=== PATIENT | female | born 1945 | race Caucasian/White ===

== ENCOUNTER 2017-05-23 09:53 | Emergency (ER) | payer MEDICARE, OTHER ==
[2017-05-23 10:52] LABS: BASOPHILS # (AUTO) 0.1 10^3/uL (0.0-0.1); BASOPHILS % (AUTO) 1.2 %; EOSINOPHILS # (AUTO) 0.3 10^3/uL (0.0-0.7); EOSINOPHILS % (AUTO) 3.6 %; HCT - HEMATOCRIT 39.5 % (37.0-47.0); HGB - HEMOGLOBIN 13.4 g/dL (12.0-16.0); LYMPHOCYTES # (AUTO) 1.4 10^3/uL (1.5-3.5); LYMPHOCYTES % (AUTO) 19.6 %; MEAN CORPUSCULAR HEMOGLOBIN 31.9 pg (27.0-31.0); MEAN CORPUSCULAR HGB CONC 33.8 g/dL (32.0-36.0); MEAN CORPUSCULAR VOLUME 94.3 fL (81.0-99.0); MEAN PLATELET VOLUME 7.6 fL (7.9-10.8); MONOCYTES # (AUTO) 0.8 10^3/uL (0.0-1.0); MONOCYTES % (AUTO) 10.4 %; NEUTROPHILS # (AUTO) 4.8 10^3/uL (1.5-6.6); NEUTROPHILS % (AUTO) 65.2 %; NUCLEATED RED BLOOD CELLS AUTO 0.1 /100WBC; RED BLOOD COUNT 4.19 10^6/uL (4.20-5.40); RED CELL DISTRIBUTION WIDTH 13.1 % (12.0-15.0); UNCORRECTED WHITE BLOOD COUNT 7.3 x10^3/uL; WHITE BLOOD COUNT 7.3 x10^3/uL (4.8-10.8)
[2017-05-23 10:59] LABS: CREATININE 0.9 mg/dL (0.4-1.0); POTASSIUM 4.2 mmol/L (3.5-5.0)
--- NOTE | 2017-05-23 11:19 | CT Preliminary Report ---
Exam: CT Head W/O Impression: 1. Chronic changes, as described, stable when compared previous study 05/31/2015. 2. No acute intracranial pathology is demonstrated. In particular, there is no intracranial hemorrhag e and no evidence of acute, large vessel territory cortical infarction. SITE ID: [id number]
[2017-05-23 11:47] LABS: BILIRUBIN,URINE NEGATIVE (NEGATIVE)
[2017-05-23 11:51] LABS: UA w/ MICROSCOPIC CHARGE YES
[2017-05-23] MEDS ORDERED: TROPICAMIDE 1% OPHTH 15 ML DROPS LEFTEYE ONE (12:07)
[2017-05-23] MEDS ORDERED: PHENYLEPHRINE 2.5% OPHTH 2 ML DROPS LEFTEYE ONE (12:08)
[2017-05-23 12:11] LABS: UR CULTURE IF IND NOT INDICATED; WBC,URINE 0-3 /HPF (0-5)
--- NOTE | 2017-05-23 12:13 | ED Physician Documentation ---
History of Present Illness - Stated complaint Stated Complaint: VISION CHANGING - Chief complaint Chief Complaint: General - History obtained from History obtained from: Patient - History of Present Illness Timing: Prior to arrival - Additonal information Additional information: Is a healthy female with a history of some undiagnosed memory issues and anxiety who presents with a complaint of bright flashes in the left eye onset this morning. This happened while at rest. She does not have any other eye complaints. There is no eye pain or loss of visual acuity in the size she has not had any nausea vomiting she has not had a headache. She has presbyopia otherwise no eye problems. 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 She has no known eye problems other than normal presbyopia with age. There is no headache. There is no temporal complaints of pain. She has no other neurologic symptoms whatsoever. There is no recent or remote trauma. Review of systems: For pertinent positive and negatives in the review of systems please see the history of present illness, otherwise all other systems have been reviewed and are negative. Dragon disclaimer: Parts of this medical record were created using voice recognition technology. Because of the inherent limitations of this system, occasional same sounding word substitutions do occur and persist despite proofreading. Please read the document for context. 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 - Present Medications Home Medications: Ambulatory Orders Medication Instructions Recorded Confirmed Donepezil HCl 10 mg PO DAILY 05/30/16 05/23/17 Levothyroxine [Synthroid] 100 mcg PO QDAC 05/30/16 05/23/17 buPROPion [Wellbutrin Sr] 150 mg PO BID 05/23/17 05/23/17 - Allergies Allergies/Adverse Reactions: Allergies Allergy/AdvReac Type Severity Reaction Status Date / Time No Known Drug Allergies Allergy Verified 05/30/16 20:09 - Social History Does the pt smoke?: No Smoking Status: Never smoker Does the pt drink ETOH?: No Does the pt have substance abuse?: No - Immunizations Immunizations are current?: Yes - POLST Patient has POLST: No PD ED PE NORMAL - Vitals Vital signs reviewed: Yes - General General: Alert and oriented X 3, No acute distress, Well developed/nourished - HEENT HEENT: Atraumatic, PERRL, EOMI, Pharynx benign, Dentition benign - Neck Neck: Supple, no meningeal sign, No bony TTP, No JVD, No bruit - Cardiac Cardiac: RRR, No murmur - Respiratory Respiratory: No respiratory distress, Clear bilaterally - Abdomen Abdomen: Normal bowel sounds, Soft, Non tender, Non distended - Derm Derm: Normal color, Warm and dry - Extremities Extremities: No deformity, No tenderness to palpate - Neuro Neuro: Alert and oriented X 3, 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, No motor deficit, No sensory deficit Results - Vitals Vitals: Vital Signs - 24 hr 05/23/17 05/23/17 09:59 12:59 Temperature 36.8 C Heart Rate 54 L 48 L Respiratory 16 12 Rate Blood Pressure 136/77 H 127/73 O2 Saturation 96 95 Oxygen O2 Source Room air - Labs Labs: Laboratory Tests 05/23/17 05/23/17 05/23/17 10:45 10:45 10:45 WBC 7.3 RBC 4.19 L Hgb 13.4 Hct 39.5 MCV 94.3 MCH 31.9 H MCHC 33.8 RDW 13.1 Plt Count 168 MPV 7.6 L Neut # 4.8 Lymph # 1.4 L [place] # 0.8 Eos # 0.3 Baso # 0.1 Absolute Nucleated RBC 0.01 Nucleated RBCs 0.1 ESR 12 Sodium 138 Potassium 4.2 Chloride 105 Carbon Dioxide 25 Anion Gap 8.0 BUN 10 Creatinine 0.9 Estimated GFR (MDRD) 62 L Glucose 94 Calcium 9.0 Urine Color Urine Clarity Urine pH Ur Specific [place] Urine Protein Urine Glucose (UA) Urine Ketones Urine Occult Blood Urine Nitrite Urine Bilirubin Urine Urobilinogen Ur Leukocyte Esterase Urine RBC Urine WBC Ur Squamous Epith Cells Urine Bacteria Ur Microscopic Review Urine Culture Comments 05/23/17 11:39 WBC RBC Hgb Hct MCV MCH MCHC RDW Plt Count MPV Neut # Lymph # [place] # Eos # Baso # Absolute Nucleated RBC Nucleated RBCs ESR Sodium Potassium Chloride Carbon Dioxide Anion Gap BUN Creatinine Estimated GFR (MDRD) Glucose Calcium Urine Color YELLOW Urine Clarity CLEAR Urine pH 7.0 Ur Specific [place] <=1.005 Urine Protein NEGATIVE Urine Glucose (UA) NEGATIVE Urine Ketones NEGATIVE Urine Occult Blood SMALL H Urine Nitrite NEGATIVE Urine Bilirubin NEGATIVE Urine Urobilinogen 0.2 (NORMAL) Ur Leukocyte Esterase NEGATIVE Urine RBC 0-5 Urine WBC 0-3 Ur Squamous Epith Cells FEW Squamous Urine Bacteria Rare Ur Microscopic Review INDICATED Urine Culture Comments NOT INDICATED PD MEDICAL DECISION MAKING - ED course ED course: Patient is a pleasant woman who comes in with floaters and flashes of light in left eye. The symptoms are temporal. Currently she has normal visual acuity and a normal eye examination. Her left eye was dilated with tropicamide and phenylephrine and was dilated her eye was examined thoroughly. I see no evidence of any obvious large retinal detachment. Retinal vessels are normal. The optic disc is sharp there is no discoloration or bleeding or any obvious abnormality to be. A extraocular workup including blood work and a CT scan were done and are unremarkable. I do think this is primarily an ocular problem and possibly indicative of mild early partial peripheral retinal detachment. I did discuss the physician at [facility] he is going to see her right now in the office and she is already dilated. Disposition: Discharged home immediate follow-up with ophthalmology now Clinical impression: 1. Possible retinal detachment left eye Departure - Departure Disposition: 01 Home, Self Care Clinical Impression: Retinal and vitreous disorder Condition: Good Instructions: Flashes and Floaters Follow-Up: Neville Reyna MD [Provider Admit Priv/Credential] -
[2017-05-23] MEDS ORDERED: TROPICAMIDE 1% OPHTH 2 ML DROPS ONE ×3 (12:17→12:53)
--- NOTE | 2017-05-23 13:21 | CT Report ---
CT HEAD WITHOUT CONTRAST INDICATION: 71-year-old female with visual changes. TECHNIQUE: Sequential 5 mm axial images were obtained through the brain. In accordance with CT protocol optimization, one or more of the following dose reduction techniques w ere utilized for this exam: automated exposure control, adjustment of mA and/or KV based on patient s ize, or use of iterative reconstructive technique. COMPARISON: 05/31/2015. FINDINGS: There is generalized cerebral and cerebellar volume loss with associated, mild ex vacuo ventriculomeg oscar, stable. A mild amount of white matter disease is identified in the supratentorial brain, manifested as ill-de fined areas of low-attenuation in the periventricular and deep white matter bilaterally. A frontopari etal distribution predominates. Attenuation of cortex and white matter is otherwise unremarkable. No intracranial hemorrhage or abnormal extra-axial fluid collection. The skull and skull base are intact. The mastoid air cells and middle ear cavities are clear. The yudelka ged paranasal sinuses appear clear. IMPRESSION: 1. Chronic changes, as described, stable when compared to previous study 05/31/2015. 2. No acute intracranial pathology is demonstrated. In particular, there is no intracranial hemorrhag e and no evidence of acute, large vessel territory cortical infarction. Referring Provider Line: [phone] SITE ID: [id number]
[2017-05-23 14:52] VITALS: BP 141/77
== END 2017-05-23 14:40 | disposition home or self-care (01) ==
LOC: ED 09:53
DX: H43.9 Unspecified disorder of vitreous body (principal); H35.9 Unspecified retinal disorder; E03.9 Hypothyroidism, unspecified; F41.9 Anxiety disorder, unspecified
CPT/HCPCS: 36415; 70450; 80048; 81001; 85025; 85651; 93005; 99283; 99284; A9270; 81003; 87086

== ENCOUNTER 2017-06-27 10:18 | Outpatient (CLI) | payer MEDICARE, OTHER ==
--- NOTE | 2017-06-27 12:55 | XRAY Report ---
THREE-VIEW RIGHT ANKLE: 06/27/2017 CLINICAL INDICATION: Pain. FINDINGS: AP, lateral, oblique views of the right ankle demonstrate no evidence of fracture or dislo cation. No effusion is present. Small plantar calcaneal spur is present. No foreign body is seen i n the soft tissues. IMPRESSION: NO EVIDENCE OF FRACTURE. JOB #: [id number] EXT JOB #:[id number]
== END 2017-06-27 10:19 | disposition home or self-care (01) ==
LOC: DI 10:18
PROVIDERS: ATTEND Nurse Practitioner Family
DX: M25.571 Pain in right ankle and joints of right foot (principal)

== ENCOUNTER 2017-07-12 12:20 | Emergency (ER) | payer MEDICARE, OTHER ==
[2017-07-12 12:29] VITALS: BP 157/71
--- NOTE | 2017-07-12 13:09 | ED Physician Documentation ---
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 HEENT: Tonsil/Adenoidectomy - Present Medications Home Medications: Ambulatory Orders Medication Instructions Recorded Confirmed Donepezil HCl 10 mg PO DAILY 05/30/16 07/12/17 Levothyroxine [Synthroid] 100 mcg PO QDAC 05/30/16 07/12/17 Aspirin [Aspirin EC] 81 mg PO DAILY 07/12/17 07/12/17 diltiaZEM [Cardizem] 30 mg PO DAILY 07/12/17 07/12/17 - Allergies Allergies/Adverse Reactions: Allergies Allergy/AdvReac Type Severity Reaction Status Date / Time No Known Drug Allergies Allergy Verified 05/30/16 20:09 - Social History Does the pt smoke?: No Smoking Status: Never smoker Does the pt drink ETOH?: No Does the pt have substance abuse?: No - Immunizations Immunizations are current?: Yes - POLST Patient has POLST: No Results - Vitals Vitals: Vital Signs - 24 hr 07/12/17 12:26 Temperature 36.5 C Heart Rate 64 Respiratory 18 Rate Blood Pressure 157/71 H O2 Saturation 96 Oxygen O2 Source Room air
--- NOTE | 2017-07-12 13:09 | XRAY Preliminary Report ---
Exam: XR Chest 2 View PA/LAT Impression: No evidence of an infiltrate. Atherosclerosis of the aorta. [facility] SITE ID: [id number]
--- NOTE | 2017-07-12 13:12 | XRAY Report ---
EXAM: CHEST RADIOGRAPHY EXAM DATE: 07/12/2017 12:51 PM. CLINICAL HISTORY: Chest Pain. COMPARISON: None. TECHNIQUE: 2 views. FINDINGS: The heart is not enlarged. There is atherosclerosis of the aorta. There is no focal infiltrate, pleur al effusion or pneumothorax seen. Degenerative changes of the thoracic spine are noted. Impression: No evidence of an infiltrate. Atherosclerosis of the aorta. [facility] Referring Provider Line: [phone] SITE ID: [id number]
--- NOTE | 2017-07-12 13:14 | ED Physician Documentation ---
History of Present Illness - Stated complaint Stated Complaint: R CHEST PX - Chief complaint Chief Complaint: General - Additonal information Additional information: hx from pt 71 female to ER with right breast pain wrapping from lateral to sternal since last night no rash no fever no cough no soa not chest pain per pt - it is breast pain no abd pain hx shingles but this feels worse Review of Systems Constitutional: denies: Fever Cardiac: reports: Other (R breast). 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 HEENT: Tonsil/Adenoidectomy - Present Medications Home Medications: Ambulatory Orders Medication Instructions Recorded Confirmed Donepezil HCl 10 mg PO DAILY 05/30/16 07/12/17 Levothyroxine [Synthroid] 100 mcg PO QDAC 05/30/16 07/12/17 Aspirin [Aspirin EC] 81 mg PO DAILY 07/12/17 07/12/17 Lidocaine Patch 5% [Lidoderm Patch] 1 each TOP DAILY PRN #10 patch 07/12/17 diltiaZEM [Cardizem] 30 mg PO DAILY 07/12/17 07/12/17 - Allergies Allergies/Adverse Reactions: Allergies Allergy/AdvReac Type Severity Reaction Status Date / Time No Known Drug Allergies Allergy Verified 05/30/16 20:09 - Social History Does the pt smoke?: No Smoking Status: Never smoker Does the pt drink ETOH?: No Does the pt have substance abuse?: No - Immunizations Immunizations are current?: Yes - POLST Patient has POLST: No PD ED PE NORMAL - Vitals Vital signs reviewed: Yes - General General: Alert and oriented X 3 - HEENT HEENT: PERRL - Neck Neck: Supple, no meningeal sign - Cardiac Cardiac: RRR - Respiratory Respiratory: No respiratory distress, Clear bilaterally - Abdomen Abdomen: Soft, Non tender - Derm Derm: Normal color, No rash - Neuro Neuro: Alert and oriented X 3 - Psych Psych: Normal mood - Free text exam Free text exam: R breast TTP lateral but no spcefic mass erythema or wramth, no nipple dc, no sig axillary adenopathy Results - Vitals Vitals: Vital Signs - 24 hr 07/12/17 12:26 Temperature 36.5 C Heart Rate 64 Respiratory 18 Rate Blood Pressure 157/71 H O2 Saturation 96 Oxygen O2 Source Room air - EKG (time done) 1252 Rate: Rate (enter#) (51) Rhythm: NSR [place]: Normal Intervals: Normal [place] Ischemia: T wave inversion (inferior, flat laterally) - Rads (name of study) CXR Radiology: See rad report (no infiltrate) breast Radiology: See rad report (normal) Departure - Departure Disposition: 01 Home, Self Care Clinical Impression: Breast pain in female Condition: Good Follow-Up: Lala Rosas PA [Primary Care Provider] - (to get your blood pressure rechecked - it was high today ) Prescriptions: Lidocaine Patch 5% [Lidoderm Patch] 1 each TOP DAILY PRN #10 patch PRN Reason: Pain Comments: The xray of your chest did not show a lung problem and the ultrasound of your breast did not show a mass or abscess It is very possible that this pain is due to shingles and that over the next few days you notice a rash on your right side - if that happens please see your PMD or come to the ER to get a prescription for shingles viral medication Also please return if you are worse or develop new symptoms In the meantime I recommend tylenol and /or lidocaine patches for the pain
[2017-07-12] MEDS ORDERED: ACETAMINOPHEN 325 MG TABLET PO STA (13:33)
[2017-07-12] MEDS ORDERED: ACETAMINOPHEN 325 MG TABLET PO ONE (14:30)
--- NOTE | 2017-07-12 16:34 | Ultrasound Report ---
RIGHT BREAST ULTRASOUND: 07/12/2017 CLINICAL INDICATION: Pain 9 o'clock region. TECHNIQUE: Real-time scanning was performed with medical center representative static images obtained. FINDINGS: Ultrasound of the outer right breast was performed. Unremarkable parenchymal lobules are seen. No discrete solid or cystic mass is identified. No sonogra phically suspicious findings are seen. IMPRESSION: NEGATIVE EXAMINATION. RECOMMENDATION: CONTINUED CLINICAL MANAGEMENT OF BREAST PAIN. BIRADS CATEGORY 1-NEGATIVE. JOB #: [id number] EXT JOB #:[id number]
== END 2017-07-12 14:48 | disposition home or self-care (01) ==
LOC: ED 12:20
DX: N64.4 Mastodynia (principal); R94.31 Abnormal electrocardiogram [ECG] [EKG]; E03.9 Hypothyroidism, unspecified; R03.0 Elevated blood-pressure reading, without diagnosis of hypertension
CPT/HCPCS: 71020; 76642; 93005; 99283; 99284; A9270

== ENCOUNTER 2017-09-14 20:31 | Emergency (ER) | payer MEDICARE, OTHER ==
[2017-09-14] MEDS ORDERED: diphenhydrAMINE 25 MG CAPSULE PO STA (20:44)
--- NOTE | 2017-09-14 20:47 | ED Physician Documentation ---
PD HPI SKIN - Stated complaint Stated Complaint: RASH ON BODY/ALLERGIC REACTION - Chief complaint Chief Complaint: Wound - History obtained from History obtained from: Patient, Family - History of Present Illness Timing - onset: Other (71-year-old woman whose been having a lot of trouble with TIAs of blood clots lately. She has had a lot of nausea and saw today started on Zofran. About 45 minutes after the second dose developed a rash which is already almost gone. There is no associated shortness of breath or throat swelling.) Review of Systems Constitutional: denies: Fever, Chills Cardiac: denies: Chest pain / pressure, Palpitations Respiratory: denies: Dyspnea, Cough GI: denies: Abdominal Pain PD PAST MEDICAL HISTORY - Past Medical History Past Medical History: Yes Neuro: TIA, Other Endocrine/Autoimmune: HyPOthyroidism Psych: Anxiety Other Past Medical History: Hx of memory loss. 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 HEENT: Tonsil/Adenoidectomy - Present Medications Home Medications: Ambulatory Orders Medication Instructions Recorded Confirmed Levothyroxine [Synthroid] 100 mcg PO QDAC 05/30/16 07/12/17 Promethazine [Phenergan] 12.5 mg PO Q6H PRN #20 tablet 09/14/17 - Allergies Allergies/Adverse Reactions: Allergies Allergy/AdvReac Type Severity Reaction Status Date / Time No Known Drug Allergies Allergy Verified 09/14/17 20:39 - Social History Does the pt smoke?: No Smoking Status: Never smoker Does the pt drink ETOH?: No Does the pt have substance abuse?: No - Immunizations Immunizations are current?: Yes - POLST Patient has POLST: No PD ED PE NORMAL - Vitals Vital signs reviewed: Yes - General General: No acute distress, Well developed/nourished, Other (Mild memory difficulties, cooperative) - HEENT HEENT: PERRL, EOMI, Pharynx benign (Status post remote tonsillectomy) - Neck Neck: Supple, no meningeal sign, No bony TTP - Cardiac Cardiac: RRR, No murmur - Respiratory Respiratory: No respiratory distress, Clear bilaterally - Derm Derm: Other (A couple of hives on the trunk, none on the face or abdomen. This is much better already per the .) Results - Vitals Vitals: Vital Signs - 24 hr 09/14/17 20:35 Temperature 36.6 C Heart Rate 62 Respiratory 16 Rate Blood Pressure 137/68 H O2 Saturation 96 Oxygen O2 Source Room air PD MEDICAL DECISION MAKING - ED course ED course: 71-year-old woman with hives that are resolving status post Zofran. No evidence of anaphylaxis. was a little worried about giving her Benadryl given her memory difficulties suicidal on a half a dose and low-dose Phenergan for her recurrent nausea since she will not be able to take the Zofran anymore. Departure - Departure Disposition: 01 Home, Self Care Clinical Impression: Nausea Medication reaction Qualifiers: Encounter type: initial encounter Qualified Code(s): T88.7XXA - Unspecified adverse effect of drug or medicament, initial encounter Condition: Good Record reviewed to determine appropriate education?: Yes Instructions: ED Drug React Allergic Prescriptions: Promethazine [Phenergan] 12.5 mg PO Q6H PRN #20 tablet PRN Reason: Nausea / Vomiting Comments: Call your doctor to arrange a follow-up appointment, make the next available appointment. In the interim, return anytime if worse or if new symptoms develop. Your blood pressure was elevated today on check into the emergency department. This does not mean that you have hypertension, it is a common phenomenon to come to the emergency department and have elevated blood pressure. I recommend that you see your primary care physician within the week to have it rechecked when you are feeling better.
[2017-09-14] MEDS ORDERED: diphenhydrAMINE ELIXIR 25 MG/10 ML UDC PO STA (20:59)
[2017-09-14] MEDS ORDERED: diphenhydrAMINE ELIXIR 25 MG/10 ML UDC PO ONE (21:01)
[2017-09-14 21:07] VITALS: BP 134/78
== END 2017-09-14 21:04 | disposition home or self-care (01) ==
LOC: ED 20:31
DX: L50.9 Urticaria, unspecified (principal); T45.0X5A Adverse effect of antiallergic and antiemetic drugs, initial encounter; R11.0 Nausea; R03.0 Elevated blood-pressure reading, without diagnosis of hypertension; Z86.73 Personal history of transient ischemic attack (TIA), and cerebral infarction without residual deficits; E03.9 Hypothyroidism, unspecified
CPT/HCPCS: 99283; A9270

== ENCOUNTER 2017-10-08 11:27 | Outpatient (CLI) | payer MEDICARE, OTHER | END 2017-10-08 11:28 | disposition home or self-care (01) | LOC: LAB.F 11:27 | PROVIDERS: ATTEND Family Medicine | DX: I82.403 Acute embolism and thrombosis of unspecified deep veins of lower extremity, bilateral (principal) | CPT/HCPCS: 85610 ==

== ENCOUNTER 2017-10-15 13:08 | Outpatient (CLI) | payer MEDICARE, OTHER | END 2017-10-15 13:09 | disposition home or self-care (01) | LOC: LAB.F 13:08 | PROVIDERS: ATTEND Family Medicine | DX: I82.403 Acute embolism and thrombosis of unspecified deep veins of lower extremity, bilateral (principal) | CPT/HCPCS: 85610 ==

== ENCOUNTER 2017-10-22 14:46 | Outpatient (CLI) | payer MEDICARE, OTHER | END 2017-10-22 14:47 | disposition home or self-care (01) | LOC: LAB.F 14:46 | PROVIDERS: ATTEND Family Medicine | DX: I82.403 Acute embolism and thrombosis of unspecified deep veins of lower extremity, bilateral (principal) | CPT/HCPCS: 85610 ==

== ENCOUNTER 2017-11-11 11:14 | Emergency (ER) | payer MEDICARE, OTHER ==
[2017-11-11] MEDS ORDERED: ALBUTEROL NEB 2.5 MG/3 ML INH STA (13:05)
--- NOTE | 2017-11-11 13:08 | ED Physician Documentation ---
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 She has had a cough for about 10 days that has been worse for about 5 days, nonproductive and not associated with shortness of breath or fevers. 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 denies: Fever, Chills Nose: denies: Rhinorrhea / runny nose, Congestion Cardiac: denies: Chest pain / pressure, Palpitations Respiratory: reports: Cough. 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 HEENT: Tonsil/Adenoidectomy - Present Medications Home Medications: Ambulatory Orders Medication Instructions Recorded Confirmed Levothyroxine [Synthroid] 100 mcg PO QDAC 05/30/16 11/11/17 Metoprolol Succinate 50 mg PO DAILY 09/14/17 11/11/17 Albuterol 2 puffs INH Q4H 11/06/17 11/11/17 Benzonatate [Tessalon Perle] 2 mg PO Q4H 11/06/17 11/11/17 Cyanocobalamin (Vitamin B-12) 1 cap PO DAILY 11/06/17 11/11/17 [Vitamin B-12] Enoxaparin [Lovenox] 80 mg INJ BID 11/06/17 11/11/17 Furosemide [Lasix] 1 tab PO DAILY 11/06/17 11/11/17 Multivitamin [Multivitamins] 1 cap PO DAILY 11/06/17 11/11/17 Spironolactone 1 tab PO DAILY 11/06/17 11/11/17 traZODone [Desyrel] 1 tab PO DAILY 11/06/17 11/11/17 Dexamethasone 8 mg PO DAILYWM #24 tablet 11/07/17 11/11/17 Metoclopramide HCl [Metoclopramide 10 mg PO Q6H PRN #30 tab.rapdis 11/07/17 HCl Odt] ALPRAZolam [Alprazolam] 0.5 mg PO DAILY 11/11/17 11/11/17 Albuterol Sulfate [Proventil Hfa 1 - 2 puffs IH Q4H PRN #1 11/11/17 Inhaler] hfa.aer.ad Azithromycin [Zithromax] 250 mg PO DAILY #4 tablet 11/11/17 - Allergies Allergies/Adverse Reactions: Allergies Allergy/AdvReac Type Severity Reaction Status Date / Time ondansetron Allergy Unknown Verified 11/11/17 11:21 [From Zofran (as hydrochloride)] rivaroxaban [From Xarelto] Allergy Unknown Verified 11/11/17 11:21 - Social History Does the pt smoke?: No Smoking Status: Never smoker Does the pt drink ETOH?: No Does the pt have substance abuse?: No - Immunizations Immunizations are current?: Yes - POLST Patient has POLST: No PD ED PE NORMAL - Vitals Vital signs reviewed: Yes - General General: Alert and oriented X 3, No acute distress - HEENT HEENT: PERRL, EOMI - Cardiac Cardiac: RRR, No murmur - Respiratory Respiratory: No respiratory distress, Other (mild exp wheezes, non focal, non labored) - Abdomen Abdomen: Non tender - Extremities Extremities: Other (mild pitting pedal edema, symmetric) - Neuro Neuro: Alert and oriented X 3, Normal speech Results - Vitals Vitals: Vital Signs - 24 hr 11/11/17 11/11/17 11:16 12:49 Temperature 36.7 C Heart Rate 70 73 Respiratory 16 21 Rate Blood Pressure 130/62 125/58 L O2 Saturation 94 96 Oxygen O2 Source Room air - Labs Labs: Laboratory Tests 11/11/17 11/11/17 13:15 13:15 WBC 7.9 RBC 3.55 L Hgb 10.1 L Hct 29.1 L MCV 82.1 MCH 28.4 MCHC 34.6 RDW 15.6 H Plt Count 348 MPV 7.4 L Neut # 7.5 H Lymph # 0.1 L [place] # 0.1 Eos # 0.1 Baso # 0.0 Absolute Nucleated RBC 0.00 Nucleated RBC % 0.1 Sodium 129 L Potassium 3.8 Chloride 94 L Carbon Dioxide 27 Anion Gap 8.0 BUN 21 H Creatinine 0.8 Estimated GFR (MDRD) 71 L Glucose 109 H Calcium 8.1 L Total Bilirubin 0.8 AST 28 ALT 14 Alkaline Phosphatase 39 L Total Protein 6.2 L Albumin 2.9 L Globulin 3.3 Albumin/Globulin Ratio 0.9 L Lipase 37 - Rads (name of study) 2v chest Radiology: EMP read contemporaneously (tiny R basilar infiltrate) PD MEDICAL DECISION MAKING - ED course ED course: 71-year-old woman on chemotherapy presents with cough and is found to have a right basilar pneumonia however she looks well and her vital signs are unremarkable with reassuring labs and I think she can be safely discharged. She was administered Zithromax here and felt better after breathing treatment. The patient and family were counseled as to the diagnosis and need for follow- up. I counseled the patient with regard to signs and symptoms that would necessitate an urgent reevaluation in the emergency department. They understand they are welcome to return at any time if worse or if not improving as expected. This document was made in part using voice recognition software. While efforts are made to proofread this documents, sound alike and grammatical errors may occur. Departure - Departure Disposition: 01 Home, Self Care Clinical Impression: Pneumonia Qualifiers: Pneumonia type: due to unspecified organism Laterality: right Lung location: lower lobe of lung Qualified Code(s): J18.1 - Lobar pneumonia, unspecified organism Condition: Good Record reviewed to determine appropriate education?: Yes Instructions: Pneumonia Dc Prescriptions: Albuterol Sulfate [Proventil Hfa Inhaler] 1 - 2 puffs IH Q4H PRN #1 hfa.aer.ad PRN Reason: Cough Azithromycin [Zithromax] 250 mg PO DAILY #4 tablet Comments: Call your doctor to arrange a follow-up appointment, make the next available appointment. In the interim, return anytime if worse or if new symptoms develop.
[2017-11-11 13:21] LABS: BASOPHILS % (AUTO) 0.4 %; EOSINOPHILS # (AUTO) 0.1 10^3/uL (0.0-0.7); EOSINOPHILS % (AUTO) 0.8 %; HGB - HEMOGLOBIN 10.1 g/dL (12.0-16.0); LYMPHOCYTES # (AUTO) 0.1 10^3/uL (1.5-3.5); LYMPHOCYTES % (AUTO) 1.6 %; MEAN CORPUSCULAR HEMOGLOBIN 28.4 pg (27.0-31.0); MEAN CORPUSCULAR HGB CONC 34.6 g/dL (32.0-36.0); MEAN CORPUSCULAR VOLUME 82.1 fL (81.0-99.0); MEAN PLATELET VOLUME 7.4 fL (7.9-10.8); MONOCYTES # (AUTO) 0.1 10^3/uL (0.0-1.0); MONOCYTES % (AUTO) 1.7 %; NEUTROPHILS # (AUTO) 7.5 10^3/uL (1.5-6.6); NEUTROPHILS % (AUTO) 95.5 %; PLT - PLATELET COUNT 348 10^3/uL (130-450); RED BLOOD COUNT 3.55 10^6/uL (4.20-5.40); RED CELL DISTRIBUTION WIDTH 15.6 % (12.0-15.0); WHITE BLOOD COUNT 7.9 x10^3/uL (4.8-10.8)
[2017-11-11 13:35] LABS: ALBUMIN 2.9 g/dL (3.2-5.5); ALBUMIN/GLOBULIN RATIO 0.9 (1.0-2.2); BILIRUBIN,TOTAL 0.8 mg/dL (0.2-1.0); CALCIUM 8.1 mg/dL (8.5-10.3); CREATININE 0.8 mg/dL (0.4-1.0); TOTAL PROTEIN 6.2 g/dL (6.7-8.2)
--- NOTE | 2017-11-11 13:49 | XRAY Preliminary Report ---
Exam: XR CHEST 2 VIEW X-RAY IMPRESSION: Tiny right basilar infiltrate and effusion. [facility] SITE ID: [id number]
--- NOTE | 2017-11-11 14:00 | XRAY Report ---
EXAM: CHEST RADIOGRAPHY EXAM DATE: 11/11/2017 01:33 PM. CLINICAL HISTORY: Patient is currently undergoing chemotherapy. Wheezing and cough for 11 days. COMPARISON: 07/12/2017. TECHNIQUE: 2 views. FINDINGS: Lungs/Pleura: New tiny right pleural effusion. New subsegmental faint interstitial infiltrates right middle lobe. Left lung is clear. Normal lung volumes. No pneumothorax. Mediastinum: Heart and mediastinal contours are unremarkable. Other: None. IMPRESSION: Tiny right basilar infiltrate and effusion. [facility] Referring Provider Line: [phone] SITE ID: [id number]
[2017-11-11] MEDS ORDERED: AZITHROMYCIN 250 MG TABLET PO STA (14:13)
[2017-11-11 14:50] VITALS: BP 119/61
== END 2017-11-11 14:55 | disposition home or self-care (01) ==
LOC: ED 11:14
DX: J18.9 Pneumonia, unspecified organism (principal); E03.9 Hypothyroidism, unspecified; Z85.89 Personal history of malignant neoplasm of other organs and systems; Z79.899 Other long term (current) drug therapy
CPT/HCPCS: 36415; 71046; 80053; 83690; 85025; 94640; 94664; 99283; 99284; A9270; J7613

== ENCOUNTER 2017-11-13 08:00 | Outpatient (CLI) | payer MEDICARE, OTHER ==
[2017-11-13 12:13] LABS: BILIRUBIN,URINE NEGATIVE (NEGATIVE); GLUCOSE, URINE (UA) NEGATIVE (NEGATIVE); KETONES,URINE (UA) NEGATIVE (NEGATIVE); LEUKOCYTE ESTERASE, URINE NEGATIVE (NEGATIVE); NITRITE,URINE NEGATIVE (NEGATIVE); OCCULT BLOOD,URINE NEGATIVE (NEGATIVE); PROTEIN,URINE NEGATIVE (NEGATIVE); UROBILINOGEN,URINE 0.2 (NORMAL) E.U./dL (NORMAL)
[2017-11-13 12:15] LABS: CLARITY,URINE CLEAR (CLEAR)
== END 2017-11-13 08:01 | disposition home or self-care (01) ==
LOC: LAB.R 08:00
PROVIDERS: ATTEND Physician Assistant
DX: N39.0 Urinary tract infection, site not specified (principal)
CPT/HCPCS: 81001; 81003; 87086

== ENCOUNTER 2017-11-29 14:57 | Outpatient (CLI) | payer MEDICARE, OTHER ==
--- NOTE | 2017-11-29 18:38 | Ultrasound Preliminary Report ---
Exam: US DUPLEX EXT VEINS BILATERAL IMPRESSION: No evidence for deep vein thrombosis. [facility] SITE ID: [id number]
--- NOTE | 2017-11-29 18:38 | Ultrasound Report ---
EXAM: BILATERAL UPPER EXTREMITY VENOUS ULTRASOUND EXAM DATE: 11/29/2017 05:18 PM. CLINICAL HISTORY: Bilateral upper extremity venous Doppler for port placement. History of multiple DV Ts. COMPARISON: None. TECHNIQUE: Real-time sonographic vascular imaging was performed by the millinery worker through the upper extremities utilizing both color-flow and Doppler spectral analysis. Multiple registration representative static i mages were saved for review. FINDINGS: Right: Internal Jugular Vein (IJV): Normal. Subclavian Vein (SCV): Normal. Axillary Vein: Normal. Cephalic Vein (superficial vein): Normal. Basilic Vein (superficial vein): Normal. Brachial Vein: Normal. Left: Internal Jugular Vein (IJV): Normal. Subclavian Vein (SCV): Normal. Axillary Vein: Normal. Cephalic Vein (superficial vein): Normal. Basilic Vein (superficial vein): Normal. Brachial Vein: Normal. Other: None. IMPRESSION: No evidence for deep vein thrombosis. [facility] Referring Provider Line: [phone] SITE ID: [id number]
== END 2017-11-29 14:58 | disposition home or self-care (01) ==
LOC: DI 14:57
PROVIDERS: ATTEND Surgery
DX: I82.90 Acute embolism and thrombosis of unspecified vein (principal)
CPT/HCPCS: 93970

== ENCOUNTER 2017-12-02 08:51 | Day surgery (SDC) | payer MEDICARE, OTHER ==
[2017-12-02] MEDS ORDERED: LACTATED RINGERS 1,000 ML IV ONE (09:05)
[2017-12-02] MEDS ORDERED: ceFAZolin 2 GM/50 ML 2 GM/50 ML BAG IV ONE (09:10)
[2017-12-02] MEDS ORDERED: SCOPOLAMINE PATCH TOP ONE (09:23)
[2017-12-02] MEDS ORDERED: BUPIVACAINE 0.25% PF 30 ML VIAL SUBQ ONE ×2 (10:27)
[2017-12-02] MEDS ORDERED: LIDOCAINE MPF 1%-EPI 1:200000 30 ML VIAL SUBQ ONE ×2 (10:28)
[2017-12-02] MEDS ORDERED: fentaNYL 100 MCG/2 ML VIAL IVP ONE (10:30)
[2017-12-02] MEDS ORDERED: PROPOFOL 200 MG/20 ML VIAL IVP ONE (10:30)
--- NOTE | 2017-12-02 11:25 | OPERATIVE REPORT ---
Operative Report - General Procedure Date: 12/02/17 Planned Procedure: port a cath Pre-Op Diagnosis: metastatic cancer Procedure Performed: left internal jugular accessed port placement Post Op Diagnosis: same - Procedure Note Primary Surgeon: tiburcio Anesthesia Technique: MAC - Other Other Information/Narrative: After obtaining informed consent with the patient she was brought into the operating room and positioned on the operating table in the supine position with her arms tucked and a shoulder roll placed taking noted pressure points. She was administered sedation and perioperative antibiotics. She was prepped and draped in the usual sterile fashion and a timeout was taken according to protocol. Bony landmarks were identified including the sternal notch and the angle of the clavicle. The patient was positioned in Trendelenburg position and the finder needle was inserted below the clavicle attempting to access the subclavian vein on the left. I was unable to do so after multiple passes of the needle. I then turned my attention to the patient's left internal jugular. Under ultrasound guidance the left internal jugular vein was accessed without difficulty. The guidewire was inserted and under fluoroscopy the guidewire was noted to be descending down towards the diaphragm and crossing the midline. A 2 cm incision was then created on the patient's left chest wall to create the Port-A-Cath pocket. Subcutaneous tissue was divided with electrocautery and a pocket created. Additional lidocaine was inserted at the proposed tunneling site. The tunneling device was then utilized to tunnel the catheter from the pocket to the needle insertion site after extending that incision with an 11 blade. Of note the catheter was flushed with heparinized saline. The dilator and peel-away sheath were then inserted over the guidewire and a Seldinger fashion and under direct fluoroscopy this was inserted. The sheath was noted to be advancing easily along the guidewire. The guidewire and dilating catheter were removed and the port catheter was inserted through the peel-away sheath. The peel-away sheath was then removed. Fluoroscopy again was performed and the tip of the catheter was noted to be flipped up towards the patient's right subclavian. The catheter was then pulled back until it was lying at the left subclavian innominate junction. Due to the fact that the catheter had already been tunneled I was unable to advance the catheter further at this time. The catheter was then cut to the appropriate length and connected to the port. The port was accessed with a Curtis needle and good blood flow was observed along with easy infiltration of heparinized saline. The port was then tacked to the anterior chest wall with 2 individual 2-0 Prolene sutures. The subcutaneous tissue was closed with 2-0 Vicryl and the skin incisions were closed with 4-0 Monocryl. Dermabond was applied. The port was again accessed through the skin with a Curtis needle and demonstrated good blood flow with good flow of heparinized saline. The patient was subsequently taken to the recovery room in stable condition and a chest x-ray ordered. Estimated blood loss 5 cc Complications: none
--- NOTE | 2017-12-02 11:59 | XRAY Report ---
FRONTAL CHEST: 12/02/2017 CLINICAL INDICATION: Line placement. FINDINGS: Frontal view of the chest demonstrates a left jugular port terminating in the region of the confluence between the left internal jugular vein and subclavian vein. The cardiac silhouette is not enlarged. The lungs are clear. No effusion or pneumothorax is seen. IMPRESSION: LEFT JUGULAR PORT TERMINATING IN THE REGION OF THE CONFLUENCE OF THE LEFT INTERNAL JUGULAR VEIN AND SUBCLAVIAN VEIN. TD: 12/02/2017 11:58
[2017-12-02 12:16] VITALS: BP 116/69
--- NOTE | 2017-12-02 13:03 | XRAY Report ---
INTRAOPERATIVE IMAGING OF PORT PLACEMENT: 12/02/2017 CLINICAL INDICATION: Port placement. FINDINGS: Thirty-five seconds of fluoroscopy time was provided to Dr. Burks. Two spot images were obtained, demonstrating a left jugular catheter terminating at the level of the confluence of the left jugular vein and left subclavian vein. IMPRESSION: INTRAOPERATIVE IMAGING OF PORT PLACEMENT. TD: 12/02/2017 13:01
== END 2017-12-02 08:52 | disposition home or self-care (01) ==
LOC: SDS 08:51
PROVIDERS: ATTEND Surgery
PROC: 05HN33Z Insertion of Infusion Device into Left Internal Jugular Vein, Percutaneous Approach (ICD-10-PCS; 2017-12-02)
PROC: 0JH60WZ Insertion of Totally Implantable Vascular Access Device into Chest Subcutaneous Tissue and Fascia, Open Approach (ICD-10-PCS; principal; 2017-12-02 10:15)
DX: C79.9 Secondary malignant neoplasm of unspecified site (principal); Z86.718 Personal history of other venous thrombosis and embolism; Z79.02 Long term (current) use of antithrombotics/antiplatelets; J45.909 Unspecified asthma, uncomplicated; Z86.73 Personal history of transient ischemic attack (TIA), and cerebral infarction without residual deficits
CPT/HCPCS: 36561; C1769; C1788; J0690; J3490; J7120; 71045

== ENCOUNTER 2017-12-05 12:43 | Outpatient (CLI) | payer MEDICARE, OTHER ==
--- NOTE | 2017-12-05 15:56 | CONSULTATION NOTE ---
Palliative Care Consultation - Referral Referring Provider: Dr Edwards Time of Visit: 12/05/2017. 12:45 - 14:00 Referral setting: [facility] Referral Reason: stomach cramps - Information Sources Records reviewed: Previous records reviewed History/Review of Systems obtained from: Patient, Family, Nursing Exam limitations: No limitations - History of Present Illness Brief History of Present Illness: Thank you, Dr. Edwards, for asking the palliative care consult service to be involved in the care of your patient. I am asked to provide support regarding symptom management and goals of care. This is a bruna 71-year-old female with endometrial cancer with metastases to the peritoneum, with elevated CA-125. 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 She is being treated with palliative systemic chemotherapy -- carboplatin and Taxol -- and the day I saw her was day 8 of cycle 2, which began on November 27. She has severe neutropenia, with ANC below 500; she will start on Neulasta after day 8. She also has iron deficiency anemia and is being started on iron dextran with the chemotherapy. She had a cough which improved after a Z-Sterling for possible pneumonia, plus albuterol inhaler and Tessalon Perles for symptom control. Her ascites and lower extremity edema is being managed with Spironolactone 25 mg daily, Lasix was discontinued due to low BP. She is currently on Lovenox 60 mg twice daily. It was while she was hospitalized in October for the DVT that the cancer was diagnosed. Ascites and lower extremity edema was resolved with Lasix 40mg and spironolactone 25mg, but Lasix was subsequently discontinued due to low BP. The patient had a port placed this week, which has not healed enough to be used today for the chemotherapy infusion. Today's visit took place at the [facility] with both the patient and her present. He is extremely supportive and attentive to her needs. She does suffer from fatigue and in particular recalls 3 weeks ago being extremely fatigued after 2 infusions. Her reports she is stronger in the mornings and fades as the afternoon progresses. She usually wants to go to bed about 4pm and sleeps until 11am. She wakes throughout the night with coughing or needing to use the toilet, but doesn't recall these waking episodes. Patient gets help from her for ADLs, particularly showering. She is too weak to walk and uses the wheelchair, and requires assistance with transfers. She does report feeling better after chemotherapy treatments. She reports no nausea or vomiting but does have abdominal cramping, bloating and gas which occurs a few days prior to the chemo treatment. She has been using Tums, with mild relief. She denies nausea and vomiting, although sometimes it does occur prior to a new chemo session. She does have mouth sores, but denies other pain. She has no appetite, nothing tastes good, and she reports early satiety. Medical/Surgical History - Past Medical History Cardiovascular: reports: Hypertension, Deep vein thrombosis (bilateral popliteal DVT October 2017), Valve disorder (aortic valve vegetation), Other Respiratory: reports: None Neuro: reports: Alzhiemer's (late onset), CVA (cardioembolic CVA, October 2017, while on Coumadin) Endocrine/Autoimmune: reports: HyPOthyroidism GI: reports: None SUPERVISOR METAL HANGING: reports: Other (endometrial cancer, metastasized to peritoneum) : reports: None HEENT: reports: None Psych: reports: Depression, Anxiety Musculoskeletal: reports: None, Other (October 2017 had a positive GIOVANNY, so has follow up with rheumatology) Derm: reports: None MRSA Hx?: No - Past Surgical History /SUPERVISOR METAL HANGING: reports: Oophrectomy HEENT: reports: Tonsil/Adenoidectomy - Substance History Dependence: Experiences withdrawal or developed tolerances: NONE (Never smoker. No alcohol.) Social History - Living Situation Living arrangement: At home Living Situation: With spouse/s.o. (5 adult children: 3 in the [facility] area, one in [place], [place], and one in [place]. They have a good social network of friends who are cooking meals for them and helping out. They have lived on [facility] more than 30 years. They have been 52 years. They are closely involved with [employer].) Family History - Family History Family History: Mother: (father aged 92, of old age.), Alzheimer's Disease (mother dies age 70, with Alzheimer's), Father: , Sister: Alive and Well, Brother: Alive and Well Medications/Allergies - Medications Home Medications: Ambulatory Orders Medication Instructions Recorded Confirmed Levothyroxine [Synthroid] 100 mcg PO QDAC 05/30/16 12/05/17 Cyanocobalamin (Vitamin B-12) 1 cap PO DAILY 11/06/17 12/05/17 [Vitamin B-12] Enoxaparin [Lovenox] 80 mg INJ BID 11/06/17 12/05/17 Multivitamin [Multivitamins] 1 cap PO DAILY 11/06/17 12/05/17 Spironolactone 1 tab PO DAILY 11/06/17 12/05/17 Dexamethasone 8 mg PO DAILYWM #24 tablet 11/07/17 12/05/17 Metoclopramide HCl [Metoclopramide 10 mg PO Q6H PRN #30 tab.rapdis 11/07/17 HCl Odt] Albuterol Sulfate [Proventil Hfa 1 - 2 puffs IH Q4H PRN #1 11/11/17 12/05/17 Inhaler] hfa.aer.ad Benzonatate [Tessalon Perle] 1 - 2 cap PO Q4H PRN #60 capsule 12/05/17 12/05/17 traZODone [Desyrel] 1 tab PO DAILY PRN #30 tablet 12/05/17 12/05/17 - Allergies Allergies/Adverse Reactions: Allergies Allergy/AdvReac Type Severity Reaction Status Date / Time ondansetron Allergy Unknown Verified 11/29/17 15:13 [From Zofran (as hydrochloride)] rivaroxaban [From Xarelto] Allergy Unknown Verified 11/29/17 15:13 Review of Systems - Constitutional Constitutional: reports: Fatigue, Weakness, Poor appetite, Weight loss (Weight loss of 49 lbs since May 2017. 20 lb loss occurred in October 2017, related to Current weight is 159 lbs, weighed 12/04/17 on patient's home scale.) - Ears, Nose & Throat Ears, Nose & Throat: reports: Hearing loss, Mouth lesions - Cardiovascular Cardiovascular: reports: Decr. exercise tolerance. denies: Chest pain, Edema - Respiratory Respiratory: reports: Cough (improved after the antibiotic, but coughing started up again in the day or so) - Gastrointestinal Gastrointestinal: reports: Abdominal pain (cramping a few days prior to chemo treatments; pain improves after treatment), Bloating, Poor appetite, Early satiety. denies: Nausea, Vomiting - Genitourinary Genitourinary: denies: Dysuria, Frequency, Incontinence - Musculoskeletal Musculoskeletal: reports: Muscle weakness (in lower extremities), Assistive devices (wheelchair for ambulation), Transfer issues (requires assistance), Other (denies pain) - Integumentary Integumentary: reports: Hair changes (hair loss). denies: Pruritis - Neurological Neurological: reports: General weakness, Memory problems. denies: Headache, Dizziness - Psychiatric Psychiatric: denies: Behavior disturbances - Endocrine Endocrine: reports: Hypothyroidism - Hematologic/Lymphatic Hematologic/Lymphatic: reports: Blood clots Physical Exam - Vital Signs Temperature: 97.9 F Pulse Rate: 82 O2 Saturation: 95 Blood Pressure: 140/82 (this is elevated from her baseline) - Physical Exam General Appearance: positive: No acute distress, Alert, Other (seen during her chemotherapy. She became more drowsy as the session progressed.) Eyes Bilateral: positive: No lid inflammation, Conjunctivae nml, No scleral icterus ENT: positive: No signs of dehydration, Oral lesions (secondary to chemotherapy drugs) Neck: positive: No JVD, Trachea midline Cardiovascular: positive: Regular rate & rhythm, No murmur, No gallop Respiratory: positive: Chest non-tender, No respiratory distress, Breath sounds nml Skin: positive: No symptoms Extremities: positive: Nml appearance, No pedal edema Neurologic/Psychiatric: positive: Oriented x3, Mood/affect nml Palliative Care - POLST Patient has POLST: Yes Pain: No pain Tiredness/Fatigue: Severe (7-10) (She has more strength in the mornings. Her stamina wains in the afernoon.) Drowsiness/Sedation: Moderate (4-6) Nausea: None Anorexia: Severe (7-10) Sleep: Sleeps well (Wakes up in the night with coughing, etc, but doesn't recall ) Constipation: No Performance Status: Patient gets help from her for ADLs, particularly showering. No pain, but fatigue. Lower extremities weak, uses a wheelchair, requires help with transfers. Fatigued, wants to go to bed around 4pm, sleeps until 11am. Minimal nausea prior to the next infusion session, with bloating, cramping and gas. Symptoms relieved after chemo sessions. Palliative Performance Scale: 50% - Palliative Care Discussion: Previously she had led a very active life, enjoying hiking, bicycling and a supportive social network centered around [facility], which is "a big deal for us." They aren't currently attending services since they are avoiding crowds due to the patient's increased risk of sandra infections. They have 5 adult children, including two adopted from [place]. 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 They have been 52 years, and have lived on [facility] for over 30 years. Since her diagnosis, their friends have rallied around them, bringing meals and offering help and support. The patient and her have a warm and affectionate relationship, and she has a delightful, dry sense of humor. They enjoy laughing together. The showed me photos of them cycling together last summer, so this sudden change and decline in her health and vitality has been a shocking change from the life they have known, and it has been difficult and stressful adjustment for them both. He is extremely supportive and attentive to her needs and to how she is feeling or reacting. The patient appears calm and peaceful, and drifts off during the visit because it is in the afternoon and that is when her energy declines. She has short term memory issues, and so isn't necessarily a reliable historian. She has no complaints of pain apart from stomach aching and cramping in the days leading up a chemo therapy. After the therapy sessions she feels good. Her 's big concern at this point is getting enough calories in her. He estimates she is eating about 1,000 calories daily. We discussed ideas and approaches to increasing her intake and enhancing the flavor and attractiveness of the food. Tips were smaller, more frequent meals and high calorie snacks; adding ice cream, whip cream, to Ensure, and also using powdered milk to soups, shakes, etc to increase calories and protein intake. I provided education and encouragement for both patient and spouse. We also discussed symptom control of mouth sores, and I reminded them to use the resource booklet for guidance. She does have a POLST at home, but they don't recall what they filled out. The will try to bring it to the follow up visit. The is at risk for care consultant burnout, but was reticent about this subject in front of his . This should be further explored at future visits or over the phone. Impression and Recommendations - Palliative Care Impression: This is a bruna 71-year-old female with endometrial cancer with metastases to the peritoneum, She is in cycle 2 of chemotherapy twith carboplatin and Taxol, is being started on Neulasta for her neutropenia. Symptoms currently are mainly fatigue, anorexia, mouth sores, and stomach cramping prior to chemotherapy. Her is highly supportive and attentive, and risks care consultant burnout. Palliative care will continue to monitor and provide support for symptom management and goals of care. Recommendations/Counseling Done: Alzheimer's dementia: Mild, at baseline. is very attentive and supportive. They have a strong social support network of friends and members of their buddhist who are rallying around them. Offer VISION SPECIALIST support and hammer smith support as indicated. Endometrial cancer, mets to peritoneum: On cycle 2 of carboplatin and Taxol. Neulasta started for neutropenia. Iron deficiency anemia: Iron dextran started with the chemotherapy. Lower extremity edema and ascites: Improved. Continue spironolactone 25mg Cough: Improved, after completing Z-Sterling. notes that it may be returning. Continue albuterol and Tessalon perles for symptom relief. Nausea/vomiting: Patient denies. Use metoclopramide as needed. Recommended Gas-X/simethicone for cramping, bloating symptoms that appear a few days prior to the next chemosessions. Consider Prilosec if symptoms are unrelieved. h/o DVT: Continue Lovenox 60mg BID. inquired about small bleeding and fibrotic masses around the injection sites on the abdomen; provided reassurance and education. Poor appetite: Encourage smaller, more frequent meals, add powdered milk to soups, milk, energy shakes, continue with Ensure, experiment with spices and flavorings. Consider mirtazapine. Start simethicone for stomach cramps. Mouth sores: 1 tspn baking soda and saline solution (1 tspn salt in 8 oz water ) every 3-4 hours to promote healing. Avoid acidic foods. Advanced care planning: states a POLST has been signed, he will bring it for next visit. Symptom burden is fairly low, 's main concern is patient getting enough calories. at risk for care consultant burnout. Monitor , offer support, follow up at next visit. Follow up visit at [facility] on 12/12 at 13:00 Time Spent: 75 minutes were spent with more than 50% of the time spent on counseling, education, and coordination of care.
== END 2017-12-05 12:44 | disposition home or self-care (01) ==
LOC: PC 12:43
PROVIDERS: ATTEND Nurse Practitioner
DX: Z51.5 Encounter for palliative care (principal); G30.1 Alzheimer's disease with late onset; F02.80 Dementia in other diseases classified elsewhere, unspecified severity, without behavioral disturbance, psychotic disturbance, mood disturbance, and anxiety; C54.1 Malignant neoplasm of endometrium; C78.6 Secondary malignant neoplasm of retroperitoneum and peritoneum; D50.9 Iron deficiency anemia, unspecified; R60.0 Localized edema; R05 Cough; I82.409 Acute embolism and thrombosis of unspecified deep veins of unspecified lower extremity; R63.0 Anorexia; K13.70 Unspecified lesions of oral mucosa; R53.83 Other fatigue; M62.81 Muscle weakness (generalized); Z79.899 Other long term (current) drug therapy; Z95.828 Presence of other vascular implants and grafts
CPT/HCPCS: 99205

== ENCOUNTER 2017-12-14 13:09 | Inpatient (IN) | payer MEDICARE, OTHER ==
[2017-12-14] MEDS ORDERED: SODIUM CHLORIDE 0.9% 1,000 ML IV ONE ×3 (13:27→14:20)
--- NOTE | 2017-12-14 14:05 | XRAY Report ---
EXAM: CHEST RADIOGRAPHY EXAM DATE: 12/14/2017 01:43 PM. CLINICAL HISTORY: Fever, cough. COMPARISON: 11/11/2017. TECHNIQUE: 2 views. FINDINGS: Lungs/Pleura: No focal opacities evident. No pleural effusion. No pneumothorax. Normal volumes. Mediastinum: Heart and mediastinal contours are unremarkable. Other: Interval placement of left-sided Port-A-Cath catheter. IMPRESSION: No acute change from 11/11/2017. [facility] Referring Provider Line: [phone] SITE ID: [id number]
[2017-12-14 14:06] LABS: BASOPHILS % (AUTO) 0.3 %; HGB - HEMOGLOBIN 9.7 g/dL (12.0-16.0); MEAN CORPUSCULAR HEMOGLOBIN 29.1 pg (27.0-31.0); MEAN CORPUSCULAR HGB CONC 33.1 g/dL (32.0-36.0); MEAN CORPUSCULAR VOLUME 87.9 fL (81.0-99.0); MEAN PLATELET VOLUME 6.8 fL (7.9-10.8); MONOCYTES % (AUTO) 7.1 %; NEUTROPHILS % (AUTO) 90.6 %; PLT - PLATELET COUNT 219 10^3/uL (130-450); RED BLOOD COUNT 3.33 10^6/uL (4.20-5.40); RED CELL DISTRIBUTION WIDTH 23.1 % (12.0-15.0); WHITE BLOOD COUNT 18.8 x10^3/uL (4.8-10.8)
[2017-12-14 14:08] LABS: ABNORMAL LYMPHS % (MANUAL) 0 %
[2017-12-14 14:17] LABS: ALBUMIN 3.5 g/dL (3.2-5.5); ALBUMIN/GLOBULIN RATIO 1.2 (1.0-2.2); BILIRUBIN,TOTAL 0.7 mg/dL (0.2-1.0); CALCIUM 8.9 mg/dL (8.5-10.3); CREATININE 0.7 mg/dL (0.4-1.0); TOTAL PROTEIN 6.5 g/dL (6.7-8.2)
[2017-12-14 14:24] LABS: BAND NEUTROPHILS % (MANUAL) 20 %; LYMPHOCYTES # (MANUAL) 0.4 10^3/uL (1.5-3.5); LYMPHOCYTES % (MANUAL) 2 %; METAMYELOCYTES % (MANUAL) 3 %; MONOCYTES # (MANUAL) 2.3 10^3/uL (0.0-1.0); MYELOCYTES % (MANUAL) 1 %; NEUTROPHILS # (MANUAL) 15.2 10^3/uL (1.5-6.6); NEUTROPHILS % (MANUAL) 61 %
[2017-12-14 14:25] LABS: OTHER CELLS % (MANUAL) 1 %
[2017-12-14 14:27] LABS: DIFFERENTIAL COMMENT MANUAL DIFFERENTIAL; PLATELET ESTIMATE, MANUAL NORMAL (130-450,000) (NORMAL); PLATELET MORPHOLOGY NORMAL APPEARANCE (NORMAL)
--- NOTE | 2017-12-14 14:59 | ED Physician Documentation ---
History of Present Illness - Stated complaint Stated Complaint: WEAKNESS/TEMP SPIKE - Chief complaint Chief Complaint: General - History obtained from History obtained from: Patient, Family - History of Present Illness Timing: How many weeks ago (2) Pain level max: 4 Pain level now: 3 Improved by: rest Worsened by: movement, walking - Additonal information Additional information: Patient is a 72 year old female with metastatic endometrial cancer. Has had a dry cough for several weeks. She is undergoing chemotherapy currently. Was neutropenic a few weeks ago, received neulasta on 12/05. States feeling increasingly weak. Fever 101 at home today. She is currently on lovenox for DVTs. Has had crampy abdominal pain and weakness for a few weeks. Review of Systems Ten Systems: 10 systems reviewed and negative Constitutional: reports: Fever (101 at home today.) Ears: denies: Ear pain Nose: denies: Rhinorrhea / runny nose, Congestion Throat: denies: Sore throat Cardiac: denies: Chest pain / pressure GI: denies: Abdominal Pain, Nausea, Vomiting, Diarrhea Skin: denies: Rash Musculoskeletal: denies: Neck pain, Back pain Neurologic: reports: Generalized weakness, Confused (alzheimers). 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: Oophrectomy HEENT: Tonsil/Adenoidectomy - Present Medications Home Medications: Ambulatory Orders Medication Instructions Recorded Confirmed Levothyroxine [Synthroid] 100 mcg PO QDAC 05/30/16 12/05/17 Cyanocobalamin (Vitamin B-12) 1 cap PO DAILY 11/06/17 12/05/17 [Vitamin B-12] Enoxaparin [Lovenox] 80 mg INJ BID 11/06/17 12/05/17 Multivitamin [Multivitamins] 1 cap PO DAILY 11/06/17 12/05/17 Spironolactone 1 tab PO DAILY 11/06/17 12/05/17 Dexamethasone 8 mg PO DAILYWM #24 tablet 11/07/17 12/05/17 Metoclopramide HCl [Metoclopramide 10 mg PO Q6H PRN #30 tab.rapdis 11/07/17 HCl Odt] Albuterol Sulfate [Proventil Hfa 1 - 2 puffs IH Q4H PRN #1 11/11/17 12/05/17 Inhaler] hfa.[email or web address] Benzonatate [Tessalon Perle] 1 - 2 cap PO Q4H PRN #60 capsule 12/05/17 12/05/17 traZODone [Desyrel] 1 tab PO DAILY PRN #30 tablet 12/05/17 12/05/17 - Allergies Allergies/Adverse Reactions: Allergies Allergy/AdvReac Type Severity Reaction Status Date / Time ondansetron Allergy Unknown Verified 11/29/17 15:13 [From Zofran (as hydrochloride)] rivaroxaban [From Xarelto] Allergy Unknown Verified 11/29/17 15:13 - Social History Does the pt smoke?: No Smoking Status: Never smoker Does the pt drink ETOH?: No Does the pt have substance abuse?: No - Immunizations Immunizations are current?: Yes - POLST Patient has POLST: No PD ED PE NORMAL - Vitals Vital signs reviewed: Yes - General General: Alert and oriented X 3 (poor short term memory), No acute distress - HEENT HEENT: PERRL, Ears normal, Other (dry lips and tongue) - Neck Neck: Supple, no meningeal sign - Cardiac Cardiac: Strong equal pulses, Other (tachycardic) - Respiratory Respiratory: No respiratory distress, Clear bilaterally - Abdomen Abdomen: Soft, Non tender, Non distended - Back Back: No spinal TTP - Derm Derm: Warm and dry, No rash - Extremities Extremities: Other (L sided chest port - ecchymosis and tenderness present ) - Neuro Neuro: Alert and oriented X 3 - Psych Psych: Normal affect Results - Vitals Vitals: Vital Signs - 24 hr 12/14/17 12/14/17 12/14/17 13:15 15:30 15:33 Temperature 37.5 C Heart Rate 108 H 89 Respiratory 16 16 Rate Blood Pressure 123/73 125/66 O2 Saturation 99 98 12/14/17 16:52 Temperature Heart Rate 67 Respiratory 16 Rate Blood Pressure 109/78 O2 Saturation 99 Oxygen O2 Source Room air - Labs Labs: Laboratory Tests 12/14/17 12/14/17 12/14/17 13:58 13:58 13:58 WBC 18.8 H RBC 3.33 L Hgb 9.7 L Hct 29.2 L MCV 87.9 MCH 29.1 MCHC 33.1 RDW 23.1 H Plt Count 219 MPV 6.8 L Neut # Not Reportable Lymph # Not Reportable Jack # Not Reportable Eos # Not Reportable Baso # Not Reportable Absolute Nucleated RBC Not Reportable Total Counted 100 Band Neuts % (Manual) 20 H Abnorm Lymph % (Manual) 0 Metamyelocytes % 3 H Myelocytes % 1 H Other Cells % 1 Nucleated RBC % Not Reportable Neutrophils # (Manual) 15.2 H Lymphocytes # (Manual) 0.4 L Monocytes # (Manual) 2.3 H Eosinophils # (Manual) 0.0 Basophils # (Manual) 0.0 Differential Comment MANUAL DIFFERENTIAL Platelet Estimate NORMAL (130-450,000) Platelet Morphology NORMAL APPEARANCE RBC Morph Micro Appear 1+ OVALOCYTES Sodium 125 L Potassium 4.7 Chloride 89 L Carbon Dioxide 22 Anion Gap 14.0 H BUN 14 Creatinine 0.7 Estimated GFR (MDRD) 82 L Glucose 105 H Lactic Acid 1.2 Calcium 8.9 Total Bilirubin 0.7 AST 24 ALT 17 Alkaline Phosphatase 68 Total Protein 6.5 L Albumin 3.5 Globulin 3.0 Albumin/Globulin Ratio 1.2 Lipase 25 Urine Color Urine Clarity Urine pH Ur Specific [place] Urine Protein Urine Glucose (UA) Urine Ketones Urine Occult Blood Urine Nitrite Urine Bilirubin Urine Urobilinogen Ur Leukocyte Esterase Ur Microscopic Review Urine Culture Comments Influenza A (Rapid) Influenza B (Rapid) Influenza Types A,B Ag 12/14/17 12/14/17 14:39 16:20 WBC RBC Hgb Hct MCV MCH MCHC RDW Plt Count MPV Neut # Lymph # Jack # Eos # Baso # Absolute Nucleated RBC Total Counted Band Neuts % (Manual) Abnorm Lymph % (Manual) Metamyelocytes % Myelocytes % Other Cells % Nucleated RBC % Neutrophils # (Manual) Lymphocytes # (Manual) Monocytes # (Manual) Eosinophils # (Manual) Basophils # (Manual) Differential Comment Platelet Estimate Platelet Morphology RBC Morph Micro Appear Sodium Potassium Chloride Carbon Dioxide Anion Gap BUN Creatinine Estimated GFR (MDRD) Glucose Lactic Acid Calcium Total Bilirubin AST ALT Alkaline Phosphatase Total Protein Albumin Globulin Albumin/Globulin Ratio Lipase Urine Color LIGHT YELLOW Urine Clarity CLEAR Urine pH 7.0 Ur Specific [place] 1.010 Urine Protein NEGATIVE Urine Glucose (UA) NEGATIVE Urine Ketones NEGATIVE Urine Occult Blood NEGATIVE Urine Nitrite NEGATIVE Urine Bilirubin NEGATIVE Urine Urobilinogen 0.2 (NORMAL) Ur Leukocyte Esterase NEGATIVE Ur Microscopic Review NOT INDICATED Urine Culture Comments NOT INDICATED Influenza A (Rapid) Negative Influenza B (Rapid) Negative Influenza Types A,B Ag - - Rads (name of study) cxr Radiology: Prelim report reviewed, EMP read contemporaneously, See rad report ( no acute disease) PD MEDICAL DECISION MAKING - ED course Complexity details: reviewed old records, reviewed results, re-evaluated patient , considered differential, d/w patient, d/w family, d/w sales development consultant (1720 - Dr. Arredondo oncology and recommends observation in the hospital overnight, IVF and ensure blood cultures do not turn positive. Recommends hold abx at this time. ) ED course: 20ga IV placed in L AC under ultrasound guidance. Flushes easily, good blood return. Patient is a 72-year-old female with a history of endometrial cancer, metastatic. She is currently undergoing chemotherapy and has a new port in her left upper chest. Blood cultures were drawn from the port as well as peripheral. Does have an elevated white blood cell count, but recently received Neupogen as well. Lactate is normal. She feels better after IV fluids though still feels weak. Discussed the case with oncology who recommends observation in the hospital overnight, continued IV hydration and reassess in the morning. If her vitals continue to be stable, she remains afebrile and blood cultures are negative can follow-up as an outpatient. He recommends holding antibiotics at this time. Discussed the case with the hospitalist, Dr. Arthur who accepts. This document was made in part using voice recognition software. While efforts are made to proofread this document, sound alike and grammatical errors may occur. Departure - Departure Disposition: ED Place in Observation Clinical Impression: Dehydration, Patient on antineoplastic chemotherapy regimen Fever Qualifiers: Fever type: unspecified Qualified Code(s): R50.9 - Fever, unspecified Leukocytosis Qualifiers: Leukocytosis type: unspecified Qualified Code(s): D72.829 - Elevated white blood cell count, unspecified Condition: Stable
[2017-12-14 16:30] LABS: BILIRUBIN,URINE NEGATIVE (NEGATIVE); CLARITY,URINE CLEAR (CLEAR); GLUCOSE, URINE (UA) NEGATIVE (NEGATIVE); KETONES,URINE (UA) NEGATIVE (NEGATIVE); LEUKOCYTE ESTERASE, URINE NEGATIVE (NEGATIVE); NITRITE,URINE NEGATIVE (NEGATIVE); OCCULT BLOOD,URINE NEGATIVE (NEGATIVE); PROTEIN,URINE NEGATIVE (NEGATIVE); UROBILINOGEN,URINE 0.2 (NORMAL) E.U./dL (NORMAL)
[2017-12-14] MEDS ORDERED: TEMAZEPAM 15 MG CAPSULE PO PRN (20:04)
[2017-12-14] MEDS ORDERED: HYDROmorphone 1 MG/ML SYRINGE IVP PRN (20:04)
[2017-12-14] MEDS ORDERED: PROCHLORPERAZINE 10 MG/2 ML VIAL IVP PRN (20:04)
[2017-12-14] MEDS ORDERED: SODIUM CHLORIDE FLUSH 0.9% 10 ML SYRINGE IVP PRN (20:04)
[2017-12-14] MEDS ORDERED: METOCLOPRAMIDE 10 MG TABLET PO PRN (20:20)
--- NOTE | 2017-12-14 20:25 | HISTORY & PHYSICAL EXAMINATION ---
Chief Complaint - Chief Complaint Chief Complaint: Fever and chills History of Present Illness - Admitted From Admitted From:: Home - History Obtained From Records Reviewed: yes History obtained from: Patient and Family - History of Present Illness HPI Comment/Other: Mrs. Natasha Hernandez is a very pleasant 72-year-old female who unfortunately has a recent past medical history which includes stage IV cancer of the pelvis, unknown etiology. She has been receiving chemotherapy. Today when she woke up her temperature was 99. Her temperature normalized, but an hour or 2 later it was up to 100; it subsequently normalized again and then came back at 101. At this point the patient was directed to the [facility] emergency department where she was she was seen by the emergency room physician who also called her oncologist. At this time the oncologist has requested that we bring the patient into observation as there is no clinic open tomorrow because it is Saturday and they would like us to monitor the patient's temperature and white blood cell count. At this time the patient does have an elevated white blood cell count but she is also taking Neulasta because of a history of chemotherapy associated leukopenia. The patient states fever has been controlled and she has not had any spikes for over 2 hours. 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 - Substance History Use: Uses substance without health or social issues: NONE Abuse: Recurrent use of substance despite neg consequences: NONE Dependence: Experiences withdrawal or developed tolerances: NONE - POLST Patient has POLST: No POLST Status: Full Code Meds/Allgy - Home Medications Home Medications: Ambulatory Orders Medication Instructions Recorded Confirmed Levothyroxine [Synthroid] 100 mcg PO QDAC 05/30/16 12/05/17 Cyanocobalamin (Vitamin B-12) 1 cap PO DAILY 11/06/17 12/05/17 [Vitamin B-12] Enoxaparin [Lovenox] 80 mg INJ BID 11/06/17 12/05/17 Multivitamin [Multivitamins] 1 cap PO DAILY 11/06/17 12/05/17 Spironolactone 1 tab PO DAILY 11/06/17 12/05/17 Dexamethasone 8 mg PO DAILYWM #24 tablet 11/07/17 12/05/17 Metoclopramide HCl [Metoclopramide 10 mg PO Q6H PRN #30 tab.rapdis 11/07/17 HCl Odt] Albuterol Sulfate [Proventil Hfa 1 - 2 puffs IH Q4H PRN #1 11/11/17 12/05/17 Inhaler] hfa.aer.ad Benzonatate [Tessalon Perle] 1 - 2 cap PO Q4H PRN #60 capsule 12/05/17 12/05/17 traZODone [Desyrel] 1 tab PO DAILY PRN #30 tablet 12/05/17 12/05/17 - Allergies Allergies/Adverse Reactions: Allergies Allergy/AdvReac Type Severity Reaction Status Date / Time ondansetron Allergy Unknown Verified 11/29/17 15:13 [From Zofran (as hydrochloride)] rivaroxaban [From Xarelto] Allergy Unknown Verified 11/29/17 15:13 Review of Systems - Constitutional Constitutional: reports: Fever, Chills, Weakness. denies: Fatigue, Malaise, Night sweats - Eyes Eyes: denies: Pain, Irritation, Blurred vision, Dipolpia - Ears, Nose & Throat Ears, Nose & Throat: denies: Ear pain, Hearing loss, Tinnitus, Vertigo, Nasal discharge, Nosebleeds - Cardiovascular Cariovascular: denies: Irregular heart rate, Palpitations, Chest pain, Edema - Respiratory Respiratory: denies: Cough, Sputum production, Wheezing, Hemoptysis, Orthopnea - Gastrointestinal Gastrointestinal: denies: Abdominal pain, Abdominal distention, Constipation, Diarrhea, Change in bowel habits, Rectal bleeding - Genitourinary Genitourinary: denies: Dysuria, Frequency, Urgency, Hematuria - Musculoskeletal Musculoskeletal: denies: Muscle pain, Back pain, Muscle aches, Stiffness - Integumentary Integumentary: denies: Rash, Pruritis - Neurological Neurological: denies: General weakness, Focal weakness, Headache, Dizziness - Psychiatric Psychiatric: denies: Depression, Anxiety, Suicidal - Endocrine Endocrine: denies: Polyuria, Polydypsia, Polyphagia - Hematologic/Lymphatic Hematologic/Lymphatic: denies: Anemia, Bruising, Lymphadenopathy - All Other Systems All Other Systems: reports: Reviewed and negative Exam - Vital Signs Reviewed Vital Signs: Yes Vital Signs: Vital Signs x48h Temp Pulse Resp BP Pulse Ox 12/14/17 19:03 37.2 C 83 16 117/66 97 12/14/17 16:52 67 16 109/78 99 12/14/17 15:33 125/66 12/14/17 15:30 89 16 98 12/14/17 13:15 37.5 C 108 H 16 123/73 99 - Physical Exam General Appearance: positive: No acute distress, Alert Eyes Bilateral: positive: Normal inspection, PERRL, EOMI, No lid inflammation, Conjunctivae nml, No scleral icterus ENT: positive: ENT inspection nml, Pharynx nml, No signs of dehydration Neck: positive: Nml inspection, Thyroid nml, No JVD, Trachea midline. negative : Thyromegaly Respiratory: positive: Chest non-tender, No respiratory distress, Breath sounds nml. negative: Wheezes, Rales, Rhonchi Cardiovascular: positive: Regular rate & rhythm, No murmur, No gallop Peripheral Pulses: positive: 1+ Abdomen: positive: Non-tender, No organomegaly, Nml bowel sounds, No distention. negative: Guarding, Rebound Back: positive: Nml inspection. negative: CVA tenderness (R), CVA tenderness (L ) Skin: positive: Color nml, No rash, Warm, Dry. negative: Cyanosis Extremities: positive: Non-tender, Full ROM, Nml appearance, No pedal edema Neurologic/Psychiatric: positive: Oriented x3, CN's nml (2-12), Motor nml, Sensation nml, Mood/affect nml Conclusion/Plan - Problem List (1) Patient on antineoplastic chemotherapy regimen Conclusion/Plan: The patient spiked a fever twice earlier today. We will monitor her in the observation unit and watch for signs of fevers or any other signs of infection. If she remains stable overnight we will discharge her tomorrow. (2) Leukocytosis Conclusion/Plan: The patient has been given Neupogen following her latest bout of chemotherapy. This is likely the reason why her white blood cell count is high.We will continue to monitor. Qualifiers: Leukocytosis type: unspecified Qualified Code(s): D72.829 - Elevated white blood cell count, unspecified (3) History of DVT in adulthood Conclusion/Plan: We will continue the patient on her enoxaparin. - Lab Results Lab results reviewed: Yes Fish Bones: 12/14/17 13:58 12/14/17 13:58 - Diagnostic Imaging Results Diagnostic Imaging Results: positive: Final report reviewed Diagnostic Imaging Results Comments: EXAM: CHEST RADIOGRAPHY EXAM DATE: 12/14/2017 01:43 PM. CLINICAL HISTORY: Fever, cough. COMPARISON: 11/11/2017. TECHNIQUE: 2 views. FINDINGS: Lungs/Pleura: No focal opacities evident. No pleural effusion. No pneumothorax. Normal volumes. Mediastinum: Heart and mediastinal contours are unremarkable. Other: Interval placement of left-sided Port-A-Cath catheter. IMPRESSION: No acute change from 11/11/2017. Core Measures - Anticipated LOS I expect patient to be DC'd or transferred within 96 hours.: Yes - DVT/VTE - Prophylaxis VTE/DVT Device ordered at admit?: No VTE/DVT Prophylaxis med ordered at admit?: Yes
[2017-12-14] MEDS: ALBUTEROL NEB 2.5 MG/3 ML INH SCH ×2 (21:00→21:45)
[2017-12-14] MEDS: ENOXAPARIN 80 MG/0.8 ML SYRINGE SUBQ SCH (21:58)
[2017-12-14] MEDS: SODIUM CHLORIDE 1 GM TABLET PO SCH (22:55)
[2017-12-14] MEDS: traZODone 50 MG TABLET PO PRN (23:55)
[2017-12-14] MEDS: BENZONATATE 100 MG CAPSULE PO PRN (23:56)
[2017-12-15] MEDS: ALBUTEROL NEB 2.5 MG/3 ML INH SCH ×4 (01:00→19:00)
[2017-12-15] MEDS: SODIUM CHLORIDE FLUSH 0.9% 10 ML SYRINGE IVP SCH ×4 (04:15→23:39)
[2017-12-15] MEDS: SODIUM CHLORIDE 1 GM TABLET PO SCH (06:11)
[2017-12-15] MEDS: LEVOTHYROXINE 100 MCG TABLET PO SCH (06:11)
[2017-12-15 07:44] LABS: CALCIUM 8.6 mg/dL (8.5-10.3); CREATININE 0.7 mg/dL (0.4-1.0)
[2017-12-15 07:48] LABS: BASOPHILS % (AUTO) 0.1 %; HGB - HEMOGLOBIN 8.6 g/dL (12.0-16.0); LYMPHOCYTES % (AUTO) 6.9 %; MEAN CORPUSCULAR HEMOGLOBIN 29.7 pg (27.0-31.0); MEAN CORPUSCULAR HGB CONC 33.6 g/dL (32.0-36.0); MEAN CORPUSCULAR VOLUME 88.6 fL (81.0-99.0); MEAN PLATELET VOLUME 7.2 fL (7.9-10.8); MONOCYTES % (AUTO) 7.5 %; NEUTROPHILS % (AUTO) 85.5 %; PLT - PLATELET COUNT 176 10^3/uL (130-450); RED CELL DISTRIBUTION WIDTH 24.6 % (12.0-15.0); WHITE BLOOD COUNT 12.2 x10^3/uL (4.8-10.8)
[2017-12-15] MEDS ORDERED: DEXAMETHASONE 4 MG TABLET PO SCH (08:00)
[2017-12-15 08:06] LABS: ABNORMAL LYMPHS % (MANUAL) 0 %
[2017-12-15 08:27] LABS: BAND NEUTROPHILS % (MANUAL) 15 %; LYMPHOCYTES # (MANUAL) 0.2 10^3/uL (1.5-3.5); LYMPHOCYTES % (MANUAL) 2 %; METAMYELOCYTES % (MANUAL) 1 %; MONOCYTES # (MANUAL) 0.6 10^3/uL (0.0-1.0); MYELOCYTES % (MANUAL) 2 %; NEUTROPHILS % (MANUAL) 75 %
[2017-12-15 08:28] LABS: DIFFERENTIAL COMMENT MANUAL DIFFERENTIAL; PLATELET ESTIMATE, MANUAL NORMAL (130-450,000) (NORMAL); PLATELET MORPHOLOGY NORMAL APPEARANCE (NORMAL)
[2017-12-15] MEDS: DEXAMETHASONE 4 MG TABLET PO SCH (08:38)
[2017-12-15] MEDS: ENOXAPARIN 80 MG/0.8 ML SYRINGE SUBQ SCH ×2 (08:38→20:12)
[2017-12-15] MEDS: POLYETHYLENE GLYCOL 3350 17 GM PACKET PO SCH (08:38)
[2017-12-15] MEDS: CYANOCOBALAMIN 500 MCG TABLET PO SCH (08:38)
--- NOTE | 2017-12-15 09:33 | PROVIDER PROGRESS NOTE ---
Subjective - Prog Note Date Prog Note Date: 12/15/17 Prog Note Time: 09:00 - Subjective Pt reports feeling: Improved Subjective: Patient resting in bed with her "my brain" at bedside. She reports feeling better, no fever/chills. She has significant increase in weakness yesterday, havignt o hold her up. She has more energy this AM and walked to bathroom with SBA. She reports no Current Medications - Current Medications Current Medications: Active Medications Albuterol () 2.5 mg INH RTQ6H [facility] Last Admin: 12/15/17 01:00 Dose: Not Given Benzonatate (Tessalon) 1 - 2 mg PO Q4H PRN PRN Reason: Cough Last Admin: 12/14/17 23:56 Dose: 200 mg Cyanocobalamin (Vitamin B-12) 1,000 mcg PO DAILY [facility] Last Admin: 12/15/17 08:38 Dose: 1,000 mcg Dexamethasone (Decadron) 4 mg PO DAILYWM [facility] Last Admin: 12/15/17 08:38 Dose: Not Given Enoxaparin Sodium (Lovenox) 80 mg SUBQ BID [facility] Last Admin: 12/15/17 08:38 Dose: 80 mg Hydromorphone HCl (Dilaudid Inj Syringe) 0.5 mg IVP Q2H PRN PRN Reason: Pain 8 to 10 Levothyroxine Sodium (Synthroid) 100 mcg PO QDAC [facility] Last Admin: 12/15/17 06:11 Dose: 100 mcg Metoclopramide HCl (Reglan) 10 mg PO Q6H PRN PRN Reason: Nausea / Vomiting Polyethylene Glycol (Miralax) 17 gm PO DAILY [facility] Last Admin: 12/15/17 08:38 Dose: Not Given Prochlorperazine Edisylate (Compazine Inj) 10 mg IVP Q6HR PRN PRN Reason: Nausea / Vomiting Sodium Chloride (Normal Saline Flush 0.9%) 10 ml IVP PRN PRN PRN Reason: NEEDED PER PROVIDER ORDERS Sodium Chloride (Normal Saline Flush 0.9%) 10 ml IVP 0100,0900,1700 [facility] Last Admin: 12/15/17 08:38 Dose: 10 ml Sodium Chloride (Salt Tab) 1 gm PO TID [facility] Last Admin: 12/15/17 06:11 Dose: 1 gm Spironolactone (Aldactone) 25 mg PO 1700 [facility] Temazepam (Restoril) 15 mg PO QPM PRN PRN Reason: Insomnia Trazodone HCl (Desyrel) 50 mg PO DAILY PRN PRN Reason: Insomnia Last Admin: 12/14/17 23:55 Dose: 50 mg HOME MEDS: Levothyroxine [Synthroid] 100 mcg PO QDAC 05/30/16 Cyanocobalamin (Vitamin B-12) [Vitamin B-12] 1,000 mcg PO DAILY 11/06/17 Enoxaparin [Lovenox] 80 mg SUBQ Q12H 11/06/17 Spironolactone 25 mg PO DAILY 11/06/17 Benzonatate 200 mg PO QPM 12/15/17 Dexamethasone 4 mg PO ONCE 12/15/17 Guaifenesin [Mucinex] 600 mg PO DAILY 12/15/17 LORazepam [Lorazepam] 0.5 mg PO ONCE 12/15/17 Metoclopramide [Reglan] 10 mg PO ONCE 12/15/17 Multivitamin [Theragran] 1 tab PO QPM 12/15/17 predniSONE [Prednisone] 10 mg PO 1000 12/15/17 traZODone [Desyrel] 50 mg PO QPM 12/15/17 traZODone [Desyrel] 50 mg PO QPM 12/15/17 Objective - Vital Signs/Intake & Output Reviewed Vital Signs: Yes Vital Signs: Vital Signs x48h Temp Pulse Resp BP Pulse Ox 12/15/17 08:39 36.6 C 12/15/17 06:07 36.6 C 85 18 113/64 100 Intake & Output: Intake & Output 12/12/17 12/13/17 12/14/17 12/15/17 23:59 23:59 23:59 23:59 Intake Total 1460 Balance 1460 - Objective General Appearance: positive: No acute distress, Alert Eyes Bilateral: positive: Normal inspection ENT: positive: ENT inspection nml, No signs of dehydration Neck: positive: No JVD Respiratory: positive: Chest non-tender, No respiratory distress, Rales (Left base) Cardiovascular: positive: Regular rate & rhythm Peripheral Pulses: 2+ Radial (R), 2+ Radial (L) Abdomen: positive: Non-tender, Nml bowel sounds, No distention Back: positive: Nml inspection Skin: positive: Color nml, Warm, Dry, Laceration (cm) (healing LACW incision from PAC placement, mild bruising), Other (Alopecia). negative: Skin rash Neurologic/Psychiatric: positive: Oriented x3 (poor short term memory), Motor nml, Sensation nml, Mood/affect nml. negative: Weakness - Lab Results Fish Bones: 12/15/17 07:17 12/15/17 07:17 Other Labs: Lab Results x24hrs 12/15/17 12/15/17 Range/Units 07:17 07:17 WBC 12.2 H (4.8-10.8) x10^3/uL RBC 2.90 L (4.20-5.40) 10^6/uL Hgb 8.6 L (12.0-16.0) g/dL Hct 25.7 L (37.0-47.0) % MCV 88.6 (81.0-99.0) fL MCH 29.7 (27.0-31.0) pg MCHC 33.6 (32.0-36.0) g/dL RDW 24.6 H (12.0-15.0) % Plt Count 176 (130-450) 10^3/uL MPV 7.2 L (7.9-10.8) fL Neut # Not Reportable Lymph # Not Reportable [place] # Not Reportable Eos # Not Reportable Baso # Not Reportable Absolute Nucleated RBC Not Reportable Total Counted 100 Band Neuts % (Manual) 15 H (0 - 10) % Abnorm Lymph % (Manual) 0 % Metamyelocytes % 1 H ( - 0) % Myelocytes % 2 H ( - 0) % Nucleated RBC % Not Reportable Neutrophils # (Manual) 11.0 H (1.5-6.6) 10^3/uL Lymphocytes # (Manual) 0.2 L (1.5-3.5) 10^3/uL Monocytes # (Manual) 0.6 (0.0-1.0) 10^3/uL Eosinophils # (Manual) 0.0 (0-0.7) 10^3/uL Basophils # (Manual) 0.0 (0-0.1) 10^3/uL Differential Comment MANUAL DIFFERENTIAL Manual Slide Review Indicated WBC Morphology 1+ TOXIC GRANULATION (NORMAL) Platelet Estimate NORMAL (130-450,000) (NORMAL) Platelet Morphology NORMAL APPEARANCE (NORMAL) RBC Morph Micro Appear DIMORPHIC RBCS (NORMAL) Sodium 131 L (135-145) mmol/L Potassium 3.8 (3.5-5.0) mmol/L Chloride 98 L (101-111) mmol/L Carbon Dioxide 23 (21-32) mmol/L Anion Gap 10.0 (6-13) BUN 12 (6-20) mg/dL Creatinine 0.7 (0.4-1.0) mg/dL Estimated GFR (MDRD) 82 L (>89) Glucose 90 (70-100) mg/dL Calcium 8.6 (8.5-10.3) mg/dL Assessment/Plan - Problem List (1) Fever Impression: Presented from home with temp 101, resolved with tylenol. Associated with increased weakness. Pulm/GI/skin exam unremarkable for source. Recently neutropenic due to chemo but given FSGS and now WBC 18k on admission, 12k after IVF bolus (no antibx). Has remained afebrile. -Would be prudent to ensure BC w/o growth prior to discharge -No antibiotics given no longer immunosupressed -Tylenol prn fever Qualifiers: Fever type: unspecified Qualified Code(s): R50.9 - Fever, unspecified (2) Leukocytosis Impression: As noted above. WBC 12 now, no source. ?up from [facility] on 12/05 or reactive to infection? -Trend Qualifiers: Leukocytosis type: unspecified Qualified Code(s): D72.829 - Elevated white blood cell count, unspecified (3) Hyponatremia Impression: Na 125 on admission, baseline near 130 but has been low before with chemo. Suspect hypovolemicc in nature, reports decreased PO intake yesterday. Given 2+L IVF in ER and now 131. No neurological symptoms. 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 Follow[address] by Dr Tan. -Follow-up in [facility] clinic (5) Hypothyroidism Impression: Chronic, stable. -Continue synthroid DC PLAN: DVT prophylaxis: lovenox Discharge home tomorrow with no needs if BC negative.
[2017-12-15] MEDS ORDERED: SPIRONOLACTONE 25 MG TABLET PO SCH (17:00)
[2017-12-15] MEDS ORDERED: A & D OINTMENT 5 GM PACKET TOP PRN (19:08)
[2017-12-15] MEDS ORDERED: FLUCONAZOLE 100 MG TABLET PO SCH (20:00)
[2017-12-15] MEDS: BENZONATATE 100 MG CAPSULE PO PRN ×2 (20:16→23:38)
[2017-12-15] MEDS: traZODone 50 MG TABLET PO PRN (20:18)
[2017-12-16] MEDS: ALBUTEROL NEB 2.5 MG/3 ML INH SCH (01:00)
[2017-12-16] MEDS: LEVOTHYROXINE 100 MCG TABLET PO SCH (07:08)
[2017-12-16] MEDS: POLYETHYLENE GLYCOL 3350 17 GM PACKET PO SCH (07:51)
[2017-12-16] MEDS: DEXAMETHASONE 4 MG TABLET PO SCH (07:51)
[2017-12-16 07:52] LABS: BASOPHILS % (AUTO) 0.3 %; EOSINOPHILS % (AUTO) 0.1 %; HGB - HEMOGLOBIN 10.1 g/dL (12.0-16.0); LYMPHOCYTES # (AUTO) 0.7 10^3/uL (1.5-3.5); LYMPHOCYTES % (AUTO) 6.6 %; MEAN CORPUSCULAR HEMOGLOBIN 30.1 pg (27.0-31.0); MEAN CORPUSCULAR HGB CONC 34.2 g/dL (32.0-36.0); MEAN CORPUSCULAR VOLUME 88.1 fL (81.0-99.0); MEAN PLATELET VOLUME 6.8 fL (7.9-10.8); MONOCYTES # (AUTO) 0.8 10^3/uL (0.0-1.0); PLT - PLATELET COUNT 175 10^3/uL (130-450); RED BLOOD COUNT 3.35 10^6/uL (4.20-5.40); RED CELL DISTRIBUTION WIDTH 24.6 % (12.0-15.0); WHITE BLOOD COUNT 10.6 x10^3/uL (4.8-10.8)
[2017-12-16 07:54] LABS: BUN - BLOOD UREA NITROGEN 11 mg/dL (6-20); CALCIUM 8.7 mg/dL (8.5-10.3); CARBON DIOXIDE - CO2 25 mmol/L (21-32); CHLORIDE 95 mmol/L (101-111); CREATININE 0.6 mg/dL (0.4-1.0); GFR - MDRD 98 (>89); GLUCOSE 83 mg/dL (70-100); SODIUM 130 mmol/L (135-145)
[2017-12-16 07:56] VITALS: BP 108/72
[2017-12-16 07:57] LABS: ABNORMAL LYMPHS % (MANUAL) 0 %
[2017-12-16 08:14] LABS: BAND NEUTROPHILS % (MANUAL) 9 %; LYMPHOCYTES # (MANUAL) 0.6 10^3/uL (1.5-3.5); LYMPHOCYTES % (MANUAL) 6 %; METAMYELOCYTES % (MANUAL) 3 %; MONOCYTES # (MANUAL) 0.8 10^3/uL (0.0-1.0); NEUTROPHILS # (MANUAL) 8.8 10^3/uL (1.5-6.6); NEUTROPHILS % (MANUAL) 74 %
[2017-12-16 08:17] LABS: PLATELET ESTIMATE, MANUAL NORMAL (130-450,000) (NORMAL); PLATELET MORPHOLOGY NORMAL APPEARANCE (NORMAL)
[2017-12-16] MEDS: SODIUM CHLORIDE FLUSH 0.9% 10 ML SYRINGE IVP SCH (09:17)
[2017-12-16] MEDS: ENOXAPARIN 80 MG/0.8 ML SYRINGE SUBQ SCH (09:17)
[2017-12-16] MEDS: CYANOCOBALAMIN 500 MCG TABLET PO SCH (09:18)
--- NOTE | 2017-12-16 11:30 | Discharge Plan ---
Discharge Plan Disposition: 01 Home, Self Care Condition: Stable Diet: Regular Activity Restrictions: Activity as Tolerated Assistance Devices: Walker Additional Instructions or Follow Up instructions: You were admitted to the hospital due to fever and elevated WBC count, concern for infection. Blood cultures are negative and no focal infection was identified. This may have been side effect of neulasta. Continue to monitor your input, you were also dehydrated. STOP your spironolactone, I beleive it is makiing you dehydrated. Notify your doctor if you develop swelling in the legs or abdomen or become short of breath If possible weigh yourself daily Follow-up with oncology as planned Follow-up with PCP as needed No Smoking: If you smoke, Please STOP! Call for help. Follow-up with: Lala Rosas PA [Primary Care Provider] - 1 Week
--- NOTE | 2017-12-16 11:31 | DISCHARGE SUMMARY ---
Discharge Summary Admit Date: 12/14/17 Discharge Date: 12/16/17 Discharging Provider: Nataly ROSALES Primary Care Provider: Lala Rosas Code Status: Attempt Resuscitation Condition at Discharge: Stable Discharge Disposition: 01 Home, Self Care - DIAGNOSES Admission Diagnoses: 1. SIRS without acute infection 2. Fever 3. Leukocytosis 4. Hyponatremia due to dehydration 5. 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 SIRS without acute infection - resolved 2. Fever - resolved 3. Leukocytosis - resolved 4. Hyponatremia due to dehydration - improved 5. Anemia - improved 6. 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 Na 125 due to dehydration, poor po intake + use of spironolactone. - HOSPITAL COURSE Hospital Course: 1. SIRS without acute infection, no focal infection identified and blood cultures negative at day 2. Suspect this was due to neulasta. Now feeling better. 2. Fever, no fevers since admission. 3. Leukocytosis, 18k on admisison, now 10. 4. Hyponatremia due to dehydration. Na 125, on admission, given 2+L NS and Na 131, IVF stopped, and spironolactone held, Na 130 on discharge. Continue to hold spironolactone. Encourgae PO intake. Check daily weight. Next lab on Saturday. 5. C SOFTWARE ENGINEER cancer. Stable, on chemo. Follow-up saturday in [facility] [place] with oncology as planned. - ALLERGIES Allergies/Adverse Reactions: Allergies Allergy/AdvReac Type Severity Reaction Status Date / Time ondansetron Allergy Unknown Verified 11/29/17 15:13 [From Zofran (as hydrochloride)] rivaroxaban [From Xarelto] Allergy Unknown Verified 11/29/17 15:13 - MEDICATIONS Home Medications: Ambulatory Orders Medication Instructions Recorded Confirmed Levothyroxine [Synthroid] 100 mcg PO QDAC 05/30/16 12/15/17 Cyanocobalamin (Vitamin B-12) 1,000 mcg PO DAILY 11/06/17 12/15/17 [Vitamin B-12] Enoxaparin [Lovenox] 80 mg SUBQ Q12H 11/06/17 12/15/17 Benzonatate 200 mg PO QPM 12/15/17 12/15/17 Dexamethasone 4 mg PO ONCE 12/15/17 12/15/17 Guaifenesin [Mucinex] 600 mg PO DAILY 12/15/17 12/15/17 LORazepam [Lorazepam] 0.5 mg PO ONCE 12/15/17 12/15/17 Metoclopramide [Reglan] 10 mg PO ONCE 12/15/17 12/15/17 Multivitamin [Theragran] 1 tab PO QPM 12/15/17 12/15/17 predniSONE [Prednisone] 10 mg PO 1000 12/15/17 12/15/17 traZODone [Desyrel] 50 mg PO QPM 12/15/17 12/15/17 traZODone [Desyrel] 50 mg PO QPM 12/15/17 12/15/17 - PHYSICAL EXAM AT DISCHARGE General Appearance: positive: No acute distress, Alert Eyes Bilateral: positive: Normal inspection ENT: positive: No signs of dehydration Neck: positive: No JVD Respiratory: positive: Chest non-tender, No respiratory distress, Breath sounds nml Cardiovascular: positive: Regular rate & rhythm Peripheral Pulses: positive: 2+ Abdomen: positive: Non-tender, Nml bowel sounds, No distention Skin: positive: Color nml, Warm, Dry Extremities: positive: Non-tender, Full ROM, Nml appearance Neurologic/Psychiatric: positive: Oriented x3, Motor nml, Sensation nml, Mood/ affect nml - LABS Result Diagrams: 12/16/17 07:34 12/16/17 07:34 - FOLLOW UP Follow Up: Oncology on Saturday PCP in 5-10d - TIME SPENT Time Spent in Discharge (Minutes): 30
== END 2017-12-16 14:28 | disposition home or self-care (01) | DRG 872 ==
LOC: ED 13:09 → OBS 20:04 → OBSVTOIN 12-15 11:25 → MS2 12-15 14:02
PROVIDERS: ADMIT Hospitalist; ATTEND Nurse Practitioner Acute Care
DX: R65.10 Systemic inflammatory response syndrome (SIRS) of non-infectious origin without acute organ dysfunction (principal); C79.82 Secondary malignant neoplasm of genital organs; E87.1 Hypo-osmolality and hyponatremia; E86.0 Dehydration; R50.9 Fever, unspecified; D64.9 Anemia, unspecified; D72.829 Elevated white blood cell count, unspecified; T45.8X5A Adverse effect of other primarily systemic and hematological agents, initial encounter; C80.1 Malignant (primary) neoplasm, unspecified; E03.9 Hypothyroidism, unspecified; F32.9 Major depressive disorder, single episode, unspecified; F41.9 Anxiety disorder, unspecified; Z90.722 Acquired absence of ovaries, bilateral; Z79.51 Long term (current) use of inhaled steroids; Z79.52 Long term (current) use of systemic steroids; Z79.899 Other long term (current) drug therapy
CPT/HCPCS: 36415; 71046; 80048; 80053; 81001; 81003; 83605; 83690; 85025; 87040; 87086; 87275; 87276; 94640; 94664; 96361; 96372; 99284; 99285

== ENCOUNTER 2017-12-18 12:05 | Outpatient (CLI) | payer MEDICARE, OTHER ==
--- NOTE | 2017-12-18 20:10 | CONSULTATION NOTE ---
Palliative Care Follow Up - Referral Referring Provider: Jocelyne Edwards MD Time of Visit: 12/18/2017. 12:05 - 12:50 Referral setting: [facility] [place] Referral Reason: Poor appetite - Information Sources Records reviewed: Previous records reviewed History/Review of Systems obtained from: Patient, Family, Nursing Exam limitations: No limitations - History of Present Illness Update Brief HPI Update: This is a bruna 71-year-old female with endometrial cancer with metastases to the peritoneum. She is being treated with palliative systemic chemotherapy, carboplatin and Taxol, and cycle 3 is scheduled to start tomorrow. This weekend she went to the ED with a fever of 101 and was admitted to the hospital for SIRS without acute infection, fever, leukocytosis (WBC elevated at 18.8 -- suspect this was due to Neulasta for chemotherpay-associated leukopenia) , hyponatremia, and anemia. When she was DC'd home on 12/16/17 her WBC was 10.6. Today's visit is at the [facility] where the patient is scheduled for a blood draw and a follow up visit with Dr Edwards. Her port, which was placed about two weeks ago, is still swollen and discolored with induration. so the [facility] will run some labs and her surgeon will come by later to assess it. The patient reports being extremely fatigued after being discharged from hospital two days ago. Yesterday her reports She slept until 3pm yesterday, and then went to bed again at 6pm. He, too, is exhausted, staying with her at the hospital, where they didn't get much sleep because the room was very noisy. Everything noise from the nurse's station and the hallway was extremely audible in their room. Back at home, he was sleeping on the floor in their bedroom so he could remain with her, but not disturb her on the bed. The patients admits to feeling some anxiety and concern about having had to go to the hospital and the unknown problem with her port. We agreed we need to wait to see what the lab work shows and what the surgeon and oncologist will say. 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 She has lost one lb since the 12/05/17 visit and continues to have poor appetite. Her is diligent about trying to increase her caloric intake. The goal is 2000/day, but he is trying to just get it to 1500, instead of 1000 as it has been. She has no complaints of pain. Their daughter, Camille, called palliative care after her mother had been hospitalized, wanting information and to help support her dad, whom she thinks does not ask for help. She is listed on the consent for information form, so I will follow up with her after our visits. She may attend future visits if schedule permits. Social History - Living Situation Living arrangement: At home Living Situation: With spouse/s.o. Support System: Lives at home with her . Of their 5 adult children, 2 live on the [place]. They have a strong social network of friends who are supporting them and helping out. They are closely involved with [facility] and have lived on [facility] more than 30 years, and have been 52 years. Medications/Allergies - Medications Home Medications: Ambulatory Orders Medication Instructions Recorded Confirmed Levothyroxine [Synthroid] 100 mcg PO QDAC 05/30/16 12/18/17 Cyanocobalamin (Vitamin B-12) 1,000 mcg PO DAILY 11/06/17 12/18/17 [Vitamin B-12] Enoxaparin [Lovenox] 80 mg SUBQ Q12H 11/06/17 12/18/17 Benzonatate 200 mg PO QPM 12/15/17 12/18/17 Dexamethasone 8 mg PO ONCE PRN 12/15/17 12/18/17 Guaifenesin [Mucinex] 600 mg PO DAILY 12/15/17 12/18/17 LORazepam [Lorazepam] 0.5 mg PO Q6H PRN 12/15/17 12/18/17 Metoclopramide [Reglan] 10 mg PO ONCE 12/15/17 12/18/17 Multivitamin [Theragran] 1 tab PO QPM 12/15/17 12/18/17 predniSONE [Prednisone] 10 mg PO 1000 12/15/17 12/18/17 traZODone [Desyrel] 50 mg PO QPM 12/15/17 12/18/17 Albuterol 1 - 2 puffs INH PRN PRN 12/18/17 12/18/17 - Allergies Allergies/Adverse Reactions: Allergies Allergy/AdvReac Type Severity Reaction Status Date / Time ondansetron Allergy Unknown Verified 11/29/17 15:13 [From Zofran (as hydrochloride)] rivaroxaban [From Xarelto] Allergy Unknown Verified 11/29/17 15:13 Review of Systems - Constitutional Constitutional: reports: Fatigue, Weakness, Poor appetite, Weight loss (158 lbs 12/18/17. 159 lbs 12/04/17. She lost 20 lbs in October 2017. She lost 49 lbs between May 2017 and 12/04/17.) - Ears, Nose & Throat Ears, Nose & Throat: reports: Hearing loss, Mouth lesions - Cardiovascular Cardiovascular: reports: Decr. exercise tolerance. denies: Chest pain - Respiratory Respiratory: reports: Cough - Gastrointestinal Gastrointestinal: reports: Abdominal pain, Bloating, Poor appetite, Early satiety. denies: Nausea, Vomiting - Genitourinary Genitourinary: denies: Dysuria, Frequency, Incontinence - Integumentary Integumentary: reports: Other (tenderness on superior aspect of port on L chest wall) - Neurological Neurological: reports: General weakness, Memory problems. denies: Headache - Psychiatric Psychiatric: denies: Behavior disturbances - Endocrine Endocrine: reports: Hypothyroidism - Hematologic/Lymphatic Hematologic/Lymphatic: reports: Anemia, Bruising, Blood clots (h/o bilateral DVT ) Physical Exam - Vital Signs Temperature: 98.4 F Pulse Rate: 110 O2 Saturation: 97 Blood Pressure: 114/74 - Physical Exam General Appearance: positive: No acute distress Eyes Bilateral: positive: EOMI, No lid inflammation, Conjunctivae nml, No scleral icterus ENT: positive: No signs of dehydration Cardiovascular: positive: Tachycardia Respiratory: positive: Chest non-tender, No respiratory distress, Rales (mild crackles LLL) Skin: positive: Other (discoloration, swelling, induration around port on L chest; tender on superior aspect) Extremities: positive: Nml appearance, No pedal edema Neurologic/Psychiatric: positive: Oriented x3, Mood/affect nml Palliative Care - POLST Patient has POLST: Yes Pain: Location (stomach cramps; tenderness above port location (L chest)) Tiredness/Fatigue: Severe (7-10) Drowsiness/Sedation: Mild (1-3) Nausea: None Anxiety: Mild (1-3) Dyspnea: None Anorexia: Moderate (4-6) Sleep: Sleeps well Constipation: No - Palliative Care Discussion: The patient admitted to some anxiety about the unknowns about her current status after her hospital stay and the issue with her port. She says she is not scared of and knows she will go to God. Her bam is very important to her and sustains her, just as it has since she was 9 years old. She thinks she understands what the doctor has told her but did not express what that was. Her says he has a POLST at home, he did not bring it in today. We will follow up at the next visit, which we have not scheduled. They will talk to the oncologist and surgeon first. Impression and Recommendations - Palliative Care Impression: This is a bruna 71-year-old female with endometrial cancer metastasized to the peritoneum. She was hospitalized this weekend after the fever spike and with leukocytosis, which was resolved by discharge. She is scheduled to start cycle 3 of chemotherapy tomorrow, but first will have a consultation with her surgeon regarding an unresolved issue with the port, and she will also consult with the oncologist today. She continues to have stomach pain, poor appetite, and gradual weight loss. Spouse is at risk of palliative care coordinator burnout. Palliative care will continue supportive role and will monitor for symptom management and advanced care planning. Recommendations/Counseling Done: Alzheimer's dementia: Mild, at baseline. is supportive and they have a good social network, but he is at risk of burnout. Endometrial cancer, mets to peritoneum: Cycle 3 due to start tomorrow. Consultation with oncologist today. Consultation with surgeon today regarding swelling and induration of site of port. Leukocytosis: Acute elevation at 18.8 in hospital this weekend. Reduced to 10.6 at time of discharge two days ago. Iron deficiency anemia: Iron dextran given with chemotherapy. Lower extremity edema: Resolved. Spironolactone DC'd in hospital. Cough: Continue Mucinex every morning and evening. Abdominal pain, cramping: Recommended OTC Gas-X/simethicone, spouse will purchase it. Poor appetite: Start mirtazapine 7.5mg at bedtime. Advanced care planning: No POLST on record. Ask spouse to bring it to next meeting, or fill a new one out. Consultation with oncology and surgeon later on today, follow up. Daughter Camille would like to be kept in the loop; she is included on the consent form. Next meeting: Set it up after patient consults with oncology and surgeon later today. Lab results are pending. Time Spent: 45 minutes were spent with more than 50% of the time spent on counseling, education, and coordination of care.
== END 2017-12-18 12:06 | disposition home or self-care (01) ==
LOC: PC 12:05
PROVIDERS: ATTEND Nurse Practitioner
DX: Z51.5 Encounter for palliative care (principal); G30.9 Alzheimer's disease, unspecified; F02.80 Dementia in other diseases classified elsewhere, unspecified severity, without behavioral disturbance, psychotic disturbance, mood disturbance, and anxiety; C54.1 Malignant neoplasm of endometrium; C78.6 Secondary malignant neoplasm of retroperitoneum and peritoneum; D50.9 Iron deficiency anemia, unspecified; R63.0 Anorexia; R05 Cough; Z79.899 Other long term (current) drug therapy; Z95.828 Presence of other vascular implants and grafts; Z86.718 Personal history of other venous thrombosis and embolism; Z79.01 Long term (current) use of anticoagulants
CPT/HCPCS: 99215

== ENCOUNTER 2018-01-05 00:50 | Outpatient (CLI) | payer MEDICARE, OTHER | END 2018-01-05 00:51 | disposition critical access hospital (66) | LOC: EMS 00:50 | PROVIDERS: ATTEND Surgery | DX: R55 Syncope and collapse (principal); R53.1 Weakness; R11.2 Nausea with vomiting, unspecified; R19.7 Diarrhea, unspecified | CPT/HCPCS: A0425; A0427 ==

== ENCOUNTER 2018-01-05 01:18 | Emergency (ER) | payer MEDICARE, OTHER ==
[2018-01-05 02:27] LABS: BASOPHILS % (AUTO) 0.7 %; HGB - HEMOGLOBIN 8.6 g/dL (12.0-16.0); LYMPHOCYTES % (AUTO) 4.9 %; MEAN CORPUSCULAR HEMOGLOBIN 31.1 pg (27.0-31.0); MEAN CORPUSCULAR VOLUME 91.4 fL (81.0-99.0); MEAN PLATELET VOLUME 6.7 fL (7.9-10.8); MONOCYTES % (AUTO) 9.3 %; NEUTROPHILS % (AUTO) 85.1 %; PLT - PLATELET COUNT 181 10^3/uL (130-450); RED BLOOD COUNT 2.76 10^6/uL (4.20-5.40); RED CELL DISTRIBUTION WIDTH 27.6 % (12.0-15.0); WHITE BLOOD COUNT 12.8 x10^3/uL (4.8-10.8)
[2018-01-05 02:30] LABS: ALBUMIN 2.9 g/dL (3.2-5.5); BILIRUBIN,TOTAL 0.7 mg/dL (0.2-1.0); CALCIUM 8.1 mg/dL (8.5-10.3); CREATININE 0.6 mg/dL (0.4-1.0); TOTAL PROTEIN 5.9 g/dL (6.7-8.2)
[2018-01-05 02:33] LABS: ABNORMAL LYMPHS % (MANUAL) 0 %
[2018-01-05 02:50] LABS: BAND NEUTROPHILS % (MANUAL) 8 %; LYMPHOCYTES # (MANUAL) 0.5 10^3/uL (1.5-3.5); LYMPHOCYTES % (MANUAL) 3 %; MONOCYTES # (MANUAL) 0.8 10^3/uL (0.0-1.0); NEUTROPHILS # (MANUAL) 11.5 10^3/uL (1.5-6.6); NEUTROPHILS % (MANUAL) 82 %
[2018-01-05 02:51] LABS: PLATELET ESTIMATE, MANUAL NORMAL (130-450,000) (NORMAL); PLATELET MORPHOLOGY NORMAL APPEARANCE (NORMAL)
[2018-01-05 02:52] LABS: DIFFERENTIAL COMMENT MANUAL DIFFERENTIAL
[2018-01-05] MEDS ORDERED: SODIUM CHLORIDE 0.9% 1,000 ML IV STA (03:10)
[2018-01-05 05:16] VITALS: BP 109/68
[2018-01-05 06:01] LABS: BILIRUBIN,URINE NEGATIVE (NEGATIVE); GLUCOSE, URINE (UA) NEGATIVE (NEGATIVE); KETONES,URINE (UA) NEGATIVE (NEGATIVE); LEUKOCYTE ESTERASE, URINE NEGATIVE (NEGATIVE); NITRITE,URINE NEGATIVE (NEGATIVE); OCCULT BLOOD,URINE TRACE-LYSE (NEGATIVE); PROTEIN,URINE NEGATIVE (NEGATIVE); UROBILINOGEN,URINE 0.2 (NORMAL) E.U./dL (NORMAL)
[2018-01-05 06:07] LABS: CLARITY,URINE CLEAR (CLEAR)
--- NOTE | 2018-01-06 01:02 | ED Physician Documentation ---
PD HPI SYNCOPE - Stated complaint Stated Complaint: SYNCOPE, ON CHEMO - Chief complaint Chief Complaint: Neuro - History obtained from History obtained from: Patient - History of Present Illness Witnessed: Witnessed Timing - onset: How many minutes ago (approximately 30-40 minutes C++ PROFESSOR) Duration: Minutes Associated symptoms: Incontinant of stool Injury occurred: No: Fell Pain level max: 0 Pain level now: 0 - Additional information Additional information: patient got out of bed to use bathroom. then awoke because he heard patient "rustling" (per ) in bathroom, checked on her and found her seated on the toilet, "barely conscious" (he elaborates that she indicated she was aware of his presence but that she had difficulty keeping her eyes open and was not conversant), generalized weakness. He sensed she was too weak to remain seated on the toilet and thus helped her to the ground, at which time she had large diarrheal stool. She subsequently returned to baseline LOC and strength and arrives to ED asymptomatic. Review of Systems Constitutional: reports: Sweats (was diaphoretic during syncopal event). denies : Fever, Chills Cardiac: reports: Reviewed and negative Respiratory: reports: Reviewed and negative GI: reports: Diarrhea. denies: Abdominal Pain, Nausea, Vomiting : denies: Dysuria, Frequency Musculoskeletal: denies: Neck pain, Back pain Neurologic: reports: Generalized weakness (resolved), Near syncope, Altered mental status. denies: Focal weakness, Numbness, Headache, Head injury PD PAST MEDICAL HISTORY - Past Medical History Past Medical History: Yes Cardiovascular: Other Respiratory: None Neuro: Other Endocrine/Autoimmune: HyPOthyroidism GI: None : None HEENT: None Psych: Depression, Anxiety Musculoskeletal: None Derm: None Other Past Medical History: cancer - Past Surgical History Past Surgical History: Yes /RN SANE: Oophrectomy HEENT: Tonsil/Adenoidectomy - Present Medications Home Medications: Ambulatory Orders Medication Instructions Recorded Confirmed Levothyroxine [Synthroid] 100 mcg PO QDAC 05/30/16 12/18/17 Cyanocobalamin (Vitamin B-12) 1,000 mcg PO DAILY 11/06/17 12/18/17 [Vitamin B-12] Enoxaparin [Lovenox] 80 mg SUBQ Q12H 11/06/17 12/18/17 Dexamethasone 4 mg PO ONCE PRN 12/15/17 12/18/17 LORazepam [Lorazepam] 0.5 mg PO Q6H PRN 12/15/17 12/18/17 Metoclopramide [Reglan] 10 mg PO ONCE 12/15/17 12/18/17 Multivitamin [Theragran] 1 tab PO QPM 12/15/17 12/18/17 predniSONE [Prednisone] 5 mg PO 1000 12/15/17 12/18/17 traZODone [Desyrel] 50 mg PO QPM 12/15/17 12/18/17 Albuterol 1 - 2 puffs INH PRN PRN 12/18/17 12/18/17 Metoprolol Tartrate 25 mg PO BID 12/19/17 12/19/17 Mirtazapine 7.5 mg PO DAILY PM 12/24/17 12/24/17 Simethicone [Gas Relief] 80 mg PO PRN PRN 12/24/17 12/24/17 - Allergies Allergies/Adverse Reactions: Allergies Allergy/AdvReac Type Severity Reaction Status Date / Time ondansetron Allergy Unknown Verified 01/05/18 01:29 [From Zofran (as hydrochloride)] rivaroxaban [From Xarelto] Allergy Unknown Verified 01/05/18 01:29 - Social History Does the pt smoke?: No Smoking Status: Never smoker Does the pt drink ETOH?: No Does the pt have substance abuse?: No - Immunizations Immunizations are current?: Yes - POLST Patient has POLST: No POLST Status: Full Code PD ED PE NORMAL - Vitals Vital signs reviewed: Yes - General General: Alert and oriented X 3, No acute distress, Well developed/nourished - HEENT HEENT: PERRL, EOMI, Moist mucous membranes - Cardiac Cardiac: RRR, No murmur - Respiratory Respiratory: No respiratory distress, Clear bilaterally - Abdomen Abdomen: Soft, Non tender - Back Back: No CVA TTP - Derm Derm: Normal color, Warm and dry - Extremities Extremities: No edema - Neuro Neuro: Alert and oriented X 3 Eye Opening: Spontaneous Motor: Obeys Commands Verbal: Oriented GCS Score: 15 Results - Vitals Vitals: Oxygen O2 Source Room air - EKG (time done) No standard instances Rate: Rate (enter#) (93) Arrey: LAD Intervals: Normal HI QRS: Normal Ischemia: Normal ST segments, Q waves (V1, V2) - Labs Labs: Laboratory Tests 01/05/18 01/05/18 01/05/18 02:13 02:13 02:13 WBC 12.8 H RBC 2.76 L Hgb 8.6 L Hct 25.2 L MCV 91.4 MCH 31.1 H MCHC 34.0 RDW 27.6 H Plt Count 181 MPV 6.7 L Neut # Not Reportable Lymph # Not Reportable [place] # Not Reportable Eos # Not Reportable Baso # Not Reportable Absolute Nucleated RBC Not Reportable Total Counted 100 Band Neuts % (Manual) 8 Reactive Lymphs % (Man) 1 Abnorm Lymph % (Manual) 0 Nucleated RBC % Not Reportable Neutrophils # (Manual) 11.5 H Lymphocytes # (Manual) 0.5 L Monocytes # (Manual) 0.8 Eosinophils # (Manual) 0.0 Basophils # (Manual) 0.0 Differential Comment MANUAL DIFFERENTIAL Platelet Estimate NORMAL (130-450,000) Platelet Morphology NORMAL APPEARANCE RBC Morph Micro Appear 1+ ACANTHOCYTES Sodium 128 L Potassium 3.7 Chloride 96 L Carbon Dioxide 23 Anion Gap 9.0 BUN 13 Creatinine 0.6 Estimated GFR (MDRD) 98 Glucose 121 H Calcium 8.1 L Total Bilirubin 0.7 AST 20 ALT 15 Alkaline Phosphatase 71 Troponin I < 0.04 Total Protein 5.9 L Albumin 2.9 L Globulin 3.0 Albumin/Globulin Ratio 1.0 Lipase 17 L Urine Color Urine Clarity Urine pH Ur Specific [place] Urine Protein Urine Glucose (UA) Urine Ketones Urine Occult Blood Urine Nitrite Urine Bilirubin Urine Urobilinogen Ur Leukocyte Esterase Ur Microscopic Review Urine Culture Comments 01/05/18 05:26 WBC RBC Hgb Hct MCV MCH MCHC RDW Plt Count MPV Neut # Lymph # [place] # Eos # Baso # Absolute Nucleated RBC Total Counted Band Neuts % (Manual) Reactive Lymphs % (Man) Abnorm Lymph % (Manual) Nucleated RBC % Neutrophils # (Manual) Lymphocytes # (Manual) Monocytes # (Manual) Eosinophils # (Manual) Basophils # (Manual) Differential Comment Platelet Estimate Platelet Morphology RBC Morph Micro Appear Sodium Potassium Chloride Carbon Dioxide Anion Gap BUN Creatinine Estimated GFR (MDRD) Glucose Calcium Total Bilirubin AST ALT Alkaline Phosphatase Troponin I Total Protein Albumin Globulin Albumin/Globulin Ratio Lipase Urine Color YELLOW Urine Clarity CLEAR Urine pH 6.0 Ur Specific [place] 1.010 Urine Protein NEGATIVE Urine Glucose (UA) NEGATIVE Urine Ketones NEGATIVE Urine Occult Blood TRACE-LYSE Urine Nitrite NEGATIVE Urine Bilirubin NEGATIVE Urine Urobilinogen 0.2 (NORMAL) Ur Leukocyte Esterase NEGATIVE Ur Microscopic Review NOT INDICATED Urine Culture Comments NOT INDICATED PD MEDICAL DECISION MAKING - ED course Complexity details: reviewed old records, reviewed results, re-evaluated patient , considered differential, d/w patient, d/w family ED course: Patient remained asymptomatic during ED stay. She had a seven-beat run of nonsustained ventricular tachycardia but was asleep during this, immediately woken by RN, easily awoken to voice and she reports she did not appreciate any symptoms. She has mild leukocytosis today, comparable to previous results. She is anemic with same hemoglobin as earlier this month while she was inpatient ( and I note the hemoglobin significantly improved by the next day without any specific intervention such as transfusion). Hyponatremic today but not low enough to explain symptoms. Patient and her were comfortable with discharge home. Departure - Departure Disposition: 01 Home, Self Care Clinical Impression: Syncope Qualifiers: Syncope type: unspecified Qualified Code(s): R55 - Syncope and collapse Condition: Good Instructions: ED Fainting Unkn Cause Discharge Date/Time: 01/05/18 06:14
== END 2018-01-05 06:14 | disposition home or self-care (01) ==
LOC: EDUNIT# → ED 01:18
DX: R55 Syncope and collapse (principal); I47.2 Ventricular tachycardia; D72.829 Elevated white blood cell count, unspecified; R94.31 Abnormal electrocardiogram [ECG] [EKG]; D64.9 Anemia, unspecified; E03.9 Hypothyroidism, unspecified; E87.1 Hypo-osmolality and hyponatremia; C80.1 Malignant (primary) neoplasm, unspecified; Z92.21 Personal history of antineoplastic chemotherapy
CPT/HCPCS: 36415; 80053; 81001; 81003; 83690; 84484; 85025; 87086; 93005; 96360; 99284

== ENCOUNTER 2018-01-07 12:23 | Emergency (ER) | payer MEDICARE, OTHER ==
--- NOTE | 2018-01-07 13:45 | XRAY Preliminary Report ---
Exam: XR CHEST 2 VIEW X-RAY IMPRESSION: 1. Portacatheter tip in left innominate vein anteriorly, unchanged. The CT shows the catheter tip is approximately 12 mm from the superior vena cava. 2. The lungs are clear. [facility] SITE ID: [id number]
--- NOTE | 2018-01-07 13:46 | XRAY Report ---
EXAM: CHEST RADIOGRAPHY EXAM DATE: 01/07/2018 01:28 PM. CLINICAL HISTORY: Chemo fever. COMPARISON: 12/14/2017. TECHNIQUE: 2 views. FINDINGS: Lungs/Pleura: No focal opacities evident. No pleural effusion. No pneumothorax. Normal volumes. Mediastinum: There is a left-sided Port-A-Cath with tip projecting anterior to the aortic arch in the anterior mediastinum, unchanged since previous exam. The heart size is normal. There is moderate aor tic arch atherosclerotic calcification Other: None. IMPRESSION: 1. Portacatheter tip in left innominate vein anteriorly, unchanged. The CT shows the catheter tip is approximately 12 mm from the superior vena cava. 2. The lungs are clear. [facility] Referring Provider Line: [phone] SITE ID: [id number]
[2018-01-07 14:24] LABS: BASOPHILS # (AUTO) 0.1 10^3/uL (0.0-0.1); HGB - HEMOGLOBIN 8.2 g/dL (12.0-16.0); LYMPHOCYTES # (AUTO) 0.8 10^3/uL (1.5-3.5); LYMPHOCYTES % (AUTO) 7.1 %; MEAN CORPUSCULAR HEMOGLOBIN 30.7 pg (27.0-31.0); MEAN CORPUSCULAR HGB CONC 33.1 g/dL (32.0-36.0); MEAN CORPUSCULAR VOLUME 92.7 fL (81.0-99.0); MEAN PLATELET VOLUME 6.7 fL (7.9-10.8); MONOCYTES # (AUTO) 0.7 10^3/uL (0.0-1.0); MONOCYTES % (AUTO) 6.3 %; NEUTROPHILS # (AUTO) 9.6 10^3/uL (1.5-6.6); NEUTROPHILS % (AUTO) 85.6 %; PLT - PLATELET COUNT 134 10^3/uL (130-450); RED BLOOD COUNT 2.67 10^6/uL (4.20-5.40); RED CELL DISTRIBUTION WIDTH 27.1 % (12.0-15.0); WHITE BLOOD COUNT 11.2 x10^3/uL (4.8-10.8)
[2018-01-07 14:33] LABS: BILIRUBIN,TOTAL 0.7 mg/dL (0.2-1.0); CREATININE 0.7 mg/dL (0.4-1.0); TOTAL PROTEIN 5.9 g/dL (6.7-8.2)
[2018-01-07] MEDS ORDERED: LIDOCAINE 1% 2 ML VIAL ONE (14:34)
[2018-01-07 14:38] LABS: RBC MORPHOLOGY (MULTIPLE) 3+ ANISOCYTOSIS (NORMAL)
[2018-01-07 15:23] LABS: BILIRUBIN,URINE NEGATIVE (NEGATIVE); GLUCOSE, URINE (UA) NEGATIVE (NEGATIVE); KETONES,URINE (UA) NEGATIVE (NEGATIVE); LEUKOCYTE ESTERASE, URINE NEGATIVE (NEGATIVE); NITRITE,URINE NEGATIVE (NEGATIVE); OCCULT BLOOD,URINE TRACE-LYSE (NEGATIVE); PH,URINE 6.5 PH (5.0-7.5); PROTEIN,URINE NEGATIVE (NEGATIVE); UROBILINOGEN,URINE 0.2 (NORMAL) E.U./dL (NORMAL)
[2018-01-07 15:24] LABS: CLARITY,URINE CLEAR (CLEAR)
--- NOTE | 2018-01-07 15:42 | ED Physician Documentation ---
History of Present Illness - Stated complaint Stated Complaint: FEVER - Chief complaint Chief Complaint: Fever - Additonal information Additional information: hx from pt 72 feamle metastatic endometrial cancer to ER for fever has had off and on fever for a few weeks now went to 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 was unable to draw off it also recently started mirtazapine Review of Systems Constitutional: reports: Fever, Fatigue Cardiac: denies: Chest pain / pressure Respiratory: denies: Dyspnea, Cough GI: reports: Abdominal Pain. 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 HEENT: Tonsil/Adenoidectomy - Present Medications Home Medications: Ambulatory Orders Medication Instructions Recorded Confirmed Levothyroxine [Synthroid] 100 mcg PO QDAC 05/30/16 12/18/17 Cyanocobalamin (Vitamin B-12) 1,000 mcg PO DAILY 11/06/17 12/18/17 [Vitamin B-12] Enoxaparin [Lovenox] 80 mg SUBQ Q12H 11/06/17 12/18/17 Dexamethasone 4 mg PO ONCE PRN 12/15/17 12/18/17 LORazepam [Lorazepam] 0.5 mg PO Q6H PRN 12/15/17 12/18/17 Metoclopramide [Reglan] 10 mg PO ONCE 12/15/17 12/18/17 Multivitamin [Theragran] 1 tab PO QPM 12/15/17 12/18/17 predniSONE [Prednisone] 5 mg PO 1000 12/15/17 12/18/17 traZODone [Desyrel] 50 mg PO QPM 12/15/17 12/18/17 Albuterol 1 - 2 puffs INH PRN PRN 12/18/17 12/18/17 Metoprolol Tartrate 25 mg PO BID 12/19/17 12/19/17 Mirtazapine 7.5 mg PO DAILY PM 12/24/17 12/24/17 Simethicone [Gas Relief] 80 mg PO PRN PRN 12/24/17 12/24/17 - Allergies Allergies/Adverse Reactions: Allergies Allergy/AdvReac Type Severity Reaction Status Date / Time ondansetron Allergy Unknown Verified 01/05/18 01:29 [From Zofran (as hydrochloride)] rivaroxaban [From Xarelto] Allergy Unknown Verified 01/05/18 01:29 - Social History Does the pt smoke?: No Smoking Status: Never smoker Does the pt drink ETOH?: No Does the pt have substance abuse?: No - Immunizations Immunizations are current?: Yes - POLST Patient has POLST: No POLST Status: Full Code PD ED PE NORMAL - Vitals Vital signs reviewed: Yes ( temp 38) - General General: Alert and oriented X 3 - Neck Neck: Supple, no meningeal sign - Cardiac Cardiac: RRR - Respiratory Respiratory: No respiratory distress, Other (port appears well healed and s erythema or swelling) - Abdomen Abdomen: Soft, Other (minimal TTP) - Derm Derm: Normal color - Extremities Extremities: No edema - Neuro Neuro: Alert and oriented X 3 Results - Vitals Vitals: Vital Signs - 24 hr 01/07/18 01/07/18 01/07/18 12:38 15:17 15:28 Temperature 38 C H 37.5 C Heart Rate 86 83 Respiratory 18 12 Rate Blood Pressure 98/58 L 122/60 O2 Saturation 99 98 Oxygen O2 Source Room air - Labs Labs: Laboratory Tests 01/07/18 01/07/18 01/07/18 14:00 14:13 14:13 WBC 11.2 H RBC 2.67 L Hgb 8.2 L Hct 24.8 L MCV 92.7 MCH 30.7 MCHC 33.1 RDW 27.1 H Plt Count 134 MPV 6.7 L Neut # 9.6 H Lymph # 0.8 L Stark # 0.7 Eos # 0.0 Baso # 0.1 Absolute Nucleated RBC 0.00 Nucleated RBC % 0.0 Manual Slide Review Indicated RBC Morph Micro Appear 3+ ANISOCYTOSIS Sodium 126 L Potassium 3.8 Chloride 92 L Carbon Dioxide 24 Anion Gap 10.0 BUN 10 Creatinine 0.7 Estimated GFR (MDRD) 82 L Glucose 85 Lactic Acid Calcium 8.0 L Total Bilirubin 0.7 AST 19 ALT 14 Alkaline Phosphatase 63 Total Protein 5.9 L Albumin 3.0 L Globulin 2.9 Albumin/Globulin Ratio 1.0 Lipase 20 L Urine Color Urine Clarity Urine pH Ur Specific [place] Urine Protein Urine Glucose (UA) Urine Ketones Urine Occult Blood Urine Nitrite Urine Bilirubin Urine Urobilinogen Ur Leukocyte Esterase Ur Microscopic Review Urine Culture Comments Influenza A (Rapid) Negative Influenza B (Rapid) Negative Influenza Types A,B Ag - 01/07/18 01/07/18 14:13 15:18 WBC RBC Hgb Hct MCV MCH MCHC RDW Plt Count MPV Neut # Lymph # Stark # Eos # Baso # Absolute Nucleated RBC Nucleated RBC % Manual Slide Review RBC Morph Micro Appear Sodium Potassium Chloride Carbon Dioxide Anion Gap BUN Creatinine Estimated GFR (MDRD) Glucose Lactic Acid 1.6 Calcium Total Bilirubin AST ALT Alkaline Phosphatase Total Protein Albumin Globulin Albumin/Globulin Ratio Lipase Urine Color YELLOW Urine Clarity CLEAR Urine pH 6.5 Ur Specific [place] <=1.005 Urine Protein NEGATIVE Urine Glucose (UA) NEGATIVE Urine Ketones NEGATIVE Urine Occult Blood TRACE-LYSE Urine Nitrite NEGATIVE Urine Bilirubin NEGATIVE Urine Urobilinogen 0.2 (NORMAL) Ur Leukocyte Esterase NEGATIVE Ur Microscopic Review NOT INDICATED Urine Culture Comments NOT INDICATED Influenza A (Rapid) Influenza B (Rapid) Influenza Types A,B Ag - Rads (name of study) CXR Radiology: See rad report (port, clear lungs) PD MEDICAL DECISION MAKING - ED course ED course: CT A/P from today not available yet pt not neutropenic, neg lactate, neg CXR, neg UA temp down BP up s intervention blood cx periph and from new port pending anemia not new though slightly worse low Na noted - gave 1 L NS will d/w onc MAC but feel pt can probably dc pending cx results and fup MAC for CT results d/w oncology manager inventory control who agrees with plan Departure - Departure Disposition: 01 Home, Self Care Clinical Impression: Fever Qualifiers: Fever type: unspecified Qualified Code(s): R50.9 - Fever, unspecified Instructions: ED Fever Unconf Cause Follow-Up: Lala Rosas PA [Primary Care Provider] - Jocelyne Edwards MD [Provider Admit Priv/Credential] - Comments: No cause was found for your continued fevers Your white blood cell count is not too low, the xray did not show pneumonia, the urine test was clean. Otherwise your blood work showed anemia and low sodium both of which are not new Blood and urine cultures are running and the ER staff will call you if they are positive May take tylenol as needed I spoke to the oncologist manager inventory control and she agrees with this plan and they will see you in the [facility] as scheduled
[2018-01-07] MEDS ORDERED: SODIUM CHLORIDE 0.9% 1,000 ML IV ONE (15:44)
[2018-01-07 17:15] VITALS: BP 127/82
== END 2018-01-07 17:42 | disposition home or self-care (01) ==
LOC: ED 12:23
DX: R50.9 Fever, unspecified (principal); D63.0 Anemia in neoplastic disease; C79.82 Secondary malignant neoplasm of genital organs; E03.9 Hypothyroidism, unspecified
CPT/HCPCS: 36415; 71046; 80053; 81001; 81003; 83605; 83690; 85025; 87040; 87086; 87275; 87276; 96361; 96374; 99283

== ENCOUNTER 2018-01-09 16:14 | Outpatient (CLI) | payer MEDICARE, OTHER ==
--- NOTE | 2018-01-09 17:53 | Ultrasound Preliminary Report ---
Exam: US DUPLEX EXT VEINS LEFT IMPRESSION: No evidence for deep venous thrombosis. RADIA The call report notification system was initiated by Dr. Kiara Coleman at 17:20 hrs on 01/09/18. The above findings were discussed with Dr Jerry Dr by Dr. Kiara Coleman at 17:52 hrs on 01/09/18 . SITE ID: [id number]
--- NOTE | 2018-01-09 18:19 | Ultrasound Report ---
EXAM: LEFT LOWER EXTREMITY VENOUS ULTRASOUND EXAM DATE: 01/09/2018 04:59 PM. CLINICAL HISTORY: Pain left lower calf. COMPARISON: None. TECHNIQUE: Real-time sonographic vascular imaging was performed by the loading dock hand through the lower extremity utilizing both color-flow and Doppler spectral analysis. Multiple account services representative static yudelka ges were saved for review. FINDINGS: Common Femoral Vein (CFV): Normal. CFV-GSV Junction: Normal. Profunda Femoral Vein (PFV): Normal. Femoral Vein (FV) Prox: Normal. Femoral Vein (FV) Mid: Normal. Femoral Vein (FV) Dist: Normal. Popliteal Vein: Normal. Posterior Tibial Veins: Normal. Peroneal Veins: Normal. Contralateral Side CFV: Normal. Other: None. IMPRESSION: No evidence for deep venous thrombosis. RADIA The call report notification system was initiated by Dr. Kiara Coleman at 17:20 hrs on 01/09/18. The above findings were discussed with Dr Edwards by Dr. Kiara Coleman at 17:52 hrs on 01/09/18. Referring Provider Line: [phone] SITE ID: [id number]
== END 2018-01-09 16:15 | disposition home or self-care (01) ==
LOC: DI 16:14
PROVIDERS: ATTEND Nurse Practitioner Adult Health
DX: M79.662 Pain in left lower leg (principal); R22.42 Localized swelling, mass and lump, left lower limb

== ENCOUNTER 2018-01-15 09:25 | Outpatient (CLI) | payer MEDICARE, OTHER ==
--- NOTE | 2018-01-15 11:16 | CONSULTATION NOTE ---
Palliative Care Follow Up - Referral Referring Provider: Dr Neville Chacon Time of Visit: 01/15/17. 9:25 - 10:10 Referral setting: [facility] Referral Reason: Endometrial cancer - Information Sources Records reviewed: Previous records reviewed History/Review of Systems obtained from: Patient, Family Exam limitations: Clinical condition (Short term memory deficits) - History of Present Illness Update Brief HPI Update: This is a bruna 72-year-old female with endometrial cancer with metastases to the peritoneum. She is being treated with palliative systemic chemotherapy, carboplatin and Taxol. - Patient went to ED several times in December: 01/07 for fever of unknown cause, for syncopal event of unknown cause, 12/14 for fever/SIRS of unknown cause and hyponatremia. - Patient is receiving [facility] Nursing and OT. - Patient's fatigue is increasing. - Mornings are her best time, after 12:000 she goes downhill. - New development of past few days: Patient has tried unsuccessfully to nap in the afternoons. She reports she's never been able to nap. - Spoke about viewing energy as a savings account. Budget and spend it carefully on priorities. - Increasing cognitive deficit and short-term memory deficits. Most of information is supplied by the spouse, with the patient remarking, "Did I?" "I do?" "I don't remember that." - Spouse is starting the process of utilizing their LTC insurance policy to hire care giving help in the home. Up to this point they haven't been interested in having a stranger in their home. Now the patient is agreeable to it. - They have had GASATERIA ATTENDANT input and GASATERIA ATTENDANT will follow up in a few weeks. - HH RN comes on Fridays, these are days patient feels good. Spouse wants to switch the RN to Tuesdays.....patients worst days since that's when she could use the support. - Good days are , Sat and usually Saturdays. - and Sat are the worst days, at least until she gets out to [facility] for the blood draw. Then she feels better, likely helped by all the distraction. - Usually the patient isn't nauseous from chemo, but Saturday she was. The three "nausea drugs," as her spouse calls them, worked well: lorazepam, metoclopromide, and dexamethasone. - Her fluid intake has improved, goal is 72 oz daily, he reports that she often is able to reach that goal. - She has been to ED/hospital twice for fever of unknown origin. - Patient was using mirtazapine successfully for appetite stimulant. Spouse noted that fever can be a side effect; he stopped administering it about 5 days ago, and she hasn't had a fever since. - Patient is no longer taking mirtazapine. It also seemed to cause her to scratch at herself, though it's normally used to alleviate itching. - Appetite is poor, but she eats anyway and is maintaining her weight, even gaining weight. Today it is 166.32 lbs. - Sleeping is an issue; she goes to bed and is restless until 2am, then sleeps more soundly. Suggested trying relaxing music or buying a white noise machine. - Some constipation. Currently using Senna every other night. - The cough is resolved. - Currently tapering off prednisone; taper will be complete next week. Social History - Living Situation Living arrangement: At home Living Situation: With spouse/s.o. Support System: Lives at home with her period of the 5 adult children, 2 live on the [place]. They have a strong social network of friends were supporting them and helping out. They are closely involved with [facility] and have lived on [facility] for more than 30 years, and have been 52 years. Medications/Allergies - Medications Home Medications: Ambulatory Orders Medication Instructions Recorded Confirmed Levothyroxine [Synthroid] 100 mcg PO QDAC 05/30/16 01/15/18 Cyanocobalamin (Vitamin B-12) 1,000 mcg PO DAILY 11/06/17 01/15/18 [Vitamin B-12] Enoxaparin [Lovenox] 80 mg SUBQ Q12H 11/06/17 01/15/18 Dexamethasone 4 mg PO ONCE PRN 12/15/17 01/15/18 LORazepam [Lorazepam] 0.5 mg PO Q6H PRN 12/15/17 01/15/18 Metoclopramide [Reglan] 10 mg PO ONCE 12/15/17 01/15/18 Multivitamin [Theragran] 1 tab PO QPM 12/15/17 01/15/18 traZODone [Desyrel] 50 mg PO QPM 12/15/17 01/15/18 Albuterol 1 - 2 puffs INH PRN PRN 12/18/17 01/15/18 Metoprolol Tartrate 25 mg PO BID 12/19/17 01/15/18 Simethicone [Gas Relief] 80 mg PO PRN PRN 12/24/17 01/15/18 - Allergies Allergies/Adverse Reactions: Allergies Allergy/AdvReac Type Severity Reaction Status Date / Time ondansetron Allergy Unknown Verified 01/05/18 01:29 [From Zofran (as hydrochloride)] rivaroxaban [From Xarelto] Allergy Unknown Verified 01/05/18 01:29 Review of Systems - Constitutional Constitutional: reports: Fatigue, Weakness, Poor appetite, Weight gain (166.32 lbs 01/15/18. 158 lbs 12/18/17. 159 lbs 12/04/17. She lost 20 lbs in October 2017 and 49 lbs between May 2017 and Nov 2017.) - Ears, Nose & Throat Ears, Nose & Throat: reports: Hearing loss, Mouth lesions ( is concerned about future mouth sores and asked for remedies), Other - Cardiovascular Cardiovascular: reports: Decr. exercise tolerance. denies: Chest pain - Respiratory Respiratory: reports: SOB with exertion. denies: Cough, SOB at rest - Gastrointestinal Gastrointestinal: reports: Constipation, Nausea (a few days ago, first time), Poor appetite, Other (flatulence; said she has had it her whole life) - Genitourinary Genitourinary: denies: Dysuria - Musculoskeletal Musculoskeletal: reports: Other (denies pain) - Integumentary Integumentary: reports: Pruritis - Neurological Neurological: reports: General weakness, Memory problems - Psychiatric Psychiatric: reports: Anxiety. denies: Behavior disturbances - Endocrine Endocrine: reports: Hypothyroidism - Hematologic/Lymphatic Hematologic/Lymphatic: reports: Anemia, Blood clots (h/o bilateral DVT) Physical Exam - Vital Signs Temperature: 97.2 F Pulse Rate: 78 O2 Saturation: 95 (room air) Blood Pressure: 120/70 - Physical Exam General Appearance: positive: No acute distress, Alert Eyes Bilateral: positive: EOMI, No lid inflammation, Conjunctivae nml, No scleral icterus ENT: positive: No signs of dehydration, Other (small white spot, unidentifiable , back R side of soft palate) Neck: positive: No JVD, Trachea midline Cardiovascular: positive: Regular rate & rhythm, No murmur, No gallop Respiratory: positive: Chest non-tender, No respiratory distress Skin: positive: No symptoms, Pruritis Extremities: positive: Nml appearance, No pedal edema Neurologic/Psychiatric: positive: Mood/affect nml, Disoriented to time Palliative Care - POLST Patient has POLST: Yes Pain: No pain Tiredness/Fatigue: Severe (7-10) Drowsiness/Sedation: None Nausea: Moderate (4-6) (On Saturday, relieved by trio of meds (lorzepam, metoclopromide, dexamethasone) - Palliative Care Discussion: - She does feel some discouragement with her condition, and 3 trips to the ED in the month of December. - But overall, she ffeels life is pretty good. They go on drives, they go to grandson's track meets (though she remains in the car because of fatigue, while her spouse watches their grandson race). - The spouse is just starting the process of utilizing his long-term care policy to get care giving help. Up to this point they have been reluctant to bring other people into their home. Their children convinced them. - She hasn't had nausea until recently, but the medications resolved it. - She feels best on () and Fridays, and normally Saturdays. - They met this week with GASATERIA ATTENDANT from Home Health, and when the GASATERIA ATTENDANT and the patient were along together, the patient said she understood her disease is terminal and she is going to . She stated to the GASATERIA ATTENDANT that she was not afraid of dying because she has a strong bam and knows where she is going. Spouse admitted to GASATERIA ATTENDANT sorrow at thought of losing his . - The couple are very close and supportive of each other. - Spouse is very attentive and detail oriented. The patient is restless in bed until about 2am, trazodone doesn't seem to help. They are going to try relaxing music, and also getting a white noise machine. - Patient has intermittent constipation, is currently using Senna every other evening, will increase it to every evening. - Patient doesn't currently have mouth sores, but has had them in the past. She does have one small white spot on the soft palate. Will monitor. I shared home remedies for mouth sores, and also the Magic Mouthwash. Did not write a script but spouse will call if she gets mouth sores again. - She has decided to write her thoughts out in personal letters to each of her 5 children. She and her like the idea of her doing this project in the mornings, when her energy is at its highest, perhaps one letter per morning, perhaps an ongoing diary. She seems pleased at the prospect of doing this, as well as having some trepidation about actually being able to. I asked the spouse if he would consider writing himself. The patient liked that, stating that he is a much better automobile service writer than she is. - Spouse says there is a POLST at home. We need a copy of it for our records. Impression and Recommendations - Palliative Care Impression: This is a bruna 72-year-old female with endometrial cancer metastasized to the peritoneum. She had a hospitalization several ED trips during the course of December for fevers, leukocytosis, and syncopal episodes. She continues on palliative chemotherapy, the main symptom is constant fatigue. We discussed ways to manage the fatigue. The family is about to engage caregivers to ease the burden of spouse's care-giving responsibilities, he has been sole caregiver up to this point. Palliative care will continue supportive role, monitoring for symptom management and advanced care planning. Recommendations/Counseling Done: Constipation: Increased Senna from every other evening to every evening. Itching: Resolved with DC of mirtazapine. So far no reoccurence of fever either. Insomnia, problems falling asleep: Trazodone doesn't seem to help much. Try non -pharm methods first: music, and white noise machine. Practice sleep hygiene. Fatigue: Practice pacing and prioritizing activities, and do most important things (eg, letters to children) early in day, when patient's energy is at its highest. Mouth sores: Has history of them, but none currently. Educated spouse on rinsing mouth with homemade remedies: baking soda in warm water, or weak saline solution. Will also write script for Miracle Mouthwash if indicated. Cough: Resolved Pain: Denied Anorexia: No improvement, however, she eats well, even if unenthusiastic. She has actually gained weight, today is 166.32 lbs. Advanced care planning: Spouse reports they have POLST at home, he does not recall what was signed. Follow up at next visit. Agreed I will call week of 01/26 to set up our next appointment in the [facility] for that Sat or . Time Spent: 45 minutes were spent with more than 50% of the time spent on counseling, education, and coordination of care.
== END 2018-01-15 09:26 | disposition home or self-care (01) ==
LOC: PC 09:25
PROVIDERS: ATTEND Nurse Practitioner
DX: Z51.5 Encounter for palliative care (principal); K59.00 Constipation, unspecified; G47.00 Insomnia, unspecified; R53.83 Other fatigue; R63.0 Anorexia; C54.1 Malignant neoplasm of endometrium; C78.6 Secondary malignant neoplasm of retroperitoneum and peritoneum; Z79.899 Other long term (current) drug therapy
CPT/HCPCS: 99215

== ENCOUNTER 2018-02-03 12:18 | Inpatient (IN) | payer MEDICARE, OTHER ==
[2018-02-03] MEDS ORDERED: SODIUM CHLORIDE 0.9% 1,000 ML IV ONE (13:35)
[2018-02-03] MEDS ORDERED: PROMETHAZINE INJ 6.25 MG in SODIUM CHLORIDE 0.9% 50 ML IV STA (13:35)
--- NOTE | 2018-02-03 13:37 | ED Physician Documentation ---
History of Present Illness - Stated complaint Stated Complaint: WEAKNESS - Chief complaint Chief Complaint: General - History obtained from History obtained from: Patient - History of Present Illness Timing: Other (72-year-old woman who presents with her for weakness over the last few days. She has endometrial cancer undergoing chemotherapy, last infusion was about 10 days ago. She has persistent nausea since then which is atypical. 2 nights ago she went to the bathroom and patient could not get back up and laid on the floor all night. Actually she was not quite on the floor she ended up on an air mattress. There was no injury. She denies any urinary complaints, shortness of breath, dark or tarry stool or changes in her bowel movements. There are no fevers.) Review of Systems Ten Systems: 10 systems reviewed and negative Constitutional: reports: Fatigue. denies: Fever, Chills Cardiac: denies: Chest pain / pressure, Palpitations GI: reports: Nausea. 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 HEENT: Tonsil/Adenoidectomy - Present Medications Home Medications: Ambulatory Orders Medication Instructions Recorded Confirmed Levothyroxine [Synthroid] 100 mcg PO QDAC 05/30/16 02/03/18 Cyanocobalamin (Vitamin B-12) 1,000 mcg PO DAILY 11/06/17 01/29/18 [Vitamin B-12] Enoxaparin [Lovenox] 80 mg SUBQ Q12H 11/06/17 02/03/18 Dexamethasone 8 mg PO DAILY 12/15/17 02/03/18 LORazepam [Lorazepam] 0.5 - 1 mg PO Q6H PRN 12/15/17 02/03/18 Metoclopramide [Reglan] 10 mg PO Q6H PRN 12/15/17 02/03/18 Multivitamin [Theragran] 1 tab PO QPM 12/15/17 01/29/18 traZODone [Desyrel] 50 mg PO QPM 12/15/17 02/03/18 Albuterol 1 - 2 puffs INH Q4H PRN 12/18/17 02/03/18 Metoprolol Tartrate 25 mg PO BID 12/19/17 02/03/18 Simethicone [Gas Relief] 80 mg PO PRN PRN 12/24/17 01/29/18 Mirtazapine [Mirtazapine] 7.5 mg PO QPM 02/03/18 02/03/18 Spironolactone [Spironolactone] 25 mg PO DAILY 02/03/18 02/03/18 oxyCODONE [Roxicodone] 5 mg PO Q4H PRN 02/03/18 02/03/18 - Allergies Allergies/Adverse Reactions: Allergies Allergy/AdvReac Type Severity Reaction Status Date / Time ondansetron Allergy Unknown Verified 02/03/18 12:27 [From Zofran (as hydrochloride)] rivaroxaban [From Xarelto] Allergy Unknown Verified 02/03/18 12:27 - Social History Does the pt smoke?: No Smoking Status: Never smoker Does the pt drink ETOH?: No Does the pt have substance abuse?: No - Family History Family history: reports: Non contributory - Immunizations Immunizations are current?: Yes - POLST Patient has POLST: Yes POLST Status: Full Code PD ED PE NORMAL - Vitals Vital signs reviewed: Yes - General General: Alert and oriented X 3, No acute distress - HEENT HEENT: PERRL, EOMI - Neck Neck: Supple, no meningeal sign, No bony TTP - Cardiac Cardiac: RRR, No murmur - Respiratory Respiratory: No respiratory distress, Clear bilaterally - Abdomen Abdomen: Normal bowel sounds, Soft, Non tender - Rectal Rectal: Other (Brown faintly guiaiac positive) - Back Back: No CVA TTP, No spinal TTP - Derm Derm: Normal color, Warm and dry - Extremities Extremities: No edema, No calf tenderness / cord - Neuro Neuro: Alert and oriented X 3 Eye Opening: Spontaneous Motor: Obeys Commands Verbal: Oriented GCS Score: 15 - Psych Psych: Normal mood, Normal affect Results - Vitals Vitals: Vital Signs - 24 hr 02/03/18 02/03/18 02/03/18 12:23 13:59 15:46 Temperature 36.8 C Heart Rate 91 87 88 Respiratory 16 16 14 Rate Blood Pressure 116/66 111/76 119/66 O2 Saturation 96 95 97 Oxygen O2 Source Room air - EKG (time done) 1355 Rate: Rate (enter#) (85) Rhythm: NSR [place]: Normal Intervals: Normal [place] Ischemia: Other (abnormal R wave progression, LVH, flat t waves jarret inferior) Compare to prior EKG: Unchanged from prior EKG - Labs Labs: Laboratory Tests 02/03/18 02/03/18 02/03/18 14:31 14:31 14:31 WBC 11.4 H RBC 2.68 L Hgb 8.5 L Hct 25.0 L MCV 93.1 MCH 31.5 H MCHC 33.8 RDW 22.4 H Plt Count 212 MPV 6.6 L Neut # 9.2 H Lymph # 0.8 L Story # 1.5 H Eos # 0.0 Baso # 0.0 Absolute Nucleated RBC 0.00 Band Neuts % (Manual) Not Reportable Abnorm Lymph % (Manual) Not Reportable Nucleated RBC % 0.0 Neutrophils # (Manual) Not Reportable Lymphocytes # (Manual) Not Reportable Monocytes # (Manual) Not Reportable Eosinophils # (Manual) Not Reportable Basophils # (Manual) Not Reportable Differential Comment MANUAL=AUTO DIFF WBC Morphology 2+ TOXIC GRANULATION RBC Morph Micro Appear 2+ ANISOCYTOSIS Sodium 125 L Potassium 3.9 Chloride 90 L Carbon Dioxide 27 Anion Gap 8.0 BUN 16 Creatinine 1.0 Estimated GFR (MDRD) 54 L Glucose 101 H Calcium 8.4 L Total Bilirubin 0.4 AST 18 ALT 11 Alkaline Phosphatase 63 Total Creatine Kinase 18 L Troponin I < 0.04 Total Protein 6.3 L Albumin 2.8 L Globulin 3.5 Albumin/Globulin Ratio 0.8 L Lipase 22 Urine Color Urine Clarity Urine pH Ur Specific [place] Urine Protein Urine Glucose (UA) Urine Ketones Urine Occult Blood Urine Nitrite Urine Bilirubin Urine Urobilinogen Ur Leukocyte Esterase Urine RBC Urine WBC Ur Squamous Epith Cells Urine Bacteria Ur Microscopic Review Urine Culture Comments 02/03/18 15:30 WBC RBC Hgb Hct MCV MCH MCHC RDW Plt Count MPV Neut # Lymph # Story # Eos # Baso # Absolute Nucleated RBC Band Neuts % (Manual) Abnorm Lymph % (Manual) Nucleated RBC % Neutrophils # (Manual) Lymphocytes # (Manual) Monocytes # (Manual) Eosinophils # (Manual) Basophils # (Manual) Differential Comment WBC Morphology RBC Morph Micro Appear Sodium Potassium Chloride Carbon Dioxide Anion Gap BUN Creatinine Estimated GFR (MDRD) Glucose Calcium Total Bilirubin AST ALT Alkaline Phosphatase Total Creatine Kinase Troponin I Total Protein Albumin Globulin Albumin/Globulin Ratio Lipase Urine Color YELLOW Urine Clarity CLEAR Urine pH 5.5 Ur Specific [place] 1.010 Urine Protein TRACE Urine Glucose (UA) NEGATIVE Urine Ketones NEGATIVE Urine Occult Blood LARGE H Urine Nitrite NEGATIVE Urine Bilirubin NEGATIVE Urine Urobilinogen 0.2 (NORMAL) Ur Leukocyte Esterase NEGATIVE Urine RBC 6-10 H Urine WBC 0-3 Ur Squamous Epith Cells MANY Squamous H Urine Bacteria None Seen Ur Microscopic Review INDICATED Urine Culture Comments NOT INDICATED PD MEDICAL DECISION MAKING - ED course ED course: 72-year-old woman 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 Objective findings include mild guaiac positivity, mildly lower H&H, down about a unit from last week. Also low- sodium but she has had lower. She probably needs at least tonight in the hospital to trend her H&H, blood was readied but I do not think she needs a transfusion at this juncture. Spoke with Dr. Barnett for observation at 4:06 PM. Departure - Departure Disposition: ED Place in Observation Clinical Impression: Patient on antineoplastic chemotherapy regimen, Lower gastrointestinal bleed, Chemotherapy-induced nausea Condition: Stable Discharge Date/Time: 02/03/18 16:43
[2018-02-03 14:43] LABS: BASOPHILS % (AUTO) 0.3 %; EOSINOPHILS % (AUTO) 0.1 %; HGB - HEMOGLOBIN 8.5 g/dL (12.0-16.0); LYMPHOCYTES # (AUTO) 0.8 10^3/uL (1.5-3.5); LYMPHOCYTES % (AUTO) 6.6 %; MEAN CORPUSCULAR HEMOGLOBIN 31.5 pg (27.0-31.0); MEAN CORPUSCULAR HGB CONC 33.8 g/dL (32.0-36.0); MEAN CORPUSCULAR VOLUME 93.1 fL (81.0-99.0); MEAN PLATELET VOLUME 6.6 fL (7.9-10.8); MONOCYTES # (AUTO) 1.5 10^3/uL (0.0-1.0); MONOCYTES % (AUTO) 12.7 %; NEUTROPHILS # (AUTO) 9.2 10^3/uL (1.5-6.6); NEUTROPHILS % (AUTO) 80.3 %; PLT - PLATELET COUNT 212 10^3/uL (130-450); RED BLOOD COUNT 2.68 10^6/uL (4.20-5.40); RED CELL DISTRIBUTION WIDTH 22.4 % (12.0-15.0); WHITE BLOOD COUNT 11.4 x10^3/uL (4.8-10.8)
[2018-02-03 14:56] LABS: ALBUMIN 2.8 g/dL (3.2-5.5); ALBUMIN/GLOBULIN RATIO 0.8 (1.0-2.2); BILIRUBIN,TOTAL 0.4 mg/dL (0.2-1.0); CALCIUM 8.4 mg/dL (8.5-10.3); TOTAL PROTEIN 6.3 g/dL (6.7-8.2)
[2018-02-03 15:02] LABS: DIFFERENTIAL COMMENT MANUAL=AUTO DIFF
[2018-02-03 15:39] LABS: BILIRUBIN,URINE NEGATIVE (NEGATIVE); CLARITY,URINE CLEAR (CLEAR); GLUCOSE, URINE (UA) NEGATIVE (NEGATIVE); KETONES,URINE (UA) NEGATIVE (NEGATIVE); LEUKOCYTE ESTERASE, URINE NEGATIVE (NEGATIVE); NITRITE,URINE NEGATIVE (NEGATIVE); OCCULT BLOOD,URINE LARGE (NEGATIVE); PH,URINE 5.5 PH (5.0-7.5); PROTEIN,URINE TRACE mg/dL (NEGATIVE); UROBILINOGEN,URINE 0.2 (NORMAL) E.U./dL (NORMAL)
[2018-02-03 15:51] LABS: BACTERIA,URINE None Seen /HPF (None Seen); SQUAMOUS EPITHELIAL CELL,UR MANY Squamous (<= Few)
[2018-02-03] MEDS ORDERED: SIMETHICONE CHEW 80 MG TABLET PO PRN (16:13)
[2018-02-03] MEDS ORDERED: LORazepam 0.5 MG TABLET PO PRN ×2 (16:13→17:05)
[2018-02-03] MEDS ORDERED: SODIUM CHLORIDE FLUSH 0.9% 10 ML SYRINGE IVP PRN (16:14)
[2018-02-03] MEDS ORDERED: SODIUM CHLORIDE 0.9% 500 ML IV ONE ×2 (16:14→16:42)
[2018-02-03] MEDS ORDERED: ACETAMINOPHEN 325 MG TABLET PO PRN ×2 (16:14→17:05)
[2018-02-03] MEDS ORDERED: PROMETHAZINE 25 MG/1 ML VIAL IM PRN ×2 (16:14→17:05)
[2018-02-03] MEDS ORDERED: HYDROcod/ACETAM 5/325 MG TABLET PO PRN (16:14)
[2018-02-03] MEDS ORDERED: PROCHLORPERAZINE 10 MG/2 ML VIAL IVP PRN (16:14)
[2018-02-03] MEDS ORDERED: ZOLPIDEM 5 MG TABLET PO PRN ×2 (16:14→17:05)
[2018-02-03] MEDS ORDERED: HYDROcod/ACETAM 10 MG/325 MG TABLET PO PRN ×2 (16:14→17:05)
[2018-02-03 16:40] LABS: BASOPHILS % (AUTO) 0.4 %; EOSINOPHILS % (AUTO) 0.1 %; HGB - HEMOGLOBIN 7.9 g/dL (12.0-16.0); LYMPHOCYTES % (AUTO) 7.7 %; MEAN CORPUSCULAR HEMOGLOBIN 31.1 pg (27.0-31.0); MEAN CORPUSCULAR HGB CONC 33.4 g/dL (32.0-36.0); MEAN CORPUSCULAR VOLUME 93.2 fL (81.0-99.0); MEAN PLATELET VOLUME 6.3 fL (7.9-10.8); MONOCYTES % (AUTO) 13.4 %; NEUTROPHILS % (AUTO) 78.4 %; PLT - PLATELET COUNT 200 10^3/uL (130-450); RED BLOOD COUNT 2.53 10^6/uL (4.20-5.40); RED CELL DISTRIBUTION WIDTH 22.4 % (12.0-15.0); WHITE BLOOD COUNT 10.4 x10^3/uL (4.8-10.8)
[2018-02-03 16:47] LABS: ABNORMAL LYMPHS % (MANUAL) 0 %
[2018-02-03] MEDS ORDERED: ENOXAPARIN 80 MG/0.8 ML SYRINGE SUBQ SCH (17:00)
[2018-02-03] MEDS ORDERED: SODIUM CHLORIDE 0.9% 1,000 ML IV SCH (17:00)
[2018-02-03] MEDS ORDERED: SODIUM CHLORIDE FLUSH 0.9% 10 ML SYRINGE IVP SCH (17:00)
[2018-02-03 17:01] LABS: BAND NEUTROPHILS % (MANUAL) 8 %; BASOPHILS # (MANUAL) 0.1 10^3/uL (0-0.1); BASOPHILS % (MANUAL) 1 %; LYMPHOCYTES # (MANUAL) 0.6 10^3/uL (1.5-3.5); LYMPHOCYTES % (MANUAL) 6 %; METAMYELOCYTES % (MANUAL) 2 %; MONOCYTES # (MANUAL) 1.2 10^3/uL (0.0-1.0); NEUTROPHILS # (MANUAL) 8.2 10^3/uL (1.5-6.6); NEUTROPHILS % (MANUAL) 71 %
[2018-02-03 17:05] LABS: DIFFERENTIAL COMMENT MANUAL DIFFERENTIAL; PLATELET ESTIMATE, MANUAL NORMAL (130-450,000) (NORMAL); PLATELET MORPHOLOGY NORMAL APPEARANCE (NORMAL)
[2018-02-03] MEDS ORDERED: METOCLOPRAMIDE 10 MG TABLET PO PRN (17:21)
--- NOTE | 2018-02-03 18:32 | HISTORY & PHYSICAL EXAMINATION ---
Chief Complaint - Chief Complaint Chief Complaint: Generalized weakness History of Present Illness - Admitted From Admitted From:: Emergency department - History Obtained From Records Reviewed: Yes History obtained from: Patient and patient's Exam Limitations: None - History of Present Illness HPI Comment/Other: Patient is a very unfortunate 72-year-old female with a past medical history significant for metastatic endometrial cancer currently on carboplatin and Taxol status post [address] after 3 cycles showed improvement in her tumor burden in her abdomen with decreased ascites and she recently seek a consult from the [facility] for possible debulking surgery. 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 The patient last received chemotherapy about 10 days ago. She states that she was doing okay right after the chemotherapy but over the last 3 days has developed generalized weakness. She collapsed to the floor 2 days ago at her home and then could not get up. The patient's could not lift her up because he states she was weight. He put her in a sleeping bag and let her sleep through the night. He states that she continued to have weakness yesterday and then again today where she was barely able to stand. She has been nauseated for the last 3 or 4 days and has been trying to eat but for the last day has eaten very very little. The patient otherwise denies any shortness of air. She denies any black or bloody stools. She denies any headaches or focal neurologic changes. She denies any fevers or chills. She denies any cough, chest pain, orthopnea, PND, increased lower extremity swelling. She also denies any urinary urgency, frequency or dysuria. She denies any abdominal pain or diarrhea. She denies any neck stiffness or focal neurologic deficits. On presentation to the emergency department today the patient was afebrile she had heart rate in the 90s but otherwise was normotensive and was not in any respiratory distress. The patient's lab work revealed a sodium of 125 with a chloride of 90 consistent with some hypovolemia. The patient had a CBC drawn which showed a mild leukocytosis of 11.4 with a hemoglobin of 8.5 which was slightly decreased from her baseline. The patient also underwent a urine analysis which was negative for a UTI. The patient had a EKG which showed a normal sinus rhythm without any ST elevations or ischemic changes. The ER physician did a stool guaiac which he found to be weakly positive therefore the patient was placed in observation for possible GI bleed. 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 Social History Notes: The patient and her have lived in [facility] for the last 34 years. Originally from [place] and have been for 52 years. They have 5 children together. The patient was riding her bike 40 miles a day this time last year but has had an unfortunate decline in her health starting in August 2017. The patient has never been a smoker, she does not drink alcohol and she denies any illicit drug use. - Substance History Use: Uses substance without health or social issues: NONE - POLST Patient has POLST: Yes POLST Status: Full Code Meds/Allgy - Home Medications Home Medications: Ambulatory Orders Medication Instructions Recorded Confirmed Levothyroxine [Synthroid] 100 mcg PO QDAC 05/30/16 02/03/18 Cyanocobalamin (Vitamin B-12) 1,000 mcg PO DAILY 11/06/17 02/03/18 [Vitamin B-12] Enoxaparin [Lovenox] 80 mg SUBQ Q12H 11/06/17 02/03/18 LORazepam [Lorazepam] 0.5 - 1 mg PO Q6H PRN 12/15/17 02/03/18 Multivitamin [Theragran] 1 tab PO DAILY 12/15/17 02/03/18 traZODone [Desyrel] 50 mg PO QPM 12/15/17 02/03/18 Metoprolol Tartrate 25 mg PO BID 12/19/17 02/03/18 Simethicone [Gas Relief] 80 mg PO PRN PRN 12/24/17 02/03/18 Albuterol Sulfate [Proair Hfa 1 - 2 puffs PO Q4H PRN 02/03/18 02/03/18 Inhaler] Sodium Chloride [Salt Tab] 1 gm PO Q48H 02/03/18 02/03/18 oxyCODONE [Roxicodone] 5 mg PO Q4H PRN 02/03/18 02/03/18 - Allergies Allergies/Adverse Reactions: Allergies Allergy/AdvReac Type Severity Reaction Status Date / Time ondansetron Allergy Unknown Verified 02/03/18 12:27 [From Zofran (as hydrochloride)] rivaroxaban [From Xarelto] Allergy Unknown Verified 02/03/18 12:27 Review of Systems - Other Findings Other Findings: A comprehensive review of systems was performed the pertinent positives and negatives are stated above in the HPI and the remainder of the review of systems is negative. Exam - Vital Signs Reviewed Vital Signs: Yes Vital Signs: Vital Signs x48h Temp Pulse Pulse Resp BP BP Pulse Ox 02/03/18 16:50 37.0 C 94 18 135/57 H 96 02/03/18 16:32 37.2 C 90 16 132/67 H 98 - Physical Exam General Appearance: positive: Moderate distress (The patient appears unwell, she is very fatigued and very weak she barely opens her eyes to speak with me and just wants to be left alone.) Eyes Bilateral: positive: Normal inspection, PERRL, EOMI, No lid inflammation, Conjunctivae nml, No scleral icterus ENT: positive: ENT inspection nml, Pharynx nml, Dry mucous membranes. negative : Purulent nasal drainage, Pharyngeal erythema, Oral lesions Neck: positive: Nml inspection, Thyroid nml, No JVD, Trachea midline. negative : Thyromegaly, Lymphadenopathy (R), Lymphadenopathy (L), Stiff neck, Carotid bruit, Tracheal deviation Respiratory: positive: Chest non-tender, No respiratory distress, Breath sounds nml. negative: Wheezes, Rales, Rhonchi Cardiovascular: positive: Regular rate & rhythm, No murmur, No gallop Peripheral Pulses: positive: 2+ Abdomen: positive: Non-tender, No organomegaly, Nml bowel sounds, No distention. negative: Guarding, Rebound, Hepatomegaly Back: positive: Nml inspection. negative: CVA tenderness (R), CVA tenderness (L ) Skin: positive: Color nml, No rash, Dry. negative: Cyanosis, Diaphoresis, Pallor Extremities: positive: Non-tender, Full ROM, Nml appearance, No pedal edema Neurologic/Psychiatric: positive: Oriented x3, CN's nml (2-12), Motor nml, Sensation nml Conclusion/Plan - Problem List (1) GI bleed Conclusion/Plan: Patient presented with generalized weakness and was found to be anemic with a hemoglobin of 8.5 which was down from her baseline of 9.4. Recheck of the hemoglobin showed that it was 7.9. The emergency room physician did a stool guaiac which he stated was weakly positive. Although likely the patient has anemia from chemotherapy this is concerning for possible GI bleed given the patient is on Lovenox for DVTs. Plan: Patient will be placed in observation and we will do serial H&H every 6 hours IV Protonix twice daily IV fluids Hold Lovenox Given the patient's advanced cancer she does not want to be overly aggressive with doing EGD or colonoscopy but will consider it depending on the extent of bleeding. If there is significant bleeding we will consider a surgical consult Transfuse if hemoglobin less than 7 Qualifiers: GI bleed type/associated pathology: unspecified gastrointestinal hemorrhage type Qualified Code(s): K92.2 - Gastrointestinal hemorrhage, unspecified (2) Generalized weakness Conclusion/Plan: Generalized weakness is likely secondary to receiving chemotherapy 10 days ago however if patient is having a GI bleed this could also be a contributing factor. The patient also appears to be quite dehydrated as she does have hyponatremia with sodium of 125 and appears hypovolemic. Plan: Patient will be given IV fluids We will transfuse patient if hemoglobin falls below 7 We will consider PT consult if patient is not improving. (3) Hyponatremia Conclusion/Plan: The patient presents with hyponatremia. The patient's sodium is 125 on presentation. The patient appears quite dry and hypovolemic. Patient will be given IV fluids Patient will be given salt tablets and will continue to monitor the patient's sodium (4) History of DVT (deep vein thrombosis) Conclusion/Plan: Patient is on Lovenox twice daily for history of DVTs. We will hold the patient's Lovenox for now given the possible GI bleed and worsening hemoglobin (5) Hypertension Conclusion/Plan: Patient has history of hypertension and takes metoprolol currently the patient' s blood pressure is well controlled. We will continue her home dose of metoprolol but we will consider holding if blood pressure begins to drop and GI bleed becomes worse Qualifiers: Hypertension type: essential hypertension Qualified Code(s): I10 - Essential (primary) hypertension (6) Chemotherapy-induced nausea Conclusion/Plan: The patient has been dealing with nausea over the last 3 or 4 days. This is nausea secondary to her chemotherapy. The patient will be placed on lorazepam and Phenergan for nausea. We will continue to monitor symptoms and encourage her to eat. The patient appears quite dehydrated secondary to the nausea at home. (7) Endometrial cancer Conclusion/Plan: The patient has metastatic endometrial cancer and is undergoing chemotherapy. She appears to have some response to chemotherapy according to her oncologist note although the patient is in very rough condition on presentation here to our hospital this may just be some effects of the chemotherapy and with getting hydration and possible transfusion the patient could improve and be ready for another chemotherapy session. The patient is also considering debulking surgery in the future. In patient's current condition it would not be advisable for her to do chemotherapy or debulking surgery however the hope is that she will improve and be strong enough to continue with treatment. The patient still wants to be a full code but will need to consider palliative options in the future if the cancer progresses or if she continues to have severe symptoms from the chemotherapy. After hospitalization patient will follow up with her oncologist. (8) Hypothyroidism Conclusion/Plan: Patient has history of hypothyroidism. The patient will be continued on her Synthroid Stable Qualifiers: Hypothyroidism type: unspecified Qualified Code(s): E03.9 - Hypothyroidism , unspecified - Lab Results Lab results reviewed: Yes Troy Bones: 02/03/18 16:31 02/03/18 14:31 - EKG Results EKG Interpreted Independently: Yes Core Measures - Anticipated LOS I expect patient to be DC'd or transferred within 96 hours.: Yes - DVT/VTE - Prophylaxis VTE/DVT Device ordered at admit?: Yes
[2018-02-03] MEDS: SODIUM CHLORIDE FLUSH 0.9% 10 ML SYRINGE IVP SCH (18:47)
[2018-02-03] MEDS: SIMETHICONE CHEW 80 MG TABLET PO PRN (18:47)
[2018-02-03] MEDS: SODIUM CHLORIDE 1 GM TABLET PO SCH (18:48)
--- NOTE | 2018-02-03 19:18 | XRAY Preliminary Report ---
Exam: XR CHEST 1 VIEW X-RAY IMPRESSION: Normal single view chest. [facility] SITE ID: [id number]
--- NOTE | 2018-02-03 19:26 | XRAY Report ---
EXAM: CHEST RADIOGRAPHY EXAM DATE: 02/03/2018 07:08 PM. CLINICAL HISTORY: Generalized weakness and immunocompromise. Cough. COMPARISON: 01/07/2018. TECHNIQUE: 1 view. FINDINGS: Lungs/Pleura: No focal opacities evident. No pleural effusion. No pneumothorax. Mediastinum: Within exam limitations, the cardiomediastinal contour is normal. Other: Left jugular Port-A-Cath tip remains mid-third SVC. IMPRESSION: Normal single view chest. [facility] Referring Provider Line: [phone] SITE ID: [id number]
[2018-02-03] MEDS: SODIUM CHLORIDE 0.9% 1,000 ML IV SCH (19:27)
[2018-02-03] MEDS ORDERED: PANTOPRAZOLE 40 MG VIAL IVP SCH (21:00)
[2018-02-03] MEDS ORDERED: METOPROLOL TARTRATE 25 MG TABLET PO SCH (21:00)
[2018-02-03] MEDS ORDERED: traZODone 50 MG TABLET PO SCH (21:00)
[2018-02-03] MEDS ORDERED: MIRTAZAPINE 15 MG TABLET PO SCH (21:00)
[2018-02-03] MEDS ORDERED: MULTIVITAMIN TABLET PO SCH (21:00)
[2018-02-03] MEDS: traZODone 50 MG TABLET PO SCH (21:12)
[2018-02-03] MEDS: METOPROLOL TARTRATE 25 MG TABLET PO SCH (21:14)
[2018-02-03] MEDS: PANTOPRAZOLE 40 MG VIAL IVP SCH (21:16)
[2018-02-03 22:14] LABS: BASOPHILS % (AUTO) 0.4 %; EOSINOPHILS % (AUTO) 0.1 %; LYMPHOCYTES % (AUTO) 6.8 %; MEAN CORPUSCULAR HEMOGLOBIN 32.2 pg (27.0-31.0); MEAN CORPUSCULAR HGB CONC 34.2 g/dL (32.0-36.0); MEAN CORPUSCULAR VOLUME 94.1 fL (81.0-99.0); MEAN PLATELET VOLUME 6.5 fL (7.9-10.8); MONOCYTES % (AUTO) 12.8 %; NEUTROPHILS % (AUTO) 79.9 %; PLT - PLATELET COUNT 197 10^3/uL (130-450); RED BLOOD COUNT 2.49 10^6/uL (4.20-5.40); RED CELL DISTRIBUTION WIDTH 22.7 % (12.0-15.0); WHITE BLOOD COUNT 10.4 x10^3/uL (4.8-10.8)
[2018-02-03 22:19] LABS: ABNORMAL LYMPHS % (MANUAL) 0 %
[2018-02-03 22:41] LABS: BAND NEUTROPHILS % (MANUAL) 11 %; EOSINOPHILS # (MANUAL) 0.1 10^3/uL (0-0.7); LYMPHOCYTES # (MANUAL) 0.8 10^3/uL (1.5-3.5); LYMPHOCYTES % (MANUAL) 6 %; METAMYELOCYTES % (MANUAL) 2 %; MONOCYTES # (MANUAL) 1.2 10^3/uL (0.0-1.0); NEUTROPHILS % (MANUAL) 66 %
[2018-02-03 22:44] LABS: DIFFERENTIAL COMMENT MANUAL DIFFERENTIAL; PLATELET ESTIMATE, MANUAL NORMAL (130-450,000) (NORMAL); PLATELET MORPHOLOGY NORMAL APPEARANCE (NORMAL)
[2018-02-04] MEDS: SODIUM CHLORIDE FLUSH 0.9% 10 ML SYRINGE IVP SCH ×3 (02:05→16:21)
[2018-02-04] MEDS: SODIUM CHLORIDE 0.9% 1,000 ML IV SCH (04:57)
[2018-02-04 05:08] LABS: BASOPHILS % (AUTO) 0.2 %; EOSINOPHILS % (AUTO) 0.2 %; HGB - HEMOGLOBIN 7.9 g/dL (12.0-16.0); LYMPHOCYTES # (AUTO) 0.6 10^3/uL (1.5-3.5); LYMPHOCYTES % (AUTO) 7.2 %; MEAN CORPUSCULAR HEMOGLOBIN 31.2 pg (27.0-31.0); MEAN CORPUSCULAR HGB CONC 33.1 g/dL (32.0-36.0); MEAN CORPUSCULAR VOLUME 94.3 fL (81.0-99.0); MEAN PLATELET VOLUME 6.7 fL (7.9-10.8); MONOCYTES # (AUTO) 1.3 10^3/uL (0.0-1.0); MONOCYTES % (AUTO) 14.3 %; NEUTROPHILS # (AUTO) 6.8 10^3/uL (1.5-6.6); NEUTROPHILS % (AUTO) 78.1 %; PLT - PLATELET COUNT 193 10^3/uL (130-450); RED BLOOD COUNT 2.55 10^6/uL (4.20-5.40); WHITE BLOOD COUNT 8.8 x10^3/uL (4.8-10.8)
[2018-02-04 05:17] LABS: ALBUMIN 2.7 g/dL (3.2-5.5); ALBUMIN/GLOBULIN RATIO 0.9 (1.0-2.2); ALKALINE PHOSPHATASE 57 IU/L (42-121); ALT ALANINE AMINOTRANSFERASE 11 IU/L (10-60); AST ASPARTATE AMINOTRANSFERASE 17 IU/L (10-42); BILIRUBIN,TOTAL 0.6 mg/dL (0.2-1.0); BUN - BLOOD UREA NITROGEN 14 mg/dL (6-20); CARBON DIOXIDE - CO2 24 mmol/L (21-32); CHLORIDE 98 mmol/L (101-111); CREATININE 0.9 mg/dL (0.4-1.0); GFR - MDRD 61 (>89); GLUCOSE 90 mg/dL (70-100); SODIUM 130 mmol/L (135-145); TOTAL PROTEIN 5.7 g/dL (6.7-8.2)
[2018-02-04 05:22] LABS: VBG PH 7.431 (7.31-7.41)
[2018-02-04 05:38] LABS: PLATELET ESTIMATE, MANUAL NORMAL (130-450,000) (NORMAL); PLATELET MORPHOLOGY NORMAL APPEARANCE (NORMAL)
[2018-02-04] MEDS: SIMETHICONE CHEW 80 MG TABLET PO PRN (06:23)
[2018-02-04] MEDS: LEVOTHYROXINE 100 MCG TABLET PO SCH (06:24)
[2018-02-04] MEDS ORDERED: LEVOTHYROXINE 100 MCG TABLET PO SCH (07:00)
[2018-02-04] MEDS ORDERED: POLYETHYLENE GLYCOL 3350 17 GM PACKET PO SCH (09:00)
[2018-02-04] MEDS ORDERED: SPIRONOLACTONE 25 MG TABLET PO SCH (09:00)
[2018-02-04] MEDS ORDERED: CYANOCOBALAMIN 1000 MCG PO SCH (09:00)
[2018-02-04] MEDS ORDERED: DEXAMETHASONE 4 MG TABLET PO SCH (09:00)
[2018-02-04] MEDS: PROCHLORPERAZINE 10 MG/2 ML VIAL IVP PRN (09:16)
[2018-02-04] MEDS: SODIUM CHLORIDE FLUSH 0.9% 10 ML SYRINGE IVP PRN ×2 (09:17→11:15)
[2018-02-04 10:13] LABS: BASOPHILS % (AUTO) 0.2 %; EOSINOPHILS % (AUTO) 0.2 %; HGB - HEMOGLOBIN 8.8 g/dL (12.0-16.0); LYMPHOCYTES # (AUTO) 0.5 10^3/uL (1.5-3.5); LYMPHOCYTES % (AUTO) 5.4 %; MEAN CORPUSCULAR HEMOGLOBIN 32.1 pg (27.0-31.0); MEAN CORPUSCULAR HGB CONC 34.2 g/dL (32.0-36.0); MEAN PLATELET VOLUME 6.3 fL (7.9-10.8); MONOCYTES # (AUTO) 1.4 10^3/uL (0.0-1.0); MONOCYTES % (AUTO) 14.6 %; NEUTROPHILS # (AUTO) 7.7 10^3/uL (1.5-6.6); NEUTROPHILS % (AUTO) 79.6 %; PLT - PLATELET COUNT 191 10^3/uL (130-450); RED BLOOD COUNT 2.73 10^6/uL (4.20-5.40); RED CELL DISTRIBUTION WIDTH 21.5 % (12.0-15.0); WHITE BLOOD COUNT 9.6 x10^3/uL (4.8-10.8)
[2018-02-04 10:41] LABS: RBC MORPHOLOGY (MULTIPLE) 2+ ANISOCYTOSIS (NORMAL)
--- NOTE | 2018-02-04 11:03 | PROVIDER PROGRESS NOTE ---
Assessment/Plan - Problem List (1) Chemotherapy-induced nausea Assessment/Plan: Will adjust anti-emetic to the one that doesn't cause restless legs. Also, she loves hamburgers. Will allow to bring her a favorite food. Continue peripheral iv with some calories, will change to D5NS. (2) Generalized weakness Assessment/Plan: Patient has several reasons to be feeling weak: anemia, antti-emetic use, poor nutrition. Continue supportive care. (3) Hyponatremia Assessment/Plan: IV saline plus salt tablets daily to continue. Follow labs. (4) Dehydration Assessment/Plan: Continue peripheral iv during poor po intake due to nausea and vomiting Follow BMP (5) Anemia Assessment/Plan: Possible etiologies are a GI blood loss or chemotheraoy or chronic disease cause. Continue q6h CBC check and will likely need a transfusion, since she is symptomatic with her weakness. Will also check B12, Folate and Iron studies and replace if needed. (6) Heme positive stool Assessment/Plan: According to yesterday's discussions with admitting MD, no aggressive GI blood loss source planned. (7) History of DVT (deep vein thrombosis) Assessment/Plan: Will continue Lovenox management. (8) Endometrial cancer Assessment/Plan: Pt followed at [facility] [place] [facility] and had recent chemo. - Current Meds Current Meds: Current Medications Generic Name Dose Route Start Last Admin Trade Name Freq PRN Reason Stop Dose Admin Sodium Chloride 1,000 mls @ 100 mls/hr 02/03/18 17:00 02/04/18 04:57 Normal Saline 0.9% IV 100 mls/hr .Q10H NYLA Administration Levothyroxine Sodium 100 mcg 02/04/18 07:00 02/04/18 06:24 Synthroid PO 100 mcg QDAC NYLA Administration Metoprolol Tartrate 25 mg 02/03/18 21:00 02/03/18 21:14 Lopressor PO 25 mg BID NYLA Administration Pantoprazole Sodium 40 mg 02/03/18 21:00 02/03/18 21:16 Protonix IVP 40 mg BID NYLA Administration Prochlorperazine Edisylate 10 mg 02/03/18 17:05 02/04/18 09:16 Compazine Inj IVP 10 mg Q6HR PRN Administration Nausea / Vomiting Simethicone 80 mg 02/03/18 17:05 02/04/18 06:23 Mylicon PO 80 mg PRN PRN Administration Gas Sodium Chloride 10 ml 02/03/18 17:05 02/04/18 09:17 Normal Saline Flush 0.9% IVP 10 ml PRN PRN Administration NEEDED PER PROVIDER ORDERS Sodium Chloride 10 ml 02/03/18 17:00 02/04/18 09:57 Normal Saline Flush 0.9% IVP Not Given 0100,0900,1700 NYLA Sodium Chloride 1 gm 02/03/18 19:00 02/03/18 18:48 Salt Tab PO 1 gm DAILY NYLA Administration Trazodone HCl 50 mg 02/03/18 21:00 02/03/18 21:12 Desyrel PO 50 mg QPM NYAL Administration - Lab Result Fish Bone Diagrams: 02/04/18 10:02 02/04/18 04:42 - Additional Planning My Orders: My Active Orders 02/04/18 10:56 Admit \ Transfer \ Status [RC] .ONCE Subjective - Subjective Patient Reports: Fatigue, Nausea, Other (Restlessness from nausea meds, all except Lorazepam. Also, Mirtazipine causes a fever, per 's report to me.) Nursing Reports: Other (No appetite) Objective Vital Signs: Vital Signs - 24 hr 02/03/18 02/03/18 02/03/18 16:32 16:50 20:43 Temperature 37.2 C 37.0 C 37.6 C H Heart Rate 90 Heart Rate [ 94 99 Brachial] Respiratory 16 18 18 Rate Blood Pressure 132/67 H Blood Pressure 135/57 H 139/75 H [Right Brachial artery] O2 Saturation 98 96 96 02/03/18 02/04/18 02/04/18 21:14 00:43 04:45 Temperature 36.6 C 36.6 C Heart Rate Heart Rate [ 82 86 Brachial] Respiratory 18 18 Rate Blood Pressure 136/73 H Blood Pressure 136/67 H 140/66 H [Right Brachial artery] O2 Saturation 95 95 02/04/18 08:00 Temperature 36.6 C Heart Rate Heart Rate [ 92 Brachial] Respiratory 18 Rate Blood Pressure Blood Pressure 134/65 H [Right Brachial artery] O2 Saturation 97 Oxygen O2 Source Room air I&O (Last 24 Hrs): Intake and Output Totals x24h 02/02/18 02/03/18 02/04/18 23:59 23:59 23:59 Intake Total 1750.25 1450 Balance 1750.25 1450 General: Other (Somnolent, arouses and then legs are restless.) HEENT: Mucous membr. moist/pink, Other (Pale) Neck: Supple Neuro: Non Focal Cardiovascular: Regular rate Respiratory: No respiratory distress Abdomen: Soft Extremities: No edema - Results Results: Laboratory Results WBC 9.6 x10^3/uL (4.8-10.8) 02/04/18 10:02 RBC 2.73 10^6/uL (4.20-5.40) L 02/04/18 10:02 Hgb 8.8 g/dL (12.0-16.0) L 02/04/18 10:02 Hct 25.6 % (37.0-47.0) L 02/04/18 10:02 MCV 94.0 fL (81.0-99.0) 02/04/18 10:02 MCH 32.1 pg (27.0-31.0) H 02/04/18 10:02 MCHC 34.2 g/dL (32.0-36.0) 02/04/18 10:02 RDW 21.5 % (12.0-15.0) H 02/04/18 10:02 Plt Count 191 10^3/uL (130-450) 02/04/18 10:02 MPV 6.3 fL (7.9-10.8) L 02/04/18 10:02 Neut # 7.7 10^3/uL (1.5-6.6) H 02/04/18 10:02 Lymph # 0.5 10^3/uL (1.5-3.5) L 02/04/18 10:02 [place] # 1.4 10^3/uL (0.0-1.0) H 02/04/18 10:02 Eos # 0.0 10^3/uL (0.0-0.7) 02/04/18 10:02 Baso # 0.0 10^3/uL (0.0-0.1) 02/04/18 10:02 Absolute Nucleated RBC 0.00 x10^3/uL 02/04/18 10:02 Total Counted 100 02/03/18 22:05 Band Neuts % (Manual) 11 % (0-10) H 02/03/18 22:05 Reactive Lymphs % (Man) 2 % 02/03/18 22:05 Abnorm Lymph % (Manual) 0 % 02/03/18 22:05 Metamyelocytes % 2 % (-0) H 02/03/18 22:05 Nucleated RBC % 0.0 /100WBC 02/04/18 10:02 Neutrophils # (Manual) 8.0 10^3/uL (1.5-6.6) H 02/03/18 22:05 Lymphocytes # (Manual) 0.8 10^3/uL (1.5-3.5) L 02/03/18 22:05 Monocytes # (Manual) 1.2 10^3/uL (0.0-1.0) H 02/03/18 22:05 Eosinophils # (Manual) 0.1 10^3/uL (0-0.7) 02/03/18 22:05 Basophils # (Manual) 0.0 10^3/uL (0-0.1) 02/03/18 22:05 Differential Comment MANUAL DIFFERENTIAL 02/03/18 22:05 Manual Slide Review Indicated 02/04/18 10:02 WBC Morphology 2+ TOXIC GRANULATION (NORMAL) 02/03/18 14:31 Platelet Estimate NORMAL (130-450,000) (NORMAL) 02/04/18 04:42 Platelet Morphology NORMAL APPEARANCE (NORMAL) 02/04/18 04:42 RBC Morph Micro Appear 2+ ANISOCYTOSIS (NORMAL) 1+ OVALOCYTES (NORMAL) 1+ TEARDROP CELLS (NORMAL) 02/03/18 16:31 RBC Morph Micro Appear 2+ ANISOCYTOSIS (NORMAL) 1+ OVALOCYTES (NORMAL) 1+ TEARDROP CELLS (NORMAL) 02/03/18 16:31 RBC Morph Micro Appear 2+ ANISOCYTOSIS (NORMAL) 1+ POLYCHROMASIA (NORMAL) 1 + HYPOCHROMASIA (NORMAL) 1+ OVALOCYTES (NORMAL) 02/03/18 22:05 RBC Morph Micro Appear 2+ ANISOCYTOSIS (NORMAL) 1+ POLYCHROMASIA (NORMAL) 1 + HYPOCHROMASIA (NORMAL) 1+ OVALOCYTES (NORMAL) 02/03/18 22:05 RBC Morph Micro Appear 2+ ANISOCYTOSIS (NORMAL) 1+ POLYCHROMASIA (NORMAL) 1 + HYPOCHROMASIA (NORMAL) 1+ OVALOCYTES (NORMAL) 02/03/18 22:05 RBC Morph Micro Appear 2+ ANISOCYTOSIS (NORMAL) 1+ POLYCHROMASIA (NORMAL) 1 + HYPOCHROMASIA (NORMAL) 1+ OVALOCYTES (NORMAL) 02/03/18 22:05 RBC Morph Micro Appear 2+ ANISOCYTOSIS (NORMAL) 2+ POLYCHROMASIA (NORMAL) 1 + HYPOCHROMASIA (NORMAL) 1+ OVALOCYTES (NORMAL) 02/04/18 04:42 RBC Morph Micro Appear 2+ ANISOCYTOSIS (NORMAL) 2+ POLYCHROMASIA (NORMAL) 1 + HYPOCHROMASIA (NORMAL) 1+ OVALOCYTES (NORMAL) 02/04/18 04:42 RBC Morph Micro Appear 2+ ANISOCYTOSIS (NORMAL) 2+ POLYCHROMASIA (NORMAL) 1 + HYPOCHROMASIA (NORMAL) 1+ OVALOCYTES (NORMAL) 02/04/18 04:42 RBC Morph Micro Appear 2+ ANISOCYTOSIS (NORMAL) 2+ POLYCHROMASIA (NORMAL) 1 + HYPOCHROMASIA (NORMAL) 1+ OVALOCYTES (NORMAL) 02/04/18 04:42 RBC Morph Micro Appear 2+ ANISOCYTOSIS (NORMAL) 02/04/18 10:02 VBG pH 7.431 (7.31-7.41) H 02/04/18 04:42 Ionized Calcium 1.07 mmol/L (1.15-1.33) L 02/04/18 04:42 Sodium 130 mmol/L (135-145) L 02/04/18 04:42 Potassium 3.7 mmol/L (3.5-5.0) 02/04/18 04:42 Chloride 98 mmol/L (101-111) L 02/04/18 04:42 Carbon Dioxide 24 mmol/L (21-32) 02/04/18 04:42 Anion Gap 8.0 (6-13) 02/04/18 04:42 BUN 14 mg/dL (6-20) 02/04/18 04:42 Creatinine 0.9 mg/dL (0.4-1.0) 02/04/18 04:42 Estimated GFR (MDRD) 61 (>89) L 02/04/18 04:42 Glucose 90 mg/dL (70-100) 02/04/18 04:42 Calcium 8.0 mg/dL (8.5-10.3) L 02/04/18 04:42 Ionized Calcium YES 02/04/18 04:42 Total Bilirubin 0.6 mg/dL (0.2-1.0) 02/04/18 04:42 AST 17 IU/L (10-42) 02/04/18 04:42 ALT 11 IU/L (10-60) 02/04/18 04:42 Alkaline Phosphatase 57 IU/L (42-121) 02/04/18 04:42 Total Creatine Kinase 18 IU/L (22-269) L 02/03/18 14:31 Troponin I < 0.04 ng/mL (<0.49) 02/03/18 14:31 Total Protein 5.7 g/dL (6.7-8.2) L 02/04/18 04:42 Albumin 2.7 g/dL (3.2-5.5) L 02/04/18 04:42 Globulin 3.0 g/dL (2.1-4.2) 02/04/18 04:42 Albumin/Globulin Ratio 0.9 (1.0-2.2) L 02/04/18 04:42 Lipase 22 U/L (22-51) 02/03/18 14:31 Urine Color YELLOW 02/03/18 15:30 Urine Clarity CLEAR (CLEAR) 02/03/18 15:30 Urine pH 5.5 PH (5.0-7.5) 02/03/18 15:30 Ur Specific [place] 1.010 (1.002-1.030) 02/03/18 15:30 Urine Protein TRACE mg/dL (NEGATIVE) 02/03/18 15:30 Urine Glucose (UA) NEGATIVE mg/dL (NEGATIVE) 02/03/18 15:30 Urine Ketones NEGATIVE mg/dL (NEGATIVE) 02/03/18 15:30 Urine Occult Blood LARGE (NEGATIVE) H 02/03/18 15:30 Urine Nitrite NEGATIVE (NEGATIVE) 02/03/18 15:30 Urine Bilirubin NEGATIVE (NEGATIVE) 02/03/18 15:30 Urine Urobilinogen 0.2 (NORMAL) E.U./dL (NORMAL) 02/03/18 15:30 Ur Leukocyte Esterase NEGATIVE (NEGATIVE) 02/03/18 15:30 Urine RBC 6-10 /HPF (0-5) H 02/03/18 15:30 Urine WBC 0-3 /HPF (0-5) 02/03/18 15:30 Ur Squamous Epith Cells MANY Squamous (<= Few) H 02/03/18 15:30 Urine Bacteria None Seen /HPF (None Seen) 02/03/18 15:30 Ur Microscopic Review INDICATED 02/03/18 15:30 Urine Culture Comments NOT INDICATED 02/03/18 15:30 Blood Type A POSITIVE 02/03/18 16:31 Antibody Screen NEGATIVE 02/03/18 16:31 - Procedures Procedures: Procedures INSERT INFUSION DEV IN L INT JUGULAR VEIN, PERC (12/02/17) INSERT VAD RESERVOIR IN CHEST SUBCU/FASCIA, OPEN (12/02/17)
[2018-02-04] MEDS: SODIUM CHLORIDE 1 GM TABLET PO SCH (11:13)
[2018-02-04] MEDS: POLYETHYLENE GLYCOL 3350 17 GM PACKET PO SCH (11:13)
[2018-02-04] MEDS: MULTIVITAMIN TABLET PO SCH (11:14)
[2018-02-04] MEDS: LORazepam 0.5 MG TABLET PO PRN ×2 (11:15→19:53)
[2018-02-04] MEDS: CYANOCOBALAMIN 500 MCG TABLET PO SCH (11:15)
[2018-02-04] MEDS: PANTOPRAZOLE 40 MG VIAL IVP SCH ×2 (11:15→21:10)
[2018-02-04] MEDS: METOPROLOL TARTRATE 25 MG TABLET PO SCH ×2 (11:16→21:10)
[2018-02-04] MEDS: DEXTROSE 5%-0.9% NACL 1,000 ML IV SCH ×2 (11:24→21:34)
--- NOTE | 2018-02-04 14:40 | Discharge Plan ---
Discharge Plan Disposition: 01 Home, Self Care Condition: Stable No Smoking: If you smoke, Please STOP! Call for help. Follow-up with: Lala Rosas PA [Primary Care Provider] -
[2018-02-04] MEDS: ENOXAPARIN 80 MG/0.8 ML SYRINGE SUBQ SCH (16:20)
[2018-02-04 16:29] LABS: BASOPHILS % (AUTO) 0.4 %; EOSINOPHILS % (AUTO) 0.2 %; HGB - HEMOGLOBIN 8.3 g/dL (12.0-16.0); LYMPHOCYTES % (AUTO) 4.4 %; MEAN CORPUSCULAR HGB CONC 32.8 g/dL (32.0-36.0); MEAN CORPUSCULAR VOLUME 94.5 fL (81.0-99.0); MEAN PLATELET VOLUME 6.7 fL (7.9-10.8); MONOCYTES % (AUTO) 11.8 %; NEUTROPHILS % (AUTO) 83.2 %; PLT - PLATELET COUNT 211 10^3/uL (130-450); RED BLOOD COUNT 2.68 10^6/uL (4.20-5.40); RED CELL DISTRIBUTION WIDTH 21.9 % (12.0-15.0); WHITE BLOOD COUNT 10.2 x10^3/uL (4.8-10.8)
[2018-02-04 16:31] LABS: ABNORMAL LYMPHS % (MANUAL) 0 %
[2018-02-04 16:53] LABS: BAND NEUTROPHILS % (MANUAL) 1 %; DIFFERENTIAL COMMENT MANUAL DIFFERENTIAL; LYMPHOCYTES # (MANUAL) 0.7 10^3/uL (1.5-3.5); LYMPHOCYTES % (MANUAL) 7 %; MONOCYTES # (MANUAL) 0.5 10^3/uL (0.0-1.0); NEUTROPHILS % (MANUAL) 87 %
[2018-02-04 17:10] LABS: FOLATE 20.59 ng/mL (5.90 - >24.8)
[2018-02-04 17:20] LABS: % IRON SATURATION 9 % (20-50); IRON 16 ug/dL (28-170); TOTAL IRON BINDING CAPACITY 179 ug/dL (250-450); TRANSFERRIN 128 mg/dL (192-382)
[2018-02-04] MEDS: HYDROcod/ACETAM 5/325 MG TABLET PO PRN (17:24)
[2018-02-04] MEDS: traZODone 50 MG TABLET PO SCH (21:10)
[2018-02-05] MEDS: SODIUM CHLORIDE FLUSH 0.9% 10 ML SYRINGE IVP SCH ×4 (01:08→22:34)
[2018-02-05 06:17] LABS: ALBUMIN 2.6 g/dL (3.2-5.5); ALBUMIN/GLOBULIN RATIO 0.9 (1.0-2.2); ALKALINE PHOSPHATASE 52 IU/L (42-121); ALT ALANINE AMINOTRANSFERASE 11 IU/L (10-60); AST ASPARTATE AMINOTRANSFERASE 19 IU/L (10-42); BILIRUBIN,TOTAL 0.5 mg/dL (0.2-1.0); BUN - BLOOD UREA NITROGEN 10 mg/dL (6-20); CALCIUM 7.9 mg/dL (8.5-10.3); CARBON DIOXIDE - CO2 25 mmol/L (21-32); CHLORIDE 97 mmol/L (101-111); CREATININE 0.8 mg/dL (0.4-1.0); GFR - MDRD 70 (>89); GLUCOSE 103 mg/dL (70-100); SODIUM 130 mmol/L (135-145); TOTAL PROTEIN 5.6 g/dL (6.7-8.2)
[2018-02-05 06:18] LABS: BASOPHILS % (AUTO) 0.4 %; EOSINOPHILS % (AUTO) 0.4 %; HGB - HEMOGLOBIN 7.7 g/dL (12.0-16.0); LYMPHOCYTES # (AUTO) 0.6 10^3/uL (1.5-3.5); LYMPHOCYTES % (AUTO) 6.8 %; MEAN CORPUSCULAR HEMOGLOBIN 31.2 pg (27.0-31.0); MEAN CORPUSCULAR HGB CONC 33.3 g/dL (32.0-36.0); MEAN CORPUSCULAR VOLUME 93.5 fL (81.0-99.0); MEAN PLATELET VOLUME 6.7 fL (7.9-10.8); MONOCYTES # (AUTO) 1.3 10^3/uL (0.0-1.0); MONOCYTES % (AUTO) 14.5 %; NEUTROPHILS # (AUTO) 6.8 10^3/uL (1.5-6.6); NEUTROPHILS % (AUTO) 77.9 %; PLT - PLATELET COUNT 198 10^3/uL (130-450); RED BLOOD COUNT 2.48 10^6/uL (4.20-5.40); RED CELL DISTRIBUTION WIDTH 21.5 % (12.0-15.0); WHITE BLOOD COUNT 8.7 x10^3/uL (4.8-10.8)
[2018-02-05 06:41] LABS: VBG PH 7.425 (7.31-7.41)
[2018-02-05] MEDS: LEVOTHYROXINE 100 MCG TABLET PO SCH (06:50)
[2018-02-05 07:04] LABS: DIFFERENTIAL COMMENT MANUAL=AUTO DIFF; PLATELET ESTIMATE, MANUAL NORMAL (130-450,000) (NORMAL); PLATELET MORPHOLOGY NORMAL APPEARANCE (NORMAL)
[2018-02-05] MEDS: DEXTROSE 5%-0.9% NACL 1,000 ML IV SCH (07:34)
[2018-02-05] MEDS: CYANOCOBALAMIN 500 MCG TABLET PO SCH (07:59)
[2018-02-05] MEDS: MULTIVITAMIN TABLET PO SCH (08:08)
[2018-02-05] MEDS: METOPROLOL TARTRATE 25 MG TABLET PO SCH ×2 (08:10→21:34)
[2018-02-05] MEDS: PANTOPRAZOLE 40 MG VIAL IVP SCH ×2 (08:12→22:34)
[2018-02-05] MEDS: SODIUM CHLORIDE FLUSH 0.9% 10 ML SYRINGE IVP PRN (08:12)
[2018-02-05] MEDS: ENOXAPARIN 80 MG/0.8 ML SYRINGE SUBQ SCH ×2 (08:16→21:33)
[2018-02-05] MEDS: POLYETHYLENE GLYCOL 3350 17 GM PACKET PO SCH (09:09)
[2018-02-05] MEDS: SENNA 8.6 MG TABLET PO SCH (10:50)
[2018-02-05] MEDS: SODIUM CHLORIDE 1 GM TABLET PO SCH (10:50)
[2018-02-05] MEDS: HYDROcod/ACETAM 5/325 MG TABLET PO PRN ×2 (11:04→19:24)
[2018-02-05] MEDS ORDERED: ACETAMINOPHEN 325 MG TABLET PO SCH (13:29)
[2018-02-05] MEDS ORDERED: diphenhydrAMINE 25 MG CAPSULE PO SCH (14:00)
--- NOTE | 2018-02-05 17:30 | PROVIDER PROGRESS NOTE ---
Assessment/Plan - Problem List (1) Chemotherapy-induced nausea Assessment/Plan: Resolved with time and with anti-emetics. (2) Generalized weakness Assessment/Plan: Pt's weakness better after hydrated, nausea resolved and starting to get blood transfusions. Ordered to get 2 U PRBCs. (3) Hyponatremia Assessment/Plan: Na low but stable at 130. Pt has no dietary restrictions and is on a salt tablet daily now (was qod prior to admission). (4) Dehydration Assessment/Plan: Resolved. (5) Anemia Assessment/Plan: Pt's H/H dropped even further. I spoke to Marcelina Escobar, On[facility], who agreed that PRBC transfusion should be done. Will order 2 U PRBCs. (6) Heme positive stool Assessment/Plan: No gross melena seen. Pt and have indicated that no colonoscopy desired. (7) History of DVT (deep vein thrombosis) Assessment/Plan: Pt on her therapeutic Lovenox dose bid. (8) Endometrial cancer Assessment/Plan: Stable. - Current Meds Current Meds: Current Medications Generic Name Dose Route Start Last Admin Trade Name Freq PRN Reason Stop Dose Admin Acetaminophen/Hydrocodone [place] 1 tab 02/03/18 17:05 02/05/18 11:04 [place] 5/325 PO 1 tab Q4HR PRN Administration Pain 5 to 7 Cyanocobalamin 1,000 mcg 02/04/18 09:00 02/05/18 07:59 Vitamin B-12 PO 1,000 mcg DAILY NYLA Administration Enoxaparin Sodium 80 mg 02/04/18 16:00 02/05/18 08:16 Lovenox SUBQ 80 mg BID NYLA Administration Dextrose/Sodium Chloride 1,000 mls @ 100 mls/hr 02/04/18 12:00 02/05/18 15:30 D5ns IV 0 mls/hr .Q10H NYLA Infusion Levothyroxine Sodium 100 mcg 02/04/18 07:00 02/05/18 06:50 Synthroid PO 100 mcg QDAC NYLA Administration Lorazepam 0.5 mg 02/04/18 11:07 02/04/18 19:53 Ativan PO 0.5 mg Q6H PRN Administration Nausea / Vomiting Metoprolol Tartrate 25 mg 02/03/18 21:00 02/05/18 08:10 Lopressor PO 25 mg BID NYLA Administration Multivitamins 1 tab 02/04/18 08:00 02/05/18 08:08 Theragran PO 1 tab DAILYWM NYLA Administration Pantoprazole Sodium 40 mg 02/03/18 21:00 02/05/18 08:12 Protonix IVP 40 mg BID NYLA Administration Polyethylene Glycol 17 gm 02/04/18 09:00 02/05/18 09:09 Miralax PO Not Given DAILY NYLA Prochlorperazine Edisylate 10 mg 02/03/18 17:05 02/04/18 09:16 Compazine Inj IVP 10 mg Q6HR PRN Administration Nausea / Vomiting Senna 8.6 - 17.2 mg 02/05/18 09:00 02/05/18 10:50 Senokot PO 8.6 mg DAILY NYLA Administration Simethicone 80 mg 02/03/18 17:05 02/04/18 06:23 Mylicon PO 80 mg PRN PRN Administration Gas Sodium Chloride 10 ml 02/03/18 17:05 02/05/18 08:12 Normal Saline Flush 0.9% IVP 10 ml PRN PRN Administration NEEDED PER PROVIDER ORDERS Sodium Chloride 10 ml 02/03/18 17:00 02/05/18 15:55 Normal Saline Flush 0.9% IVP 10 ml 0100,0900,1700 NYLA Administration Sodium Chloride 1 gm 02/03/18 19:00 02/05/18 10:50 Salt Tab PO 1 gm DAILY NYLA Administration Trazodone HCl 50 mg 02/03/18 21:00 02/04/18 21:10 Desyrel PO 50 mg QPM NYLA Administration - Lab Result Fish Bone Diagrams: 02/05/18 05:50 02/05/18 05:50 - Additional Planning My Orders: My Active Orders 02/05/18 RBC, LEUKOREDUCED Routine 02/05/18 09:00 Senna [Senokot] 8.6 - 17.2 mg PO DAILY 02/05/18 13:29 Transfuse RBCs Leukoreduced [RC] .ONCE Subjective - Subjective Patient Reports: Feeling Better Nursing Reports: Other (Nausea resolved.) Objective Vital Signs: Vital Signs - 24 hr 02/04/18 02/04/18 02/05/18 21:10 23:40 08:10 Temperature 36.5 C Heart Rate Heart Rate [ 87 Brachial] Respiratory 16 Rate Blood Pressure 139/68 H 134/65 H Blood Pressure 137/67 H [Right Brachial artery] O2 Saturation 96 02/05/18 02/05/18 02/05/18 08:11 15:17 15:40 Temperature 36.8 C 36.9 C 36.4 C L Heart Rate 79 Heart Rate [ 94 88 Brachial] Respiratory 18 16 16 Rate Blood Pressure 125/64 Blood Pressure 134/65 H 118/62 [Right Brachial artery] O2 Saturation 98 98 02/05/18 16:00 Temperature 36.1 C L Heart Rate 80 Heart Rate [ Brachial] Respiratory 16 Rate Blood Pressure 115/59 L Blood Pressure [Right Brachial artery] O2 Saturation Oxygen O2 Source Room air I&O (Last 24 Hrs): Intake and Output Totals x24h 02/03/18 02/04/18 02/05/18 23:59 23:59 23:59 Intake Total 2540 2153.333 Output Total 1000 800 Balance 1540 1353.333 General: Alert, No acute distress HEENT: Mucous membr. moist/pink Neck: Supple, No JVD Neuro: Non Focal Cardiovascular: Regular rate, No murmurs Respiratory: No respiratory distress Abdomen: Soft Extremities: No edema - Results Results: Laboratory Results WBC 8.7 x10^3/uL (4.8-10.8) 02/05/18 05:50 RBC 2.48 10^6/uL (4.20-5.40) L 02/05/18 05:50 Hgb 7.7 g/dL (12.0-16.0) L 02/05/18 05:50 Hct 23.2 % (37.0-47.0) L 02/05/18 05:50 MCV 93.5 fL (81.0-99.0) 02/05/18 05:50 MCH 31.2 pg (27.0-31.0) H 02/05/18 05:50 MCHC 33.3 g/dL (32.0-36.0) 02/05/18 05:50 RDW 21.5 % (12.0-15.0) H 02/05/18 05:50 Plt Count 198 10^3/uL (130-450) 02/05/18 05:50 MPV 6.7 fL (7.9-10.8) L 02/05/18 05:50 Neut # 6.8 10^3/uL (1.5-6.6) H 02/05/18 05:50 Lymph # 0.6 10^3/uL (1.5-3.5) L 02/05/18 05:50 [place] # 1.3 10^3/uL (0.0-1.0) H 02/05/18 05:50 Eos # 0.0 10^3/uL (0.0-0.7) 02/05/18 05:50 Baso # 0.0 10^3/uL (0.0-0.1) 02/05/18 05:50 Absolute Nucleated RBC 0.00 x10^3/uL 02/05/18 05:50 Total Counted 100 02/04/18 16:17 Band Neuts % (Manual) Not Reportable 02/05/18 05:50 Reactive Lymphs % (Man) 2 % 02/03/18 22:05 Abnorm Lymph % (Manual) Not Reportable 02/05/18 05:50 Metamyelocytes % 2 % (-0) H 02/03/18 22:05 Nucleated RBC % 0.0 /100WBC 02/05/18 05:50 Neutrophils # (Manual) Not Reportable 02/05/18 05:50 Lymphocytes # (Manual) Not Reportable 02/05/18 05:50 Monocytes # (Manual) Not Reportable 02/05/18 05:50 Eosinophils # (Manual) Not Reportable 02/05/18 05:50 Basophils # (Manual) Not Reportable 02/05/18 05:50 Differential Comment MANUAL=AUTO DIFF 02/05/18 05:50 Manual Slide Review Indicated 02/04/18 10:02 WBC Morphology 2+ TOXIC GRANULATION (NORMAL) 02/03/18 14:31 Platelet Estimate NORMAL (130-450,000) (NORMAL) 02/05/18 05:50 Platelet Morphology NORMAL APPEARANCE (NORMAL) 02/05/18 05:50 RBC Morph Micro Appear 2+ ANISOCYTOSIS (NORMAL) 1+ POLYCHROMASIA (NORMAL) 1 + HYPOCHROMASIA (NORMAL) 1+ OVALOCYTES (NORMAL) 02/03/18 22:05 RBC Morph Micro Appear 2+ ANISOCYTOSIS (NORMAL) 1+ POLYCHROMASIA (NORMAL) 1 + HYPOCHROMASIA (NORMAL) 1+ OVALOCYTES (NORMAL) 02/03/18 22:05 RBC Morph Micro Appear 2+ ANISOCYTOSIS (NORMAL) 1+ POLYCHROMASIA (NORMAL) 1 + HYPOCHROMASIA (NORMAL) 1+ OVALOCYTES (NORMAL) 02/03/18 22:05 RBC Morph Micro Appear 2+ ANISOCYTOSIS (NORMAL) 1+ POLYCHROMASIA (NORMAL) 1 + HYPOCHROMASIA (NORMAL) 1+ OVALOCYTES (NORMAL) 02/03/18 22:05 RBC Morph Micro Appear 2+ ANISOCYTOSIS (NORMAL) 2+ POLYCHROMASIA (NORMAL) 1 + HYPOCHROMASIA (NORMAL) 1+ OVALOCYTES (NORMAL) 02/04/18 04:42 RBC Morph Micro Appear 2+ ANISOCYTOSIS (NORMAL) 2+ POLYCHROMASIA (NORMAL) 1 + HYPOCHROMASIA (NORMAL) 1+ OVALOCYTES (NORMAL) 02/04/18 04:42 RBC Morph Micro Appear 2+ ANISOCYTOSIS (NORMAL) 2+ POLYCHROMASIA (NORMAL) 1 + HYPOCHROMASIA (NORMAL) 1+ OVALOCYTES (NORMAL) 02/04/18 04:42 RBC Morph Micro Appear 2+ ANISOCYTOSIS (NORMAL) 2+ POLYCHROMASIA (NORMAL) 1 + HYPOCHROMASIA (NORMAL) 1+ OVALOCYTES (NORMAL) 02/04/18 04:42 RBC Morph Micro Appear 2+ ANISOCYTOSIS (NORMAL) 02/04/18 10:02 RBC Morph Micro Appear 2+ ANISOCYTOSIS (NORMAL) 1+ OVALOCYTES (NORMAL) 1+ TEARDROP CELLS (NORMAL) 1+ HYPOCHROMASIA (NORMAL) 02/04/18 16:17 RBC Morph Micro Appear 2+ ANISOCYTOSIS (NORMAL) 1+ OVALOCYTES (NORMAL) 1+ TEARDROP CELLS (NORMAL) 1+ HYPOCHROMASIA (NORMAL) 02/04/18 16:17 RBC Morph Micro Appear 2+ ANISOCYTOSIS (NORMAL) 1+ OVALOCYTES (NORMAL) 1+ TEARDROP CELLS (NORMAL) 1+ HYPOCHROMASIA (NORMAL) 02/04/18 16:17 RBC Morph Micro Appear 2+ ANISOCYTOSIS (NORMAL) 1+ OVALOCYTES (NORMAL) 1+ TEARDROP CELLS (NORMAL) 1+ HYPOCHROMASIA (NORMAL) 02/04/18 16:17 RBC Morph Micro Appear 2+ ANISOCYTOSIS (NORMAL) 1+ POLYCHROMASIA (NORMAL) 1 + MICROCYTOSIS (NORMAL) 1+ TEARDROP CELLS (NORMAL) 02/05/18 05:50 RBC Morph Micro Appear 2+ ANISOCYTOSIS (NORMAL) 1+ POLYCHROMASIA (NORMAL) 1 + MICROCYTOSIS (NORMAL) 1+ TEARDROP CELLS (NORMAL) 02/05/18 05:50 RBC Morph Micro Appear 2+ ANISOCYTOSIS (NORMAL) 1+ POLYCHROMASIA (NORMAL) 1 + MICROCYTOSIS (NORMAL) 1+ TEARDROP CELLS (NORMAL) 02/05/18 05:50 RBC Morph Micro Appear 2+ ANISOCYTOSIS (NORMAL) 1+ POLYCHROMASIA (NORMAL) 1 + MICROCYTOSIS (NORMAL) 1+ TEARDROP CELLS (NORMAL) 02/05/18 05:50 VBG pH 7.425 (7.31-7.41) H 02/05/18 05:50 Ionized Calcium 1.08 mmol/L (1.15-1.33) L 02/05/18 05:50 Sodium 130 mmol/L (135-145) L 02/05/18 05:50 Potassium 3.5 mmol/L (3.5-5.0) 02/05/18 05:50 Chloride 97 mmol/L (101-111) L 02/05/18 05:50 Carbon Dioxide 25 mmol/L (21-32) 02/05/18 05:50 Anion Gap 8.0 (6-13) 02/05/18 05:50 BUN 10 mg/dL (6-20) 02/05/18 05:50 Creatinine 0.8 mg/dL (0.4-1.0) 02/05/18 05:50 Estimated GFR (MDRD) 70 (>89) L 02/05/18 05:50 Glucose 103 mg/dL (70-100) H 02/05/18 05:50 Calcium 7.9 mg/dL (8.5-10.3) L 02/05/18 05:50 Ionized Calcium YES 02/05/18 05:50 Iron 16 ug/dL (28-170) L 02/04/18 16:17 TIBC 179 ug/dL (250-450) L 02/04/18 16:17 % Saturation 9 % (20-50) L 02/04/18 16:17 Transferrin 128 mg/dL (192-382) L 02/04/18 16:17 Total Bilirubin 0.5 mg/dL (0.2-1.0) 02/05/18 05:50 AST 19 IU/L (10-42) 02/05/18 05:50 ALT 11 IU/L (10-60) 02/05/18 05:50 Alkaline Phosphatase 52 IU/L (42-121) 02/05/18 05:50 Total Creatine Kinase 18 IU/L (22-269) L 02/03/18 14:31 Troponin I < 0.04 ng/mL (<0.49) 02/03/18 14:31 Total Protein 5.6 g/dL (6.7-8.2) L 02/05/18 05:50 Albumin 2.6 g/dL (3.2-5.5) L 02/05/18 05:50 Globulin 3.0 g/dL (2.1-4.2) 02/05/18 05:50 Albumin/Globulin Ratio 0.9 (1.0-2.2) L 02/05/18 05:50 Lipase 22 U/L (22-51) 02/03/18 14:31 Vitamin B12 2401 pg/mL (180-914) H 02/04/18 16:17 Folate 20.59 ng/mL (5.90 - >24.8) 02/04/18 16:17 Urine Color YELLOW 02/03/18 15:30 Urine Clarity CLEAR (CLEAR) 02/03/18 15:30 Urine pH 5.5 PH (5.0-7.5) 02/03/18 15:30 Ur Specific [place] 1.010 (1.002-1.030) 02/03/18 15:30 Urine Protein TRACE mg/dL (NEGATIVE) 02/03/18 15:30 Urine Glucose (UA) NEGATIVE mg/dL (NEGATIVE) 02/03/18 15:30 Urine Ketones NEGATIVE mg/dL (NEGATIVE) 02/03/18 15:30 Urine Occult Blood LARGE (NEGATIVE) H 02/03/18 15:30 Urine Nitrite NEGATIVE (NEGATIVE) 02/03/18 15:30 Urine Bilirubin NEGATIVE (NEGATIVE) 02/03/18 15:30 Urine Urobilinogen 0.2 (NORMAL) E.U./dL (NORMAL) 02/03/18 15:30 Ur Leukocyte Esterase NEGATIVE (NEGATIVE) 02/03/18 15:30 Urine RBC 6-10 /HPF (0-5) H 04/23/18 15:30 Urine WBC 0-3 /HPF (0-5) 02/03/18 15:30 Ur Squamous Epith Cells MANY Squamous (<= Few) H 02/03/18 15:30 Urine Bacteria None Seen /HPF (None Seen) 02/03/18 15:30 Ur Microscopic Review INDICATED 02/03/18 15:30 Urine Culture Comments NOT INDICATED 02/03/18 15:30 Blood Type A POSITIVE 02/03/18 16:31 Antibody Screen NEGATIVE 02/03/18 16:31 Crossmatch IS Only See Detail 02/03/18 16:31 - Procedures Procedures: Procedures INSERT INFUSION DEV IN L INT JUGULAR VEIN, PERC (12/02/17) INSERT VAD RESERVOIR IN CHEST SUBCU/FASCIA, OPEN (12/02/17)
[2018-02-05] MEDS: traZODone 50 MG TABLET PO SCH (21:33)
[2018-02-06] MEDS: DEXTROSE 5%-0.9% NACL 1,000 ML IV SCH ×2 (01:47→10:26)
[2018-02-06 06:14] LABS: ALBUMIN 2.7 g/dL (3.2-5.5); ALBUMIN/GLOBULIN RATIO 0.8 (1.0-2.2); ALKALINE PHOSPHATASE 61 IU/L (42-121); ALT ALANINE AMINOTRANSFERASE 13 IU/L (10-60); AST ASPARTATE AMINOTRANSFERASE 21 IU/L (10-42); BILIRUBIN,TOTAL 0.6 mg/dL (0.2-1.0); BUN - BLOOD UREA NITROGEN 8 mg/dL (6-20); CALCIUM 8.1 mg/dL (8.5-10.3); CARBON DIOXIDE - CO2 26 mmol/L (21-32); CHLORIDE 97 mmol/L (101-111); CREATININE 0.9 mg/dL (0.4-1.0); GFR - MDRD 61 (>89); GLUCOSE 104 mg/dL (70-100); SODIUM 131 mmol/L (135-145); TOTAL PROTEIN 6.1 g/dL (6.7-8.2)
[2018-02-06 06:16] LABS: BASOPHILS % (AUTO) 0.4 %; EOSINOPHILS % (AUTO) 0.4 %; HGB - HEMOGLOBIN 10.4 g/dL (12.0-16.0); LYMPHOCYTES # (AUTO) 0.6 10^3/uL (1.5-3.5); LYMPHOCYTES % (AUTO) 5.5 %; MEAN CORPUSCULAR HEMOGLOBIN 30.8 pg (27.0-31.0); MEAN CORPUSCULAR HGB CONC 33.6 g/dL (32.0-36.0); MEAN CORPUSCULAR VOLUME 91.8 fL (81.0-99.0); MEAN PLATELET VOLUME 6.7 fL (7.9-10.8); MONOCYTES # (AUTO) 1.7 10^3/uL (0.0-1.0); MONOCYTES % (AUTO) 15.7 %; NEUTROPHILS # (AUTO) 8.3 10^3/uL (1.5-6.6); PLT - PLATELET COUNT 214 10^3/uL (130-450); RED BLOOD COUNT 3.37 10^6/uL (4.20-5.40); RED CELL DISTRIBUTION WIDTH 19.7 % (12.0-15.0); WHITE BLOOD COUNT 10.6 x10^3/uL (4.8-10.8)
[2018-02-06 06:19] LABS: VBG PH 7.447 (7.31-7.41)
[2018-02-06] MEDS: LEVOTHYROXINE 100 MCG TABLET PO SCH (06:26)
[2018-02-06 06:46] LABS: DIFFERENTIAL COMMENT MANUAL=AUTO DIFF; PLATELET ESTIMATE, MANUAL NORMAL (130-450,000) (NORMAL); PLATELET MORPHOLOGY NORMAL APPEARANCE (NORMAL); RBC MORPHOLOGY (MULTIPLE) 1+ ANISOCYTOSIS (NORMAL)
[2018-02-06] MEDS: SODIUM CHLORIDE FLUSH 0.9% 10 ML SYRINGE IVP SCH ×3 (07:30→12:31)
[2018-02-06 08:09] VITALS: BP 151/72
[2018-02-06] MEDS: ENOXAPARIN 80 MG/0.8 ML SYRINGE SUBQ SCH (08:11)
[2018-02-06] MEDS: PANTOPRAZOLE 40 MG VIAL IVP SCH (08:11)
[2018-02-06] MEDS: POLYETHYLENE GLYCOL 3350 17 GM PACKET PO SCH (08:11)
[2018-02-06] MEDS: SODIUM CHLORIDE 1 GM TABLET PO SCH (08:12)
[2018-02-06] MEDS: METOPROLOL TARTRATE 25 MG TABLET PO SCH (08:12)
[2018-02-06] MEDS: MULTIVITAMIN TABLET PO SCH (08:12)
[2018-02-06] MEDS: CYANOCOBALAMIN 500 MCG TABLET PO SCH (08:13)
[2018-02-06] MEDS: SENNA 8.6 MG TABLET PO SCH (08:13)
[2018-02-06] MEDS: HYDROcod/ACETAM 5/325 MG TABLET PO PRN (08:19)
--- NOTE | 2018-02-06 11:51 | Discharge Plan ---
Discharge Plan Disposition: 01 Home, Self Care Condition: Stable Prescriptions: Dronabinol [Marinol] 5 mg PO DAILY #30 capsule Diet: Regular Activity Restrictions: Activity as Tolerated Shower Restrictions: No Additional Instructions or Follow Up instructions: Resume all your pre-hospitalization medications except take the salt tablet EVERY day. A new appetite stimulant medication has been ordered for you. See your Primary doctor and/or [facility] in 1-2 weeks in follow-up. No Smoking: If you smoke, Please STOP! Call for help. Follow-up with: Lala Rosas PA [Primary Care Provider] -
[2018-02-06] MEDS: PROCHLORPERAZINE 10 MG/2 ML VIAL IVP PRN (12:29)
--- NOTE | 2018-02-10 00:38 | DISCHARGE SUMMARY ---
Physician: Shawanda Soto MD DATE OF ADMISSION: 02/04/2018 DATE OF DISCHARGE: 02/06/2018 HISTORY OF PRESENT ILLNESS: This is a 72-year-old white female with a history of endometrial cancer with metastasis, for which she is undergoing a second round of chemotherapy which was just done 1-2 days previously. With chemo, she had previous nausea and developed nausea again, presented to the emergency room and was admitted for management of unrelenting nausea, as well as dehydration. HOSPITAL COURSE AND DISCHARGE DIAGNOSES 1. Chemotherapy induced nausea. The patient required antiemetics and after 48 hours was able to consume liquids and then soft and regular diet. She was discharged to continue prn antiemetics. 2. Generalized weakness. The patient had somnolence and overall weakness, which the described has been her baseline ever since the chemotherapy had started. The patient was able to ambulate in her room and discharged home under the care of her . 3. Hyponatremia. The patient has a history of this and was already on salt tablets 3 times a week; however, here she required salt tablets daily, as well as saline peripheral IV replacement and was discharged with a new order for daily salt tablets. Her admission sodium was 125, at discharge sodium was 131. 4. Dehydration. The patient was clinically dehydrated, requiring saline for volume replacement. Her estimated GFR was 54 at the time of admission, which improved to 61 at the time of discharge. The was well aware of the need for keeping up with oral hydration, as he has a certain target volume that he administers to her daily and will resume this. 5. Hypertension. The patient has a history of hypertension, her blood pressure medications were resumed when vital signs did increase to as high as 160/70. 6. Anemia. This was felt to be from chemotherapy and the admission hemoglobin of 8.5, dropped to 7.9 with hydration, then 7.7, at which point she was ordered to get 2 units packed red blood cell transfusion without Lasix, because of her dehydration. This was approved by Marcelina Escobar NP her oncologist provider in the [facility] clinic here. 7. Heme positive stool. This was found in the emergency room at the time of presentation and she was advised to undergo colonoscopy; however, both she and her stated that no invasive testing like a colonoscopy would be done given her advanced stage of her cancer with metastasis. There were no gross melanotic stools while here. 8. History of deep venous thrombosis. Because the hemoglobin drop was not rapid and because of no overt melena, it was felt that continued Lovenox treatment at therapeutic doses, for a prior DVT outweighed the risks of causing bleeding and therefore her Lovenox was continued throughout this hospital stay. 9. Endometrial cancer. This is managed at the [facility] clinic here and she will return there for followup. LABORATORY AND IMAGING: Reviewed and summarized above. ALLERGIES 1. MIRTAZAPINE, WHICH CAUSED FEVER. 2. ONDANSETRON, UNKNOWN REACTION. 3. XARELTO, UNKNOWN REACTION. MEDICATIONS AT TIME OF DISCHARGE 1. Albuterol inhaler p.r.n. 2. Vitamin B12 1000 mcg daily. 3. A new prescription for Marinol 5 mg p.o. daily to improve her appetite. 4. Lovenox 80 mg subcutaneous b.i.d. 5. Synthroid 100 mcg p.o. daily. 6. Lorazepam 0.5 mg every 6 hours p.r.n. anxiety. 7. Metoprolol tartrate 25 mg b.i.d. 8. Multivitamin daily. 9. Oxycodone 5 mg every 4 hours p.r.n. pain. 10. Simethicone gas relief p.r.n. 11. Salt tablets 1 gram p.o. daily, increased from Saturday, Saturday, Saturday. 12. Desyrel 50 mg p.o. q.p.m. PHYSICAL EXAMINATION AT DISCHARGE VITAL SIGNS: Blood pressure 150/70, pulse of 90 in sinus rhythm, afebrile. HEENT: Unremarkable with moist oral mucosa. NECK: No JVD or carotid bruits. CHEST: Clear. HEART: Sounds normal. No murmur. ABDOMEN: Soft, decreased bowel sounds, nontender. EXTREMITIES: No edema. NEUROLOGIC: Grossly intact. FOLLOWUP: With her PCP as previously scheduled and to [facility] within 1 week. CODE STATUS: FULL CODE. TIME REQUIRED TO COMPLETE THIS ENTIRE DISCHARGE INCLUDING REVIEW OF CHART, PRESCRIPTIONS, DICTATION: 45 minutes. TD: 02/10/2018 00:37 [email or web address]
== END 2018-02-06 13:05 | disposition home or self-care (01) | DRG 812 ==
LOC: ED 12:18 → OBS 16:14 → ED 16:43 → OBSVTOIN 02-04 10:56 → MS2 02-04 14:25
PROVIDERS: ADMIT Internal Medicine; ATTEND Internal Medicine
PROC: 30233N1 Transfusion of Nonautologous Red Blood Cells into Peripheral Vein, Percutaneous Approach (ICD-10-PCS; principal; 2018-02-05)
DX: D64.81 Anemia due to antineoplastic chemotherapy (principal); E87.1 Hypo-osmolality and hyponatremia; D64.9 Anemia, unspecified; C79.9 Secondary malignant neoplasm of unspecified site; K92.1 Melena; R11.0 Nausea; R19.5 Other fecal abnormalities; E86.0 Dehydration; I10 Essential (primary) hypertension; R53.1 Weakness; T45.1X5A Adverse effect of antineoplastic and immunosuppressive drugs, initial encounter; C54.1 Malignant neoplasm of endometrium; E03.9 Hypothyroidism, unspecified; I69.911 Memory deficit following unspecified cerebrovascular disease; Z79.01 Long term (current) use of anticoagulants; Z79.51 Long term (current) use of inhaled steroids; Z79.891 Long term (current) use of opiate analgesic; Z79.899 Other long term (current) drug therapy; Z86.718 Personal history of other venous thrombosis and embolism; Z87.01 Personal history of pneumonia (recurrent)
CPT/HCPCS: 36415; 71045; 80053; 81001; 81003; 82330; 82550; 82607; 82746; 83540; 83690; 84466; 84484; 85025; 86850; 86900; 86901; 86920; 87086; 93005; 96361; 96365; 96366; 96375; 99283; 99285

== ENCOUNTER 2018-02-12 12:26 | Outpatient (CLI) | payer MEDICARE, OTHER ==
--- NOTE | 2018-02-12 14:41 | XRAY Report ---
BILATERAL HIPS AND PELVIS: 02/12/2018 CLINICAL INDICATION: Pain, history of metastatic cancer. FINDINGS: Frontal view of the hips and pelvis and bilateral frogleg lateral views of the hips demonstrate no evidence of fracture or dislocation. Mild bilateral hip osteoarthritis is noted. No radiopaque foreign body is seen in the soft tissues. IMPRESSION: MILD OSTEOARTHRITIS. NO EVIDENCE OF ACUTE FRACTURE. NO OSTEOLYTIC OR OSTEOBLASTIC LESION IS IDENTIFIED. TD: 02/12/2018 14:40
--- NOTE | 2018-02-12 14:42 | XRAY Report ---
TWO VIEW RIGHT FEMUR: 02/12/2018 CLINICAL INDICATION: Pain, history of metastatic cancer. FINDINGS: Frontal and lateral views of the right femur demonstrate no evidence of fracture. No osteolytic or osteoblastic lesion is seen. No foreign body is seen in the soft tissues. IMPRESSION: NORMAL RIGHT FEMUR. TD: 02/12/2018 14:41
== END 2018-02-12 12:27 | disposition home or self-care (01) ==
LOC: DI 12:26
PROVIDERS: ATTEND Physician Assistant
DX: C79.9 Secondary malignant neoplasm of unspecified site (principal); M16.0 Bilateral primary osteoarthritis of hip
CPT/HCPCS: 73521

== ENCOUNTER 2018-02-13 14:30 | Outpatient (CLI) | payer MEDICARE, OTHER ==
--- NOTE | 2018-02-13 19:48 | CONSULTATION NOTE ---
Palliative Care Follow Up - Referral Referring Provider: Dr. Jocelyne Edwards Time of Visit: [id number] Referral setting: Home (Is a taxing considerable effort for the patient to leave the home, she has increased right hip pain, decreased functional status, home visit made to facilitate medication management and family conferencing) Referral Reason: metastatic Endometrial Cancer/Right hip/leg pain - Information Sources Records reviewed: RN notes reviewed, Previous records reviewed History/Review of Systems obtained from: Patient, Family ( Magdy) Exam limitations: Clinical condition (Patient with short-term memory deficits, unable to recall symptoms or history of events; very observant and provided ROS) - History of Present Illness Update Brief HPI Update: This is a 72-year-old woman with metastatic endometrial cancer, recently hospitalized 02/04-02/06. This is as a result of her chemotherapy, she has been receiving carboplatinum and Taxol and has tolerated quite poorly. She has had frequent hospitalizations, high symptom burden, and continues to struggle with hyponatremia and decreasing functional as well as cognitive status. She did recently have a restaging CT, which had showed some improvement of Her tumor burden in her abdomen, as well as decrease of ascites, but now has developed multiple nodules, suspected of metastatic disease. His are located in her lower back, she is a fairly large one on her left upper arm back area of about 2 x 3 cm, and one in her left clavicular area as well as numerous other ones that seem to be popping up. She is not currently receiving chemo this week, is awaiting scheduling of a PET scan, but now has presented with acute unrelenting right hip and leg pain. Patient has struggled with poor tolerance of multiple medications tried for her symptom management. Is her perceptions of her , as patient is unable to recall. Did on discharge received Marinol 5 mg, She did not tolerate, this as he understands was prescribed for appetite, He felt she had excessive sleepiness with this. She did see her primary care provider on Saturday secondary to escalating pain, was prescribed gabapentin 300 mg, reports she had excessive sedation with this as well, had decreased to 100 mg, they had a poor night last night though it is unclear what this is attributed to. She received a prescription for OxyContin 15 mg, which they started last night at 1800, reports she had slurring of speech and severe sedation with this as well so he discontinued it. Patient has had intermittent nausea, reviewed medications has used, perception again as they have had intolerable side effects, this includes dexamethasone 4 mg with jitteriness and shakiness, metoclopramide 10 mg with the same, he does report he tried the separately with similar effects, reports she has not had anything other than some Lorazepam for nausea, and this does cause sedation as well but feels like she tolerates this better.Given patient's level of consciousness, and fluctuating status, it has been difficult to meet her nutritional and fluid needs. He has been pushing as best he can up to 72 ounces. Patient also has some perineoplastic syndrome, continues to struggle with hyponatremia, her last sodium was 129, but of concern was her potassium is at 3.0 reports she has had high potassium in the past, has been avoiding potassium-containing foods. Patient does appear fatigued and weak, she is unable to tolerate sitting in chair for long period of time, assisted back to bed. He does have increased pain with weightbearing on the right hip and leg area, this radiates either from her back or to her back, unable to tell does appear spasm-like in her movements. His perception is that acetaminophen provides the most relief, she has not currently on chemotherapy, so discussed adding that to the repertoire. He does feel the oxycodone 5 mg tabs to assist with pain management in the context of all the different things they have tried. They have just now also received cannabis oil, he is feeling overwhelmed how to combine the current medications. Social History - Living Situation Living arrangement: At home Living Situation: With spouse/s.o. Support System: Has extensive family support, [place] well as her brother Jong who is actively involved in her care. Medications/Allergies - Medications Home Medications: Ambulatory Orders Medication Instructions Recorded Confirmed Levothyroxine [Synthroid] 100 mcg PO QDAC 05/30/16 02/13/18 Cyanocobalamin (Vitamin B-12) 1,000 mcg PO DAILY 11/06/17 02/13/18 [Vitamin B-12] Enoxaparin [Lovenox] 80 mg SUBQ Q12H 11/06/17 02/13/18 LORazepam [Lorazepam] 0.5 - 1 mg PO Q6H PRN 12/15/17 02/13/18 Multivitamin [Theragran] 1 tab PO DAILY 12/15/17 02/13/18 traZODone [Desyrel] 50 mg PO QPM 12/15/17 02/13/18 Metoprolol Tartrate 25 mg PO BID 12/19/17 02/13/18 Simethicone [Gas Relief] 80 mg PO PRN PRN 12/24/17 02/13/18 Albuterol Sulfate [Proair Hfa 1 - 2 puffs PO Q4H PRN 02/03/18 02/13/18 Inhaler] oxyCODONE [Roxicodone] 5 mg PO Q4H PRN 02/03/18 02/13/18 Sodium Chloride [Salt Tab] 1 gm PO DAILY #30 02/06/18 02/13/18 Gabapentin 100 cap PO ACHS 02/12/18 02/13/18 Metoclopramide [Reglan] 5 - 10 mg PO Q6HR PRN 02/13/18 02/13/18 Pantoprazole [Protonix] 40 mg PO DAILY 02/13/18 02/13/18 - Allergies Allergies/Adverse Reactions: Allergies Allergy/AdvReac Type Severity Reaction Status Date / Time mirtazapine Allergy Unknown Fever Verified 02/04/18 11:05 ondansetron Allergy Restlessnes Verified 02/04/18 11:06 [From Zofran (as s hydrochloride)] rivaroxaban [From Xarelto] Allergy Unknown Verified 02/03/18 12:27 Review of Systems - Constitutional Constitutional: reports: Fatigue, Chills (feels cold most of the time), Weakness , Poor appetite, Weight gain. denies: Fever - Eyes Eyes: reports: Vision loss - Ears, Nose & Throat Ears, Nose & Throat: reports: Dry mouth - Cardiovascular Cardiovascular: reports: Decr. exercise tolerance - Respiratory Respiratory: reports: SOB at rest, SOB with exertion - Gastrointestinal Gastrointestinal: reports: Abdominal distention, Constipation (no bowel movement since hospitalization 02/06), Nausea, Poor appetite, Early satiety - Genitourinary Genitourinary: reports: Incontinence - Musculoskeletal Musculoskeletal: reports: Back pain, Stiffness, Limited range of motion (right hip), Muscle weakness, Transfer issues - Integumentary Integumentary: reports: Dryness - Neurological Neurological: reports: General weakness, Memory problems, Pre-existing deficit, Abnormal gait - Psychiatric Psychiatric: reports: Anxiety - Endocrine Endocrine: reports: Intolerance to cold - Hematologic/Lymphatic Hematologic/Lymphatic: reports: Anemia - All Other Systems All Other Systems: reports: Reviewed and negative Physical Exam - Vital Signs Temperature: 98.6 C Pulse Rate: 90 Respiratory Rate: 20 O2 Saturation: 90 (ra @ rest) Blood Pressure: 132/82 - Physical Exam General Appearance: positive: Mild distress, Anxious Eyes Bilateral: positive: Normal inspection ENT: positive: Dry mucous membranes Neck: positive: Trachea midline Cardiovascular: positive: Regular rate & rhythm Respiratory: positive: Diminished in bases, Rales (fine crackles left lower lobe ) Abdomen: positive: Abnml bowel sounds (bowel hyperactive tones), Guarding, Distended Skin: positive: Pallor, Dryness Extremities: positive: No pedal edema. negative: Non-tender, Full ROM Neurologic/Psychiatric: positive: Mood/affect nml, Disoriented to time, Weakness Palliative Care Pain: Pain worsening, Location (right hip/leg and back) Tiredness/Fatigue: Severe (7-10) Drowsiness/Sedation: Severe (7-10) Nausea: Moderate (4-6) Depression: Mild (1-3) Anxiety: Mild (1-3) (patient with anxiety last night; recently moved downstairs related to unable to navigate stairs secondary to pain; wanted to sleep with her; he is exhausted) Dyspnea: Mild (1-3) Anorexia: Moderate (4-6) Sleep: Sleeps poorly Constipation: Yes, Opoid induced, Unmanaged Performance Status: Patient's functional status significantly impacted by her right hip pain, does have poor activity tolerance, is needing assist with bathing, they use a wheelchair for long distances. Does need encouragement and cueing for eating, is totally dependent on for all ADLs.I would put her at a PPS of 40% today - Palliative Care Discussion: It is unclear patient's understanding and insight to the seriousness of her illness, she did not recall the conversation or the plan regarding her oncology visit on Saturday. She does express feelings of fatigue, and feeling overwhelmed with all the multiple appointments and hospitalizations, but though she is unable to recall the precipitating factors or many details regarding this. does report her cognitive status is diminished over the last several weeks to months from her baseline which was limited because of history of strokes. Did speak with , he does recognize she is quite frail and fragile, initiated discussion regarding weighing benefits and burdens of treatment given her ongoing functional decline and multiple complications. Given the uncertainty the nature of her disease, has been difficult to chart a course, does understand the seriousness of her illness, is hoping for the best but is recognizing her decline. Is hoping PET scan will assist with clarifying goals of care, his understanding is that it most likely is the nodules are progressive disease, but Dr. Edwards say not always, which is why he is waiting for the pending upcoming exam to see if another "formula", though concerned about her overall decline. Impression and Recommendations - Palliative Care Impression: This is a 72-year-old woman with metastatic endometrial cancer, now with concern for new nodules. Her chemotherapy is currently on hold, though she continues to be quite symptomatic with high symptom burden of fatigue, nausea, anorexia, and now presenting with new right hip pain. Palliative care to assist with pain and symptom management and psychosocial support. Recommendations/Counseling Done: 1. Constipation. Opioid induced. Patient only just increased senna 2 twice daily, added 1 dose of MiraLAX a day. Patient's abdomen is soft has hyperactive bowel tones, non-tender to palpation. Counseling and instruction given her opioid load, need to increase baseline bowel program to senna 2 tabs twice daily, and daily MiraLAX half to 1 capful. Currently needs to move bowels , instructed to give to senna now, and repeat to senna again this evening. If no BM in the morning depending on scheduling of hydration, to start to senna every 4 hours until bowels have moved. Written instructions provided. 2. Pain of neoplastic origin. Right hip pain, plain films ruled out any fracture or lesions. Patient does have neuropathic component was sharp shooting , as well as spasms. does not want to initiate OxyContin 15 mg twice daily secondary to side effects last night, instructed to hold for now. Given patient's perceived response to Tylenol, will schedule acetaminophen 1000 mg 3 times daily, continue with oxycodone 5 mg every 4 hours, and continue with the gabapentin 100 mg at bedtime. He would like to try the cannabis oil, given patient's sensitivities, recommended start with half of therapeutic dosing which is 3 droppers full, they do have a.m. and p.m. formulations, dosing recommended 1 and half dropperfuls a.m. and 1400, and p.m. dosing. Recommended to try test dose right now, to see patient's response, as do not want to have this adverse reaction right at bedtime. Would recommend in the future initiating another trial of twice daily OxyContin 15 mg when this is somewhat settled out. Will await and see if cannabis oil adds to her pain control. Would also titrate up gabapentin on Saturday. Again this was written out for her , he is quite overwhelmed and tired. 3. Nausea. I suspect this is somewhat increased with her constipation, reviewed available tools given her multiple reactions to medications. Reviewed Lorazepam would be adding to her drowsiness and sedation, suggested retry metoclopramide at a 5 mg dose, hopefully the cannabis oil will impact her feelings of nausea as well. 4. Anorexia. Patient does appear again to have decreased appetite and intake, has not been as successful getting her fluids and today, concern for another ED visit and would like to avoid, this is stressful both on has been impatient. Conversation with Dr. Edwards given patient's low potassium at 3.0, will arrange for fluids tomorrow 1 L with 20 mEq of potassium, if patient continued to feel poorly may add second liter. Follow-up conversation with [facility] nurse for arrangements and concerns for possible second liter needed. Wanting to minimize patient's time up and out of home, as she does fatigue quite easily. She did not receive chemotherapy this week but remains quite fragile. 5. Advanced care planning. Concern for progressive disease, scheduled for PET scan in the future, 's perception is this will assist with future planning and goals of care. Initiate conversation regarding patient's ongoing decline, weighing benefits and burdens in the context of goals of care, acknowledged patient unable to participate in decision-making, and the stress that this can provide. He does feel his children are of help and support in this process, continue to offer support the palliative care given patient's ongoing high symptom burden, and progressive decline Time Spent: 75 minutes with greater than 50% of this done in counseling the complexity of her symptom management and care, family conferencing, and anticipatory guidance
== END 2018-02-13 14:31 | disposition home or self-care (01) ==
LOC: PC 14:30
PROVIDERS: ATTEND Nurse Practitioner Adult Health
DX: Z51.5 Encounter for palliative care (principal); G89.3 Neoplasm related pain (acute) (chronic); K59.03 Drug induced constipation; R47.81 Slurred speech; T40.2X5A Adverse effect of other opioids, initial encounter; M25.551 Pain in right hip; M79.604 Pain in right leg; R11.0 Nausea; R63.0 Anorexia; R53.83 Other fatigue; E87.6 Hypokalemia; E87.1 Hypo-osmolality and hyponatremia; T45.1X5A Adverse effect of antineoplastic and immunosuppressive drugs, initial encounter; C54.1 Malignant neoplasm of endometrium; C79.9 Secondary malignant neoplasm of unspecified site; R18.0 Malignant ascites; R22.2 Localized swelling, mass and lump, trunk; F41.9 Anxiety disorder, unspecified; I69.311 Memory deficit following cerebral infarction; Z79.1 Long term (current) use of non-steroidal anti-inflammatories (NSAID); Z79.891 Long term (current) use of opiate analgesic; Z79.899 Other long term (current) drug therapy
CPT/HCPCS: 99350

== ENCOUNTER 2018-02-24 10:15 | Emergency (ER) | payer MEDICARE, OTHER ==
--- NOTE | 2018-02-24 12:51 | Ultrasound Report ---
RIGHT LEG VENOUS DUPLEX: 02/24/2018 CLINICAL INDICATION: Swelling. TECHNIQUE: Real-time sonographic vascular imaging was performed by the upper stitcher through the right leg utilizing both color-flow and Doppler spectral analysis. Multiple hotel services sales representative static images were saved for review. FINDINGS: There is normal compression and flow in the right common femoral, profunda femoris, and superficial femoral veins. There is nonocclusive thrombus seen in the right popliteal vein. The visualized calf veins appear unremarkable. IMPRESSION: NONOCCLUSIVE RIGHT POPLITEAL THROMBUS. CRITICAL RESULT: Results called to Dr. Meyers in the Emergency Department on 02/24/2018 at 12 noon. TD: 02/24/2018 12:49
[2018-02-24] MEDS ORDERED: KETOROLAC 60 MG/2 ML VIAL IM STA (13:05)
--- NOTE | 2018-02-24 13:05 | ED Physician Documentation ---
History of Present Illness - Stated complaint Stated Complaint: R THIGH SWOLLEN-PX - Chief complaint Chief Complaint: Trauma Ext - History obtained from History obtained from: Patient, Family - History of Present Illness Timing: How many weeks ago (2) - Additonal information Additional information: 72 year old female with a history of MRI CT TECH cancer who is actively undergoing treatment with known metastases to the lymph nodes has developed increased swelling in the right lower extremity and pain in the right thigh. She has been evaluated previously with x-ray of the hip and femur about 10 days ago and today her has noted the increased swelling and they are here for evaluation of DVT. She does have known DVT bilaterally and she is on Lovenox. She does not know of a specific injury to the area she is giving her Lovenox injections into the abdomen abdomen. She has pain enough that is difficult to refer stent to her for her to stand or walk. She is taking some oxycodone with some relief and she is taking some Tylenol that seems to be helping more. She did not feel that the OxyContin helped at all. She has had some dexamethasone previously but it makes her very anxious and nervous. Review of Systems Constitutional: denies: Fever Respiratory: denies: Cough GI: denies: Vomiting Musculoskeletal: reports: Extremity pain, Extremity swelling, Pain with weight bearing Neurologic: reports: Generalized weakness. denies: Focal weakness, Numbness PD PAST MEDICAL HISTORY - Past Medical History Cardiovascular: Hypertension, Deep vein thrombosis, Other Respiratory: Pneumonia Endocrine/Autoimmune: HyPOthyroidism GI: None MRI CT TECH: Other : None HEENT: None Psych: Depression, Anxiety Musculoskeletal: None Derm: None - Past Surgical History Past Surgical History: Yes /MRI CT TECH: Oophrectomy HEENT: Tonsil/Adenoidectomy - Present Medications Home Medications: Ambulatory Orders Medication Instructions Recorded Confirmed Levothyroxine [Synthroid] 100 mcg PO QDAC 05/30/16 02/13/18 Cyanocobalamin (Vitamin B-12) 1,000 mcg PO DAILY 11/06/17 02/13/18 [Vitamin B-12] Enoxaparin [Lovenox] 80 mg SUBQ Q12H 11/06/17 02/13/18 LORazepam [Lorazepam] 0.5 - 1 mg PO Q6H PRN 12/15/17 02/13/18 Multivitamin [Theragran] 1 tab PO DAILY 12/15/17 02/13/18 traZODone [Desyrel] 50 mg PO QPM 12/15/17 02/13/18 Metoprolol Tartrate 25 mg PO BID 12/19/17 02/13/18 Simethicone [Gas Relief] 80 mg PO PRN PRN 12/24/17 02/13/18 Albuterol Sulfate [Proair Hfa 1 - 2 puffs PO Q4H PRN 02/03/18 02/13/18 Inhaler] oxyCODONE [Roxicodone] 5 mg PO Q4H PRN 02/03/18 02/13/18 Sodium Chloride [Salt Tab] 1 gm PO DAILY #30 02/06/18 02/13/18 Gabapentin 100 cap PO ACHS 02/12/18 02/13/18 Metoclopramide [Reglan] 5 - 10 mg PO Q6HR PRN 02/13/18 02/13/18 Pantoprazole [Protonix] 40 mg PO DAILY 02/13/18 02/13/18 Acetaminophen [Tylenol Extra 2 tab PO TID 02/14/18 02/14/18 Strength] - Allergies Allergies/Adverse Reactions: Allergies Allergy/AdvReac Type Severity Reaction Status Date / Time mirtazapine Allergy Unknown Fever Verified 02/24/18 10:45 ondansetron Allergy Restlessnes Verified 02/24/18 10:45 [From Zofran (as s hydrochloride)] rivaroxaban [From Xarelto] Allergy Unknown Verified 02/24/18 10:45 - Social History Does the pt smoke?: No Smoking Status: Never smoker Does the pt drink ETOH?: No Does the pt have substance abuse?: No - Immunizations Immunizations are current?: Yes - POLST Patient has POLST: Yes POLST Status: Full Code PD ED PE NORMAL - Vitals Vital signs reviewed: Yes - General General: Well developed/nourished, Other (72 y/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 ) - HEENT HEENT: Atraumatic, PERRL - Respiratory Respiratory: No respiratory distress - Derm Derm: Normal color, Warm and dry, No rash - Extremities Extremities: Other (There is swelling to the right leg in general. There is tenderness to the right anterolateral thigh approximately the 10 14/3. I am not able to appreciate a mass or ecchymosis. The distal n/v is intact. There is pain to weight bearing ) - Neuro Neuro: No motor deficit, No sensory deficit, Normal speech Eye Opening: Spontaneous Motor: Obeys Commands Verbal: Oriented GCS Score: 15 - Psych Psych: Other (mood is withdrawn and the affect is flat initiallly and improves with treatment. ) Results - Vitals Vitals: Vital Signs - 24 hr 02/24/18 02/24/18 10:38 14:25 Temperature 37.6 C H 37.2 C Heart Rate 92 83 Respiratory 14 17 Rate Blood Pressure 107/59 L 97/57 L O2 Saturation 96 96 Oxygen O2 Source Room air PD MEDICAL DECISION MAKING - ED course Complexity details: reviewed old records, reviewed results, re-evaluated patient , considered differential, d/w patient, d/w family ED course: 72-year-old female with metastatic MRI CT TECH cancer has developed increased pain in the right thigh with some swelling. The swelling is general on the leg and the consideration for deep vein thrombosis was initial and this was reviewed with the use of duplex ultrasound. There is evidence of clot only in the popliteal. The patient is on Lovenox. Examination of the thigh revealed an area of tenderness to the anterior lateral upper thigh. There is no bruising to the area noted noted and no mass palpable. There is tender and she has difficulty with bearing weight. She has had x-ray examination done 12 days ago and she has had a PET scan done 4 days ago. She will get results of the PET scan in 2 days. Here in the emergency department we are aiming for pain control for this unfortunate lady. She has been taking oxycodone and Tylenol she is not getting relief with OxyContin and she is unable to take anti-inflammatory secondary to the Lovenox. Here in the emergency department she is administered Toradol IM and she has some improvement in pain. I have encouraged the patient and her to keep on top of the pain and medicate early. She has follow up with Dr. Edwards in 2 days. Departure - Departure Disposition: 01 Home, Self Care Clinical Impression: Right thigh pain Condition: Stable Instructions: ED Strain Muscle Ext Follow-Up: Lala Rosas PA [Primary Care Provider] - Discharge Date/Time: 02/24/18 14:29
[2018-02-24 14:26] VITALS: BP 97/57
== END 2018-02-24 14:29 | disposition home or self-care (01) ==
LOC: ED 10:15
DX: M79.89 Other specified soft tissue disorders (principal); M79.651 Pain in right thigh; I82.431 Acute embolism and thrombosis of right popliteal vein; I10 Essential (primary) hypertension; Z86.718 Personal history of other venous thrombosis and embolism; Z79.01 Long term (current) use of anticoagulants; E03.9 Hypothyroidism, unspecified; C55 Malignant neoplasm of uterus, part unspecified; C77.9 Secondary and unspecified malignant neoplasm of lymph node, unspecified
CPT/HCPCS: 96372; 99283

== ENCOUNTER 2018-02-26 15:29 | Outpatient (CLI) | payer MEDICARE, OTHER ==
--- NOTE | 2018-02-26 17:15 | CONSULTATION NOTE ---
Palliative Care Follow Up - Referral Referring Provider: Dr Neville Chacon Time of Visit: 02/26/2018. 14:15 - 15:00 [place] [facility] [place] Reason: Chronic nausea / R leg pain - Information Sources Records reviewed: Previous records reviewed History/Review of Systems obtained from: Patient, Family (spouse, Magdy) Exam limitations: Clinical condition (short term memory deficits) - History of Present Illness Update Brief HPI Update: This is a 72-year-old woman with metastatic endometrial cancer hospitalized as a result of her chemotherapy. She had been receiving carboplatinum and Taxol, tolerated both quite poorly, and so she has not received any chemo for about 3 weeks now. She has a high symptom burden, today's main complaints are nausea which has not been controlled by medications. She also complains of pain in R leg. She reports no other pain; the back pain seems to have resolved. Patient's provides most of the ROS, patient is unable to recall and becomes confused. They have been using gabapentin at night, and the patient thinks it helps her pain, helps her sleep better. They had been using 200mg, last night he tried 300mg which makes her sedated, but does help the pain. He still thinks the oxycontin isn't controlling the pain well; Tylenol works better. They're currently using 1,000mg TID. He tried using only the oxycontin this morning, and she is complaining of leg pain. 02/24/18 venous duplex shows non-occlusive R popliteal thrombus. She has episodic waves of nausea, without much relief from any medications previously tried. He continues to use lorazepam at night and metoclopramide during the day. He has stopped using decadron because the patient becomes extremely "fidgety" and hyperactive. She also gets restless with ondansetron. Cannabinoids worked initially, for 3-4 days, but she seemed to quickly develop tolerance. The restaging PET scan indicated spread into the shoulder, as reported by the spouse. The patient will see the oncologist later today. Social History - Living Situation Living arrangement: At home Living Situation: With spouse/s.o. Support System: Extensive [place] support[place] brother, Jong , who is actively involved in her care. They have caregiver help 7 days a week, which has been a significant improvement for the spouse. Medications/Allergies - Medications Home Medications: Ambulatory Orders Medication Instructions Recorded Confirmed Levothyroxine [Synthroid] 100 mcg PO QDAC 05/30/16 02/26/18 Cyanocobalamin (Vitamin B-12) 1,000 mcg PO DAILY 11/06/17 02/26/18 [Vitamin B-12] Enoxaparin [Lovenox] 80 mg SUBQ Q12H 11/06/17 02/26/18 LORazepam [Lorazepam] 0.5 - 1 mg PO Q6H PRN 12/15/17 02/26/18 Multivitamin [Theragran] 1 tab PO DAILY 12/15/17 02/26/18 traZODone [Desyrel] 50 mg PO QPM 12/15/17 02/26/18 Metoprolol Tartrate 25 mg PO BID 12/19/17 02/26/18 Simethicone [Gas Relief] 80 mg PO PRN PRN 12/24/17 02/26/18 Albuterol Sulfate [Proair Hfa 1 - 2 puffs PO Q4H PRN 02/03/18 02/26/18 Inhaler] oxyCODONE [Roxicodone] 5 mg PO Q4H PRN 02/03/18 02/26/18 Sodium Chloride [Salt Tab] 1 gm PO DAILY #30 02/06/18 02/26/18 Gabapentin 100 cap PO ACHS 02/12/18 02/26/18 Metoclopramide [Reglan] 5 - 10 mg PO Q6HR PRN 02/13/18 02/26/18 Pantoprazole [Protonix] 40 mg PO DAILY 02/13/18 02/26/18 Acetaminophen [Tylenol Extra 2 tab PO TID 02/14/18 02/26/18 Strength] Lidocaine Patch 4% 1 ea TD PRN PRN 02/26/18 Prochlorperazine Maleate 5 - 10 mg PO .Q6-8H PRN MDD 40 mg 02/26/18 02/26/18 - Allergies Allergies/Adverse Reactions: Allergies Allergy/AdvReac Type Severity Reaction Status Date / Time mirtazapine Allergy Unknown Fever Verified 02/24/18 10:45 ondansetron Allergy Restlessnes Verified 02/24/18 10:45 [From Zofran (as s hydrochloride)] rivaroxaban [From Xarelto] Allergy Unknown Verified 02/24/18 10:45 Review of Systems - Constitutional Constitutional: reports: Fatigue, Weakness, Poor appetite - Eyes Eyes: reports: Vision loss - Cardiovascular Cardiovascular: reports: Decr. exercise tolerance - Respiratory Respiratory: reports: SOB at rest, SOB with exertion - Gastrointestinal Gastrointestinal: reports: Constipation, Nausea, Poor appetite, Early satiety - Genitourinary Genitourinary: reports: Incontinence - Musculoskeletal Musculoskeletal: reports: Stiffness, Limited range of motion, Muscle weakness, Other (R hip pain) - Integumentary Integumentary: reports: Dryness - Neurological Neurological: reports: General weakness, Memory problems, Pre-existing deficit, Abnormal gait - Psychiatric Psychiatric: reports: Anxiety - Endocrine Endocrine: reports: Intolerance to cold - Hematologic/Lymphatic Hematologic/Lymphatic: reports: Anemia - All Other Systems All Other Systems: reports: Reviewed and negative Physical Exam - Vital Signs Temperature: 96.8 F Pulse Rate: 71 O2 Saturation: 95 (room air) Blood Pressure: 95/58 - Physical Exam General Appearance: positive: Mild distress Eyes Bilateral: positive: EOMI, No lid inflammation. negative: Conjunctivae nml , No scleral icterus ENT: positive: Dry mucous membranes Neck: positive: Trachea midline Cardiovascular: positive: Regular rate & rhythm, No murmur, No gallop Respiratory: positive: Diminished in bases, Rales (mild crackles) Skin: positive: Pallor, Dryness Extremities: positive: No pedal edema. negative: Non-tender (pain in R thigh), Full ROM Neurologic/Psychiatric: positive: Disoriented to time, Weakness, Flat affect Palliative Care Pain: Pain worsening, Location (R thigh), Severity (3, then up to 8) Tiredness/Fatigue: Severe (7-10) Drowsiness/Sedation: Mild (1-3) Nausea: Moderate (4-6) Anorexia: Moderate (4-6) Sleep: Sleeps poorly, Other (problems falling asleep) Constipation: Yes, Unmanaged (started senna Q4hrs today) - Palliative Care Discussion: is extremely consciousness and attentive, carefully categorizing the combinations and dosages he has tried for her leg pain and ongoing nausea. At one point he became tearful and then inquired, "How am I doing?" I offered validation and encouragement. I asked Natasha what was concerning her and what was most on her mind. She attempted to consider, appeared overwhelmed, bowed her head and was unable to respond for whatever reason. I did ask if anyone had spoken to them about hospice previously, the said no. He then began to speak about their caregiving support at home and the difference it had made for them. They're understanding of the results of the restaging PET is that it had spread to her shoulders and today they will be discussing with Dr Edwards chemo and other treatment to improve symptoms. Impression and Recommendations - Palliative Care Impression: A 72-year-old woman with metastatic endometrial cancer, recent restaging PET scan confirms spread of cancer. Chemotherapy continues to be on hold. Patient continues to have a high symptom burden with fatigue, ongoing nausea unrelieved by medication, anorexia, and pain of right thigh. Palliative care to assist with pain and symptom management and psychosocial support. Recommendations/Counseling Done: Pain of neoplastic origin: R thigh pain ongoing. Spouse notes oxycontin not helping much, thinks oxycodone is a little better. Tylenol seems to work best, now at 1,000mg TID. Gabapentin also seems to help. He was giving 200mg at night , last night gave 300mg for increased pain, and it was sedating. We agreed to add 200mg in the morning, and continue the 200-300mg at night. He agreed to try lidocaine 4% patches, available OTC. He will continue Tylenol 1000mg TID. Cannabinoid oil helped at first, then she developed tolerance. He hasn't used it in about a week. I suggested he try it again, but use it only 1-2x/week. Nausea: Ongoing, medications are not giving mush relief. He's currently giving her lorazepam at night, and has stopped the decadron because she becomes overactive and "fidgety." He has been using metoclopramide during the day. I started prochlorperazine (not to be used in conjunction with meteclopramide) 5- 10 mg every 4-6 hours. Start at 5mg. Max 10mg dose, max 40mg per day. Constipation: Improvement, then worsened in last few days. Spouse is giving Senna 8.6 Q4hrs until bowels move. Continue Miralax. Advanced care planning: Patient has not yet restarted chemo, they will know more after their consultation with oncologist. Their hope is chemo or other treatment to relieve symptoms. Today they are not prepared to talk about Hospice. Palliative care will continue to support with symptom burden and goals of care. Time Spent: 45 minutes were spent with more than 50% of the time spent on counseling, education, and coordination of care.
== END 2018-02-26 15:30 | disposition home or self-care (01) ==
LOC: PC 15:29
PROVIDERS: ATTEND Nurse Practitioner
DX: Z51.5 Encounter for palliative care (principal); G89.3 Neoplasm related pain (acute) (chronic); R11.0 Nausea; K59.00 Constipation, unspecified; C54.1 Malignant neoplasm of endometrium; C79.89 Secondary malignant neoplasm of other specified sites; I82.431 Acute embolism and thrombosis of right popliteal vein; Z79.899 Other long term (current) drug therapy; Z79.891 Long term (current) use of opiate analgesic
CPT/HCPCS: 99215

== ENCOUNTER 2018-02-28 15:30 | Outpatient (CLI) | payer MEDICARE, OTHER ==
--- NOTE | 2018-02-28 20:13 | CONSULTATION NOTE ---
Palliative Care Follow Up - Referral Referring Provider: Dr Neville Chacon Time of Visit: 02/28/2018. 15:30 - 16:30 [place] [facility] [place] Reason: Neoplastic pain - Information Sources Records reviewed: Previous records reviewed History/Review of Systems obtained from: Patient, Family, Nursing Exam limitations: Clinical condition (short term memory deficits) - History of Present Illness Update Brief HPI Update: -This is a 72-year-old woman with metastatic endometrial cancer hospitalized -02/06 as a result of her chemotherapy. She previously received carboplatin and Taxol, tolerated both quite poorly, so stopped chemo for about 3 weeks. -Today she is restarting chemotherapy with the intent of pain and symptom management. She will be starting radiation soon too. -She continues to have high symptom burden with right leg pain and ongoing, daily nausea that comes in waves. - reports gabapentin helps her at night to sleep, but the 100 mg dose in the mornings has increased her agitation. He will stop that. -OxyContin 15mg BID also increases agitation, without much pain relief. He has given her that only about 2 times. -The most successful combination is Tylenol and oxycodone 5-10 mg every 4 hours. He has given her the oxycodone for about two weeks -Lorazepam is the most helpful for her nausea and for restlessness. -I reminded him to give her either prochlorperazine or metoclopramide, but not both. He hasn't started the prochlorperazine yet. -Appetite continues to be poor. She weighed 168 lbs approximately 3 weeks ago. -Her sleep has significantly improved, although it remains difficult to fall asleep. -He continues to follow palliative care [employer]PECT[employer]'s instructions on hydration with 32 ounces of plain water, and a total of 48-72 ounces of fluids daily. -Patient is ambulatory only by wheelchair because of pain in lower extremity. Social History - Living Situation Living arrangement: At home Living Situation: With spouse/s.o., With caregiver(s) Support System: Extensive family support, two children live on [facility] as does brother, Jong, who is actively involved in her care. They have caregiver help 6 days a week, 9-7pm. Today their daughter Camilel is with them in the [facility] [place]. Home Health RN comes every Maren, and bathing aid comes twice weekly Medications/Allergies - Medications Home Medications: Ambulatory Orders Medication Instructions Recorded Confirmed Levothyroxine [Synthroid] 100 mcg PO QDAC 05/30/16 02/26/18 Cyanocobalamin (Vitamin B-12) 1,000 mcg PO DAILY 11/06/17 02/26/18 [Vitamin B-12] Enoxaparin [Lovenox] 80 mg SUBQ Q12H 11/06/17 02/26/18 LORazepam [Lorazepam] 0.5 - 1 mg PO Q6H PRN 12/15/17 02/26/18 Multivitamin [Theragran] 1 tab PO DAILY 12/15/17 02/26/18 traZODone [Desyrel] 50 mg PO QPM 12/15/17 02/26/18 Metoprolol Tartrate 25 mg PO BID 12/19/17 02/26/18 Simethicone [Gas Relief] 80 mg PO PRN PRN 12/24/17 02/26/18 Albuterol Sulfate [Proair Hfa 1 - 2 puffs PO Q4H PRN 02/03/18 02/26/18 Inhaler] oxyCODONE [Roxicodone] 5 mg PO Q4H PRN 02/03/18 02/26/18 Sodium Chloride [Salt Tab] 1 gm PO DAILY #30 02/06/18 02/26/18 Gabapentin 100 cap PO ACHS 02/12/18 02/26/18 Pantoprazole [Protonix] 40 mg PO DAILY 02/13/18 02/26/18 Acetaminophen [Tylenol Extra 2 tab PO TID 02/14/18 02/26/18 Strength] Lidocaine Patch 4% 1 ea TD PRN PRN 02/26/18 Prochlorperazine Maleate 5 - 10 mg PO .Q6-8H PRN MDD 40 mg 02/26/18 02/26/18 fentaNYL [Fentanyl 12mcg patch] 12.5 mcg TD .Q72HR 02/28/18 02/28/18 - Allergies Allergies/Adverse Reactions: Allergies Allergy/AdvReac Type Severity Reaction Status Date / Time prochlorperazine Allergy Mild restlessnes Verified 02/28/18 17:22 [From Compazine] s mirtazapine Allergy Unknown Fever Verified 02/24/18 10:45 ondansetron Allergy Restlessnes Verified 02/24/18 10:45 [From Zofran (as s hydrochloride)] rivaroxaban [From Xarelto] Allergy Unknown Verified 02/24/18 10:45 Review of Systems - Constitutional Constitutional: reports: Fatigue, Chills, Weakness, Poor appetite, Weight stable (at new lower baseline. 168 lbs approximately 3 weeks ago) - Eyes Eyes: reports: Vision loss - Cardiovascular Cardiovascular: reports: Decr. exercise tolerance - Gastrointestinal Gastrointestinal: reports: Bloating, Poor appetite, Early satiety - Musculoskeletal Musculoskeletal: reports: Assistive devices (wheelchair), Transfer issues (due to leg pain), Other (LLE pain) - Integumentary Integumentary: reports: Dryness - Neurological Neurological: reports: General weakness, Memory problems, Pre-existing deficit, Abnormal gait - Psychiatric Psychiatric: reports: Anxiety - Endocrine Endocrine: reports: Intolerance to cold - Hematologic/Lymphatic Hematologic/Lymphatic: reports: Anemia - All Other Systems All Other Systems: reports: Reviewed and negative Physical Exam - Vital Signs Temperature: 96.4 F Pulse Rate: 86 O2 Saturation: 95 (room air) Blood Pressure: 125/69 - Physical Exam General Appearance: positive: No acute distress, Lethargic Eyes Bilateral: positive: EOMI, Conjunctivae nml. negative: No scleral icterus ENT: positive: No signs of dehydration Neck: positive: Trachea midline Abdomen: positive: Non-tender, Soft, Distended. negative: Nml bowel sounds ( hypoactive), Mass Skin: positive: Pallor, Dryness Extremities: positive: Pedal edema (1+) Neurologic/Psychiatric: positive: Disoriented to time, Weakness, Flat affect Palliative Care - POLST Patient has POLST: Yes POLST Status: DNR, Selective Treatment Pain: Pain unchanged, Location (R thigh), Pattern Tiredness/Fatigue: Severe (7-10) Drowsiness/Sedation: Moderate (4-6) Nausea: Moderate (4-6) Anorexia: Moderate (4-6) Sleep: Sleep improved, Variable sleep pattern Constipation: Managed - Palliative Care Discussion: Today their daughter, Camille, is present at the visit in the [facility] [place]. It is evident they are a warm, close-knit family. Today is the first day of the new chemotherapy cycle, the goal is to ameliorate the RLE pain. The patient and her spouse have decided to transition to hospice if the chemo and radiation are not effective at ameliorating pain. Today we completed a new POLST, from CPR to DNR with selective treatment. Impression and Recommendations - Palliative Care Impression: 72-year-old woman with metastatic endometrial cancer that is spreading. She has on-going high symptom burden and started a new round of chemotherapy today with the goal of symptom amelioration. If this and the radiation are not effective, the family will be ready to transition her to Hospice. Recommendations/Counseling Done: Pain of neoplastic origin: R thigh pain unrelieved with addition of gabapentin in the morning. Oxycontin 15mg bid does not control pain and causes her to become agitated. The most effective combination has been oxycodone 5mg Q4hr ( sometimes he uses 10mg) and Tylenol every 6 hours. We agreed to stop the oxycontin and start fentanyl 12.5mcg Q72 hr. Nursing in the MAC will provide written and oral instructions. He has yet to purchase the lidocaine 4% patches. Nausea: No improvement in the daily nausea that comes in waves. Lorazepam has been the most effective at symptom control. He has not tried prochlorperazine yet. Diagnovus shows a mild allergy, but we will try it again. Radiation has not yet started. Anxiety: Lorazepam 0.5mg-1mg seems to work the best. Constipation: Senna 8.6mg Q4hr as needed. Bloating: Simethicone as needed. Advanced planning: New POLST: DNR and selective interventions. Chemotherapy started for symptom amelioration; initiation of radiation treatment is pending. Family says they are open to transitioning her to Hospice if chemo/radiation is ineffective. Time Spent: 60 minutes were spent with more than 50% of the time spent on counseling, education, coordination of care, anticipatory guidance, weighing benefits and burdens of interventions.
== END 2018-02-28 15:31 | disposition home or self-care (01) ==
LOC: PC 15:30
PROVIDERS: ATTEND Nurse Practitioner
DX: Z51.5 Encounter for palliative care (principal); G89.3 Neoplasm related pain (acute) (chronic); R45.1 Restlessness and agitation; T42.6X5A Adverse effect of other antiepileptic and sedative-hypnotic drugs, initial encounter; T40.2X5A Adverse effect of other opioids, initial encounter; R11.0 Nausea; F41.9 Anxiety disorder, unspecified; K59.00 Constipation, unspecified; R14.0 Abdominal distension (gaseous); C54.1 Malignant neoplasm of endometrium; C79.9 Secondary malignant neoplasm of unspecified site; R63.0 Anorexia; Z79.899 Other long term (current) drug therapy; Z99.3 Dependence on wheelchair; Z66 Do not resuscitate
CPT/HCPCS: 99215

== ENCOUNTER 2018-03-20 21:19 | Outpatient (CLI) | payer MEDICARE, OTHER ==
--- NOTE | 2018-03-20 21:57 | CONSULTATION NOTE ---
Palliative Care Follow Up - Referral Referring Provider: Dr Chacon / Dr Edwards Time of Visit: 03/20/2018. 12:20 - 12:55 Referral setting: Home (Seen in home setting due to taxing and considerable effort required to leave the home due to debility and symptom burden secondary to stage IV endometrial cancer.) Referral Reason: Cancer related pain, nausea - Information Sources Records reviewed: RN notes reviewed, Previous records reviewed History/Review of Systems obtained from: Patient, Family, Caregiver, Nursing Exam limitations: Clinical condition (short term memory deficits) - History of Present Illness Update Brief HPI Update: -72-year-old woman with metastatic endometrial cancer recently restarted on Doxil chemotherapy for pain and symptom management. Next chemo treatment, Doxil cycle #2, scheduled for 03/27. -She continues to have a high symptom burden: pain, nausea, sleep problems -Right leg pain had improved after previous cycle 03/12/18, but this week the pain started increasing, and her spouse has started the fentanyl patch on 03/19 and she was walking with less pain today. -He also gives her Tylenol 500mg and [place] 5/325, newly initiated by PCP. I'm advising him to keep the Tylenol dosing to 3000mg max per 24 hours. -Agitation has been an ongoing problem, and he has stopped oxycodone because it increases her agitation. He thinks [place] works better in this regard. -She was having problems with sleep earlier in the week, he can increase the Trazodone dosing to 100mg, currently at 50mg. He tried it and she slept better the past 2 nights. -Nausea has been a problem. Neither metoclopramide or prochlorperazine helped, they increased her agitation. Lorazepam gives some relief, but they found PeptoBismol to work well. This was suggested by Josefina, the caregiver. -Appetite continues to be a challenge, and calorie intake is about 1000/day. Josefina helps out here by serving what the patient likes and encouraging the patient with smoothies, Ensure, scrambled eggs, anything she will eat. They plan to go out for hamburgers after my visit. The patient loves car drives. -Patient is at her baseline confusion and mental fog, often turning to Magdy with the expectation he can provide the answer to a question directed at her. Cognitively she is declining. -Discussed possibly bringing in our aircrewman, talked about memory books and other things that the aircrewman can provide. Magdy was enthused, the patient needs to think about it. Social History - Living Situation Living arrangement: At home Living Situation: With spouse/s.o., With caregiver(s) Support System: Spouse is attentive and conscientious. [place]. In addition to Home Health nursing support, they have caregiver support: Josefina comes M,W,Th from 06-20 and Sat -. Zoe comes T,F. No caregivers on Saturday, by choice. Medications/Allergies - Medications Home Medications: Ambulatory Orders Medication Instructions Recorded Confirmed Levothyroxine [Synthroid] 100 mcg PO QDAC 05/30/16 02/26/18 Cyanocobalamin (Vitamin B-12) 1,000 mcg PO DAILY 11/06/17 02/26/18 [Vitamin B-12] Enoxaparin [Lovenox] 80 mg SUBQ Q12H 11/06/17 02/26/18 LORazepam [Lorazepam] 0.5 - 1 mg PO Q6H PRN 12/15/17 02/26/18 Multivitamin [Theragran] 1 tab PO DAILY 12/15/17 02/26/18 traZODone [Desyrel] 50 - 100 mg PO QPM 12/15/17 02/26/18 Metoprolol Tartrate 25 mg PO BID 12/19/17 02/26/18 Simethicone [Gas Relief] 80 mg PO PRN PRN 12/24/17 02/26/18 Albuterol Sulfate [Proair Hfa 1 - 2 puffs PO Q4H PRN 02/03/18 02/26/18 Inhaler] Sodium Chloride [Salt Tab] 1 gm PO DAILY #30 02/06/18 02/26/18 Gabapentin 100 cap PO ACHS 02/12/18 02/26/18 Pantoprazole [Protonix] 40 mg PO DAILY 02/13/18 02/26/18 Acetaminophen [Tylenol Extra 2 tab PO TID 02/14/18 02/26/18 Strength] Lidocaine Patch 4% 1 ea TD PRN PRN 02/26/18 Prochlorperazine Maleate 5 - 10 mg PO .Q6-8H PRN MDD 40 mg 02/26/18 02/26/18 fentaNYL [Fentanyl 12mcg patch] 12.5 mcg TD .Q72HR 02/28/18 02/28/18 HYDROcod/ACETAM 5/325 [[place] 5/325] 1 tab PO .UNKNOWN PRN 03/21/18 03/21/18 - Allergies Allergies/Adverse Reactions: Allergies Allergy/AdvReac Type Severity Reaction Status Date / Time prochlorperazine Allergy Mild restlessnes Verified 02/28/18 17:22 [From Compazine] s mirtazapine Allergy Unknown Fever Verified 02/24/18 10:45 ondansetron Allergy Restlessnes Verified 02/24/18 10:45 [From Zofran (as s hydrochloride)] rivaroxaban [From Xarelto] Allergy Unknown Verified 02/24/18 10:45 Review of Systems - Constitutional Constitutional: reports: Fatigue, Weakness, Poor appetite, Weight loss - Cardiovascular Cardiovascular: reports: Decr. exercise tolerance - Gastrointestinal Gastrointestinal: reports: Nausea, Poor appetite, Early satiety - Musculoskeletal Musculoskeletal: reports: Other - Neurological Neurological: reports: General weakness, Memory problems (worsening cognition and memory loss) - Psychiatric Psychiatric: reports: Aggitation (secondary to medications (oxycodone)) - Hematologic/Lymphatic Hematologic/Lymphatic: reports: Anemia Physical Exam - Vital Signs Temperature: 96.5 F Pulse Rate: 71 O2 Saturation: 95 Blood Pressure: 106/62 - Physical Exam General Appearance: positive: Lethargic Eyes Bilateral: positive: No lid inflammation, Conjunctivae nml, No scleral icterus ENT: positive: No signs of dehydration Neck: positive: Trachea midline, Other (large nodules Left lateral neck/chest) Cardiovascular: positive: Regular rate & rhythm, No murmur, No gallop Respiratory: positive: Diminished throughout Skin: positive: Other (Nodules on trunk and extremities, which reduce in size after chemo treatment. They are especially large on L side of neck/chest.) Extremities: positive: No pedal edema Neurologic/Psychiatric: positive: Disoriented to time, Weakness, Flat affect Palliative Care - POLST Patient has POLST: Yes POLST Status: DNR, Selective Treatment Pain: Pain worsening (R leg) Tiredness/Fatigue: Severe (7-10) Nausea: Moderate (4-6) Anxiety: Moderate (4-6) (episodic agitation, related to medications) Dyspnea: None Anorexia: Severe (7-10), Weight loss Constipation: Opoid induced - Palliative Care Discussion: I asked her how she's doing and how she is doing with "all this". She looks confused and has difficulty responding. She is challenged in answering all questions, her cognition is progressively declining. They have discussed the chemotherapy treatments and they agreed to continue them because they give her pain relief. They only wish the pain relief endured until the next cycle. They will continue chemo as long as it keeps helping her symptoms and will stop when it no longer does. I talked to them about the aircrewman and they might request a visit. Magdy seemed more enthusiastic, the patient seemed confused. They are closely involved with their own religion. Impression and Recommendations - Palliative Care Impression: 72-year-old woman with metastatic endometrial cancer that is spreading. She restarted chemo 2 weeks ago, Doxil, and next cycle is 03/27. Pain relief is at maximum just after the chemotherapy but wears off prior to the next cycle. The PCP just started [place] for pain relief; he's not using oxycodone becasuse it makes her agitated. Nausea continues to be a problem, but they found Pepto- Bismol seems to help, and they continue to use lorazepam for nausea, as well as for anxiety. He started using the fentanyl patch two days ago, which has helped the R leg pain so that she can walk. They are committed to going forward with chemotherapy for as long as it continues to provide symptom relief , and once it does not they will accept hospice. Recommendations/Counseling Done: Nausea secondary to mets endometrial cancer: Metoclopramide and prochlorperazine don't work. Lorazepam offers relief, as does pepto bismol. Neoplastic pain: Improved with starting fentanyl patch 12mcg. Stopped oxycodone due to increased agitation, PCP started [place] 5/325, timing unknown. It's helping her pain, and doesn't agitate her, so he's giving it along with one Tylenol 500mg. I advised him to keep Tylenol at 3000mg or less per day. She also continues taking gabapentin. Constipation: Advised him to restart Miralax 17g, educated him about adjusting dosage as needed. Insomnia: OK to increase trazodone to 100mg at bedtime, as needed. Lorazepam is also useful. Advanced care planning: POLST DNR, selective. Will continue chemotherapy as long as it helps her pain symptoms. They will move to Hospice when it no longer does. Follow up with them again about palliative care News Videographer. Memory books, or some other project might work for her. Next visit scheduled 03/27 at [facility] [place] during chemo treatment. Time Spent: 35 minutes were spent with more than 50% of the time spent on counseling, education, and coordination of care.
== END 2018-03-20 21:20 | disposition home or self-care (01) ==
LOC: PC 21:19
PROVIDERS: ATTEND Nurse Practitioner
DX: Z51.5 Encounter for palliative care (principal); G89.3 Neoplasm related pain (acute) (chronic); C54.1 Malignant neoplasm of endometrium; C79.9 Secondary malignant neoplasm of unspecified site; R11.2 Nausea with vomiting, unspecified; G31.84 Mild cognitive impairment of uncertain or unknown etiology; Z79.899 Other long term (current) drug therapy; F41.9 Anxiety disorder, unspecified; Z66 Do not resuscitate
CPT/HCPCS: 99348

== ENCOUNTER 2018-03-27 14:09 | Outpatient (CLI) | payer MEDICARE, OTHER ==
--- NOTE | 2018-03-27 16:21 | CONSULTATION NOTE ---
Palliative Care Follow Up - Referral Referring Provider: Dr Neville Chacon Time of Visit: 03/27/2018. 14:05 - 14:35 Referral setting: [facility] [place] Referral Reason: Agitation, pain - Information Sources Records reviewed: RN notes reviewed, Previous records reviewed History/Review of Systems obtained from: Patient, Family Exam limitations: Clinical condition (short-term memory deficits; confusion) - History of Present Illness Update Brief HPI Update: -72-year-old woman with metastatic endometrial/ovarian cancer, recently restarted on chemotherapy (switched to Doxil) for pain and symptom management. Today she is at the [facility] [place] for her chemotherapy infusion -Her previous chemo treatment had been dose-dense carboplatin and Taxol s/p five cycles. She was switched to Doxil in February because of new lesions in neck and thigh consistent with metastatic disease to the skin and subcutaneous tissue. -She has complained of R hip pain, and xrays did not show fractures or lytic lesions. -PET scan did not show any areas of the bone concerning for metastatic disease, but there is uptake in the subcutaneous tissue of R thigh. Dr Edwards was going to discuss with Radiation Oncology if that would be a target for palliative radiation. -She is also going to check for MSI status on pathology. If she has MSI high, she might be a candidate for immunotherapy treatment such as pembrolizumab. -Patient was dehydrated at yesterday's blood draw, with low BP and increased pulse, and was given NS. -Today she is sound asleep during the chemo infusion. Her spouse says sleeping in the daytime is unusual for her, she has never been a iker. -Her pain has always improved with chemo therapy, and the spouse is hopeful this will be true for this cycle too. The pain relief lasts a few weeks, but two weeks into the cycle, pain and other issues start. -He found that the fentanyl 12mcg patch relieved pain, along with the [place] given with one Tylenol. He give this to her 2-3 times daily. -Her nausea is improved with PeptoBismol; it's related to digestion. -Her agitation is increasing, what the describes as "sundowning," but it occurred last night around 9:30 pm. We discussed various alternative approaches such as podcasts for insomnia ("Sleep with Me" and ASMR, "gentle whispering"). and lorazepam. -He thinks she's now getting over 1000 calories per day. He gives her "spiked" shakes/Ensure: with powdered milk, instant breakfast, whipped cream, ice cream, etc. Also Josefina their cargiver is a very good cook; however, often the patient just isn't interested. -Spouse notes that patient usually has issues about two weeks following chemo. I spoke with [facility] after the visit and agreed to assess patient at her home in two weeks, and refer her to [facility] as needed. Social History - Living Situation Living arrangement: At home Living Situation: With spouse/s.o. Support System: Spouse is main caregiver, but has the support of Home Health Nursing and Bath [employer], as well as very good caregiver support. Josefina comes M,W,Th from 06-20 and Sat 06-17. Zoe comes T,F. They have no caregivers on Saturdays. Medications/Allergies - Medications Home Medications: Ambulatory Orders Medication Instructions Recorded Confirmed Levothyroxine [Synthroid] 100 mcg PO QDAC 05/30/16 03/26/18 Cyanocobalamin (Vitamin B-12) 1,000 mcg PO DAILY 11/06/17 03/26/18 [Vitamin B-12] Enoxaparin [Lovenox] 80 mg SUBQ Q12H 11/06/17 03/26/18 LORazepam [Lorazepam] 0.5 - 1 mg PO Q6H PRN 12/15/17 03/26/18 Multivitamin [Theragran] 1 tab PO DAILY 12/15/17 03/26/18 traZODone [Desyrel] 50 - 100 mg PO QPM 12/15/17 03/26/18 Metoprolol Tartrate 25 mg PO BID 12/19/17 03/26/18 Simethicone [Gas Relief] 80 mg PO PRN PRN 12/24/17 03/26/18 Albuterol Sulfate [Proair Hfa 1 - 2 puffs PO Q4H PRN 02/03/18 03/26/18 Inhaler] Sodium Chloride [Salt Tab] 1 gm PO DAILY #30 02/06/18 03/26/18 Gabapentin 100 cap PO ACHS 02/12/18 03/26/18 Pantoprazole [Protonix] 40 mg PO DAILY 02/13/18 03/26/18 Acetaminophen [Tylenol Extra 2 tab PO TID 02/14/18 03/26/18 Strength] Lidocaine Patch 4% 1 ea TD PRN PRN 02/26/18 03/26/18 Prochlorperazine Maleate 5 - 10 mg PO .Q6-8H PRN MDD 40 mg 02/26/18 03/26/18 fentaNYL [Fentanyl 12mcg patch] 12.5 mcg TD .Q72HR 02/28/18 03/26/18 HYDROcod/ACETAM 5/325 [[place] 5/325] 1 tab PO .UNKNOWN PRN 03/21/18 03/26/18 - Allergies Allergies/Adverse Reactions: Allergies Allergy/AdvReac Type Severity Reaction Status Date / Time prochlorperazine Allergy Mild restlessnes Verified 02/28/18 17:22 [From Compazine] s mirtazapine Allergy Unknown Fever Verified 02/24/18 10:45 ondansetron Allergy Restlessnes Verified 02/24/18 10:45 [From Zofran (as s hydrochloride)] rivaroxaban [From Xarelto] Allergy Unknown Verified 02/24/18 10:45 Review of Systems - Constitutional Constitutional: reports: Fatigue, Weakness, Poor appetite, Weight loss - Ears, Nose & Throat Ears, Nose & Throat: reports: Hearing loss - Cardiovascular Cardiovascular: reports: Decr. exercise tolerance - Gastrointestinal Gastrointestinal: reports: Nausea (Pepto Bismol gives relief), Poor appetite, Early satiety - Neurological Neurological: reports: General weakness, Memory problems (worsening cognition, confusion, and short term memory) - Psychiatric Psychiatric: reports: Aggitation (getting worse at night) - Hematologic/Lymphatic Hematologic/Lymphatic: reports: Anemia Physical Exam - Vital Signs Temperature: 96.4 F Pulse Rate: 111 O2 Saturation: 96 (room air) Blood Pressure: 123/77 - Physical Exam General Appearance: positive: No acute distress, Lethargic, Other (Sleeping during most of the visit, while undergoing chemotherapy) Eyes Bilateral: positive: No lid inflammation, Conjunctivae nml Neck: positive: Trachea midline Cardiovascular: positive: Regular rate & rhythm, No murmur, No gallop Respiratory: positive: Diminished throughout Skin: positive: Other (Nodules/tumors on L neck and chest, reduced in size with chemo) Extremities: positive: No pedal edema Neurologic/Psychiatric: positive: Disoriented to place, Disoriented to time, Weakness, Flat affect Palliative Care - POLST Patient has POLST: Yes POLST Status: DNR, Selective Treatment Pain: No pain Tiredness/Fatigue: Moderate (4-6) Nausea: Moderate (4-6) (relieved with Pepto Bismol) Anxiety: Moderate (4-6) (Worse in evening) Anorexia: Severe (7-10) - Palliative Care Discussion: Checked with spouse again about having clam bed laborer visit the patient, possibly for legacy projects. He thinks it could be a good idea and will speak to her about it. Also spoke to him about two ideas for calming her down at bedtime; her nighttime agitation has increased in the past few nights. "Sleep with Me" a podcast to put people to sleep, and also ASMR "whisper" relaxation, also on podcasts. Spouse is familiar with podcasts and will try these. Impression and Recommendations - Palliative Care Impression: 72-year-old woman with metastatic endometrial/ovarian cancer that is spreading. Today she is in the [facility] for chemotherapy (Doxil). Chemotherapy has always helped her pain management, and expects her pain burden will be significantly improved over at least the next week or two. Our plan is for palliative care follow-up visit in 2 weeks to monitor and send he to the [facility] if needed. Recommendations/Counseling Done: Pain of neoplastic origin, particularly R hip: Always improves with chemo treatment, then by 2-3 weeks the pain returns. Continue 12mcg Fentanyl patch, [place] as needed, and Tylenol as needed. Next chemo treatment is 4 weeks out. He continues with gabapentin. Schedule next palliative care visit in two weeks for assessment and referral to [facility] as needed. Nausea: Controlled. Pepto Bismol has been working the best. Lorazepam also helps. Agitation: Lorazepam as needed, trazodone 100mg as needed. Recommended alternative approaches: podcasts "Sleep With Me" and ASMR for insomnia and agitation at bedtime. Constipation: Continue Miralax 17 g Advanced care planning: Continue palliative chemo; Dr Edwards planned to follow up with Radiation Oncology if palliative radiation is appropriate for the R thigh area, and also to check MSI on pathology, which, if high, could mean she is a candidate for immunotherapy treatment such as pembrolizumab. Next visit: 04/09 9:00 - 9:30 Time Spent: 30 minutes were spent with more than 50% of the time spent on counseling, education, and coordination of care.
== END 2018-03-27 14:10 | disposition home or self-care (01) ==
LOC: PC 14:09
PROVIDERS: ATTEND Nurse Practitioner
DX: Z51.5 Encounter for palliative care (principal); G89.3 Neoplasm related pain (acute) (chronic); C54.1 Malignant neoplasm of endometrium; C79.9 Secondary malignant neoplasm of unspecified site; M25.551 Pain in right hip; R11.0 Nausea; R45.1 Restlessness and agitation; G47.00 Insomnia, unspecified; K59.00 Constipation, unspecified; Z79.899 Other long term (current) drug therapy; Z79.891 Long term (current) use of opiate analgesic; Z66 Do not resuscitate
CPT/HCPCS: 99214

== ENCOUNTER 2018-03-31 12:02 | Inpatient (IN) | payer MEDICARE, OTHER ==
--- NOTE | 2018-03-31 12:46 | ED Physician Documentation ---
History of Present Illness - Stated complaint Stated Complaint: FEVER/LEFT HIP PX - Chief complaint Chief Complaint: General - Additonal information Additional information: hx from 72 female known uterine cancer with mets being txed with chemo last [place] [facility] [place] today with low grade fever, diffuse weakness and AMS X several days talking with and reviewing EMR is sounds like she has had progressive memory issues and confusion for years but he states it is much worse now also she may have fallen over the weekend and her L hip hurts denies GUZMÁN and neck pain denies CP and AP no NVD cough has visible tumors that are enlarging - neck and back - per onc note confirmed by PET scan also hx DVTs on lovenox Review of Systems Constitutional: reports: Fever, Fatigue Cardiac: denies: Chest pain / pressure Respiratory: denies: Dyspnea, Cough GI: denies: Abdominal Pain, Nausea, Vomiting : denies: Dysuria Skin: reports: Lesions (tumors) Musculoskeletal: reports: Joint pain. denies: Neck pain, Back pain Neurologic: reports: Generalized weakness, Altered mental status. 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 mets. 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: Oophrectomy HEENT: Tonsil/Adenoidectomy - Present Medications Home Medications: Ambulatory Orders Medication Instructions Recorded Confirmed Levothyroxine [Synthroid] 100 mcg PO QDAC 05/30/16 03/31/18 Cyanocobalamin (Vitamin B-12) 1,000 mcg PO DAILY 11/06/17 03/31/18 [Vitamin B-12] Enoxaparin [Lovenox] 80 mg SUBQ Q12H 11/06/17 03/31/18 LORazepam [Lorazepam] 0.5 - 1 mg PO Q6H PRN 12/15/17 03/31/18 traZODone [Desyrel] 50 mg PO QPM PRN 12/15/17 03/31/18 Metoprolol Tartrate 25 mg PO BID 12/19/17 03/31/18 Simethicone [Gas Relief] 120 mg PO BID 12/24/17 03/31/18 Albuterol Sulfate [Proair Hfa 2 puffs PO Q4H PRN 02/03/18 03/31/18 Inhaler] Sodium Chloride [Salt Tab] 1 gm PO DAILY #30 02/06/18 03/31/18 Gabapentin 200 mg PO QPM 02/12/18 03/31/18 Pantoprazole [Protonix] 40 mg PO QDAC 02/13/18 03/31/18 Acetaminophen [Tylenol Extra 500 mg PO Q6H 02/14/18 03/31/18 Strength] fentaNYL [Fentanyl 12mcg patch] 12.5 mcg TD Q72H 02/28/18 03/31/18 HYDROcod/ACETAM 5/325 [[place] 5/325] 1 tab PO Q6H PRN 03/21/18 03/31/18 Furosemide [Furosemide] 20 mg PO DAILY PRN 03/31/18 03/31/18 Gabapentin 100 mg PO DAILY 03/31/18 03/31/18 Sennosides [Senna] 17.2 mg PO BID 03/31/18 03/31/18 - Allergies Allergies/Adverse Reactions: Allergies Allergy/AdvReac Type Severity Reaction Status Date / Time prochlorperazine Allergy Mild restlessnes Verified 03/31/18 12:13 [From Compazine] s mirtazapine Allergy Unknown Fever Verified 03/31/18 12:13 ondansetron Allergy Restlessnes Verified 03/31/18 12:13 [From Zofran (as s hydrochloride)] rivaroxaban [From Xarelto] Allergy Unknown Verified 03/31/18 12:13 - Social History Does the pt smoke?: No Smoking Status: Never smoker Does the pt drink ETOH?: No Does the pt have substance abuse?: No - Immunizations Immunizations are current?: Yes - POLST Patient has POLST: Yes POLST Status: Full Code PD ED PE NORMAL - Vitals Vital signs reviewed: Yes - General General: No: Alert and oriented X 3 (alert looks at me responds but confused) - HEENT HEENT: Atraumatic - Neck Neck: Supple, no meningeal sign - Cardiac Cardiac: RRR - Respiratory Respiratory: No respiratory distress, Clear bilaterally - Abdomen Abdomen: Soft, Non tender - Derm Derm: Other (numerous sub cut ST noduels to left neck and back which are reportedly tumors) - Extremities Extremities: No deformity, Other (severe TTP L hip mild erytehma able to range without sig pain, MSV intact, maddy LE edema) - Neuro Neuro: Other (awake, looks at me, answers some questions, moves all ext, diffusely weak and took a three person assist) Results - Vitals Vitals: Vital Signs - 24 hr 03/31/18 03/31/18 12:05 15:46 Temperature 36.4 C L Heart Rate 100 101 H Respiratory 20 16 Rate Blood Pressure 120/69 147/85 H O2 Saturation 99 97 Oxygen O2 Source Room air - Labs Labs: Laboratory Tests 03/31/18 03/31/18 03/31/18 12:56 12:56 14:19 WBC 14.1 H RBC 2.89 L Hgb 8.8 L Hct 26.5 L MCV 92.0 MCH 30.5 MCHC 33.2 RDW 19.8 H Plt Count 287 MPV 7.2 L Neut # (Auto) Not Reportable Lymph # (Auto) Not Reportable [place] # (Auto) Not Reportable Eos # (Auto) Not Reportable Baso # (Auto) Not Reportable Absolute Nucleated RBC Not Reportable Total Counted 100 Band Neuts % (Manual) 2 Reactive Lymphs % (Man) 1 Abnorm Lymph % (Manual) 0 Myelocytes % 1 H Nucleated RBC % Not Reportable Neutrophils # (Manual) 11.1 H Lymphocytes # (Manual) 0.6 L Monocytes # (Manual) 2.1 H Eosinophils # (Manual) 0.0 Basophils # (Manual) 0.1 Differential Comment MANUAL DIFFERENTIAL Manual Slide Review Indicated RBC Morph Micro Appear 2+ ANISOCYTOSIS Sodium 124 L Potassium 4.0 Chloride 88 L Carbon Dioxide 26 Anion Gap 10.0 BUN 14 Creatinine 0.6 Estimated GFR (MDRD) 98 Glucose 110 H Lactic Acid Calcium 8.4 L Total Bilirubin 0.7 AST 40 ALT 25 Alkaline Phosphatase 116 Total Protein 6.7 Albumin 2.2 L Globulin 4.5 H Albumin/Globulin Ratio 0.5 L Lipase 27 Urine Color YELLOW Urine Clarity HAZY Urine pH 6.5 Ur Specific [place] 1.010 Urine Protein TRACE Urine Glucose (UA) NEGATIVE Urine Ketones NEGATIVE Urine Occult Blood TRACE-INTA Urine Nitrite NEGATIVE Urine Bilirubin NEGATIVE Urine Urobilinogen 0.2 (NORMAL) Ur Leukocyte Esterase SMALL H Urine RBC 0-5 Urine WBC 4-5 Ur Epithelial Cells FEW Transitional Ur Squamous Epith Cells MANY Squamous H Urine Bacteria Moderate H Ur Microscopic Review INDICATED Urine Culture Comments NOT INDICATED 03/31/18 14:21 WBC RBC Hgb Hct MCV MCH MCHC RDW Plt Count MPV Neut # (Auto) Lymph # (Auto) [place] # (Auto) Eos # (Auto) Baso # (Auto) Absolute Nucleated RBC Total Counted Band Neuts % (Manual) Reactive Lymphs % (Man) Abnorm Lymph % (Manual) Myelocytes % Nucleated RBC % Neutrophils # (Manual) Lymphocytes # (Manual) Monocytes # (Manual) Eosinophils # (Manual) Basophils # (Manual) Differential Comment Manual Slide Review RBC Morph Micro Appear Sodium Potassium Chloride Carbon Dioxide Anion Gap BUN Creatinine Estimated GFR (MDRD) Glucose Lactic Acid 1.4 Calcium Total Bilirubin AST ALT Alkaline Phosphatase Total Protein Albumin Globulin Albumin/Globulin Ratio Lipase Urine Color Urine Clarity Urine pH Ur Specific [place] Urine Protein Urine Glucose (UA) Urine Ketones Urine Occult Blood Urine Nitrite Urine Bilirubin Urine Urobilinogen Ur Leukocyte Esterase Urine RBC Urine WBC Ur Epithelial Cells Ur Squamous Epith Cells Urine Bacteria Ur Microscopic Review Urine Culture Comments - Rads (name of study) CTH Radiology: See rad report (no acute) CXR Radiology: See rad report (NACPD - unchanged from prior) hip Radiology: See rad report (no widened jt space, no fx, no bony mets) PD MEDICAL DECISION MAKING - ED course ED course: fever and AMS denies GUZMÁN and no neck stiffness doubt meningitis no evidence of port infection on exam no pna probable UTI - pt prepped and had a 4 person assist to commode to get the sample - but still not a perfect clean catch = but + leuk est and bacteria but also has L hip pain and some redness and warmth - concern for a septic hip - xray neg for bony met etc - ortho consulted and agrees would be prudent to tap - spoke to Dr Bartlett radiology and she tap under fluoro guidance - this was done and joint was dry - no fluid or pus started antibiotics after arthrocentesis gave rocephin in ED and IVF anemia not new hyponatremia also not new so unlikely to be cause of AMS she is too weak and confused for family to safely care for - needed 3-4 person assist to move off stretcher in rads and to get up to commode for a sample ortho rec pt get CT or MRI of her hip if tap neg for infection, also given worsening mental status with known metastatic cancer feel MRI of brain might be useful, defer to inpt team at this point will need admission, if not improving with IVF and antibiotics may need to consider multimedia programmer in home care or SNF for safety confirmed with pt is DNR limited, he brought her POLST and copies were made, verified ab are OK to use in this situation spoke to hospitalist at 1845 - rec inpt and 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 spoke to Dr De La Garza at 1915 - Sepsis Event Vital Signs: Vital Signs - 24 hr 03/31/18 03/31/18 12:05 15:46 Temperature 36.4 C L Heart Rate 100 101 H Respiratory 20 16 Rate Blood Pressure 120/69 147/85 H O2 Saturation 99 97 Oxygen O2 Source Room air Departure - Departure Disposition: 66 [facility] DC/Xfer Clinical Impression: Weakness, Hyponatremia Fever Qualifiers: Fever type: unspecified Qualified Code(s): R50.9 - Fever, unspecified UTI (urinary tract infection) Qualifiers: Urinary tract infection type: site unspecified Hematuria presence: without hematuria Qualified Code(s): N39.0 - Urinary tract infection, site not specified Hip pain Qualifiers: Laterality: left Qualified Code(s): M25.552 - Pain in left hip Anemia Qualifiers: Anemia type: unspecified type Qualified Code(s): D64.9 - Anemia, unspecified Condition: Poor Comments: The confusion may be due to infection. The CT scan did not show any bleeding or strokes or tumor. But if the confusion persists despite being treated with antibiotics, i suggest you speak to your oncologist about getting a MRI of the brain to see if the cancer has spread there
[2018-03-31 13:02] LABS: BASOPHILS % (AUTO) 0.3 %; EOSINOPHILS % (AUTO) 0.2 %; HGB - HEMOGLOBIN 8.8 g/dL (12.0-16.0); LYMPHOCYTES % (AUTO) 4.7 %; MEAN CORPUSCULAR HEMOGLOBIN 30.5 pg (27.0-31.0); MEAN CORPUSCULAR HGB CONC 33.2 g/dL (32.0-36.0); MEAN PLATELET VOLUME 7.2 fL (7.9-10.8); MONOCYTES % (AUTO) 13.4 %; NEUTROPHILS % (AUTO) 81.4 %; PLT - PLATELET COUNT 287 10^3/uL (130-450); RED BLOOD COUNT 2.89 10^6/uL (4.20-5.40); RED CELL DISTRIBUTION WIDTH 19.8 % (12.0-15.0); WHITE BLOOD COUNT 14.1 x10^3/uL (4.8-10.8)
[2018-03-31 13:14] LABS: ALBUMIN 2.2 g/dL (3.2-5.5); ALBUMIN/GLOBULIN RATIO 0.5 (1.0-2.2); BILIRUBIN,TOTAL 0.7 mg/dL (0.2-1.0); CALCIUM 8.4 mg/dL (8.5-10.3); CREATININE 0.6 mg/dL (0.4-1.0); TOTAL PROTEIN 6.7 g/dL (6.7-8.2)
[2018-03-31 13:24] LABS: ABNORMAL LYMPHS % (MANUAL) 0 %
[2018-03-31 13:26] LABS: BAND NEUTROPHILS % (MANUAL) 2 %; BASOPHILS # (MANUAL) 0.1 10^3/uL (0-0.1); BASOPHILS % (MANUAL) 1 %; LYMPHOCYTES # (MANUAL) 0.6 10^3/uL (1.5-3.5); LYMPHOCYTES % (MANUAL) 3 %; MONOCYTES # (MANUAL) 2.1 10^3/uL (0.0-1.0); MYELOCYTES % (MANUAL) 1 %; NEUTROPHILS # (MANUAL) 11.1 10^3/uL (1.5-6.6); NEUTROPHILS % (MANUAL) 77 %
[2018-03-31 13:27] LABS: DIFFERENTIAL COMMENT MANUAL DIFFERENTIAL; RBC MORPHOLOGY (MULTIPLE) 2+ ANISOCYTOSIS (NORMAL)
[2018-03-31 14:37] LABS: BILIRUBIN,URINE NEGATIVE (NEGATIVE); GLUCOSE, URINE (UA) NEGATIVE (NEGATIVE); KETONES,URINE (UA) NEGATIVE (NEGATIVE); LEUKOCYTE ESTERASE, URINE SMALL (NEGATIVE); NITRITE,URINE NEGATIVE (NEGATIVE); OCCULT BLOOD,URINE TRACE-INTA (NEGATIVE); PH,URINE 6.5 PH (5.0-7.5); PROTEIN,URINE TRACE mg/dL (NEGATIVE); UROBILINOGEN,URINE 0.2 (NORMAL) E.U./dL (NORMAL)
[2018-03-31 14:39] LABS: CLARITY,URINE HAZY (CLEAR)
[2018-03-31 14:55] LABS: BACTERIA,URINE Moderate /HPF (None Seen); EPITHELIAL CELLS,UR FEW Transitional /HPF (<= Few); RBC,URINE 0-5 /HPF (0-5); SQUAMOUS EPITHELIAL CELL,UR MANY Squamous (<= Few)
--- NOTE | 2018-03-31 15:08 | CT Report ---
Procedure Date: 03/31/2018 Accession Number: [id number] / [id number] Procedure: CT - Head W/O CPT Code: FULL RESULT: EXAM: CT HEAD EXAM DATE: 03/31/2018 02:40 PM. CLINICAL HISTORY: AMS metastatic cancer. COMPARISON: 05/23/2017. TECHNIQUE: Multiaxial CT images were obtained from the foramen magnum to the vertex. Reformats: Coronal. IV contrast: None. In accordance with CT protocol optimization, one or more of the following dose reduction techniques were utilized for this exam: automated exposure control, adjustment of mA and/or KV based on patient size, or use of iterative reconstructive technique. FINDINGS: Parenchyma: No intraparenchymal hemorrhage. No evidence of mass, midline shift, or CT findings of infarction. Grimm-white differentiation is distinct. Mild periventricular and subinsular white matter hypoattenuation has increased. Extraaxial Spaces: Mild volume loss, new/increased from 2017. No subdural or epidural collections identified. Ventricles: Mildly enlarged, increased from 2017 Sinuses and Orbits: Imaged paranasal sinuses, orbits, and mastoids show no significant abnormality. Bones: No evidence of fracture or calvarial defect. Other: None. IMPRESSION: 1. No acute intracranial abnormality. 2. Increased volume loss and mild white matter disease since 2017. RADIA
--- NOTE | 2018-03-31 15:14 | XRAY Report ---
Procedure Date: 03/31/2018 Accession Number: [id number] / [id number] Procedure: XR - Chest 2 View X-Ray CPT Code: 10190 FULL RESULT: EXAM: CHEST RADIOGRAPHY EXAM DATE: 03/31/2018 02:32 PM. CLINICAL HISTORY: Chemo fever. COMPARISON: Chest 02/03/2018. TECHNIQUE: 2 views. FINDINGS: Lungs/Pleura: No focal opacities evident. No pleural effusion. No pneumothorax. Normal volumes. Mediastinum: Heart and mediastinal contours are unremarkable. Other: Posterior lower chest not included on the lateral view. Left Port-A-Cath central line with the tip in the left brachiocephalic vein, unchanged. IMPRESSION: No acute cardiopulmonary disease seen. See above. RADIA
--- NOTE | 2018-03-31 15:17 | XRAY Report ---
Procedure Date: 03/31/2018 Accession Number: [id number] / [id number] Procedure: XR - Hip w/Pelvis 2-3V LT CPT Code: FULL RESULT: EXAM: LEFT HIP AND PELVIS RADIOGRAPHY EXAM DATE: 03/31/2018 02:32 PM. HISTORY: Left hip pain after fall 3 days ago. On chemotherapy. COMPARISONS: None. TECHNIQUE: 1 view of the pelvis and 1 view of the hip. FINDINGS: Bones: Demineralized bones. No fracture or bone lesion. Joints: The bilateral hip, pubis symphysis, and sacroiliac joints are preserved. [id number] pubic symphysis sclerosis, can be seen with osteitis pubis. Soft Tissues: Normal. No soft tissue swelling. IMPRESSION: No acute fracture or dislocation seen. See above. RADIA
--- NOTE | 2018-03-31 16:09 | PROVIDER PROGRESS NOTE ---
Subjective - Prog Note Date Prog Note Date: 03/31/18 Prog Note Time: 16:07 - Subjective Pt reports feeling: Worse (Patient with metastatic ?uterine Ca on chemotherapy presents now with a fever and 2 day hx of progressively painful left hip. Has limited gait due to pain. Had a unwitnessed fall at home sat AM and was found on the floor by her . No distal weakness/numbness. Difficult historian , most hx provided by her ) Objective - Vital Signs/Intake & Output Vital Signs: Vital Signs x48h Temp Pulse Resp BP Pulse Ox 03/31/18 15:46 101 H 16 147/85 H 97 03/31/18 12:05 36.4 C L 100 20 120/69 99 - Lab Results Fish Bones: 03/31/18 12:56 03/31/18 12:56 Other Labs: Lab Results x24hrs 03/31/18 03/31/18 03/31/18 Range/Units 14:21 14:19 12:56 WBC (4.8-10.8) x10^3/uL RBC (4.20-5.40) 10^6/uL Hgb (12.0-16.0) g/dL Hct (37.0-47.0) % MCV (81.0-99.0) fL MCH (27.0-31.0) pg MCHC (32.0-36.0) g/dL RDW (12.0-15.0) % Plt Count (130-450) 10^3/uL MPV (7.9-10.8) fL Neut # (Auto) Lymph # (Auto) [place] # (Auto) Eos # (Auto) Baso # (Auto) Absolute Nucleated RBC Total Counted Band Neuts % (Manual) (0 - 10) % Reactive Lymphs % (Man) % Abnorm Lymph % (Manual) % Myelocytes % ( - 0) % Nucleated RBC % Neutrophils # (Manual) (1.5-6.6) 10^3/uL Lymphocytes # (Manual) (1.5-3.5) 10^3/uL Monocytes # (Manual) (0.0-1.0) 10^3/uL Eosinophils # (Manual) (0-0.7) 10^3/uL Basophils # (Manual) (0-0.1) 10^3/uL Differential Comment Manual Slide Review RBC Morph Micro Appear (NORMAL) Sodium 124 L (135-145) mmol/L Potassium 4.0 (3.5-5.0) mmol/L Chloride 88 L (101-111) mmol/L Carbon Dioxide 26 (21-32) mmol/L Anion Gap 10.0 (6-13) BUN 14 (6-20) mg/dL Creatinine 0.6 (0.4-1.0) mg/dL Estimated GFR (MDRD) 98 (>89) Glucose 110 H (70-100) mg/dL Lactic Acid 1.4 (0.5-2.2) mmol/L Calcium 8.4 L (8.5-10.3) mg/dL Total Bilirubin 0.7 (0.2-1.0) mg/dL AST 40 (10-42) IU/L ALT 25 (10-60) IU/L Alkaline Phosphatase 116 (42-121) IU/L Total Protein 6.7 (6.7-8.2) g/dL Albumin 2.2 L (3.2-5.5) g/dL Globulin 4.5 H (2.1-4.2) g/dL Albumin/Globulin Ratio 0.5 L (1.0-2.2) Lipase 27 (22-51) U/L Urine Color YELLOW Urine Clarity HAZY (CLEAR) Urine pH 6.5 (5.0-7.5) PH Ur Specific [place] 1.010 (1.002-1.030) Urine Protein TRACE (NEGATIVE) mg/dL Urine Glucose (UA) NEGATIVE (NEGATIVE) mg/dL Urine Ketones NEGATIVE (NEGATIVE) mg/dL Urine Occult Blood TRACE-INTA (NEGATIVE) Urine Nitrite NEGATIVE (NEGATIVE) Urine Bilirubin NEGATIVE (NEGATIVE) Urine Urobilinogen 0.2 (NORMAL) (NORMAL) E.U./dL Ur Leukocyte Esterase SMALL H (NEGATIVE) Urine RBC 0-5 (0-5) /HPF Urine WBC 4-5 (0-5) /HPF Ur Epithelial Cells FEW Transitional (<= Few) /HPF Ur Squamous Epith Cells MANY Squamous H (<= Few) Urine Bacteria Moderate H (None Seen) /HPF Ur Microscopic Review INDICATED Urine Culture Comments NOT INDICATED 03/31/18 Range/Units 12:56 WBC 14.1 H (4.8-10.8) x10^3/uL RBC 2.89 L (4.20-5.40) 10^6/uL Hgb 8.8 L (12.0-16.0) g/dL Hct 26.5 L (37.0-47.0) % MCV 92.0 (81.0-99.0) fL MCH 30.5 (27.0-31.0) pg MCHC 33.2 (32.0-36.0) g/dL RDW 19.8 H (12.0-15.0) % Plt Count 287 (130-450) 10^3/uL MPV 7.2 L (7.9-10.8) fL Neut # (Auto) Not Reportable Lymph # (Auto) Not Reportable [place] # (Auto) Not Reportable Eos # (Auto) Not Reportable Baso # (Auto) Not Reportable Absolute Nucleated RBC Not Reportable Total Counted 100 Band Neuts % (Manual) 2 (0 - 10) % Reactive Lymphs % (Man) 1 % Abnorm Lymph % (Manual) 0 % Myelocytes % 1 H ( - 0) % Nucleated RBC % Not Reportable Neutrophils # (Manual) 11.1 H (1.5-6.6) 10^3/uL Lymphocytes # (Manual) 0.6 L (1.5-3.5) 10^3/uL Monocytes # (Manual) 2.1 H (0.0-1.0) 10^3/uL Eosinophils # (Manual) 0.0 (0-0.7) 10^3/uL Basophils # (Manual) 0.1 (0-0.1) 10^3/uL Differential Comment MANUAL DIFFERENTIAL Manual Slide Review Indicated RBC Morph Micro Appear 2+ ANISOCYTOSIS (NORMAL) Sodium (135-145) mmol/L Potassium (3.5-5.0) mmol/L Chloride (101-111) mmol/L Carbon Dioxide (21-32) mmol/L Anion Gap (6-13) BUN (6-20) mg/dL Creatinine (0.4-1.0) mg/dL Estimated GFR (MDRD) (>89) Glucose (70-100) mg/dL Lactic Acid (0.5-2.2) mmol/L Calcium (8.5-10.3) mg/dL Total Bilirubin (0.2-1.0) mg/dL AST (10-42) IU/L ALT (10-60) IU/L Alkaline Phosphatase (42-121) IU/L Total Protein (6.7-8.2) g/dL Albumin (3.2-5.5) g/dL Globulin (2.1-4.2) g/dL Albumin/Globulin Ratio (1.0-2.2) Lipase (22-51) U/L Urine Color Urine Clarity (CLEAR) Urine pH (5.0-7.5) PH Ur Specific [place] (1.002-1.030) Urine Protein (NEGATIVE) mg/dL Urine Glucose (UA) (NEGATIVE) mg/dL Urine Ketones (NEGATIVE) mg/dL Urine Occult Blood (NEGATIVE) Urine Nitrite (NEGATIVE) Urine Bilirubin (NEGATIVE) Urine Urobilinogen (NORMAL) E.U./dL Ur Leukocyte Esterase (NEGATIVE) Urine RBC (0-5) /HPF Urine WBC (0-5) /HPF Ur Epithelial Cells (<= Few) /HPF Ur Squamous Epith Cells (<= Few) Urine Bacteria (None Seen) /HPF Ur Microscopic Review Urine Culture Comments - Diagnostic Imaging Diagnostic Imaging Comments: XR show acute fx/dislocation of left hip - Other Results/Comments Other Results/Comments: EXAM: Left hip: 1-2 lateral hip tenderness. Equivocal pain with hip motion - inconsistent on serial exams. N/V ok distally Assessment/Plan - Problem List (1) Left hip pain Impression: Post fall two days ago. Hx complicated with fever and inconsistent serial exams and fact she is on chemotherapy for metastatic Ca. Plain XR negative for fracture Recommend aspiration of left hip with r/o septic hip. If minimal fluid obtained and/or stat gram stain is negative for organisms, would continue workup with CT scan vs MRI scan of left to r/o occult fracture. If it appears to be a septic hip, would proceed with surgical I&D of left hip and begin IV antibiotics.
[2018-03-31] MEDS ORDERED: IOTHALAMATE MEGLUMINE 50 ML VIAL ONE (16:51)
[2018-03-31] MEDS ORDERED: BUFFERED LIDOCAINE 10 ML SYRINGE SUBQ STA (17:59)
[2018-03-31] MEDS ORDERED: IOTHALAMATE MEGLUMINE 50 ML VIAL IVP ONE (17:59)
[2018-03-31] MEDS ORDERED: cefTRIAXone 1 GM in SODIUM CHLORIDE 0.9% MINIBAG 100 ML IV STA (18:29)
[2018-03-31] MEDS ORDERED: SODIUM CHLORIDE 0.9% 1,000 ML IV ONE (18:29)
--- NOTE | 2018-03-31 18:44 | XRAY Report ---
Procedure Date: 03/31/2018 Accession Number: [id number] / [id number] Procedure: FL - Inj/Aspiration Major Joint CPT Code: FULL RESULT: EXAM: Left hip aspiration DATE: 03/31/2018 5:55 PM CLINICAL HISTORY: fever, AMS, red swollen L hip, chemo pt, recent fall TECHNIQUE: Risks and complications of the procedure were discussed with the patient and her daughter and informed written consent was obtained. Using fluoroscopic assistance the left hip joint was marked. Using standard sterile technique 1% lidocaine was injected into the skin for local anesthesia. Then a 22-gauge spinal needle was introduced into the left hip joint. Aspiration was attempted. No fluid was obtained. 1 cc of contrast was then injected into the hip joint to confirm tip position followed by 5 cc of lidocaine 1%. The patient tolerated the procedure well.. 32 seconds of fluoroscopy time were used. One image was obtained. IMPRESSION: Left hip aspiration under fluoroscopic guidance. No fluid was obtained.
[2018-03-31] MEDS ORDERED: ALBUTEROL 6.7 GM INHALER INH PRN (20:11)
[2018-03-31] MEDS ORDERED: traZODone 50 MG TABLET PO PRN (20:11)
[2018-03-31] MEDS ORDERED: FUROSEMIDE 20 MG TABLET PO PRN (20:11)
[2018-03-31] MEDS ORDERED: D5.45NS W/20 MEQ KCL 1,000 ML IV SCH (21:00)
--- NOTE | 2018-03-31 21:35 | HISTORY & PHYSICAL EXAMINATION ---
Chief Complaint - Chief Complaint Chief Complaint: Fever, confusion History of Present Illness - Admitted From Admitted From:: Home - History Obtained From History obtained from: Patient, , ED physician - History of Present Illness HPI Comment/Other: Mrs. Natasha Hernandez is a very pleasant 72-year-old lady who unfortunately fell 2 days ago, landing on her left hip. She was able to ambulate for the rest of that day and yesterday as well but has had increasing pain in the hip since that time and so decided to come to the emergency department for further evaluation and treatment. On presentation to the emergency department she was found to have an elevated white blood cell count 14.1 thousand, lactic acid level of 1.4, bacteria in her urine, and a sodium of 124. CT scan of her head was negative for any acute pathology and a chest x-ray was also negative for any acute pathology. The patient does have a port as she is receiving chemotherapy for metastatic uterine cancer and the port does not appear to be infected. She will be admitted for further evaluation of her left hip pain, specifically an MRI tomorrow, and further treatment of her current condition. History - Past Medical History Cardiovascular: reports: Hypertension, Deep vein thrombosis, Other Respiratory: reports: Pneumonia Endocrine/Autoimmune: reports: HyPOthyroidism GI: reports: None [employer]ING: reports: Other : reports: None HEENT: reports: None Psych: reports: Depression, Anxiety Musculoskeletal: reports: None Derm: reports: None MRSA Hx?: No Other Past Medical History: states some type of cancer, ovarian or uterine? mets. - Past Surgical History /[employer] MET[employer]ING: reports: Oophrectomy HEENT: reports: Tonsil/Adenoidectomy - Family & Social History Family History: Mother: , Alzheimer's Disease, Hyperlipidemia, Hypertension, Father: , Hyperlipidemia, Hypertension Living arrangement: At home Living Situation: With spouse/s.o. Social History Notes: The patient and her have lived in [facility] for the last 34 years. Originally from [place] and have been for 52 years. They have 5 children together. The patient was riding her bike 40 miles a day this time last year but has had an unfortunate decline in her health starting in August 2017. The patient has never been a smoker, she does not drink alcohol and she denies any illicit drug use. - Substance History Use: Uses substance without health or social issues: NONE Abuse: Recurrent use of substance despite neg consequences: NONE Dependence: Experiences withdrawal or developed tolerances: NONE - POLST Patient has POLST: Yes POLST Status: Full Code Meds/Allgy - Home Medications Home Medications: Ambulatory Orders Medication Instructions Recorded Confirmed Levothyroxine [Synthroid] 100 mcg PO QDAC 05/30/16 03/31/18 Cyanocobalamin (Vitamin B-12) 1,000 mcg PO DAILY 11/06/17 03/31/18 [Vitamin B-12] Enoxaparin [Lovenox] 80 mg SUBQ Q12H 11/06/17 03/31/18 LORazepam [Lorazepam] 0.5 - 1 mg PO Q6H PRN 12/15/17 03/31/18 traZODone [Desyrel] 50 mg PO QPM PRN 12/15/17 03/31/18 Metoprolol Tartrate 25 mg PO BID 12/19/17 03/31/18 Simethicone [Gas Relief] 120 mg PO BID 12/24/17 03/31/18 Albuterol Sulfate [Proair Hfa 2 puffs PO Q4H PRN 02/03/18 03/31/18 Inhaler] Sodium Chloride [Salt Tab] 1 gm PO DAILY #30 02/06/18 03/31/18 Gabapentin 200 mg PO QPM 02/12/18 03/31/18 Pantoprazole [Protonix] 40 mg PO QDAC 02/13/18 03/31/18 Acetaminophen [Tylenol Extra 500 mg PO Q6H 02/14/18 03/31/18 Strength] fentaNYL [Fentanyl 12mcg patch] 12.5 mcg TD Q72H 02/28/18 03/31/18 HYDROcod/ACETAM 5/325 [[place] 5/325] 1 tab PO Q6H PRN 03/21/18 03/31/18 Furosemide [Furosemide] 20 mg PO DAILY PRN 03/31/18 03/31/18 Gabapentin 100 mg PO DAILY 03/31/18 03/31/18 Sennosides [Senna] 17.2 mg PO BID 03/31/18 03/31/18 - Allergies Allergies/Adverse Reactions: Allergies Allergy/AdvReac Type Severity Reaction Status Date / Time prochlorperazine Allergy Mild restlessnes Verified 06/18/18 12:13 [From Compazine] s mirtazapine Allergy Unknown Fever Verified 03/31/18 12:13 ondansetron Allergy Restlessnes Verified 03/31/18 12:13 [From Zofran (as s hydrochloride)] rivaroxaban [From Xarelto] Allergy Unknown Verified 03/31/18 12:13 Review of Systems - Constitutional Constitutional: reports: Fatigue. denies: Fever, Chills, Malaise, Night sweats - Eyes Eyes: denies: Pain, Irritation, Amaurosis, Blurred vision - Ears, Nose & Throat Ears, Nose & Throat: denies: Ear pain, Hearing loss, Hearing aids, Tinnitus, Vertigo, Nasal pain, Nasal discharge - Cardiovascular Cariovascular: denies: Irregular heart rate, Palpitations, Chest pain, Edema - Respiratory Respiratory: denies: Cough, Sputum production, Wheezing, Snoring, Hemoptysis, SOB at rest, SOB with exertion - Gastrointestinal Gastrointestinal: denies: Abdominal pain, Abdominal distention, Constipation, Diarrhea, Change in bowel habits, Rectal bleeding - Genitourinary Genitourinary: denies: Dysuria, Frequency, Urgency, Hematuria - Musculoskeletal Musculoskeletal: reports: Joint pain (Left hip pain). denies: Muscle pain, Back pain, Muscle aches, Stiffness - Integumentary Integumentary: denies: Rash, Pruritis, Lesions, Dryness - Neurological Neurological: denies: General weakness, Focal weakness, Headache, Dizziness - Psychiatric Psychiatric: denies: Depression, Anxiety, Suicidal, Hallucinations - Endocrine Endocrine: denies: Polyuria, Polydypsia, Polyphagia - Hematologic/Lymphatic Hematologic/Lymphatic: denies: Anemia, Bruising, Petechiae, Lymphadenopathy - All Other Systems All Other Systems: reports: Reviewed and negative Exam - Vital Signs Reviewed Vital Signs: Yes - Physical Exam General Appearance: positive: No acute distress, Lethargic Eyes Bilateral: positive: Normal inspection, PERRL, EOMI, No lid inflammation, Conjunctivae nml, No scleral icterus ENT: positive: ENT inspection nml, Pharynx nml, No signs of dehydration Neck: positive: Nml inspection, Thyroid nml, No JVD, Trachea midline. negative : Thyromegaly Respiratory: positive: Chest non-tender, No respiratory distress, Breath sounds nml. negative: Wheezes, Rales, Rhonchi Cardiovascular: positive: Regular rate & rhythm, No murmur, No gallop Peripheral Pulses: positive: 1+ Abdomen: positive: Non-tender, No organomegaly, Nml bowel sounds, No distention. negative: Guarding, Rebound Back: positive: Nml inspection. negative: CVA tenderness (R), CVA tenderness (L ) Skin: positive: Color nml, No rash, Warm, Dry. negative: Cyanosis Extremities: positive: Non-tender, Full ROM, Nml appearance, No pedal edema Neurologic/Psychiatric: positive: Oriented x3, CN's nml (2-12), Motor nml, Sensation nml, Mood/affect nml, Depressed mood/affect Conclusion/Plan - Problem List (1) Left hip pain Conclusion/Plan: X-ray films do not show a fracture however the patient has significant pain which is worsening. Orthopedic surgery has been consulted, and we will obtain an MRI of the left hip as suggested by Dr. Layne. (2) Endometrial cancer Conclusion/Plan: Stage IV, with widespread metastasis. The patient certainly may have a pathologic fracture. Await results of MRI of hip, otherwise patient will follow -up with her oncologist next week. She had her last dose of chemotherapy 1 week ago. (3) Hypertension Conclusion/Plan: We will continue the patient on her home dosing of metoprolol and furosemide. Qualifiers: Hypertension type: essential hypertension Qualified Code(s): I10 - Essential (primary) hypertension (4) Hyponatremia Conclusion/Plan: Chronic, I have increased the patient's dose of the salt tablet from once a day to 3 times a day. We will continue to monitor. (5) History of macrocytic anemia Conclusion/Plan: We will continue the patient on her vitamin B12 home dosing. (6) GERD (gastroesophageal reflux disease) Conclusion/Plan: We will continue the patient on her home dosing of pantoprazole. (7) History of DVT (deep vein thrombosis) Conclusion/Plan: We will continue the patient on her home dosing of Lovenox. She is at high risk for DVT and pulmonary emboli given her prior history and the fact that she has cancer. (8) Hypothyroidism Conclusion/Plan: We will continue the patient on her home dosing of levothyroxine and obtain a TSH level. Qualifiers: Hypothyroidism type: unspecified Qualified Code(s): E03.9 - Hypothyroidism , unspecified - Lab Results Lab results reviewed: Yes Fish Bones: 03/31/18 12:56 03/31/18 12:56 - Diagnostic Imaging Results Diagnostic Imaging Results: positive: Final report reviewed Diagnostic Imaging Results Comments: EXAM: CT HEAD EXAM DATE: 03/31/2018 02:40 PM. CLINICAL HISTORY: AMS metastatic cancer. COMPARISON: 05/23/2017. TECHNIQUE: Multiaxial CT images were obtained from the foramen magnum to the vertex. Reformats: Coronal. IV contrast: None. In accordance with CT protocol optimization, one or more of the following dose reduction techniques were utilized for this exam: automated exposure control, adjustment of mA and/or KV based on patient size, or use of iterative reconstructive technique. FINDINGS: Parenchyma: No intraparenchymal hemorrhage. No evidence of mass, midline shift, or CT findings of infarction. Grimm-white differentiation is distinct. Mild periventricular and subinsular white matter hypoattenuation has increased. Extraaxial Spaces: Mild volume loss, new/increased from 2017. No subdural or epidural collections identified. Ventricles: Mildly enlarged, increased from 2017 Sinuses and Orbits: Imaged paranasal sinuses, orbits, and mastoids show no significant abnormality. Bones: No evidence of fracture or calvarial defect. Other: None. IMPRESSION: 1. No acute intracranial abnormality. 2. Increased volume loss and mild white matter disease since 2017. EXAM: CHEST RADIOGRAPHY EXAM DATE: 03/31/2018 02:32 PM. CLINICAL HISTORY: Chemo fever. COMPARISON: Chest 02/03/2018. TECHNIQUE: 2 views. FINDINGS: Lungs/Pleura: No focal opacities evident. No pleural effusion. No pneumothorax. Normal volumes. Mediastinum: Heart and mediastinal contours are unremarkable. Other: Posterior lower chest not included on the lateral view. Left Port-A-Cath central line with the tip in the left brachiocephalic vein, unchanged. IMPRESSION: No acute cardiopulmonary disease seen. See above. EXAM: LEFT HIP AND PELVIS RADIOGRAPHY EXAM DATE: 03/31/2018 02:32 PM. HISTORY: Left hip pain after fall 3 days ago. On chemotherapy. COMPARISONS: None. TECHNIQUE: 1 view of the pelvis and 1 view of the hip. FINDINGS: Bones: Demineralized bones. No fracture or bone lesion. Joints: The bilateral hip, pubis symphysis, and sacroiliac joints are preserved. [id number] pubic symphysis sclerosis, can be seen with osteitis pubis. Soft Tissues: Normal. No soft tissue swelling. IMPRESSION: No acute fracture or dislocation seen. See above. FULL RESULT: EXAM: Left hip aspiration DATE: 03/31/2018 5:55 PM CLINICAL HISTORY: fever, AMS, red swollen L hip, chemo pt, recent fall TECHNIQUE: Risks and complications of the procedure were discussed with the patient and her daughter and informed written consent was obtained. Using fluoroscopic assistance the left hip joint was marked. Using standard sterile technique 1% lidocaine was injected into the skin for local anesthesia. Then a 22-gauge spinal needle was introduced into the left hip joint. Aspiration was attempted. No fluid was obtained. 1 cc of contrast was then injected into the hip joint to confirm tip position followed by 5 cc of lidocaine 1%. The patient tolerated the procedure well.. 32 seconds of fluoroscopy time were used. One image was obtained. IMPRESSION: Left hip aspiration under fluoroscopic guidance. No fluid was obtained. Core Measures - Anticipated LOS I expect patient to be DC'd or transferred within 96 hours.: Yes - DVT/VTE - Prophylaxis VTE/DVT Device ordered at admit?: Yes
[2018-03-31] MEDS: MEROPENEM 1 GM in SODIUM CHLORIDE 0.9% MINIBAG 100 ML IV SCH (22:02)
[2018-03-31] MEDS: SENNA 8.6 MG TABLET PO SCH (22:03)
[2018-03-31] MEDS: ACETAMINOPHEN 500 MG TABLET PO SCH (22:03)
[2018-03-31] MEDS: SIMETHICONE CHEW 80 MG TABLET PO SCH (22:04)
[2018-03-31] MEDS: GABAPENTIN 100 MG CAPSULE PO SCH (22:04)
[2018-03-31] MEDS: SODIUM CHLORIDE 1 GM TABLET PO SCH (22:04)
[2018-03-31] MEDS: METOPROLOL TARTRATE 25 MG TABLET PO SCH (22:05)
[2018-03-31] MEDS: ENOXAPARIN 80 MG/0.8 ML SYRINGE SUBQ SCH (22:05)
[2018-03-31] MEDS: SODIUM CHLORIDE FLUSH 0.9% 10 ML SYRINGE IVP PRN (22:07)
--- NOTE | 2018-03-31 22:07 | HISTORY & PHYSICAL EXAMINATION ---
History - Past Medical History Cardiovascular: reports: Hypertension, Deep vein thrombosis, Other Respiratory: reports: Pneumonia Endocrine/Autoimmune: reports: HyPOthyroidism GI: reports: None [employer] TABLE: reports: Other : reports: None HEENT: reports: None Psych: reports: Depression, Anxiety Musculoskeletal: reports: None Derm: reports: None MRSA Hx?: No Other Past Medical History: states some type of cancer, ovarian or uterine? mets. 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 Originally from [place] and have been for 52 years. They have 5 children together. The patient was riding her bike 40 miles a day this time last year but has had an unfortunate decline in her health starting in August 2017. The patient has never been a smoker, she does not drink alcohol and she denies any illicit drug use. - Substance History Use: Uses substance without health or social issues: NONE - POLST Patient has POLST: Yes POLST Status: Full Code Meds/Allgy - Home Medications Home Medications: Ambulatory Orders Medication Instructions Recorded Confirmed Levothyroxine [Synthroid] 100 mcg PO QDAC 05/30/16 03/31/18 Cyanocobalamin (Vitamin B-12) 1,000 mcg PO DAILY 11/06/17 03/31/18 [Vitamin B-12] Enoxaparin [Lovenox] 80 mg SUBQ Q12H 11/06/17 03/31/18 LORazepam [Lorazepam] 0.5 - 1 mg PO Q6H PRN 12/15/17 03/31/18 traZODone [Desyrel] 50 mg PO QPM PRN 12/15/17 03/31/18 Metoprolol Tartrate 25 mg PO BID 12/19/17 03/31/18 Simethicone [Gas Relief] 120 mg PO BID 12/24/17 03/31/18 Albuterol Sulfate [Proair Hfa 2 puffs PO Q4H PRN 02/03/18 03/31/18 Inhaler] Sodium Chloride [Salt Tab] 1 gm PO DAILY #30 02/06/18 03/31/18 Gabapentin 200 mg PO QPM 02/12/18 03/31/18 Pantoprazole [Protonix] 40 mg PO QDAC 02/13/18 03/31/18 Acetaminophen [Tylenol Extra 500 mg PO Q6H 02/14/18 03/31/18 Strength] fentaNYL [Fentanyl 12mcg patch] 12.5 mcg TD Q72H 02/28/18 03/31/18 HYDROcod/ACETAM 5/325 [[place] 5/325] 1 tab PO Q6H PRN 03/21/18 03/31/18 Furosemide [Furosemide] 20 mg PO DAILY PRN 03/31/18 03/31/18 Gabapentin 100 mg PO DAILY 03/31/18 03/31/18 Sennosides [Senna] 17.2 mg PO BID 03/31/18 03/31/18 - Allergies Allergies/Adverse Reactions: Allergies Allergy/AdvReac Type Severity Reaction Status Date / Time prochlorperazine Allergy Mild restlessnes Verified 03/31/18 12:13 [From Compazine] s mirtazapine Allergy Unknown Fever Verified 03/31/18 12:13 ondansetron Allergy Restlessnes Verified 03/31/18 12:13 [From Zofran (as s hydrochloride)] rivaroxaban [From Xarelto] Allergy Unknown Verified 03/31/18 12:13 Exam - Vital Signs Vital Signs: Vital Signs x48h Temp Pulse Pulse Resp BP BP Pulse Ox 03/31/18 21:00 37.7 C H 109 H 16 150/72 H 95 03/31/18 19:50 17 03/31/18 19:23 36.7 C 109 H 16 159/79 H 97 03/31/18 15:46 101 H 16 147/85 H 97 Conclusion/Plan - Lab Results Fish Bones: 03/31/18 12:56 03/31/18 12:56
[2018-03-31] MEDS: LORazepam 0.5 MG TABLET PO PRN (22:52)
[2018-03-31] MEDS ORDERED: HALOPERIDOL 5 MG/ML VIAL IVP PRN (23:54)
[2018-03-31] MEDS: fentaNYL 12 MCG PATCH TOP SCH (23:58)
[2018-04-01] MEDS: SODIUM CHLORIDE FLUSH 0.9% 10 ML SYRINGE IVP SCH ×3 (00:12→16:29)
[2018-04-01] MEDS: ACETAMINOPHEN 500 MG TABLET PO SCH ×4 (05:45→20:35)
[2018-04-01] MEDS: SODIUM CHLORIDE FLUSH 0.9% 10 ML SYRINGE IVP PRN (05:45)
[2018-04-01 06:07] LABS: HGB - HEMOGLOBIN 7.8 g/dL (12.0-16.0); MEAN CORPUSCULAR HEMOGLOBIN 30.4 pg (27.0-31.0); MEAN CORPUSCULAR HGB CONC 33.4 g/dL (32.0-36.0); MEAN CORPUSCULAR VOLUME 91.2 fL (81.0-99.0); RED BLOOD COUNT 2.55 10^6/uL (4.20-5.40); RED CELL DISTRIBUTION WIDTH 19.5 % (12.0-15.0); WHITE BLOOD COUNT 9.4 x10^3/uL (4.8-10.8)
[2018-04-01] MEDS: MEROPENEM 1 GM in SODIUM CHLORIDE 0.9% MINIBAG 100 ML IV SCH ×3 (06:15→20:39)
[2018-04-01 06:17] LABS: CALCIUM 7.7 mg/dL (8.5-10.3); CREATININE 0.5 mg/dL (0.4-1.0)
[2018-04-01] MEDS ORDERED: LEVOTHYROXINE 100 MCG TABLET PO SCH (07:00)
[2018-04-01] MEDS: PANTOPRAZOLE 40 MG TABLET PO SCH (07:03)
[2018-04-01] MEDS: SODIUM CHLORIDE 1 GM TABLET PO SCH ×3 (07:03→20:39)
[2018-04-01] MEDS ORDERED: ALBUTEROL NEB 2.5 MG/3 ML INH PRN (07:20)
[2018-04-01] MEDS ORDERED: CALCIUM GLUCONATE 1,000 MG in SODIUM CHLORIDE 0.9% 50 ML IV ONE (08:29)
[2018-04-01] MEDS: CYANOCOBALAMIN 500 MCG TABLET PO SCH (08:52)
[2018-04-01] MEDS: SENNA 8.6 MG TABLET PO SCH ×2 (08:52→20:36)
[2018-04-01] MEDS: GABAPENTIN 100 MG CAPSULE PO SCH ×2 (08:54→20:36)
[2018-04-01] MEDS: SIMETHICONE CHEW 80 MG TABLET PO SCH ×2 (08:54→20:36)
[2018-04-01] MEDS: LEVOTHYROXINE 125 MCG TABLET PO SCH (08:54)
[2018-04-01] MEDS: ENOXAPARIN 80 MG/0.8 ML SYRINGE SUBQ SCH ×2 (08:54→20:40)
[2018-04-01] MEDS: POLYETHYLENE GLYCOL 3350 17 GM PACKET PO SCH (08:55)
[2018-04-01] MEDS: METOPROLOL TARTRATE 25 MG TABLET PO SCH ×2 (08:55→20:37)
[2018-04-01] MEDS: HYDROcod/ACETAM 5/325 MG TABLET PO PRN ×2 (08:57→21:26)
[2018-04-01] MEDS ORDERED: SODIUM CHLORIDE 1 GM TABLET PO SCH (09:00)
[2018-04-01 09:07] LABS: MEAN RETIC VALUE 116.3; RED BLOOD COUNT 2.7 10^6/uL (4.20-5.40)
[2018-04-01 09:27] LABS: % IRON SATURATION 17 % (20-50); IRON 21 ug/dL (28-170); TOTAL IRON BINDING CAPACITY 120 ug/dL (250-450); TRANSFERRIN 86 mg/dL (192-382)
[2018-04-01] MEDS: SODIUM CHLORIDE 0.9% 1,000 ML IV SCH (10:22)
[2018-04-01] MEDS: levoFLOXacin 500 MG/100 ML 500 MG/100 ML BAG IV SCH (10:26)
[2018-04-01] MEDS: fentaNYL 12 MCG PATCH TOP SCH (10:35)
--- NOTE | 2018-04-01 10:50 | PROVIDER PROGRESS NOTE ---
Subjective - Prog Note Date Prog Note Date: 04/01/18 Prog Note Time: 10:48 - Subjective Pt reports feeling: No change Objective - Vital Signs/Intake & Output Vital Signs: Vital Signs x48h Temp Pulse Resp BP BP Pulse Ox 04/01/18 08:55 116/58 L 04/01/18 08:00 36.8 C 92 18 116/58 L 97 04/01/18 06:42 36.7 C 87 20 107/55 L 95 04/01/18 05:50 37.1 C Intake & Output: Intake & Output 03/29/18 03/30/18 03/31/18 04/01/18 23:59 23:59 23:59 23:59 Intake Total 1830 862.5 Output Total 2300 Balance 1830 -1437.5 - Lab Results Fish Bones: 04/01/18 05:38 04/01/18 05:38 Other Labs: Lab Results x24hrs 04/01/18 04/01/18 04/01/18 Range/Units 08:48 08:48 08:48 WBC (4.8-10.8) x10^3/uL RBC (4.20-5.40) 10^6/uL Hgb (12.0-16.0) g/dL Hct (37.0-47.0) % MCV (81.0-99.0) fL MCH (27.0-31.0) pg MCHC (32.0-36.0) g/dL RDW (12.0-15.0) % Plt Count (130-450) 10^3/uL MPV (7.9-10.8) fL Reticulocyte % (Auto) (0.5-2.3) % Absolute Retic (0.020-0.110) 10^6/uL Sodium (135-145) mmol/L Potassium (3.5-5.0) mmol/L Chloride (101-111) mmol/L Carbon Dioxide (21-32) mmol/L Anion Gap (6-13) BUN (6-20) mg/dL Creatinine (0.4-1.0) mg/dL Estimated GFR (MDRD) (>89) Glucose (70-100) mg/dL Calcium (8.5-10.3) mg/dL Iron 21 L (28-170) ug/dL TIBC 120 L (250-450) ug/dL % Saturation 17 L (20-50) % Transferrin 86 L (192-382) mg/dL Ferritin 3936.0 H (11.0-306.8) ng/mL Lactate Dehydrogenase 315 H (91-225) IU/L Vitamin B12 674 (180-914) pg/mL TSH (0.34-5.60) uIU/mL 04/01/18 04/01/18 04/01/18 Range/Units 08:48 05:38 05:38 WBC (4.8-10.8) x10^3/uL RBC 2.70 L (4.20-5.40) 10^6/uL Hgb (12.0-16.0) g/dL Hct (37.0-47.0) % MCV (81.0-99.0) fL MCH (27.0-31.0) pg MCHC (32.0-36.0) g/dL RDW (12.0-15.0) % Plt Count (130-450) 10^3/uL MPV (7.9-10.8) fL Reticulocyte % (Auto) 1.89 (0.5-2.3) % Absolute Retic 0.051 (0.020-0.110) 10^6/uL Sodium 125 L (135-145) mmol/L Potassium 3.7 (3.5-5.0) mmol/L Chloride 92 L (101-111) mmol/L Carbon Dioxide 24 (21-32) mmol/L Anion Gap 9.0 (6-13) BUN 11 (6-20) mg/dL Creatinine 0.5 (0.4-1.0) mg/dL Estimated GFR (MDRD) 121 (>89) Glucose 107 H (70-100) mg/dL Calcium 7.7 L (8.5-10.3) mg/dL Iron (28-170) ug/dL TIBC (250-450) ug/dL % Saturation (20-50) % Transferrin (192-382) mg/dL Ferritin (11.0-306.8) ng/mL Lactate Dehydrogenase (91-225) IU/L Vitamin B12 (180-914) pg/mL TSH 21.55 H (0.34-5.60) uIU/mL 04/01/18 Range/Units 05:38 WBC 9.4 (4.8-10.8) x10^3/uL RBC 2.55 L (4.20-5.40) 10^6/uL Hgb 7.8 L (12.0-16.0) g/dL Hct 23.3 L (37.0-47.0) % MCV 91.2 (81.0-99.0) fL MCH 30.4 (27.0-31.0) pg MCHC 33.4 (32.0-36.0) g/dL RDW 19.5 H (12.0-15.0) % Plt Count 226 (130-450) 10^3/uL MPV 7.0 L (7.9-10.8) fL Reticulocyte % (Auto) (0.5-2.3) % Absolute Retic (0.020-0.110) 10^6/uL Sodium (135-145) mmol/L Potassium (3.5-5.0) mmol/L Chloride (101-111) mmol/L Carbon Dioxide (21-32) mmol/L Anion Gap (6-13) BUN (6-20) mg/dL Creatinine (0.4-1.0) mg/dL Estimated GFR (MDRD) (>89) Glucose (70-100) mg/dL Calcium (8.5-10.3) mg/dL Iron (28-170) ug/dL TIBC (250-450) ug/dL % Saturation (20-50) % Transferrin (192-382) mg/dL Ferritin (11.0-306.8) ng/mL Lactate Dehydrogenase (91-225) IU/L Vitamin B12 (180-914) pg/mL TSH (0.34-5.60) uIU/mL - Diagnostic Imaging Diagnostic Imaging Comments: MRI scan reviewed with radiologist show extensive metastatic lesions in bone and in soft tissues. No apparent hip fracture seen. Probable post traumatic hemmorhage and edema around the hip area Assessment/Plan - Problem List (1) Left hip pain Impression: Not due to acute left hip fracture. Likely soft tissue contusion and bleed PLAN: Mobilize as tolerated.
--- NOTE | 2018-04-01 12:11 | MRI Report ---
Procedure Date: 04/01/2018 Accession Number: [id number] / [id number] Procedure: MRI - Hip LT W/O CPT Code: FULL RESULT: EXAM: LEFT HIP MRI WITHOUT CONTRAST EXAM DATE: 04/01/2018 09:25 AM. CLINICAL HISTORY: Left hip pain following a fall COMPARISON: CT abdomen and pelvis 01/07/2018. TECHNIQUE: Multiplanar, multisequence T1-weighted and fluid-sensitive, small [id number] sequences of the hip and large [id number] sequences of the pelvis without contrast. Other: None. FINDINGS: Bones: No fractures. Normal alignment at the bilateral hips. There are multiple rounded foci of T2 hyperintensity within the pelvis. Specifically, a lesion in the right posterior ilium (series 5 image 40) measures 1 x 1.3 cm in cross-sectional diameter. An additional lesion within the right ilium on series 5 image 33 measures 1 x 0.7 cm in cross-section. Large T2 hyperintense lesion within the right acetabulum (series 5 image 25 measures 1.6 x 3.2 cm in cross-section. Smaller subcentimeter lesions are also visible within the left ilium and right ischium. No definite osseous lesions within the bilateral proximal femurs. Left Hip: No acetabular retroversion. Femoral head/neck offset is within normal limits. No effusion or loose bodies. The articular cartilage is intact. The labrum is unremarkable on this nonarthrographic study. The ligamentum teres is intact. Other Joints: There is lower lumbar degenerative disk disease and facet arthropathy. The pubic symphysis demonstrates mild osteoarthritis, as do the bilateral sacroiliac joints. Musculature: There are diffusely distributed circumscribed, T2 hyperintense, T1 hypointense lesions throughout the musculature of the pelvis, including the bilateral iliac S and psoas muscles, right rectus abdominis muscle, bilateral gluteal musculature, right 4 minus muscle, and right vastus intermedius muscle. These lesions are associated with adjacent intramuscular edema. These lesions also demonstrate fluid fluid levels. The right piriformis muscle lesion measures approximately 3.4 x 5.3 x 4 cm. These lesions were not present on the prior CT examination. No definite evidence of tendon tear. The visualized hamstring tendons are normal. There is bilateral symmetric intramuscular edema within the adductor musculature. Pelvic Cavity: The pelvic viscera are unremarkable. There is internal and external iliac chain lymphadenopathy. Other: The visualized sciatic nerves are unremarkable. Fluid overlying the left iliotibial band with adjacent subcutaneous edema is likely posttraumatic. The subcutaneous tissues are otherwise unremarkable. IMPRESSION: 1. No evidence of acute fracture. 2. Multifocal intramuscular T2 hyperintense lesions with surrounding edema likely reflect intramuscular metastases, with intramuscular hematomas considered less likely. Additionally, there are multiple faintly T2 hyperintense, T1 hypointense osseous lesions in the pelvis that are favored to reflect osseous metastases. Additionally, there is internal and external iliac chain lymphadenopathy with abnormal morphology of the lymph nodes suspicious for malignancy. If further evaluation is warranted, FDG PET/CT would likely be the best modality for complete assessment of these lesions. 3. Soft tissue edema at the lateral left hip with focal fluid overlying the left iliotibial band likely reflecting a small hematoma. 4. Bilaterally symmetric adductor intramuscular edema may reflect muscle strain. CRITICAL RESULT: The findings were discussed with Dr. Nic Layne on 04/01/2018 at 10:45 AM. [facility] MUSCULOSKELETAL RADIOLOGY SECTION
--- NOTE | 2018-04-01 13:23 | PROVIDER PROGRESS NOTE ---
Subjective - Prog Note Date Prog Note Date: 04/01/18 - Subjective Pt reports feeling: Improved Subjective: pt report her hip pain is better controlled. No fever, chill, CP, SOB. Current Medications - Current Medications Current Medications: Active Medications Acetaminophen (Tylenol) 500 mg PO Q6H [facility] Last Admin: 04/01/18 08:53 Dose: 500 mg Hydrocodone Bitart/Acetaminophen (Oketo 5/325) 1 tab PO Q6H PRN PRN Reason: PAIN Last Admin: 04/01/18 08:57 Dose: 1 tab Albuterol () 2.5 mg INH Q4H PRN PRN Reason: Wheezing Cyanocobalamin (Vitamin B-12) 1,000 mcg PO DAILY [facility] Last Admin: 04/01/18 08:52 Dose: 1,000 mcg Enoxaparin Sodium (Lovenox) 80 mg SUBQ Q12H [facility] Last Admin: 04/01/18 08:54 Dose: 80 mg Fentanyl (Duragesic) 1 patch TOP Q72H [facility] Ferrous Sulfate (Feosol) 325 mg PO DAILYWM [facility] Furosemide (Lasix) 20 mg PO DAILY PRN PRN Reason: Swelling Gabapentin (Neurontin) 100 mg PO DAILY [facility] Last Admin: 04/01/18 08:54 Dose: 100 mg Gabapentin (Neurontin) 200 mg PO QPM [facility] Last Admin: 03/31/18 22:04 Dose: 200 mg Haloperidol (Haldol Inj) 1 mg IVP Q1H PRN PRN Reason: Agitation Meropenem 1 gm/ Sodium (Chloride) 100 mls @ 200 mls/hr IV Q8H [facility] Last Infusion: 04/01/18 07:03 Dose: Infused Levofloxacin (Levaquin 500 Mg/100 Ml) 500 mg in 100 mls @ 100 mls/hr IV Q24H [facility] Last Infusion: 04/01/18 11:39 Dose: Infused Sodium Chloride (Normal Saline 0.9%) 1,000 mls @ 75 mls/hr IV .[id number] [facility] Last Admin: 04/01/18 10:22 Dose: 75 mls/hr Levothyroxine Sodium (Synthroid) 125 mcg PO QDAC [facility] Last Admin: 04/01/18 08:54 Dose: 125 mcg Lorazepam (Ativan) 0.5 - 1 mg PO Q6H PRN PRN Reason: Nausea / Vomiting Last Admin: 03/31/18 22:52 Dose: 1 mg Metoprolol Tartrate (Lopressor) 25 mg PO BID [facility] Last Admin: 04/01/18 08:55 Dose: 25 mg Pantoprazole Sodium (Protonix) 40 mg PO QDAC [facility] Last Admin: 04/01/18 07:03 Dose: 40 mg Polyethylene Glycol (Miralax) 17 gm PO DAILY [facility] Last Admin: 04/01/18 08:55 Dose: 17 gm Senna (Senokot) 17.2 mg PO BID [facility] Last Admin: 04/01/18 08:52 Dose: 17.2 mg Simethicone (Mylicon) 120 mg PO BID [facility] Last Admin: 04/01/18 08:54 Dose: 120 mg Sodium Chloride (Normal Saline Flush 0.9%) 10 ml IVP PRN PRN PRN Reason: NEEDED PER PROVIDER ORDERS Last Admin: 04/01/18 05:45 Dose: 10 ml Sodium Chloride (Normal Saline Flush 0.9%) 10 ml IVP 0100,0900,1700 [facility] Last Admin: 04/01/18 08:56 Dose: Not Given Sodium Chloride (Salt Tab) 1 gm PO TID [facility] Last Admin: 04/01/18 07:03 Dose: 1 gm Trazodone HCl (Desyrel) 50 mg PO QPM PRN PRN Reason: SLEEP Last Admin: 04/01/18 00:04 Dose: 50 mg Levothyroxine [Synthroid] 100 mcg PO QDAC 05/30/16 Cyanocobalamin (Vitamin B-12) [Vitamin B-12] 1,000 mcg PO DAILY 11/06/17 Enoxaparin [Lovenox] 80 mg SUBQ Q12H 11/06/17 LORazepam [Lorazepam] 0.5 - 1 mg PO Q6H PRN 12/15/17 traZODone [Desyrel] 50 mg PO QPM PRN 12/15/17 Metoprolol Tartrate 25 mg PO BID 12/19/17 Simethicone [Gas Relief] 120 mg PO BID 12/24/17 Albuterol Sulfate [Proair Hfa Inhaler] 2 puffs PO Q4H PRN 02/03/18 Gabapentin 200 mg PO QPM 02/12/18 Pantoprazole [Protonix] 40 mg PO QDAC 02/13/18 Acetaminophen [Tylenol Extra Strength] 500 mg PO Q6H 02/14/18 fentaNYL [Fentanyl 12mcg patch] 12.5 mcg TD Q72H 02/28/18 HYDROcod/ACETAM 5/325 [Oketo 5/325] 1 tab PO Q6H PRN 03/21/18 Furosemide [Furosemide] 20 mg PO DAILY PRN 03/31/18 Gabapentin 100 mg PO DAILY 03/31/18 Sennosides [Senna] 17.2 mg PO BID 03/31/18 Objective - Vital Signs/Intake & Output Reviewed Vital Signs: Yes Vital Signs: Vital Signs x48h Temp Pulse Resp BP BP Pulse Ox 04/01/18 08:55 116/58 L 04/01/18 08:00 36.8 C 92 18 116/58 L 97 04/01/18 06:42 36.7 C 87 20 107/55 L 95 04/01/18 05:50 37.1 C Intake & Output: Intake & Output 03/29/18 03/30/18 03/31/18 04/01/18 23:59 23:59 23:59 23:59 Intake Total 1830 1250.0 Output Total 2300 Balance 1830 -1050.0 - Objective General Appearance: positive: No acute distress, Alert. negative: Lethargic Eyes Bilateral: positive: Normal inspection, PERRL, No lid inflammation, Conjunctivae nml ENT: positive: ENT inspection nml, Pharynx nml, No signs of dehydration. negative: Purulent nasal drainage, Pharyngeal erythema, Oral lesions Neck: positive: Nml inspection, Thyroid nml, No JVD, Trachea midline, Lymphadenopathy (L). negative: Thyromegaly, Lymphadenopathy (R), Stiff neck, Swelling/bruising, Tracheal deviation Respiratory: positive: Chest non-tender, No respiratory distress, Breath sounds nml. negative: Wheezes, Rales, Rhonchi Cardiovascular: positive: Regular rate & rhythm, No murmur, No gallop. negative : Irregularly irregular, Extrasystoles, Tachycardia, Bradycardia, JVD present, Systolic murmur, Diastolic murmur Peripheral Pulses: 2+ Radial (R), 2+ Radial (L), 2+ Dorsalis pedis (R), 2+ Dorsalis pedis (L) Abdomen: positive: Non-tender, No organomegaly, Nml bowel sounds, No distention. negative: Tenderness, Guarding, Rebound Back: positive: Nml inspection. negative: CVA tenderness (R), CVA tenderness (L ) Skin: positive: Warm, Dry. negative: Cyanosis, Diaphoresis, Pallor Extremities: positive: Non-tender. negative: Calf tenderness, Veronika's sign/ cords Neurologic/Psychiatric: positive: Sensation nml. negative: Sensory loss, Facial droop, Slurred/abnml speech, Depressed mood/affect - Lab Results Fish Bones: 04/01/18 05:38 04/01/18 05:38 Other Labs: Lab Results x24hrs 04/01/18 04/01/18 04/01/18 Range/Units 10:27 08:48 08:48 WBC (4.8-10.8) x10^3/uL RBC (4.20-5.40) 10^6/uL Hgb (12.0-16.0) g/dL Hct (37.0-47.0) % MCV (81.0-99.0) fL MCH (27.0-31.0) pg MCHC (32.0-36.0) g/dL RDW (12.0-15.0) % Plt Count (130-450) 10^3/uL MPV (7.9-10.8) fL Reticulocyte % (Auto) (0.5-2.3) % Absolute Retic (0.020-0.110) 10^6/uL Sodium (135-145) mmol/L Potassium (3.5-5.0) mmol/L Chloride (101-111) mmol/L Carbon Dioxide (21-32) mmol/L Anion Gap (6-13) BUN (6-20) mg/dL Creatinine (0.4-1.0) mg/dL Estimated GFR (MDRD) (>89) Glucose (70-100) mg/dL Calcium (8.5-10.3) mg/dL Iron (28-170) ug/dL TIBC (250-450) ug/dL % Saturation (20-50) % Transferrin (192-382) mg/dL Ferritin 3936.0 H (11.0-306.8) ng/mL Lactate Dehydrogenase 315 H (91-225) IU/L Vitamin B12 674 (180-914) pg/mL TSH (0.34-5.60) uIU/mL Blood Type A POSITIVE Antibody Screen NEGATIVE 04/01/18 04/01/18 04/01/18 Range/Units 08:48 08:48 05:38 WBC (4.8-10.8) x10^3/uL RBC 2.70 L (4.20-5.40) 10^6/uL Hgb (12.0-16.0) g/dL Hct (37.0-47.0) % MCV (81.0-99.0) fL MCH (27.0-31.0) pg MCHC (32.0-36.0) g/dL RDW (12.0-15.0) % Plt Count (130-450) 10^3/uL MPV (7.9-10.8) fL Reticulocyte % (Auto) 1.89 (0.5-2.3) % Absolute Retic 0.051 (0.020-0.110) 10^6/uL Sodium (135-145) mmol/L Potassium (3.5-5.0) mmol/L Chloride (101-111) mmol/L Carbon Dioxide (21-32) mmol/L Anion Gap (6-13) BUN (6-20) mg/dL Creatinine (0.4-1.0) mg/dL Estimated GFR (MDRD) (>89) Glucose (70-100) mg/dL Calcium (8.5-10.3) mg/dL Iron 21 L (28-170) ug/dL TIBC 120 L (250-450) ug/dL % Saturation 17 L (20-50) % Transferrin 86 L (192-382) mg/dL Ferritin (11.0-306.8) ng/mL Lactate Dehydrogenase (91-225) IU/L Vitamin B12 (180-914) pg/mL TSH 21.55 H (0.34-5.60) uIU/mL Blood Type Antibody Screen 04/01/18 04/01/18 Range/Units 05:38 05:38 WBC 9.4 (4.8-10.8) x10^3/uL RBC 2.55 L (4.20-5.40) 10^6/uL Hgb 7.8 L (12.0-16.0) g/dL Hct 23.3 L (37.0-47.0) % MCV 91.2 (81.0-99.0) fL MCH 30.4 (27.0-31.0) pg MCHC 33.4 (32.0-36.0) g/dL RDW 19.5 H (12.0-15.0) % Plt Count 226 (130-450) 10^3/uL MPV 7.0 L (7.9-10.8) fL Reticulocyte % (Auto) (0.5-2.3) % Absolute Retic (0.020-0.110) 10^6/uL Sodium 125 L (135-145) mmol/L Potassium 3.7 (3.5-5.0) mmol/L Chloride 92 L (101-111) mmol/L Carbon Dioxide 24 (21-32) mmol/L Anion Gap 9.0 (6-13) BUN 11 (6-20) mg/dL Creatinine 0.5 (0.4-1.0) mg/dL Estimated GFR (MDRD) 121 (>89) Glucose 107 H (70-100) mg/dL Calcium 7.7 L (8.5-10.3) mg/dL Iron (28-170) ug/dL TIBC (250-450) ug/dL % Saturation (20-50) % Transferrin (192-382) mg/dL Ferritin (11.0-306.8) ng/mL Lactate Dehydrogenase (91-225) IU/L Vitamin B12 (180-914) pg/mL TSH (0.34-5.60) uIU/mL Blood Type Antibody Screen ABX Reporting Has patient been on IV antibiotics over the past 48 hours?: Yes Assessment/Plan - Problem List (1) Hip pain Impression: Conclusion/Plan: 04/01, MRI reveals no apparent hip fracture but with extensive metastatic lesions in bone and soft tissues. It seems Probable post traumatic hemmorhage and edema around the hip area consult with orthopedics, follow up pain control continue support X-ray films do not show a fracture however the patient has significant pain which is worsening. Orthopedic surgery has been consulted, and we will obtain an MRI of the left hip as suggested by Dr. Layne. (2) Endometrial cancer Conclusion/Plan: 04/01 pt will have chemotherapy after three weeks, follow up out-pt oncologist continue support and pain control Stage IV, with widespread metastasis. The patient certainly may have a pathologic fracture. Await results of MRI of hip, otherwise patient will follow -up with her oncologist next week. She had her last dose of chemotherapy 1 week ago. (3) Hypertension Conclusion/Plan: 04/01. it seems good controlled, continue metoprolol and furosemide vital monitor We will continue the patient on her home dosing of metoprolol and furosemide. (4) Hyponatremia Conclusion/Plan: 04/01, chronic, continue increase salt tablet, continue lab monitor Chronic, I have increased the patient's dose of the salt tablet from once a day to 3 times a day. We will continue to monitor. (5) History of macrocytic anemia Conclusion/Plan: 04/01, HGB 7.8, pt does not present acute anemia symptoms iron study indicate low iron, study daily iron pill and home vitamin B12 home dosing We will continue the patient on her vitamin B12 home dosing. (6) GERD (gastroesophageal reflux disease) Conclusion/Plan: We will continue the patient on her home dosing of pantoprazole. (7) History of DVT (deep vein thrombosis) Conclusion/Plan: continue Lovenox home dosage continue support We will continue the patient on her home dosing of Lovenox. She is at high risk for DVT and pulmonary emboli given her prior history and the fact that she has cancer. (8) Hypothyroidism Conclusion/Plan: 04/01 significant elevated TSH increase Levothyroxine to 125 mcg from 100mcg We will continue the patient on her home dosing of levothyroxine and obtain a TSH level. (9) UTI 04/01 pt resent elevated temperature and elevated WBC. UA reveals possible UTI UA culture pending continue Levoquin and meropenem follow blood culture Qualifiers: Laterality: left Qualified Code(s): M25.552 - Pain in left hip
[2018-04-01] MEDS: FERROUS SULFATE 325 MG TABLET PO SCH (13:43)
[2018-04-01] MEDS: LORazepam 0.5 MG TABLET PO PRN ×2 (16:27→17:03)
[2018-04-02] MEDS: SODIUM CHLORIDE FLUSH 0.9% 10 ML SYRINGE IVP SCH ×4 (01:10→21:39)
[2018-04-02] MEDS: SODIUM CHLORIDE 0.9% 1,000 ML IV SCH ×2 (02:01→15:48)
[2018-04-02] MEDS: ACETAMINOPHEN 500 MG TABLET PO SCH ×4 (03:16→21:26)
[2018-04-02] MEDS: MEROPENEM 1 GM in SODIUM CHLORIDE 0.9% MINIBAG 100 ML IV SCH ×3 (05:36→21:27)
[2018-04-02 05:40] LABS: HGB - HEMOGLOBIN 7.6 g/dL (12.0-16.0); MEAN CORPUSCULAR HEMOGLOBIN 29.7 pg (27.0-31.0); MEAN CORPUSCULAR HGB CONC 32.5 g/dL (32.0-36.0); MEAN CORPUSCULAR VOLUME 91.5 fL (81.0-99.0); MEAN PLATELET VOLUME 7.2 fL (7.9-10.8); RED BLOOD COUNT 2.55 10^6/uL (4.20-5.40); RED CELL DISTRIBUTION WIDTH 19.8 % (12.0-15.0); WHITE BLOOD COUNT 8.6 x10^3/uL (4.8-10.8)
[2018-04-02 05:48] LABS: CALCIUM 7.9 mg/dL (8.5-10.3); CREATININE 0.5 mg/dL (0.4-1.0); PHOSPHORUS 2.9 mg/dL (2.5-4.6)
[2018-04-02] MEDS: LEVOTHYROXINE 125 MCG TABLET PO SCH (06:08)
[2018-04-02] MEDS: PANTOPRAZOLE 40 MG TABLET PO SCH (06:08)
[2018-04-02] MEDS: SODIUM CHLORIDE 1 GM TABLET PO SCH ×3 (06:09→21:27)
[2018-04-02] MEDS: FERROUS SULFATE 325 MG TABLET PO SCH (09:03)
[2018-04-02] MEDS: GABAPENTIN 100 MG CAPSULE PO SCH ×2 (09:03→21:27)
[2018-04-02] MEDS: METOPROLOL TARTRATE 25 MG TABLET PO SCH ×2 (09:03→21:26)
[2018-04-02] MEDS: SENNA 8.6 MG TABLET PO SCH ×2 (09:03→21:26)
[2018-04-02] MEDS: CYANOCOBALAMIN 500 MCG TABLET PO SCH (09:04)
[2018-04-02] MEDS: SIMETHICONE CHEW 80 MG TABLET PO SCH ×2 (09:04→21:27)
[2018-04-02] MEDS: levoFLOXacin 500 MG/100 ML 500 MG/100 ML BAG IV SCH (09:04)
[2018-04-02] MEDS: POLYETHYLENE GLYCOL 3350 17 GM PACKET PO SCH (09:05)
[2018-04-02] MEDS: ENOXAPARIN 80 MG/0.8 ML SYRINGE SUBQ SCH ×2 (09:05→21:39)
--- NOTE | 2018-04-02 12:55 | PROVIDER PROGRESS NOTE ---
Subjective - Prog Note Date Prog Note Date: 04/02/18 - Subjective Pt reports feeling: Improved Subjective: pt got improvement today. Per PT, pt had ambulation, and is comfortable sitting in the chair. Palliative care provider saw pt, pt's request full treatment for pt. I also discussed with the for advance care. The request full code with CPR but without resuscitation. Current Medications - Current Medications Current Medications: Active Medications Acetaminophen (Tylenol) 500 mg PO Q6H [facility] Last Admin: 04/02/18 09:04 Dose: 500 mg Hydrocodone Bitart/Acetaminophen (Dodge 5/325) 1 tab PO Q6H PRN PRN Reason: PAIN Last Admin: 04/01/18 21:26 Dose: 1 tab Albuterol () 2.5 mg INH Q4H PRN PRN Reason: Wheezing Last Admin: 04/01/18 16:45 Dose: 2.5 mg Cyanocobalamin (Vitamin B-12) 1,000 mcg PO DAILY [facility] Last Admin: 04/02/18 09:04 Dose: 1,000 mcg Enoxaparin Sodium (Lovenox) 80 mg SUBQ Q12H [facility] Last Admin: 04/02/18 09:05 Dose: 80 mg Fentanyl (Duragesic) 1 patch TOP Q72H [facility] Ferrous Sulfate (Feosol) 325 mg PO DAILYWM [facility] Last Admin: 04/02/18 09:03 Dose: 325 mg Furosemide (Lasix) 20 mg PO DAILY PRN PRN Reason: Swelling Gabapentin (Neurontin) 100 mg PO DAILY [facility] Last Admin: 04/02/18 09:03 Dose: 100 mg Gabapentin (Neurontin) 200 mg PO QPM [facility] Last Admin: 04/01/18 20:36 Dose: 200 mg Haloperidol (Haldol Inj) 1 mg IVP Q1H PRN PRN Reason: Agitation Meropenem 1 gm/ Sodium (Chloride) 100 mls @ 200 mls/hr IV Q8H [facility] Last Infusion: 04/02/18 06:19 Dose: Infused Sodium Chloride (Normal Saline 0.9%) 1,000 mls @ 75 mls/hr IV .[id number] [facility] Last Admin: 04/02/18 02:01 Dose: 75 mls/hr Levothyroxine Sodium (Synthroid) 125 mcg PO QDAC [facility] Last Admin: 04/02/18 06:08 Dose: 125 mcg Lorazepam (Ativan) 0.5 - 1 mg PO Q6H PRN PRN Reason: Nausea / Vomiting Last Admin: 04/01/18 17:03 Dose: 0.5 mg Metoprolol Tartrate (Lopressor) 25 mg PO BID [facility] Last Admin: 04/02/18 09:03 Dose: 25 mg Pantoprazole Sodium (Protonix) 40 mg PO QDAC [facility] Last Admin: 04/02/18 06:08 Dose: 40 mg Polyethylene Glycol (Miralax) 17 gm PO DAILY [facility] Last Admin: 04/02/18 09:05 Dose: Not Given Senna (Senokot) 17.2 mg PO BID [facility] Last Admin: 04/02/18 09:03 Dose: 17.2 mg Simethicone (Mylicon) 120 mg PO BID [facility] Last Admin: 04/02/18 09:04 Dose: 120 mg Sodium Chloride (Normal Saline Flush 0.9%) 10 ml IVP PRN PRN PRN Reason: NEEDED PER PROVIDER ORDERS Last Admin: 04/01/18 05:45 Dose: 10 ml Sodium Chloride (Normal Saline Flush 0.9%) 10 ml IVP 0100,0900,1700 [facility] Last Admin: 04/02/18 09:12 Dose: Not Given Sodium Chloride (Salt Tab) 1 gm PO TID [facility] Last Admin: 04/02/18 06:09 Dose: 1 gm Trazodone HCl (Desyrel) 50 mg PO QPM PRN PRN Reason: SLEEP Last Admin: 04/01/18 00:04 Dose: 50 mg Levothyroxine [Synthroid] 100 mcg PO QDAC 05/30/16 Cyanocobalamin (Vitamin B-12) [Vitamin B-12] 1,000 mcg PO DAILY 11/06/17 Enoxaparin [Lovenox] 80 mg SUBQ Q12H 11/06/17 LORazepam [Lorazepam] 0.5 - 1 mg PO Q6H PRN 12/15/17 traZODone [Desyrel] 50 mg PO QPM PRN 12/15/17 Metoprolol Tartrate 25 mg PO BID 12/19/17 Simethicone [Gas Relief] 120 mg PO BID 12/24/17 Albuterol Sulfate [Proair Hfa Inhaler] 2 puffs PO Q4H PRN 02/03/18 Gabapentin 200 mg PO QPM 02/12/18 Pantoprazole [Protonix] 40 mg PO QDAC 02/13/18 Acetaminophen [Tylenol Extra Strength] 500 mg PO Q6H 02/14/18 fentaNYL [Fentanyl 12mcg patch] 12.5 mcg TD Q72H 02/28/18 HYDROcod/ACETAM 5/325 [Dodge 5/325] 1 tab PO Q6H PRN 03/21/18 Furosemide [Furosemide] 20 mg PO DAILY PRN 03/31/18 Gabapentin 100 mg PO DAILY 03/31/18 Sennosides [Senna] 17.2 mg PO BID 03/31/18 Objective - Vital Signs/Intake & Output Reviewed Vital Signs: Yes Vital Signs: Vital Signs x48h Temp Pulse Resp BP BP Pulse Ox 04/02/18 09:03 112/60 04/02/18 07:41 36.6 C 95 18 112/58 L 99 Intake & Output: Intake & Output 03/30/18 03/31/18 04/01/18 04/02/18 23:59 23:59 23:59 23:59 Intake Total 1830 3870.0 200 Output Total 2500 450 Balance 1830 1370.0 -250 - Objective General Appearance: positive: No acute distress, Alert. negative: Lethargic Eyes Bilateral: positive: Normal inspection, PERRL, No lid inflammation, Conjunctivae nml ENT: positive: ENT inspection nml, Pharynx nml, No signs of dehydration. negative: Purulent nasal drainage, Pharyngeal erythema, Oral lesions Neck: positive: Nml inspection, Thyroid nml, No JVD, Trachea midline, Lymphadenopathy (L). negative: Thyromegaly, Lymphadenopathy (R), Stiff neck, Swelling/bruising, Tracheal deviation Respiratory: positive: Chest non-tender, No respiratory distress, Breath sounds nml. negative: Wheezes, Rales, Rhonchi Cardiovascular: positive: Regular rate & rhythm, No murmur, No gallop. negative : Irregularly irregular, Extrasystoles, Tachycardia, Bradycardia, Systolic murmur, Diastolic murmur Peripheral Pulses: 2+ Radial (R), 2+ Radial (L), 2+ Dorsalis pedis (R), 2+ Dorsalis pedis (L) Abdomen: positive: Non-tender, No organomegaly, Nml bowel sounds, No distention. negative: Tenderness, Guarding, Rebound Back: positive: Nml inspection. negative: CVA tenderness (R), CVA tenderness (L ) Skin: positive: Color nml, No rash, Warm, Dry. negative: Cyanosis, Diaphoresis , Pallor Neurologic/Psychiatric: positive: Sensation nml, Mood/affect nml. negative: Sensory loss, Facial droop, Slurred/abnml speech, Depressed mood/affect - Lab Results Fish Bones: 04/02/18 04:40 04/02/18 04:40 Other Labs: Lab Results x24hrs 04/02/18 04/02/18 04/02/18 Range/Units 04:40 04:40 04:40 WBC (4.8-10.8) x10^3/uL RBC (4.20-5.40) 10^6/uL Hgb (12.0-16.0) g/dL Hct (37.0-47.0) % MCV (81.0-99.0) fL MCH (27.0-31.0) pg MCHC (32.0-36.0) g/dL RDW (12.0-15.0) % Plt Count (130-450) 10^3/uL MPV (7.9-10.8) fL Sodium 130 L (135-145) mmol/L Potassium 4.0 (3.5-5.0) mmol/L Chloride 95 L (101-111) mmol/L Carbon Dioxide 26 (21-32) mmol/L Anion Gap 9.0 (6-13) BUN 14 (6-20) mg/dL Creatinine 0.5 (0.4-1.0) mg/dL Estimated GFR (MDRD) 121 (>89) Glucose 109 H (70-100) mg/dL Calcium 7.9 L (8.5-10.3) mg/dL Phosphorus 2.9 (2.5-4.6) mg/dL Free T3 pg/mL 1.78 L (2.5-3.9) pg/mL Total T3 0.27 L (0.87-1.78) ng/mL 04/02/18 Range/Units 04:40 WBC 8.6 (4.8-10.8) x10^3/uL RBC 2.55 L (4.20-5.40) 10^6/uL Hgb 7.6 L (12.0-16.0) g/dL Hct 23.3 L (37.0-47.0) % MCV 91.5 (81.0-99.0) fL MCH 29.7 (27.0-31.0) pg MCHC 32.5 (32.0-36.0) g/dL RDW 19.8 H (12.0-15.0) % Plt Count 202 (130-450) 10^3/uL MPV 7.2 L (7.9-10.8) fL Sodium (135-145) mmol/L Potassium (3.5-5.0) mmol/L Chloride (101-111) mmol/L Carbon Dioxide (21-32) mmol/L Anion Gap (6-13) BUN (6-20) mg/dL Creatinine (0.4-1.0) mg/dL Estimated GFR (MDRD) (>89) Glucose (70-100) mg/dL Calcium (8.5-10.3) mg/dL Phosphorus (2.5-4.6) mg/dL Free T3 pg/mL (2.5-3.9) pg/mL Total T3 (0.87-1.78) ng/mL ABX Reporting Has patient been on IV antibiotics over the past 48 hours?: Yes Assessment/Plan - Problem List (1) Hip pain Impression: Impression: 04/02, the pain seem more controlled. pt ambulated with PT. follow up orthopedics, continue PT/OT, discuss with POA and family for next step continue pain pain 04/01, MRI reveals no apparent hip fracture but with extensive metastatic lesions in bone and soft tissues. It seems Probable post traumatic hemmorhage and edema around the hip area consult with orthopedics, follow up pain control continue support X-ray films do not show a fracture however the patient has significant pain which is worsening. Orthopedic surgery has been consulted, and we will obtain an MRI of the left hip as suggested by Dr. Layne. (2) Endometrial cancer Conclusion/Plan: 04/02 continue support, pain control 04/01 pt will have chemotherapy after three weeks, follow up out-pt oncologist continue support and pain control Stage IV, with widespread metastasis. The patient certainly may have a pathologic fracture. Await results of MRI of hip, otherwise patient will follow -up with her oncologist next week. She had her last dose of chemotherapy 1 week ago. (3) Hypertension Conclusion/Plan: 04/01. it seems good controlled, continue metoprolol and furosemide vital monitor We will continue the patient on her home dosing of metoprolol and furosemide. (4) Hyponatremia Conclusion/Plan: improved form 125 to 130, continue po salt and gently hydration continue daily lab monitor 04/01, chronic, continue increase salt tablet, continue lab monitor Chronic, I have increased the patient's dose of the salt tablet from once a day to 3 times a day. We will continue to monitor. (5) History of macrocytic anemia Conclusion/Plan: 04/02 pt is asymptomatic and ambulated with PT Iron study indicate iron deficiency, start iron pill 04/01, HGB 7.8, pt does not present acute anemia symptoms iron study indicate low iron, study daily iron pill and home vitamin B12 home dosing We will continue the patient on her vitamin B12 home dosing. (6) GERD (gastroesophageal reflux disease) Conclusion/Plan: We will continue the patient on her home dosing of pantoprazole. (7) History of DVT (deep vein thrombosis) Conclusion/Plan: 04/02 continue home Lovenox bid for hx and high risk of DVT continue Lovenox home dosage continue support We will continue the patient on her home dosing of Lovenox. She is at high risk for DVT and pulmonary emboli given her prior history and the fact that she has cancer. (8) Hypothyroidism Conclusion/Plan: 04/02 continue Levothyroxine 125 mch, 04/01 significant elevated TSH increase Levothyroxine to 125 mcg from 100mcg We will continue the patient on her home dosing of levothyroxine and obtain a TSH level. (9) UTI 04/02 continue meropenem. WBC is down to normal 04/01 pt resent elevated temperature and elevated WBC. UA reveals possible UTI UA culture pending continue meropenem follow blood culture Qualifiers: Laterality: left Qualified Code(s): M25.552 - Pain in left hip
--- NOTE | 2018-04-02 13:24 | ADVANCE CARE PLANNING NOTE ---
Advance Care Planning - Date/Time Date: 04/02/18 Time: 11:00 - Purpose of encounter Text: advance care for pt - Parties in attendance Parties in attendance: pt, pt's and me - Decisional capacity Decisional capacity of: pt still is confused, can not make decision. her is POA to make decision. - Subjective/Patient's story Subjective/Patient's story: pt's POA request pt has full code with CPR but with resuscitation. pt is on Palliative care but POA request full treatment for pt, not hospice yet. - Objective/Medical story Objective/Medical Story: pt had stage 4 of Endometrial cancer and metastatic. Pt had fall, UTI, profound weakness. - Goals of Care Goals of care determinations: advance care - Plan Plan: switch pt's full code to limited full code with CPR but without resuscitation, continue palliative care now, POA will have meeting with his family to determine the next step. - Code Status Code Status: Attempt Resuscitation - Time Spent on Advance Care Planning Time spent on advance care plannin min
[2018-04-02] MEDS: LORazepam 0.5 MG TABLET PO PRN ×2 (15:48→18:10)
[2018-04-03] MEDS: LORazepam 0.5 MG TABLET PO PRN ×2 (00:41→08:55)
[2018-04-03 02:18] LABS: BILIRUBIN,URINE NEGATIVE (NEGATIVE); GLUCOSE, URINE (UA) NEGATIVE (NEGATIVE); KETONES,URINE (UA) NEGATIVE (NEGATIVE); LEUKOCYTE ESTERASE, URINE NEGATIVE (NEGATIVE); NITRITE,URINE NEGATIVE (NEGATIVE); OCCULT BLOOD,URINE NEGATIVE (NEGATIVE); PH,URINE 6.5 PH (5.0-7.5); PROTEIN,URINE TRACE mg/dL (NEGATIVE); UROBILINOGEN,URINE 1 (NORMAL) E.U./dL (NORMAL)
[2018-04-03 02:30] LABS: CLARITY,URINE CLEAR (CLEAR)
[2018-04-03 02:31] LABS: BACTERIA,URINE Few /HPF (None Seen); RBC,URINE 0-5 /HPF (0-5); SQUAMOUS EPITHELIAL CELL,UR FEW Squamous (<= Few)
[2018-04-03] MEDS: ACETAMINOPHEN 500 MG TABLET PO SCH ×2 (03:46→08:54)
[2018-04-03] MEDS: MEROPENEM 1 GM in SODIUM CHLORIDE 0.9% MINIBAG 100 ML IV SCH ×2 (04:46→13:23)
[2018-04-03 05:50] LABS: HGB - HEMOGLOBIN 7.5 g/dL (12.0-16.0); MEAN CORPUSCULAR HEMOGLOBIN 30.7 pg (27.0-31.0); MEAN CORPUSCULAR HGB CONC 33.2 g/dL (32.0-36.0); MEAN CORPUSCULAR VOLUME 92.4 fL (81.0-99.0); MEAN PLATELET VOLUME 7.6 fL (7.9-10.8); RED BLOOD COUNT 2.46 10^6/uL (4.20-5.40); RED CELL DISTRIBUTION WIDTH 20.4 % (12.0-15.0); WHITE BLOOD COUNT 9.8 x10^3/uL (4.8-10.8)
[2018-04-03 05:52] LABS: CALCIUM 7.9 mg/dL (8.5-10.3); CREATININE 0.6 mg/dL (0.4-1.0)
[2018-04-03] MEDS: LEVOTHYROXINE 125 MCG TABLET PO SCH (06:11)
[2018-04-03] MEDS: PANTOPRAZOLE 40 MG TABLET PO SCH (06:11)
[2018-04-03] MEDS: SODIUM CHLORIDE 1 GM TABLET PO SCH ×2 (06:12→14:44)
[2018-04-03] MEDS: SODIUM CHLORIDE 0.9% 1,000 ML IV SCH ×2 (06:53→14:44)
[2018-04-03] MEDS: CYANOCOBALAMIN 500 MCG TABLET PO SCH (08:54)
[2018-04-03] MEDS: METOPROLOL TARTRATE 25 MG TABLET PO SCH (08:54)
[2018-04-03] MEDS: GABAPENTIN 100 MG CAPSULE PO SCH (08:54)
[2018-04-03] MEDS: SIMETHICONE CHEW 80 MG TABLET PO SCH (08:54)
[2018-04-03] MEDS: FERROUS SULFATE 325 MG TABLET PO SCH (08:55)
[2018-04-03] MEDS: SODIUM CHLORIDE FLUSH 0.9% 10 ML SYRINGE IVP SCH (08:55)
[2018-04-03] MEDS: POLYETHYLENE GLYCOL 3350 17 GM PACKET PO SCH (08:55)
[2018-04-03] MEDS: ENOXAPARIN 80 MG/0.8 ML SYRINGE SUBQ SCH (08:55)
[2018-04-03] MEDS: SENNA 8.6 MG TABLET PO SCH (08:55)
--- NOTE | 2018-04-03 11:15 | Discharge Plan ---
"Discharge Plan for SNF / JULIAN - DC Plan and Transition Orders Disposition: 03 SNF DC/Xfer Condition: Fair SNF Transition Orders: Admit to: Care Age under the care of Dr. Jaret Boyd Discharge Diagnosis: Fall, hematoma to left hip, malignant neoplasm of endometrium, essential HTN, hyponatremia, hypothyroidism, CVA with baseline cognitive delay, DVT/PE history, GERD, chronic pain, insomnia. Medicare Certification: I certify that [facility] fpc care is medically necessary on a continuing basis for any of the conditions for which she/he is receiving care during hospitalization. Notify PCP of admission and forward orders to primary provider for signature. Weight on admission and monthly. Call PCP immediately if weight increases by 10 pounds or if patient develops dyspnea, chest pain/tightness or edema. House Bowel Program: yes If no BM after 2 days, nurse may give M.O.M. 30ml PO PRN and /or ducolax Supp 1 AL and /or MILAGROS 250mg P.O., and/or senna 1-2 tabs PO. On day 3 nurse may give repeat above order until residents constipation is resolved. Immunizations: Annual Influenza Vaccine: yes; (between Jun 14 and January 11. ) Unless allergy or already given Two-Step PPD: yes; per [facility] [id number] or appropriate documentation of approved exceptions Treatments & Other Orders: Continue physical therapy at SNF for strength training and endurance. Fall precautions for impulsive behaviors. TSH extremely elevated-continue synthroid. Please see Oncology on April 23, 2018 at 2:30pm for labs, and appointment at 3: 40pm. Check BMP in the next 3-4 days for hyponatremia. Central line is de-accessed as it is not needed in SNF. Oxygen Orders: Not needed while inpatient. Oxygen at 1-2L per nasal cannula to keep oxygen greater than 90%. PRN. Lab Tests or X-Rays Orders: not indicated. Medications: PLEASE REFER TO THE DISCHARGE MEDICATION LIST. Allergies and Adverse Reactions: Allergies Allergy/AdvReac Type Severity Reaction Status Date / Time prochlorperazine Allergy Mild restlessnes Verified 03/31/18 12:13 [From Compazine] s mirtazapine Allergy Unknown Fever Verified 03/31/18 12:13 ondansetron Allergy Restlessnes Verified 03/31/18 12:13 [From Zofran (as s hydrochloride)] rivaroxaban [From Xarelto] Allergy Unknown Verified 03/31/18 12:13 - Medications New Prescriptions: fentaNYL 12 MCG PATCH [Duragesic 12mcg patch] 1 patch TOP Q72H #20 patch HYDROcod/ACETAM 5/325 [[place] 5/325] 1 tab PO Q6H PRN #20 tablet PRN Reason: Pain Levothyroxine [Synthroid] 125 mcg PO QDAC #30 tablet LORazepam [Ativan] 0.5 - 1 mg PO Q6H PRN #20 tablet PRN Reason: Nausea / Vomiting - Diet Type: Geriatric Texture: Regular Liquids: Thin May have monthly special meal: Yes - Therapies | Activity Therapy: Evaluation | Treat if indicated: Speech, PT, OT Rehabilitation Potential: Maximize functional status, Maintain present ADL Functional Activity: Activity as Tolerated Weight Bearing: Full Weight Assistance Devices: Walker Additional Instructions: Please see Oncology on April 23, 2018 at 2:30pm for labs, and appointment at 3: 40pm."
--- NOTE | 2018-04-03 11:19 | DISCHARGE SUMMARY ---
Discharge Summary Admit Date: 03/31/18 Discharge Date: 04/03/18 Discharging Provider: CONNIE Ashley Primary Care Provider: Neville Chacon/Adis Boyd Code Status: Do Not Attempt Resuscitation Condition at Discharge: Fair Discharge Disposition: SNF DC/Xfer Discharge Facility Name: [facility] - DIAGNOSES Admission Diagnoses: Pain in left hip (M25.552) Malignant neoplasm of endometrium (C54.1) Essential (primary) hypertension (I10) Hypo-osmolality and hyponatremia (E87.1) Personal history of diseases of the blood and blood-forming organs and certain disorders involving the immune mechanism (Z86.2) Gastro-esophageal reflux disease without esophagitis (K21.9) Personal history of other venous thrombosis and embolism (Z86.718) Hypothyroidism, unspecified (E03.9) Discharge Diagnoses with Status of Each Condition: Pain in left hip (M25.552) improved since admission, stable. Traumatic hematoma of left hip (S70.02XA) new on this admission, stable. Malignant neoplasm of endometrium (C54.1) -treatment via oncology clinic, stable. Essential (primary) hypertension (I10) -chronic, stable. Hypo-osmolality and hyponatremia (E87.1) -stable, likely a response to severely elevated TSH. Personal history of diseases of the blood and blood-forming organs and certain disorders involving the immune mechanism (Z86.2) -stable, treatment to continue. Hx of macrocytic anemia, chronic, stable. Gastro-esophageal reflux disease without esophagitis (K21.9) -chronic, stable. Personal history of other venous thrombosis and embolism (Z86.718) -chronic, stable, Lovenox SQ to continue BID daily dosing. Hypothyroidism, unspecified (E03.9) chronic, elevated TSH, followed up w/Free T3 /T4, increased dose of daily synthroid. - HPI History of Present Illness: Natasha Hernandez is an ill appearing, very pleasant 72-year-old white female with a past medical history of who unfortunately fell 2 days ago, landing on her left hip. She was able to ambulate for the rest of that day and yesterday as well but has had increasing pain in the hip since that time and so decided to come to the emergency department for further evaluation and treatment. On presentation to the emergency department she was found to have an elevated white blood cell count 14.1 thousand, lactic acid level of 1.4, bacteria in her urine, and a sodium of 124. CT scan of her head was negative for any acute pathology and a chest x-ray was also negative for any acute pathology. The patient does have a port as she is receiving chemotherapy for metastatic uterine cancer and the port does not appear to be infected. She will be admitted for further evaluation of her left hip pain, specifically an MRI tomorrow, and further treatment of her current condition. - HOSPITAL COURSE Hospital Course: The following diagnoses were prevalent during this hospital stay: (1) Hip pain An x-ray showed no obvious fractures, so on 04/01, a left hip MRI reveals no apparent hip fracture but with extensive metastatic lesions in bone and soft tissues. It seems probable post traumatic hemorrhage and edema around the hip area. Orthopedic surgery was consulted, Dr. Layne who recommended no treatment, but a bedside aspiration was obtained. (2) Endometrial/ovarian cancer Stage IV, with widespread metastasis. This fall was at first worrisome for a pathologic fracture. Her carcinoma causes her pain and she takes a Fentanyl patch, oxycodone and gabapentin for bilateral hip pain. She is also noted to have subqutaneous lesions located in her left neck, axilla and upper chest that are painful hand have developed in early March of 2018. Upon exam, these nodules are extremely sensitive, and she has a "boil" like lesion that consumes much of her left neck. She remains with an implanted Curtis port that was de- accessed prior to transfer to SNF. She had her last dose of chemotherapy of Doxil on 03/26/[address] Edwards. I spoke to CONNIE Feliz who confirmed the next Oncology appointment is on April 23, 2018 at 2:30pm for labs, and appointment at 3:40pm. (3) Hypertension The patient was continued on metoprolol and furosemide as at home. Her blood pressure ranged from 173/72 to 104/55. (4) Hyponatremia The patient had an admission sodium of just 125 that improved to 130 with the initiation of Sodium tablets, in addition to gentle hydration. The extremely elevated TSH could be a cause. The patient only had mild AMS as per , from baseline. (5) History of macrocytic anemia Iron studies reveals an iron deficiency with an iron level of 21, TIBC of 120, % sat of 17, transferrin of 86 and a ferritin of 3936. Upon admission the patient was found to have a decreased HGB of 8.8 that continued to trend downward to 7.5 and a decreased Hct of 26.5 that declined to 22.7 at the time of discharge. She continued to have very poor PO intake, similar to reports from home where she would barely consume 1000 calories per day. The patient's initial left hip injury was stable, and she displayed no signs of bleeding such as black stools, etc. She had ongoing fatigue as per physical therapy reports. She was started on ferrous sulfate BID. (6) GERD (gastroesophageal reflux disease) The patient has a known history of this and is prescribed a PPI at home, which was continued while inpatient. (7) History of DVT (deep vein thrombosis) continue Lovenox home dosage. We will continue the patient on her home dosing of Lovenox at 80mg BID SQ. She has a remote history of DVTs and pulmonary emboli and as per her was even found to have blood clots inside of her heart. Per oncology, she had a recent GI bleed, but no evidence of this while inpatient. (8) Hypothyroidism A TSH was obtained on 04/01/18 and was very elevated at 21.55, 10 months ago it was only 0.58. Follow up labs were checked, free T3- 1.78, and total T3-0.27. Levothyroxine was increased from 100 mcg to 125 mcg. Disposition: The patient was medically stable and transferred to the alf facility where she will undergo further physical therapy. to assist with transport. - ALLERGIES Allergies/Adverse Reactions: Allergies Allergy/AdvReac Type Severity Reaction Status Date / Time prochlorperazine Allergy Mild restlessnes Verified 03/31/18 12:13 [From Compazine] s mirtazapine Allergy Unknown Fever Verified 03/31/18 12:13 ondansetron Allergy Restlessnes Verified 03/31/18 12:13 [From Zofran (as s hydrochloride)] rivaroxaban [From Xarelto] Allergy Unknown Verified 03/31/18 12:13 - MEDICATIONS Home Medications: Ambulatory Orders Medication Instructions Recorded Confirmed Acetaminophen [Tylenol Extra 500 mg PO Q6H #30 04/03/18 03/31/18 Strength] Albuterol Sulfate [Proair Hfa 2 puffs PO Q4H PRN #60 04/03/18 03/31/18 Inhaler] Cyanocobalamin (Vitamin B-12) 1,000 mcg PO DAILY #30 04/03/18 03/31/18 [Vitamin B-12] Enoxaparin [Lovenox] 80 mg SUBQ Q12H #60 syringe 04/03/18 Furosemide 20 mg PO DAILY PRN #30 04/03/18 03/31/18 Gabapentin 100 mg PO DAILY #30 04/03/18 03/31/18 Gabapentin 200 mg PO QPM #60 04/03/18 03/31/18 HYDROcod/ACETAM 5/325 [[place] 5/325] 1 tab PO Q6H PRN #20 04/03/18 03/31/18 HYDROcod/ACETAM 5/325 [[place] 5/325] 1 tab PO Q6H PRN #20 tablet 04/03/18 LORazepam [Ativan] 0.5 - 1 mg PO Q6H PRN #20 tablet 04/03/18 LORazepam [Lorazepam] 0.5 - 1 mg PO Q6H PRN #30 04/03/18 03/31/18 Levothyroxine [Synthroid] 125 mcg PO QDAC #30 tablet 04/03/18 Metoprolol Tartrate 25 mg PO BID #60 04/03/18 03/31/18 Pantoprazole [Protonix] 40 mg PO QDAC #30 04/03/18 03/31/18 Sennosides [Senna] 17.2 mg PO BID #120 04/03/18 03/31/18 Simethicone [Gas Relief] 120 mg PO BID #60 04/03/18 03/31/18 Sodium Chloride [Salt Tab] 1 gm PO DAILY #30 04/03/18 03/31/18 fentaNYL 12 MCG PATCH [Duragesic 1 patch TOP Q72H #20 patch 04/03/18 12mcg patch] fentaNYL [Fentanyl 12mcg patch] 12.5 mcg TD Q72H #20 04/03/18 03/31/18 traZODone [Desyrel] 50 mg PO QPM PRN #30 04/03/18 03/31/18 - PHYSICAL EXAM AT DISCHARGE General Appearance: positive: No acute distress, Mild distress Eyes Bilateral: positive: Normal inspection, PERRL ENT: positive: ENT inspection nml, Pharynx nml, No signs of dehydration Neck: positive: No JVD, Lymphadenopathy (R), Lymphadenopathy (L) (left neck nodule that has erythema, at least the size of a quarter.), Stiff neck Respiratory: positive: Chest non-tender, No respiratory distress, Other ( diminished.) Cardiovascular: positive: Irregularly irregular, Systolic murmur Peripheral Pulses: positive: 1+ Abdomen: positive: Nml bowel sounds, Tenderness, Guarding, Other (rounded, soft) Skin: positive: No rash, Warm, Dry, Pallor Extremities: positive: Pedal edema (chronic, BLE pitting +1), Joint swelling ( left hip with hematoma) Neurologic/Psychiatric: positive: Disoriented to place, Disoriented to time, Weakness, Sensory loss, Slurred/abnml speech, Depressed mood/affect, Other ( baseline cognitive delay) Reflexes: Bicep (R): 2+, Bicep (L): 2+ - LABS Result Diagrams: 04/03/18 04:55 04/03/18 04:55 - DIAGNOSTIC IMAGING Diagnostic Imaging Results: Final report reviewed Diagnostic Imaging Results Comments: EXAM: CT/HEAD IMPRESSION: 1. No acute intracranial abnormality. 2. Increased volume loss and mild white matter disease since 2017. 03/31/18: IMPRESSION: Left hip aspiration under fluoroscopic guidance. No fluid was obtained. - FOLLOW UP Follow Up: Disposition: 03 SNF DC/Xfer Condition: Fair SNF Transition Orders: Admit to: Care Age under the care of Dr. Jaret Boyd Discharge Diagnosis: Fall, hematoma to left hip, malignant neoplasm of endometrium, essential HTN, hyponatremia, hypothyroidism, CVA with baseline cognitive delay, DVT/PE history, GERD, chronic pain, insomnia. - TIME SPENT Time Spent in Discharge (Minutes): 60
[2018-04-03] MEDS: SODIUM CHLORIDE FLUSH 0.9% 10 ML SYRINGE IVP PRN (11:29)
[2018-04-03 14:52] VITALS: BP 119/57
[2018-04-04] MEDS ORDERED: fentaNYL 12 MCG PATCH TOP SCH (10:00)
== END 2018-04-03 15:20 | DRG 605 ==
LOC: ED 12:02 → MS2 20:04
PROVIDERS: ADMIT Hospitalist; ATTEND Nurse Practitioner
DX: S70.02XA Contusion of left hip, initial encounter (principal); R50.9 Fever, unspecified; C79.51 Secondary malignant neoplasm of bone; E87.1 Hypo-osmolality and hyponatremia; N39.0 Urinary tract infection, site not specified; D64.9 Anemia, unspecified; I10 Essential (primary) hypertension; C54.1 Malignant neoplasm of endometrium; E03.9 Hypothyroidism, unspecified; G89.29 Other chronic pain; G47.00 Insomnia, unspecified; D53.9 Nutritional anemia, unspecified; F32.9 Major depressive disorder, single episode, unspecified; F41.9 Anxiety disorder, unspecified; K21.9 Gastro-esophageal reflux disease without esophagitis; Z79.51 Long term (current) use of inhaled steroids; W19.XXXA Unspecified fall, initial encounter; Z51.5 Encounter for palliative care; Z79.891 Long term (current) use of opiate analgesic; Z79.899 Other long term (current) drug therapy; Z86.718 Personal history of other venous thrombosis and embolism; Z87.01 Personal history of pneumonia (recurrent); Z90.721 Acquired absence of ovaries, unilateral; Y92.009 Unspecified place in unspecified non-institutional (private) residence as the place of occurrence of the external cause
CPT/HCPCS: 20610; 36415; 70450; 71046; 80048; 80053; 81001; 81003; 82607; 82728; 83540; 83605; 83615; 83690; 84100; 84443; 84466; 84480; 84481; 85025; 85027; 85044; 86850; 86900; 86901; 87040; 87070; 87086; 87205; 89051; 94640; 96365; 96375; 99284; 99285

== ENCOUNTER 2018-04-04 17:50 | Outpatient (CLI) | payer MEDICARE, OTHER | END 2018-04-04 17:51 | disposition home or self-care (01) | LOC: PC 17:50 | PROVIDERS: ATTEND Nurse Practitioner | DX: Z53.9 Procedure and treatment not carried out, unspecified reason (principal) ==

== ENCOUNTER 2018-04-09 18:29 | Outpatient (CLI) | payer MEDICARE, OTHER ==
--- NOTE | 2018-04-09 18:47 | CONSULTATION NOTE ---
Palliative Care Follow Up - Referral Referring Provider: Dr Neville Chacon Time of Visit: 04/09/2018. 9:10 - 10:10 Referral setting: Home (Seen in home setting due to taxing and considerable effort required to leave the home due to debility and being bedbound secondary to stage IV endometrial cancer.) Referral Reason: Advanced care planning - Information Sources Records reviewed: Previous records reviewed History/Review of Systems obtained from: Patient, Family Exam limitations: Clinical condition (Severe short-term memory deficits, confusion) - History of Present Illness Update Brief HPI Update: -72-year-old female with metastatic endometrial/ovarian cancer, she is undergoing Doxil chemotherapy for pain and symptom management. Last cycle was . Next cycle scheduled for 04/23. May consider possible immmunotherapy such as pembrolizumab. -She just returned yesterday from [facility] (04/03 to 04/07), subsequent to being hospitalized 03/31 for left hip pain S/P fall and possible UTI based on elevated WBC and fever. -While hospitalized, and particularly while in [facility], patient reportedly had said she was ready to quit all this and expressed significant end of life voicing. Daughter is also reported her mother at one point said she was ready for it to be over, and while at [facility], that she "wanted it to be over." -Today, the patient is doing well in her own home, symptoms are currently well controlled, no nausea, restlessness, or pain. -Patient confirms several times that she wants to continue medically and to continue chemotherapy. - notes that she was "sick of [facility]" and he feels that's why she said she was ready for it "all to be over." She just wanted out of there. Now that she's back home, she feels more positive. -Magdy notes she wsa using a lot of lorazepam while at [facility]; she hasn't used any since being back home. -Their current plan is to continue with the scheduled chemotherapy on April 23, and "we'll see what happens between now and then." -It's a day-by-day approach. Magdy is especially aware that it is unpredictable. He does say he has a hard time wondering what "comfortable" actually means. -He has been able to increase their caregiver coverage to 12 hours/day, 7 days/ week. -Home Health nursing, HH aid, and PT will restart tomorrow, 04/10. Medications/Allergies - Medications Home Medications: Ambulatory Orders Medication Instructions Recorded Confirmed Acetaminophen [Tylenol Extra 500 mg PO Q6H #30 04/03/18 03/31/18 Strength] Albuterol Sulfate [Proair Hfa 2 puffs PO Q4H PRN #60 04/03/18 04/09/18 Inhaler] Cyanocobalamin (Vitamin B-12) 1,000 mcg PO DAILY #30 04/03/18 04/09/18 [Vitamin B-12] Enoxaparin [Lovenox] 80 mg SUBQ Q12H #60 syringe 04/03/18 04/09/18 Furosemide 20 mg PO DAILY PRN #30 04/03/18 04/09/18 Gabapentin 200 mg PO QPM #60 04/03/18 04/09/18 HYDROcod/ACETAM 5/325 [[place] 5/325] 1 tab PO Q6H PRN #20 tablet 04/03/18 LORazepam [Lorazepam] 0.5 - 1 mg PO Q6H PRN #30 04/03/18 04/09/18 Levothyroxine [Synthroid] 125 mcg PO QDAC #30 tablet 04/03/18 04/09/18 Metoprolol Tartrate 25 mg PO BID #60 04/03/18 04/09/18 Pantoprazole [Protonix] 40 mg PO QDAC #30 04/03/18 04/09/18 Sennosides [Senna] 17.2 mg PO BID #120 04/03/18 04/09/18 Simethicone [Gas Relief] 120 mg PO BID #60 04/03/18 04/09/18 Sodium Chloride [Salt Tab] 1 gm PO DAILY #30 04/03/18 04/09/18 fentaNYL 12 MCG PATCH [Duragesic 1 patch TOP Q72H #20 patch 04/03/18 04/09/18 12mcg patch] traZODone [Desyrel] 50 mg PO QPM PRN #30 04/03/18 04/09/18 - Allergies Allergies/Adverse Reactions: Allergies Allergy/AdvReac Type Severity Reaction Status Date / Time prochlorperazine Allergy Mild restlessnes Verified 03/31/18 12:13 [From Compazine] s mirtazapine Allergy Unknown Fever Verified 03/31/18 12:13 ondansetron Allergy Restlessnes Verified 03/31/18 12:13 [From Zofran (as s hydrochloride)] rivaroxaban [From Xarelto] Allergy Unknown Verified 03/31/18 12:13 Review of Systems - Constitutional Constitutional: reports: Fatigue, Weakness, Poor appetite, Weight loss (72.57 kg in hospital (159.7 lbs)) - Ears, Nose & Throat Ears, Nose & Throat: reports: Hearing loss - Cardiovascular Cardiovascular: reports: Decr. exercise tolerance - Gastrointestinal Gastrointestinal: reports: Other (ascites; nodule on LUQ). denies: Constipation , Nausea - Genitourinary Genitourinary: denies: Incontinence - Musculoskeletal Musculoskeletal: reports: Transfer issues, Other (Denies pain currently) - Integumentary Integumentary: reports: Other (Painles nodules on L neck, chest. The neck nodule has stopped weeping, no s/s infection.) - Neurological Neurological: reports: General weakness, Focal weakness (lower extremities), Memory problems, Abnormal gait - Psychiatric Psychiatric: denies: Aggitation (not currently) - Endocrine Endocrine: reports: Hypothyroidism - Hematologic/Lymphatic Hematologic/Lymphatic: reports: Other (on blood thinner) Physical Exam - Vital Signs Temperature: 97.1 F Pulse Rate: 77 O2 Saturation: 95 Blood Pressure: 140/76 - Physical Exam General Appearance: positive: No acute distress, Lethargic Eyes Bilateral: positive: No lid inflammation, Conjunctivae nml, No scleral icterus ENT: positive: No signs of dehydration Neck: positive: Other (Nodule L side, non tender) Cardiovascular: positive: Regular rate & rhythm, No murmur, No gallop Respiratory: positive: Chest non-tender, No respiratory distress Palliative Care Pain: No pain Tiredness/Fatigue: Moderate (4-6) Drowsiness/Sedation: Mild (1-3) Anxiety: Mild (1-3) Dyspnea: None Anorexia: Moderate (4-6) Sleep: Variable sleep pattern Feelings of wellbeing/Perceived Quality of Life: Improved Performance Status: Lower extremity weakness, mostly in bed; requires assistance with transfers; uses commode. - Palliative Care Discussion: -They currently plan to go forward with chemotherapy, but Magdy acknowledges a lot can change between now and the cycle scheduled for April 23. Patient confirms adamantly she wants to continue. -Spoke with daughter Angy on phone to update her. She is grateful for the update. -Spoke with Dr Edwards for update. Surgery and radiation are not options; immunotherapy is a possible option, but they need to hear back from insurance. Magdy will follow up on his end. -Last evening their kids and grandkids were over at the house and they had "a wonderful time." -The patient didn't sleep well last night, it could have been from the excitement of the gathering. -They're also looking forward to April 14, their 52nd anniversary, and May 03, the wedding of their grandson. This will be on [facility], in the garden of their daughter, Angy. Impression and Recommendations - Palliative Care Impression: 72-year-old female with metastatic endometrial/ovarian cancer that has metastasized. She was recently hospitalized last week for pain after a fall and possible urosepsis. She spent several days in [facility] and was extremely unhappy and agitated there. Her outlook and comfort have vastly improved since being back at home (DC'd day before yesterday). She denies current symptoms, and both she and her agree, at this time, the plan to continue with chemotherapy, and will wait and see as far as any issues or concerns that come up between now on April 23, the next scheduled Doxil chemotherapy cycle. Recommendations/Counseling Done: Pain, neoplastic origin: Currently controlled on: Fentanyl 12mcg patch Gabapentin 200 mg QPM Tylenol 500mg TID [place] 5/[address] Edwards. Pt not a surgery candidate due to mets. Not a radiation candidate since no bony mass on R thigh. Immunotherapy may be an option, but her clinic hasn't heard back from insurance company. Magdy will follow up on his end. Subcutaneous nodules on L neck, chest and upper abdomen non-painful, shrink after Doxil chemotherapy, so does pain in R thigh Anorexia: Still poor, but was worse at [facility]. Improved appetite at home. Nausea: No symptoms currently Agitation: No symptoms currently. Had some problems sleeping last night (after an evening with family and grandkids), white noise and soft jazz music seems to help most. Ascites: Significant, no discomfort. Cognition: Significant short-term memory deficits; confusion, difficulty tracking conversation. Relies on Magdy for answers. Today she wasn't sedated or groggy (it's fairly microarray specialist). Advanced care planning: Current plan is to continue chemotherapy as long as they feel it's helping her symptoms. Magdy acknowledges it's a high probability that there will be an issue, hospitalization, ED or MAC, prior to the next cycle on April 23, based on past experience. Time Spent: 60 minutes were spent with more than 50% of the time spent on counseling, education, coordination of care and providing anticipatory guidance.
== END 2018-04-09 18:30 | disposition home or self-care (01) ==
LOC: PC 18:29
PROVIDERS: ATTEND Nurse Practitioner
DX: Z51.5 Encounter for palliative care (principal); G89.3 Neoplasm related pain (acute) (chronic); R63.0 Anorexia; R18.8 Other ascites; C54.1 Malignant neoplasm of endometrium; C79.89 Secondary malignant neoplasm of other specified sites; M25.552 Pain in left hip; R22.1 Localized swelling, mass and lump, neck; R22.2 Localized swelling, mass and lump, trunk; R41.3 Other amnesia; R41.0 Disorientation, unspecified; Z74.01 Bed confinement status; Z79.899 Other long term (current) drug therapy; Z79.01 Long term (current) use of anticoagulants; Z79.891 Long term (current) use of opiate analgesic; Z91.81 History of falling
CPT/HCPCS: 99350

== ENCOUNTER 2018-04-14 12:10 | Outpatient (CLI) | payer MEDICARE, OTHER ==
--- NOTE | 2018-04-14 15:26 | CONSULTATION NOTE ---
Palliative Care Follow Up - Referral Referring Provider: Dr Neville Chacon Time of Visit: 04/14/2018. 12:10 - 12:50 Referral setting: Home (Seen in home setting due to taxing and considerable effort required to leave the home due to debility and breathlessness from end stage endometrial cancer. Patient is bed bound.) Referral Reason: Acute decline/active dying - Information Sources Records reviewed: Previous records reviewed History/Review of Systems obtained from: Patient, Family, Caregiver Exam limitations: Clinical condition (obtunded, lethargic, change of consciousness) - History of Present Illness Update Brief HPI Update: -72 year old female with metastatic endometrial/ovarian cancer, had been undergoing Doxil chemotherapy for pain and symptom manageement. Last cycle was , next cycle scheduled for 04/23. -Last palliative care visit was 04/09, when patient had stabilized somewhat after her discharge from SNF following hospitalization 03/31/18 for urosepsis. -At that time, and patient both stated she wanted to go forward with chemotherapy, at least until something else happened. They did not want Hospice at that time. -On 04/10 she started declining again, with increased pain. PCP increased fentanyl patch from 12mcg to two 12mcg patches. -Over the weekend her pain got worse, to the point that the PCP made a home visit (Palliative Care is not available on nights/weekends) on Saturday. She started morphine solution and lorazepam solution. -Patient had also not been urinating for nearly 2 days. Finally she did urinate -Home Health went in this morning and placed a Berg catheter. 400cc of dark george urine was in bag by the time of my visit around noon - and patient are both in agreement to transfer to Hospice as soon as possible. -Patient is being followed by palliative care and by Home Health until she can be admitted to Hospice Social History - Living Situation Living arrangement: At home Living Situation: With spouse/s.o. Support System[place] Strong support system through their quaker. Medications/Allergies - Medications Home Medications: Ambulatory Orders Medication Instructions Recorded Confirmed Acetaminophen [Tylenol Extra 500 mg PO Q6H #30 04/03/18 04/14/18 Strength] Enoxaparin [Lovenox] 80 mg SUBQ Q12H #60 syringe 04/03/18 04/14/18 Hyoscyamine [Levsin] 0.124 mg SL Q4H PRN 04/14/18 04/14/18 LORazepam [Lorazepam Intensol] 1 ea SL .Q2-4HR PRN MDD 0.25 to 1 04/14/18 mg Morphine Sulfate [Morphine Sulf 1 - 5 mg SL .Q2-4HR PRN 04/14/18 04/14/18 Oral (Roxanol)] fentaNYL [Fentanyl 25mcg patch] 25 mcg TD Q72H 04/14/18 04/14/18 - Allergies Allergies/Adverse Reactions: Allergies Allergy/AdvReac Type Severity Reaction Status Date / Time prochlorperazine Allergy Mild restlessnes Verified 03/31/18 12:13 [From Compazine] s mirtazapine Allergy Unknown Fever Verified 03/31/18 12:13 ondansetron Allergy Restlessnes Verified 03/31/18 12:13 [From Zofran (as s hydrochloride)] rivaroxaban [From Xarelto] Allergy Unknown Verified 03/31/18 12:13 Review of Systems - Constitutional Constitutional: reports: Fever (low grade fever in the morning; later in afternoon temp was 101.7), Weakness, Poor appetite - Respiratory Respiratory: reports: Other ( RN measured O2 sats at 82%) - Gastrointestinal Gastrointestinal: reports: Other (not able to swallow pills) - Musculoskeletal Musculoskeletal: reports: Transfer issues (bed bound), Other (pain when touched or repositioned) - Integumentary Integumentary: reports: Other (Nodules) Physical Exam - Vital Signs Temperature: 97.3 F Pulse Rate: 111 Blood Pressure: 126/70 - Physical Exam General Appearance: positive: No acute distress, Lethargic Eyes Bilateral: positive: Other (barely opened eyes) Neck: positive: Trachea midline Cardiovascular: positive: Tachycardia Respiratory: positive: Chest non-tender, Other (shallow breathing) Extremities: positive: Other (cool L hand - this hand is hypersensitive to touch. Warm R hand - this is not reactive to touch) Neurologic/Psychiatric: positive: Disoriented to person, Disoriented to place, Disoriented to time, Slurred/abnml speech, Flat affect Palliative Care - POLST Patient has POLST: Yes POLST Status: DNR, Selective Treatment Pain: Pain worsening, Pattern (painful when moved or repositioned; comfortable and appears pain free when lying still) - Palliative Care Discussion: The patient is in and out of consciousness, she is actively dying. During my visit she is quiet, calm and appears comfortable. She does not like to be touched and reacted during some of the assessment. Spouse had a very, very hard time yesterday as reported by the PCP's HPI from her visit yesterday. Today he appears calm and says he is doing better. Today is their 52nd anniversary, so it is especially poignant for him in particular. Daughter Angy is present, as is a good friend, and Josefina the caregiver. Patient's breathing is quick and shallow, no evidence of excessive secretions. Lethargic, altered consciousness and somnolence, opened eyes only occasionally I answered Magdy's questions, provided review and education on administering morphine, provided an oral syringe that was easier to read and measure dosage. Josefina, the caregiver, is experienced and is giving a lot of support to Magdy and the family. I left a supply of toothettes with them. I gave them the Hospice number for after hours support if needed. Impression and Recommendations - Palliative Care Impression: This is a 72 year old female with metastatic endometrial/ovarian cancer who has been steadily declining. This past weekend she has significantly declined, and is now in end-of-life and in the active dying stage. Hospice will admit her as soon as possible, likely Th (04/17) at latest. Palliative care and HH will continue to provide support until she is transitioned to Hospice. Recommendations/Counseling Done: Fever: Tylenol 500mg or 650mg crushed in food, Q6h PRN. Also can obtain oral solution or suppository OTC. Pain of neoplastic origin: PCP increased fentanyl patch from 12mcg to 2 patches of 12 mcg, applied 04/13/18 at 3:30pm. Spouse has two 12mcg patches left. I wrote prescription for 25mcg patches, #10. SOA: Previously started yesterday by PCP: Morphine solution 20mg/mL. Give 1- 5mg every 2-4 hours as needed for pain, agitation and shortness of air. Excessive secretions: Ordered hyoscyamine 0.125 mg tablet SL q4h prn for excessive secretions. Anxiety: Previously started lorazepam 2mg/mL, 0.25 - 1 mg every 24 hours as needed for anxiety, agitation. Urinary retention: Patient hadn't urinated for 40 hours; spontaneously urinated yesterday. Berg catheter was placed this morning by SILVIO RN. 400 cc of dark george urine. Advanced care planning: Will transition to Hospice as soon schedule permits; aiming for 04/16 or 04/17 latest. Checked with [facility] of , they could not admit until sometime early next week. Gave family the Hospice nurse line so they have support during evening / night hours. PCP discontinued all other medications on 04/13/18 except enoxaparin. Time Spent: 40 minutes were spent with more than 50% of the time spent on counseling, education, and coordination of care.
== END 2018-04-14 12:11 | disposition home or self-care (01) ==
LOC: PC 12:10
PROVIDERS: ATTEND Nurse Practitioner
DX: Z51.5 Encounter for palliative care (principal); R50.9 Fever, unspecified; G89.3 Neoplasm related pain (acute) (chronic); R06.02 Shortness of breath; K11.7 Disturbances of salivary secretion; F41.9 Anxiety disorder, unspecified; R33.9 Retention of urine, unspecified; C54.1 Malignant neoplasm of endometrium; C79.9 Secondary malignant neoplasm of unspecified site; Z74.01 Bed confinement status; Z79.899 Other long term (current) drug therapy; Z79.891 Long term (current) use of opiate analgesic; Z66 Do not resuscitate
CPT/HCPCS: 99349